=== PATIENT | female | born 1945 | race Caucasian/White ===

== ENCOUNTER 2017-01-19 11:00 | Outpatient (RCR) | payer MEDICARE, OTHER ==
--- OUTSIDE RECORDS SUMMARY | 2016-12-27 13:31 | XMS REPORT | Continuity of Care Document ---
Author Author [facility] Organization [facility] Address Unknown Phone Unavailable Allergies Active Description Code Type Severity Reaction Onset Reported/Identified Relationship to Patient Clinical Status Yes No Known Drug Allergies [id number] Drug Allergy Unknown N/ A 04/18/2011 Medications Problems Date Dx Coded Attending Type Code Diagnosis Diagnosed By 07/31/2013 BEAN ROBERTS MD Ot 244.9 HYPOTHYROIDISM NOS 07/31/2013 BEAN ROBERTS MD Ot 272.4 HYPERLIPIDEMIA NEC/NOS 07/31/2013 BEAN ROBERTS MD Ot 401.9 HYPERTENSION NOS 07/31/2013 BEAN ROBERTS MD Ot 411.1 INTERMED CORONARY SYND 07/31/2013 BEAN ROBERTS MD Ot 414.01 CORONARY ATHEROSCLEROSIS OF [place] CORON 07/31/2013 BEAN ROBERTS MD Ot 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[place] 07/31/2013 BEAN ROBERTS MD Ot V10.05 HX OF COLONIC MALIGNANCY 07/31/2013 BEAN ROBERTS MD Ot V58.69 OT MED,LT,CURRENT USE 08/06/2013 MOISES MEDINA TRAINING MANAGER Ot 726.5 ENTHESOPATHY OF HIP 08/06/2013 MOISES MEDINA TRAINING MANAGER Ot V57.1 PHYSICAL THERAPY NEC 12/18/2013 BEAN ROBERTS MD Ot 413.9 ANGINA PECTORIS NEC/NOS 12/18/2013 BEAN ROBERTS MD Ot V45.81 AORTOCORONARY BYPASS 12/18/2013 BEAN ROBERTS MD Ot V57.89 REHABILITATION PROC NEC 01/17/2014 BEAN ROBERTS MD Ot 413.9 ANGINA PECTORIS NEC/NOS 01/17/2014 BEAN ROBERTS MD Ot V45.81 AORTOCORONARY BYPASS 01/17/2014 BEAN ROBERTS MD Ot V57.89 REHABILITATION PROC NEC 03/03/2014 PHOEBE RAMOS MD Ot 569.82 03/03/2014 RICHARD SYED PHOEBE M Ot V10.05 03/03/2014 RICHARD SYED, PHOEBE Quinten Ot V67.09 09/29/2014 SCOTT PA, MARTIN K Ot 244.9 09/29/2014 SCOTT PA, MARTIN K Ot 272.4 09/29/2014 SCOTT PA, MARTIN K Ot 401.9 09/29/2014 SCOTT BARTHOLOMEW, MARTIN K Ot 414.00 09/29/2014 SCOTT PA, MARTIN K Ot 696.1 09/29/2014 SCOTT BARTHOLOMEW, MARTIN K Ot 733.90 09/29/2014 RICHARD SYED, PHOEBE Quinten Ot V72.84 09/29/2014 Ot 244.9 09/29/2014 Ot 272.4 09/29/2014 Ot 401.9 09/29/2014 Ot 414.00 09/29/2014 Ot 696.1 09/29/2014 Ot 715.90 09/29/2014 Ot 733.90 09/29/2014 Ot V10.05 09/29/2014 Ot V45.72 09/29/2014 Ot V45.81 09/29/2014 Ot V58.69 09/29/2014 Ot V67.2 10/15/2014 CHARLIE SYED, KYRIE Escoto Ot V76.11 10/15/2014 CHARLIE SYED, KYRIE Escoto Ot V76.11 10/15/2014 CHARLIE SYED, KYRIE Escoto Ot V76.11 10/16/2014 RAYNA ZURITA DO V05.8 ZOSTAVAX DX 11/05/2014 CHARLIE SYED, KYRIE Escoto Ot V76.11 12/31/2014 SCOTT PA, MARTIN K Ot 244.9 12/31/2014 SCOTT PA, MARTIN K Ot 272.4 12/31/2014 SCOTT BARTHOLOMEW, MARTIN K Ot 401.9 12/31/2014 SCOTT PA, MARTIN K Ot 414.00 12/31/2014 SCOTT BARTHOLOMEW, MARTIN K Ot 696.1 12/31/2014 SCOTT BARTHOLOMEW, MARTIN K Ot 733.90 10/16/2015 Ot V76.12 10/16/2015 Ot 721.3 10/16/2015 Ot 722.52 10/16/2015 REINIER WHEATLEY N Ot 244.9 10/16/2015 DIONIREINIER RANDLE Ot 272.4 10/16/2015 DIONIREINIER RANDLE N Ot 401.9 10/16/2015 DIONIREINIER RANDLE N Ot 414.00 10/16/2015 DIONIREINIER RANDLE N Ot 696.1 10/16/2015 DIONIREINIER RANDLE Ot 715.90 10/16/2015 DIONIREINIER RANDLE N Ot 733.90 10/16/2015 DIONIREINIER RANDLE N Ot V10.05 10/16/2015 DIONIREINIER RANDLE N Ot V45.72 10/16/2015 DIONIREINIER RANDLE Ot V45.81 10/16/2015 DIONIREINIER RANDLE Ot V58.69 10/16/2015 DIONIREINIER RANDLE Ot V67.2 10/16/2015 MARTIN COREY Ot 272.4 10/16/2015 MARTIN COREY Ot 397.0 10/16/2015 MARTIN COREY Ot 401.9 10/16/2015 MARTIN COREY Ot 414.00 10/16/2015 MARTIN COREY Ot 424.0 10/16/2015 Ot Z12.31 11/05/2015 Ot Z12.31 10/17/2016 Ot V76.12 OTH SCREEN MAMMO-MALIGN NEOPLASM OF [place] 10/17/2016 Ot 721.3 LUMBOSACRAL SPONDYLOSIS 10/17/2016 Ot 722.52 LUMB/LUMBOSAC DISC DEGEN 10/17/2016 REINIER WHEATLEY N Ot 244.9 HYPOTHYROIDISM NOS 10/17/2016 REINIER WHEATLEY N Ot 272.4 HYPERLIPIDEMIA NEC/NOS 10/17/2016 REINIER WHEATLEY N Ot 401.9 HYPERTENSION NOS 10/17/2016 REINIER WHEATLEY N Ot 414.00 CORON ATHEROSCLER NOS TYPE VESSEL, NATIV 10/17/2016 REINIER WHEATLEY N Ot 696.1 OTHER PSORIASIS 10/17/2016 REINIER WHEATLEY Ot 715.90 OSTEOARTHROS NOS-UNSPEC 10/17/2016 REINIER WHEATLEY Ot 733.90 BONE CARTILAGE DIS NOS 10/17/2016 REINIER WHEATLEY Kian Ot V10.05 HX OF COLONIC MALIGNANCY 10/17/2016 REINIER WHEATLEY Kian Ot V45.72 ACQRD ABSENCE INTESTINE - LARGE/SMALL 10/17/2016 REINIER WHEATLEY Kian Ot V45.81 AORTOCORONARY BYPASS 10/17/2016 REINIER WHEATLEY Ot V58.69 OTH MED,LT,CURRENT USE 10/17/2016 REINIER WHEATLEY Kian Ot V67.2 CHEMOTHERAPY FOLLOW-UP 10/17/2016 MARTIN COREY Ot 272.4 HYPERLIPIDEMIA NEC/NOS 10/17/2016 MARTIN COREY Ot 397.0 TRICUSPID VALVE DISEASE 10/17/2016 MARTIN COREY Ot 401.9 HYPERTENSION NOS 10/17/2016 MARTIN COREY Ot 414.00 CORON ATHEROSCLER NOS TYPE VESSEL, NATIV 10/17/2016 MARTIN COREY Ot 424.0 MITRAL VALVE DISORDER 10/17/2016 Ot Z12.31 ENCNTR SCREEN MAMMOGRAM FOR MALIGNANT NE 10/17/2016 JERILYN ODEN MD Ot Z12.31 ENCNTR SCREEN MAMMOGRAM FOR MALIGNANT NE 10/17/2016 JERILYN ODEN MD, Ot Z12.31 ENCNTR SCREEN MAMMOGRAM FOR MALIGNANT NE 10/18/2016 JERILYN ODEN MD, Ot Z12.31 ENCNTR SCREEN MAMMOGRAM FOR MALIGNANT NE 11/14/2016 JERILYN ODEN MD, Ot Z12.31 ENCNTR SCREEN MAMMOGRAM FOR MALIGNANT NE Procedures Results Encounters ACCT No. Visit Date/Time Discharge Status Pt. Type Provider Facility Loc./Unit Complaint [id number] 10/08/2014 09:35:00 2013 23:59:59 CLS Outpatient CHARLIE SYED, KYRIE Escoto [facility] RAD [id number] 03/03/2014 08:23:00 2013 11:10:00 DIS Outpatient PHOEBE RAMOS MD [facility] [id number] 02/27/2014 07:32:00 2013 23:59:59 CLS Outpatient PHOEBE RAMOS MD [facility] PREOP [id number] 02/25/2014 11:39:00 2013 23:59:59 CLS Outpatient MARTIN COREY [facility] RAD [id number] 02/19/2014 10:35:00 2013 23:59:59 CLS Outpatient MARTIN COREY [facility] CARD CAD,HTN,HLP [id number] 01/01/2014 12:02:00 2013 11:45:00 DIS Outpatient BEAN ROBERTS MD [facility] CR STABLE ANGINA [id number] 12/18/2013 12:52:00 2013 14:43:00 DIS Outpatient BEAN ROBERTS MD [facility] CR STABLE ANGINA [id number] 09/18/2013 10:29:00 2012 23:59:59 CLS Outpatient REINIER WHEATLEY [facility] ONC [id number] 07/30/2013 09:15:00 2012 14:00:00 DIS Outpatient MOISES MEDINA TRAINING MANAGER [facility] REHAB R HIP PAIN [id number] 07/31/2013 07:33:00 2012 11:55:00 DIS Outpatient BEAN ROBERTS MD [facility] CATH CHEST PAIN,SOB,HTN,ABN EKG [id number] 12/27/2016 15:33:00 PEN Preadmit JERILYN ODEN MD [facility] REHAB LOW BACK PAIN WITH RADICULOPATHY [id number] 10/17/2016 10:01:00 ACT Outpatient JERILYN ODEN MD [facility] RAD SCREENING [id number] 10/14/2015 10:01:00 Document Registration [id number] 09/17/2014 10:24:00 Document Registration [id number] 01/17/2013 12:28:00 Document Registration [id number] 01/08/2013 15:33:00 Document Registration [id number] 11/26/2012 09:52:00 Document Registration
[~2017-01-19 11:00] MED LIST: ASPI-875 PO; ATOR40TA PO; CALC-78 PO; CHOL200025 PO; LVT.1T PO; METO25TA2 PO; MULT-974 PO; NABU750T PO
== END 2017-02-13 15:00 | disposition home or self-care (01) ==
PROVIDERS: ATTEND Family Medicine
DX: M51.16 Intervertebral disc disorders with radiculopathy, lumbar region (principal)

== ENCOUNTER → 2017-02-15 | Outpatient (CLI) | payer MEDICARE, OTHER ==
--- NOTE | 2017-02-15 09:13 | Diagnostic Imaging Report ---
PROCEDURE: CT sinuses without contrast TECHNIQUE: Multiple contiguous axial images were obtained through the sinuses without the use of intravenous contrast. Coronal and sagittal reformations were then performed. INDICATION: Sinus pain x1 week There is complete opacification of the right maxillary sinus. Left maxillary sinus is clear with widely patent ostiomeatal unit. There is slight deviation of the nasal septum towards the right. Ethmoid air cells are clear. Frontal sinuses are clear. Sphenoid sinuses clear. Mastoid air cells appear clear. IMPRESSION: Right maxillary sinusitis. Dictated by: Dictated on workstation # [id number]
== END ==
LOC: RAD 08:41
PROVIDERS: ATTEND Family Medicine
DX: J32.9 Chronic sinusitis, unspecified (principal)
CPT/HCPCS: 70486

== ENCOUNTER → 2017-03-08 | Outpatient (CLI) | payer MEDICARE, OTHER ==
[~2017-03-08] VITALS: Ht 147.3 cm; Wt 56.2 kg
[~2017-03-08] MED LIST changes: +CATHETER FLUSH 10 ML SYR IV PRN
[2017-03-08 09:35] VITALS: BP 147/67
[2017-03-08 09:38] VITALS: BP 147/66
[2017-03-08 09:43] VITALS: BP 157/66
[2017-03-08 09:44] VITALS: BP 179/88
--- NOTE | 2017-03-09 11:57 | STRESS TEST ---
DATE OF SERVICE: 03/08/2017 EXERCISE MYOVIEW STRESS TEST INDICATION: Coronary artery disease. REFERRING PHYSICIAN: Clover Ramesh MD Baseline heart rate is 64, baseline blood pressure 153/69, baseline EKG is sinus rhythm with no ischemic changes. In summary, the patient was injected with 10.04 mCi of technetium 99 Myoview and the resting images were obtained. Then, the patient started exercising with a baseline heart, blood pressure and EKG mentioned above. At minutes 8, the patient was injected with 30.1 mCi of technetium 99 Myoview. The patient was able to finish a total of 9 minutes on standard Damon protocol achieving maximum heart rate of 125, which is target heart rate. At peak exercise level, there were no EKG changes. During recovery, heart rate and blood pressure returned to baseline, EKG returned to baseline. The resting and stress images were reviewed and compared in the short axis, horizontal long axis and vertical long axis views. Review of the images showed breast attenuation affecting the quality of the images. No significant ischemia or infarction. SSS is 0, TID value 0.92. On the gated images, the left ventricle appeared to be normal sized with normal contractility. Calculated ejection fraction 77%. CONCLUSION: 1. Good excellent tolerance, a total of 9 minutes on standard Damon protocol, 10.1 METS achieving 85% of maximum expected heart rate. 2. Appropriate heart rate and blood pressure response to exercise, returned to baseline during recovery. 3. Nondiagnostic EKG changes with exercise, returned to baseline during recovery. 4. No ischemia or infarction on SPECT images. 5. Normal left ventricular size with normal contractility, calculated ejection fraction 77%. Job ID: [id number] DocumentID: [id number] Dictated Date: 03/08/2017 16:38:40 [employer] Date: 03/09/2017 08:15:12 Dictated By: BEAN ROBERTS MD
== END ==
LOC: CARD 08:25
PROVIDERS: ATTEND Internal Medicine Cardiovascular Disease
DX: I25.10 Atherosclerotic heart disease of native coronary artery without angina pectoris (principal); I10 Essential (primary) hypertension; E78.5 Hyperlipidemia, unspecified
CPT/HCPCS: 78452; 93017

== ENCOUNTER → 2017-03-16 | Outpatient (CLI) | payer MEDICARE, OTHER ==
[~2017-03-16] MED LIST changes: -CATHETER FLUSH 10 ML SYR IV PRN
== END ==
LOC: CARD 10:10
PROVIDERS: ATTEND Internal Medicine Cardiovascular Disease
DX: I25.10 Atherosclerotic heart disease of native coronary artery without angina pectoris (principal); E78.5 Hyperlipidemia, unspecified; I10 Essential (primary) hypertension

== ENCOUNTER → 2017-10-31 | Outpatient (CLI) | payer MEDICARE, OTHER ==
--- NOTE | 2017-10-31 18:19 | Diagnostic Imaging Report ---
Bilateral screening mammogram 2D views with tomosynthesis The current study was also evaluated with a Computer Aided Detection (CAD) system. Indication: Screening. No current complaints stated on the questionnaire. COMPARISON: 10/17/2016. FINDINGS: The breasts are composed of scattered fibroglandular densities. There are scattered benign-appearing calcifications. There is no mass, architectural distortion or suspicious cluster of calcification. Allowing for technique and positional differences, no suspicious change is seen. IMPRESSION: No significant change. ACR BI-RADS Category 2: Benign findings. Result letter will be mailed to the patient. Note: At least 10% of breast cancer is not imaged by mammography. Dictated by: Dictated on workstation # [id number]
== END ==
LOC: RAD 11:09
PROVIDERS: ATTEND Family Medicine
DX: Z12.31 Encounter for screening mammogram for malignant neoplasm of breast (principal)
CPT/HCPCS: 77067

== ENCOUNTER 2018-03-06 06:00 | Outpatient (RCR) | payer MEDICARE, OTHER | END 2018-03-10 | disposition home or self-care (01) | LOC: CR3 06:00 | PROVIDERS: ATTEND Family Medicine | DX: Z29.8 Encounter for other specified prophylactic measures (principal) ==

== ENCOUNTER 2018-04-24 06:00 | Outpatient (RCR) | payer MEDICARE, OTHER | END 2018-04-26 | disposition home or self-care (01) | LOC: CR3 06:00 | PROVIDERS: ATTEND Family Medicine | DX: Z29.8 Encounter for other specified prophylactic measures (principal) ==

== ENCOUNTER 2018-05-24 06:00 | Outpatient (RCR) | payer MEDICARE, OTHER | END 2018-05-26 | disposition home or self-care (01) | LOC: CR3 06:00 | PROVIDERS: ATTEND Family Medicine | DX: Z29.8 Encounter for other specified prophylactic measures (principal) ==

== ENCOUNTER 2018-07-31 06:00 | Outpatient (RCR) | payer MEDICARE, OTHER | END 2018-08-02 | disposition home or self-care (01) | LOC: CR3 06:00 | PROVIDERS: ATTEND Family Medicine | DX: Z29.8 Encounter for other specified prophylactic measures (principal) ==

== ENCOUNTER 2018-08-30 06:00 | Outpatient (RCR) | payer MEDICARE, OTHER | END 2018-09-06 | disposition home or self-care (01) | LOC: CR3 06:00 | PROVIDERS: ATTEND Family Medicine | DX: Z29.8 Encounter for other specified prophylactic measures (principal) ==

== ENCOUNTER 2018-10-25 13:00 | Outpatient (RCR) | payer MEDICARE, OTHER | END 2018-11-24 | disposition home or self-care (01) | LOC: CR3 13:00 | PROVIDERS: ATTEND Family Medicine | DX: Z29.8 Encounter for other specified prophylactic measures (principal) ==

== ENCOUNTER → 2018-11-07 | Outpatient (CLI) | payer MEDICARE, OTHER ==
--- NOTE | 2018-11-07 11:42 | Diagnostic Imaging Report ---
EXAMINATION: Digital mammogram bilateral screening with 3-D tomosynthesis and computer-aided detection (CAD) system. INDICATION: Screening. This study was compared to the prior exams of 10/31/2017, 10/17/2016, and 10/14/2015. At this time, there are no current complaints. FINDINGS: The fibroglandular tissue in both breasts is heterogeneously dense. This does limit the sensitivity of this exam. Overall, there does not appear to have been any significant change when compared to the prior study. No primary or secondary sign of malignancy is noted. 3D tomographic images fail to show any sign of malignancy. IMPRESSION: There is no radiographic evidence for malignancy. ACR BI-RADS Category 1: Negative. Result letter will be mailed to the patient. Note: At least 10% of breast cancer is not imaged by mammography. Dictated by: Dictated on workstation # [id number]
== END ==
LOC: RAD 10:02
PROVIDERS: ATTEND Family Medicine
DX: Z12.31 Encounter for screening mammogram for malignant neoplasm of breast (principal)
CPT/HCPCS: 77067

== ENCOUNTER 2019-03-26 11:05 | Inpatient (IN) | payer MEDICARE, OTHER ==
[~2019-03-26] VITALS: Ht 147.3 cm; Wt 53.5 kg
--- NOTE | 2019-03-26 13:50 | NUR ---
RAYNA FRITZ admitted to room 429-1, with an admitting diagnosis of AMS, UTI, on 03/26/19 from [facility] via AMBULANCE, accompanied by STAFF.RAYNA FRITZ introduced to surroundings, call light, bed controls, phone, TV, temperature control, lights, meal times, smoking policy, visitor policy, side rail policy, bathrooms and showers. Patient Rights given to patient in the handbook.RAYNA FRITZ verbalizes understanding that [facility] is not responsible for the loss or damage to any personal effects or valuables that are kept in the patients posession during their hospitalization. The following Patient Care Plans were discussed with the PT: Discharge Planning, PAIN CONTROL,IV THERAPY IV ANTIBIOTICS, and TESTS. RAYNA FRITZ verbalizes understanding of Interdisciplinary Patient Education. Patient and/or family were informed about the Rapid Response Team and its purpose.
[2019-03-26 14:01] VITALS: BP 171/92
--- OUTSIDE RECORDS SUMMARY | 2019-03-26 14:49 | XMS REPORT | Continuity of Care Document ---
Author Organization Unknown Address Unknown Allergies Active Description Code Type Severity Reaction Onset Reported/Identified Relationship to Patient Clinical Status Yes AAM INHIBITORS MILD RESPIRATORY - COUGHI Yes NITROFURANTOIN UNKNOWN OTHER Yes QUINOLONES UNKNOWN SIDE EFFECT Yes SULFA (SULFONAMIDE ANTIBIOTICS) UNKNOWN DERMATOLOGICAL - ROSE Yes No Known Drug Allergies [id number] Drug Allergy Unknown N/A 04/18/2011 Medications Medication Packaging Start Date Stop Date Route Dosage Sig IBUPROFEN TAB 600 MG (MOTRIN) MG 08/31/2018 08/31/2018 ONCE&1952 Problems Date Dx Coded Attending Type Code Diagnosis Diagnosed By 10/05/1499 JERILYN ODEN MD Ot M51.16 INTERVERTEBRAL DISC DISORDERS W RADICULO 07/31/2013 BEAN ROBERTS MD Ot 244.9 HYPOTHYROIDISM NOS 07/31/2013 BEAN ROBERTS MD Ot 272.4 HYPERLIPIDEMIA NEC/NOS 07/31/2013 BEAN ROBERTS MD Ot 401.9 HYPERTENSION NOS 07/31/2013 BEAN ROBERTS MD Ot 411.1 INTERMED CORONARY SYND 07/31/2013 BEAN ROBERTS MD Ot 414.01 CORONARY ATHEROSCLEROSIS OF [place] CORON 07/31/2013 BEAN ROBERTS MD Ot 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[place] 07/31/2013 BEAN ROBERTS MD Ot V10.05 HX OF COLONIC MALIGNANCY 07/31/2013 BEAN ROBERTS MD Ot V58.69 OT MED,LT,CURRENT USE 08/06/2013 MOISES MEDINA Ot 726.5 ENTHESOPATHY OF HIP 08/06/2013 MOISES MEDINA Ot V57.1 PHYSICAL THERAPY NEC 12/18/2013 BEAN ROBERTS MD Ot 413.9 ANGINA PECTORIS NEC/NOS 12/18/2013 BEAN ROBERTS MD Ot V45.81 AORTOCORONARY BYPASS 12/18/2013 BEAN ROBERTS MD Ot V57.89 REHABILITATION PROC NEC 01/17/2014 BEAN ROBERTS MD Ot 413.9 ANGINA PECTORIS NEC/NOS 01/17/2014 BEAN ROBERTS MD Ot V45.81 AORTOCORONARY BYPASS 01/17/2014 BEAN ROBERTS MD Ot V57.89 REHABILITATION PROC NEC 03/03/2014 PHOEBE RAMOS MD Ot 569.82 ULCERATION OF INTESTINE 03/03/2014 PHOEBE RAMOS MD Ot V10.05 HX OF COLONIC MALIGNANCY 03/03/2014 PHOEBE RAMOS MD Ot V67.09 SURGERY FOLLOW-UP, OTHER SURGERY 09/29/2014 MARTIN COREY Ot 244.9 09/29/2014 MARTIN COREY Ot 272.4 09/29/2014 MARTIN COREY Ot 401.9 09/29/2014 MARTIN COREY Ot 414.00 09/29/2014 MARTIN COREY Ot 696.1 09/29/2014 MARTIN COREY Ot 733.90 09/29/2014 PHOEBE RAMOS MD Ot V72.84 09/29/2014 Ot 244.9 09/29/2014 Ot [...] CHARLIE SYED, KYRIE Escoto Ot V76.11 12/31/2014 MARTIN COREY Ot 244.9 12/31/2014 SCOTT BARTHOLOMEW, MARTIN Epstein Ot 272.4 12/31/2014 SCOTT BARTHOLOMEW, MARTIN Epstein Ot 401.9 12/31/2014 SCOTT BARTHOLOMEW, MARTIN Epstein Ot 414.00 12/31/2014 SCOTT BARTHOLOMEW, MARTIN Epstein Ot 696.1 12/31/2014 SCOTT BARTHOLOMEW, MARTIN Epstein Ot 733.90 10/16/2015 Ot V76.12 10/16/2015 Ot 721.3 10/16/2015 Ot 722.52 10/16/2015 DIONI, REINIER N Ot 244.9 10/16/2015 DIONI, REINIER N Ot 272.4 10/16/2015 DIONI, REINIER N Ot 401.9 10/16/2015 DIONI, REINIER N Ot 414.00 10/16/2015 DIONI, REINIER N Ot 696.1 10/16/2015 DIONI, REINIER N Ot 715.90 10/16/2015 DIONI, BOBAN N Ot 733.90 10/16/2015 DIONI, BOBAN N Ot V10.05 10/16/2015 DIONI, BOBAN N Ot V45.72 10/16/2015 DIONI, BOBAN N Ot V45.81 10/16/2015 DIONI, BOBAN N Ot V58.69 10/16/2015 DIONI, BOBAN N Ot V67.2 10/16/2015 SCOTT BARTHOLOMEW, MARTIN Epstein Ot 272.4 10/16/2015 SCOTT BARTHOLOMEW, MARTIN Epstein Ot 397.0 10/16/2015 SCOTT BARTHOLOMEW, MARTIN Epstein Ot 401.9 10/16/2015 SCOTT BARTHOLOMEW, MARTIN Epstein Ot 414.00 10/16/2015 SCOTT BARTHOLOMEW, MARTIN Epstein Ot 424.0 10/16/2015 Ot Z12.31 11/05/2015 Ot Z12.31 10/17/2016 Ot V76.12 OTH SCREEN MAMMO- MALIGN NEOPLASM OF [place] 10/17/2016 Ot 721.3 LUMBOSACRAL SPONDYLOSIS 10/17/2016 Ot 722.52 LUMB/LUMBOSAC DISC DEGEN 10/17/2016 REINIER WHEATLEY N Ot 244.9 HYPOTHYROIDISM NOS 10/17/2016 REINIER WHEATLEY Kian Ot 272.4 HYPERLIPIDEMIA NEC/NOS 10/17/2016 REINIER WHEATLEY Kian Ot 401.9 HYPERTENSION NOS 10/17/2016 REINIER WHEATLEY Kian Ot 414.00 CORON ATHEROSCLER NOS TYPE VESSEL, NATIV 10/17/2016 REINIER WHEATLEY Kian Ot 696.1 OTHER PSORIASIS 10/17/2016 REINIER WHEATLEY N Ot 715.90 OSTEOARTHROS NOS-UNSPEC 10/17/2016 REINIER WHEATLEY N Ot 733.90 BONE CARTILAGE DIS NOS 10/17/2016 REINIER WHEATLEY Kian Ot V10.05 HX OF COLONIC MALIGNANCY 10/17/2016 REINIER WHEATLEY Kian Ot V45.72 ACQRD ABSENCE INTESTINE - LARGE/SMALL 10/17/2016 MURALI WHEATLEYLINDA Langston Ot V45.81 AORTOCORONARY BYPASS 10/17/2016 REINIER WHEATLEY Kian Ot V58.69 OTH MED,LT,CURRENT USE 10/17/2016 REINIER [...] MAMMOGRAM FOR MALIGNANT NE 10/18/2016 JERILYN ODEN MD Ot Z12.31 ENCNTR SCREEN MAMMOGRAM FOR MALIGNANT NE 11/14/2016 JERILYN ODEN MD, Ot Z12.31 ENCNTR SCREEN MAMMOGRAM FOR MALIGNANT NE 02/01/2017 JERILYN ODEN MD, Ot M51.16 INTERVERTEBRAL DISC DISORDERS W RADICULO 02/13/2017 JERILYN ODEN MD Ot M51.16 INTERVERTEBRAL DISC DISORDERS W RADICULO 02/17/2017 JERILYN ODEN MD Ot J32.9 CHRONIC SINUSITIS, UNSPECIFIED 02/21/2017 JERILYN ODEN MD Ot J32.9 CHRONIC SINUSITIS, UNSPECIFIED 03/06/2017 BEAN ROBERTS MD Ot I25.10 ATHSCL HEART DISEASE OF [place] CORONARY 03/06/2017 BEAN ROBERTS MD Ot I25.10 ATHSCL HEART DISEASE OF [place] CORONARY 03/07/2017 Ot V76.12 OTH SCREEN MAMMO- MALIGN NEOPLASM OF [place] 03/07/2017 Ot 721.3 LUMBOSACRAL SPONDYLOSIS 03/07/2017 Ot 722.52 LUMB/LUMBOSAC DISC DEGEN 03/07/2017 REINIER WHEATLEY Ot 244.9 HYPOTHYROIDISM NOS 03/07/2017 REINIER WHEATLEY Ot 272.4 HYPERLIPIDEMIA NEC/NOS 03/07/2017 REINIER WHEATLEY Ot 401.9 HYPERTENSION NOS 03/07/2017 REINIER WHEATLEY Ot 414.00 CORON ATHEROSCLER NOS TYPE VESSEL, NATIV 03/07/2017 REINIER WHEATLEY Ot 696.1 OTHER PSORIASIS 03/07/2017 REINIER WHEATLEY Ot 715.90 OSTEOARTHROS NOS-UNSPEC 03/07/2017 REINIER WHEATLEY Ot 733.90 BONE CARTILAGE DIS NOS 03/07/2017 REINIER WHEATLEY Ot V10.05 HX OF COLONIC MALIGNANCY 03/07/2017 REINIER WHEATLEY Ot V45.72 ACQRD ABSENCE INTESTINE - LARGE/SMALL 03/07/2017 REINIER WHEATLEY Ot V45.81 AORTOCORONARY BYPASS 03/07/2017 REINIER WHEATLEY Ot V58.69 OTH MED,LT,CURRENT USE 03/07/2017 REINIER WHEATLEY Ot V67.2 CHEMOTHERAPY FOLLOW-UP 03/07/2017 MARTIN COREY Ot 272.4 HYPERLIPIDEMIA NEC/NOS 03/07/2017 MARTIN COREY Ot 397.0 TRICUSPID VALVE DISEASE 03/07/2017 MARTIN COREY Ot 401.9 HYPERTENSION NOS 03/07/2017 THOMSON-CHAO PA, MARTIN K Ot 414.00 CORON ATHEROSCLER NOS TYPE VESSEL, NATIV 03/07/2017 SCOTT BARTHOLOMEW MARTIN K Ot 424.0 MITRAL VALVE DISORDER 03/07/2017 Ot Z12.31 ENCNTR SCREEN MAMMOGRAM FOR MALIGNANT NE 03/07/2017 BEAN ROBERTS MD Ot I25.10 ATHSCL HEART DISEASE OF [place] CORONARY 03/07/2017 JERILYN ODEN MD Ot Z12.31 ENCNTR SCREEN MAMMOGRAM FOR MALIGNANT NE 03/07/2017 JERILYN ODEN MD Ot J32.9 CHRONIC SINUSITIS, UNSPECIFIED 03/07/2017 JERILYN ODEN MD Ot J32.9 CHRONIC SINUSITIS, UNSPECIFIED 03/09/2017 BEAN ROBERTS MD Ot E78.5 HYPERLIPIDEMIA, UNSPECIFIED 03/09/2017 BEAN ROBERTS MD Ot I10 ESSENTIAL (PRIMARY) HYPERTENSION 03/09/2017 BEAN ROBERTS MD Ot I25.10 ATHSCL HEART DISEASE OF [place] CORONARY 03/17/2017 BEAN ROBERTS MD Ot E78.5 HYPERLIPIDEMIA, UNSPECIFIED 03/17/2017 BEAN ROBERTS MD Ot I10 ESSENTIAL (PRIMARY) HYPERTENSION 03/17/2017 BEAN ROBERTS MD Ot I25.10 ATHSCL HEART DISEASE OF [place] CORONARY 03/29/2017 BEAN ROBERTS MD Ot E78.5 HYPERLIPIDEMIA, UNSPECIFIED 03/29/2017 BEAN ROBERTS MD Ot I10 ESSENTIAL (PRIMARY) HYPERTENSION 03/29/2017 BEAN ROBERTS MD Ot I25.10 ATHSCL HEART DISEASE OF [place] CORONARY 04/06/2017 BEAN ROBERTS MD Ot E78.5 HYPERLIPIDEMIA, UNSPECIFIED 04/06/2017 BEAN ROBERTS MD Ot I10 ESSENTIAL (PRIMARY) HYPERTENSION 04/06/2017 BEAN ROBERTS MD Ot I25.10 ATHSCL HEART DISEASE OF [place] CORONARY 07/18/2017 JERILYN ODEN 244.9 UNSPECIFIED HYPOTHYROIDISM 07/18/2017 JERILYN ODEN E03.9 HYPOTHYROIDISM, UNSPECIFIED 07/18/2017 JERILYN ODEN V70.0 ROUTINE GENERAL MEDICAL EXAMINATION AT A HEALTH CARE FACILITY 07/18/2017 JERILYN ODEN Z00.00 ENCOUNTER FOR GENERAL ADULT MEDICAL EXAMINATION WITHOUT ABNORMAL FINDINGS 07/18/2017 ODEN, JERILYN W 244.9 UNSPECIFIED HYPOTHYROIDISM 07/18/2017 RENY ODENHEL W E03.9 HYPOTHYROIDISM, UNSPECIFIED 07/18/2017 ODENRENYJERILYN W V70.0 ROUTINE GENERAL MEDICAL EXAMINATION AT A HEALTH CARE FACILITY 07/18/2017 JERILYN ODEN Z00.00 ENCOUNTER FOR GENERAL ADULT MEDICAL EXAMINATION WITHOUT ABNORMAL FINDINGS 07/19/2017 JERILYN ODEN MD Ot Z12.31 ENCNTR SCREEN MAMMOGRAM FOR MALIGNANT NE 10/12/2017 Ot V10.05 HX OF COLONIC MALIGNANCY 10/12/2017 Ot V45.72 ACQRD ABSENCE INTESTINE - LARGE/SMALL 10/12/2017 Ot V58.69 OTH MED,LT,CURRENT USE 10/12/2017 Ot V67.2 CHEMOTHERAPY FOLLOW- UP 10/12/2017 Ot V76.12 OTH SCREEN MAMMO- MALIGN NEOPLASM OF [place] 10/12/2017 Ot 721.3 LUMBOSACRAL SPONDYLOSIS 10/12/2017 Ot 722.52 LUMB/LUMBOSAC DISC DEGEN 10/12/2017 REINIER WHEATLEY Ot 244.9 HYPOTHYROIDISM NOS 10/12/2017 REINIER WHEATLEY N Ot 272.4 HYPERLIPIDEMIA NEC/NOS 10/12/2017 REINIER WHEATLEY N Ot 401.9 HYPERTENSION NOS 10/12/2017 REINIER WHEATLEY N Ot 414.00 CORON ATHEROSCLER NOS TYPE VESSEL, NATIV 10/12/2017 REINIER WHEATLEY N Ot 696.1 OTHER PSORIASIS 10/12/2017 REINIER WHEATLEY N Ot 715.90 OSTEOARTHROS NOS-UNSPEC 10/12/2017 REINIER WHEATLEY N Ot 733.90 BONE CARTILAGE DIS NOS 10/12/2017 REINIER WHEATLEY Ot V10.05 HX OF COLONIC MALIGNANCY 10/12/2017 REINIER WHEATLEY Ot V45.72 ACQRD ABSENCE INTESTINE - LARGE/SMALL 10/12/2017 REINIER WHEATLEY N Ot V45.81 AORTOCORONARY BYPASS 10/12/2017 REINIER WHEATLEY Ot V58.69 OTH MED,LT,CURRENT USE 10/12/2017 REINIER WHEATLEY N Ot V67.2 CHEMOTHERAPY FOLLOW-UP 10/12/2017 MARTIN COREY Ot 272.4 HYPERLIPIDEMIA NEC/NOS 10/12/2017 DANIEL COREYDITH Tete Ot 397.0 TRICUSPID VALVE DISEASE 10/12/2017 SCOTT BARTHOLOMEW MARTIN Tete Ot 401.9 HYPERTENSION NOS 10/12/2017 SCOTT BARTHOLOMEW MARTIN Tete Ot 414.00 CORON ATHEROSCLER NOS TYPE VESSEL, NATIV 10/12/2017 SCOTT BARTHOLOMEW MARTIN Tete Ot 424.0 MITRAL VALVE DISORDER 10/12/2017 SCOTT BARTHOLOMEW MARTIN Tete Ot 244.9 HYPOTHYROIDISM NOS 10/12/2017 SCOTT BARTHOLOMEW MARTIN Tete Ot 272.4 HYPERLIPIDEMIA NEC/NOS 10/12/2017 SCOTT BARTHOLOMEW MARTIN Tete Ot 401.9 HYPERTENSION NOS 10/12/2017 SCOTT BARTHOLOMEW MARTIN Epstein Ot 414.00 CORON ATHEROSCLER NOS TYPE VESSEL, NATIV 10/12/2017 SCOTT BARTHOLOMEW MARTIN Tete Ot 696.1 OTHER PSORIASIS 10/12/2017 SCOTT BARTHOLOMEW MARTIN Tete Ot 733.90 BONE CARTILAGE DIS NOS 10/12/2017 RICHARD SYED, PHOEBE Shipley Ot V72.84 EXAM PRE-OPERATIVE NOS 10/12/2017 Ot 244.9 HYPOTHYROIDISM NOS 10/12/2017 Ot 272.4 HYPERLIPIDEMIA NEC/NOS 10/12/2017 Ot 401.9 HYPERTENSION NOS 10/12/2017 Ot 414.00 CORON ATHEROSCLER NOS TYPE VESSEL, NATIV 10/12/2017 Ot 696.1 OTHER PSORIASIS 10/12/2017 Ot 715.90 OSTEOARTHROS NOS-UNSPEC 10/12/2017 Ot 733.90 BONE CARTILAGE DIS NOS 10/12/2017 Ot V10.05 HX OF COLONIC MALIGNANCY 10/12/2017 Ot V45.72 ACQRD ABSENCE INTESTINE - LARGE/SMALL 10/12/2017 Ot V45.81 AORTOCORONARY BYPASS 10/12/2017 Ot V58.69 OTH MED,LT,CURRENT USE 10/12/2017 Ot V67.2 CHEMOTHERAPY FOLLOW- UP 10/12/2017 BEAN ROBERTS MD Ot E78.5 HYPERLIPIDEMIA, UNSPECIFIED 10/12/2017 BEAN ROBERTS MD Ot I10 ESSENTIAL (PRIMARY) HYPERTENSION 10/12/2017 BEAN ROBERTS MD Ot I25.10 ATHSCL HEART DISEASE OF [place] CORONARY 10/12/2017 ARMANDO MD, BASHAR J Ot E78.5 HYPERLIPIDEMIA, UNSPECIFIED 10/12/2017 ARMANDO SYED, BEAN Bowser Ot I10 ESSENTIAL (PRIMARY) HYPERTENSION 10/12/2017 ARMANDO SYED, BEAN Bowser Ot I25.10 ATHSCL HEART DISEASE OF [place] CORONARY 10/12/2017 JERILYN ODEN MD Ot Z12.31 ENCNTR SCREEN MAMMOGRAM FOR MALIGNANT NE 11/23/2017 JERILYN ODEN MD Ot Z12.31 ENCNTR SCREEN MAMMOGRAM FOR MALIGNANT NE 03/10/2018 JERILYN ODEN MD Ot Z29.8 ENCOUNTER FOR OTHER SPECIFIED PROPHYLACT 03/15/2018 JERILYN ODEN MD Ot Z29.8 ENCOUNTER FOR OTHER SPECIFIED PROPHYLACT 03/28/2018 JERILYN ODEN MD Ot Z12.31 ENCNTR SCREEN MAMMOGRAM FOR MALIGNANT NE 04/30/2018 JERILYN ODEN MD Ot Z29.8 ENCOUNTER FOR OTHER SPECIFIED PROPHYLACT 05/26/2018 JERILYN ODEN MD Ot Z29.8 ENCOUNTER FOR OTHER SPECIFIED PROPHYLACT 06/13/2018 JERILYN ODEN W 272.4 OTHER AND UNSPECIFIED HYPERLIPIDEMIA 06/13/2018 RENY ODENHEL W 401.0 MALIGNANT ESSENTIAL HYPERTENSION 06/13/2018 JERILYN ODEN W E78.5 HYPERLIPIDEMIA, UNSPECIFIED 06/13/2018 AKSHAT, JERILYN W I10 ESSENTIAL (PRIMARY) HYPERTENSION 06/13/2018 JERILYN ODEN W 272.4 OTHER AND UNSPECIFIED HYPERLIPIDEMIA 06/13/2018 RENY ODENHEL W 401.0 MALIGNANT ESSENTIAL HYPERTENSION 06/13/2018 JERILYN ODEN W E78.5 HYPERLIPIDEMIA, UNSPECIFIED 06/13/2018 RENY ODENHEL W I10 ESSENTIAL (PRIMARY) HYPERTENSION 06/13/2018 JERILYN ODEN W 272.4 OTHER AND UNSPECIFIED HYPERLIPIDEMIA 06/13/2018 AKSHAT, JERILYN W 401.0 MALIGNANT ESSENTIAL HYPERTENSION 06/13/2018 JERILYN ODEN W E78.5 HYPERLIPIDEMIA, UNSPECIFIED 06/13/2018 JERILYN ODEN W I10 ESSENTIAL (PRIMARY) HYPERTENSION 06/28/2018 JERILYN ODEN MD Ot Z01.818 ENCOUNTER FOR OTHER PREPROCEDURAL EXAMIN 08/06/2018 JERILYN ODEN MD Ot Z29.8 ENCOUNTER FOR OTHER SPECIFIED PROPHYLACT 08/31/2018 Candice De La O 848.8 OTHER SPECIFIED SITES OF SPRAINS AND STRAINS 08/31/2018 Candice De La O A A S39.012A STRAIN OF MUSCLE, FASCIA AND TENDON OF LOWER BACK, INIT 09/06/2018 AKSHAT SYED, JERILYN Smith Ot Z29.8 ENCOUNTER FOR OTHER SPECIFIED PROPHYLACT 09/16/2018 JERILYN ODEN W 722.52 DEGENERATION OF LUMBAR OR LUMBOSACRAL INTERVERTEBRAL DISC 09/16/2018 JERILYN ODEN A 724.2 LUMBAGO 09/16/2018 JERILYN ODEN W 724.4 THORACIC OR LUMBOSACRAL NEURITIS OR RADICULITIS, UNSPECIFIED 09/16/2018 JERILYN ODEN W E888.9 UNSPECIFIED FALL 09/16/2018 JERILYN ODEN W 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, THORACOLUMBAR REGION 09/16/2018 JERILYN ODEN W M54.16 RADICULOPATHY, LUMBAR REGION 09/16/2018 JERILYN ODEN A M54.5 LOW BACK PAIN 09/16/2018 JERILYN ODEN W 722.52 DEGENERATION OF LUMBAR OR LUMBOSACRAL INTERVERTEBRAL DISC 09/16/2018 JERILYN ODEN A 724.2 LUMBAGO 09/16/2018 JERILYN ODEN W 724.4 THORACIC OR LUMBOSACRAL NEURITIS OR RADICULITIS, UNSPECIFIED 09/16/2018 JERILYN ODEN W E888.9 UNSPECIFIED FALL 09/16/2018 JERILYN ODEN W 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, THORACOLUMBAR REGION 09/16/2018 JERILYN ODEN W M54.16 RADICULOPATHY, LUMBAR REGION 09/16/2018 JERILYN ODEN A M54.5 LOW BACK PAIN 10/17/2018 AKSHAT SYED, JERILYN Smith Ot Z12.31 ENCNTR SCREEN MAMMOGRAM FOR MALIGNANT NE 11/08/2018 AKSHAT SYED, JERILYN Smith Ot Z12.31 ENCNTR SCREEN MAMMOGRAM FOR MALIGNANT NE 11/12/2018 JERILYN ODEN W 724.2 LUMBAGO 11/12/2018 JERILYN ODEN W M54.5 LOW BACK PAIN 11/12/2018 JERILYN ODEN 724.2 LUMBAGO 11/12/2018 ODEN, JERILYN W M54.5 LOW BACK PAIN 11/14/2018 JERILYN ODEN W 724.2 LUMBAGO 11/14/2018 AKSHAT, JERILYN W M54.5 LOW BACK PAIN 11/14/2018 JERILYN ODEN W 724.00 SPINAL STENOSIS OF UNSPECIFIED REGION 11/14/2018 JERILYN ODEN W 724.2 LUMBAGO 11/14/2018 JERILYN ODEN W E888.9 UNSPECIFIED FALL 11/14/2018 JERILYN ODEN W M48.00 SPINAL STENOSIS, SITE UNSPECIFIED 11/14/2018 JERILYN ODEN W M54.5 LOW BACK PAIN 11/14/2018 AKSHAT, JERILYN W W19 UNSPECIFIED FALL 11/14/2018 JERILYN ODEN W 724.00 SPINAL STENOSIS OF UNSPECIFIED REGION 11/14/2018 JERILYN ODEN W 724.2 LUMBAGO 11/14/2018 JERILYN ODEN W E888.9 UNSPECIFIED FALL 11/14/2018 JERILYN ODEN W M48.00 SPINAL STENOSIS, SITE UNSPECIFIED 11/14/2018 JERILYN ODEN W M54.5 LOW BACK PAIN 11/14/2018 JERILYN ODEN W W19 UNSPECIFIED FALL 11/26/2018 AKSHAT SYED, JERILYN L Ot Z29.8 ENCOUNTER FOR OTHER SPECIFIED PROPHYLACT 11/30/2018 AKSHAT SYED, JERILYN Smith Ot Z12.31 ENCNTR SCREEN MAMMOGRAM FOR MALIGNANT NE 02/26/2019 JERILYN ODEN W 599.0 URINARY TRACT INFECTION, SITE NOT SPECIFIED 02/26/2019 JERILYN ODEN N39.0 URINARY TRACT INFECTION, SITE NOT SPECIFIED 02/26/2019 JERILYN ODEN 599.0 URINARY TRACT INFECTION, SITE NOT SPECIFIED 02/26/2019 JERILYN ODEN N39.0 URINARY TRACT INFECTION, SITE NOT SPECIFIED 03/20/2019 JERILYN ODEN 788.1 DYSURIA 03/20/2019 JERILYN ODEN R30.0 DYSURIA Procedures There is no data. Results Test Result Range Thyroid Stimulating Hormone - 07/18/17 15:45 TSH 0.12 mIU/mL 0.32-5.00 Thyroid Stimulating Hormone - 10/10/17 09:50 TSH 0.10 mIU/mL 0.32-5.00 Free T4 - 10/10/17 09:50 Free T4 1.55 ng/dL 0.81-1.61 Lipid Panel - 06/13/18 10:55 C/HDL 2.3 3.7-6.7 Cholesterol 174 mg/dL 100-240 HDL 77 mg/dL 30-85 LDL-Calculated 81 mg/dL 0-100 Trig 79 mg/dL 35-160 VLDL 16 mg/dL 0-42 Comprehensive Metabolic Panel - 11/12/18 09:53 Albumin 4.3 g/dL 3.6-5.1 ALP 60 U/L 35-130 ALT 22 U/L 6-45 Anion Gap 16 6-14 AST 33 U/L 2-40 BUN 18 mg/dL 5-25 Calcium 9.3 mg/dL 8.3-10.4 Chloride 97 mmol/L 95-114 CO2 25 mEq/L 22-33 Creat 1.05 mg/dL 0.50-1.50 eGFR 51 mL/min/1.73m2 >59 Globulin 2.3 g/dL 2.3-3.5 Glucose 88 mg/dL 70-110 Osmo 278 280-295 Potassium 4.4 mmol/L 3.5-5.3 Sodium 134 mmol/L 134-148 TBil 0.7 mg/dL 0.2-1.2 TP 6.6 g/dL 6.0-8.3 Lipid Panel - 11/12/18 09:53 C/HDL 2.5 3.7-6.7 Cholesterol 161 mg/dL 100-240 HDL 65 mg/dL 30-85 LDL-Calculated 81 mg/dL 0-100 Trig 75 mg/dL 35-160 VLDL 15 mg/dL 0-42 Urine Culture - 02/26/19 15:50 PRELIM CULTURE RESULTS >100,000 Gram Negative Lactose Fire Supervisor HELEN / ID to Follow MEDIA PLATED Set 02/27/19 at 1500 CULTURE SOURCE Urine Sensi - 02/26/19 15:50 FINAL CULTURE RESULTS Escherichia coli (Isolate 1) Ampicillin/Sulbactam >16/8 Ampicillin >16 Amoxicillin/K Clavulanate >16/8 Ceftriaxone 32 Ciprofloxacin <=1 Nitrofurantoin <=32 Gentamicin <=4 Levofloxacin <=2 Trimethoprim/ Sulfamethoxazole >2/38 Tetracycline >8 Amikacin <=16 Aztreonam <=8 Ceftazidime 16 Ceftazidime/K Clavulanate >2 Cephalothin >16 Cefotaxime 16 Cefotaxime/K Clavulanate >4 Cefoxitin >16 Cefazolin >16 Cefepime <=8 Cefuroxime >16 Ertapenem <=1 Imipenem <=4 Meropenem <=4 Piperacillin/Tazobactam <=16 Piperacillin >64 Tigecycline <=2 Tobramycin 8 Urine Culture - 03/20/19 15:30 Encounters ACCT No. Visit Date/Time Discharge Status Pt. Type Provider Facility Loc./Unit Complaint [id number] 10/16/2014 12:24:00 10/16/2014 23:59:59 CLS Outpatient PARMINDER ZAMORANO RAYNA Tete [id number] 03/20/2019 15:43:00 03/20/2019 23:59:00 DIS Outpatient JERILYN ODEN [id number] 02/26/2019 17:45:00 02/26/2019 23:59:00 DIS Outpatient JERILYN ODEN [id number] 11/14/2018 00:00:00 11/14/2018 23:59:00 DIS Outpatient JERILYN ODEN [id number] 11/12/2018 09:10:00 11/12/2018 23:59:00 DIS Outpatient JERILYN ODEN [id number] 09/16/2018 07:00:00 09/16/2018 23:59:00 DIS Outpatient JERILYN ODEN [id number] 08/31/2018 19:26:00 08/31/2018 20:48:00 DIS Outpatient [facility] ER [id number] 06/13/2018 12:12:00 06/13/2018 23:59:00 DIS Outpatient JERILYN ODEN [id number] 10/19/2017 11:02:00 10/19/2017 23:59:00 DIS Outpatient Sukumar Schmidt [id number] 10/12/2017 13:48:00 10/12/2017 23:59:00 DIS Outpatient JERILYN ODEN [id number] 10/10/2017 13:33:00 10/10/2017 23:59:00 DIS Outpatient JERILYN ODEN [id number] 07/18/2017 15:45:00 07/18/2017 23:59:00 DIS Outpatient JERILYN ODEN [id number] 02/08/2017 00:00:00 02/08/2017 23:59:00 DIS Outpatient JERILYN ODEN [id number] 08/31/2018 19:58:33 Document Registration [id number] 11/25/2018 00:09:00 11/25/2018 23:59:59 CLS Preadmit JERILYN ODEN MD [facility] [id number] 10/25/2018 13:00:00 11/24/2018 00:01:00 DIS Outpatient JERILYN ODEN MD [facility] [id number] 11/07/2018 10:02:00 11/07/2018 23:59:59 CLS Outpatient JERILYN ODEN MD [facility] RAD SCREENING [id number] 08/30/2018 06:00:00 09/06/2018 00:01:00 DIS Outpatient JERILYN ODEN MD [facility] [id number] 07/31/2018 06:00:00 08/02/2018 00:01:00 DIS Outpatient JERILYN ODEN MD [facility] [id number] 06/26/2018 06:00:00 06/28/2018 00:01:00 DIS Outpatient JERILYN ODEN MD [facility] [id number] 05/24/2018 06:00:00 05/26/2018 00:01:00 DIS Outpatient JERILYN ODEN MD [facility] CR3 [facility] [id number] 04/24/2018 06:00:00 04/26/2018 00:01:00 DIS Outpatient JERILYN ODEN MD [facility] WELL[facility] [id number] 03/06/2018 06:00:00 03/10/2018 00:01:00 DIS Outpatient JERILYN ODEN MD [facility] WELL[facility] [id number] 10/31/2017 11:09:00 10/31/2017 23:59:59 CLS Outpatient JERILYN ODEN MD [facility] RAD SCREENING [id number] 10/12/2017 08:25:00 10/12/2017 23:59:59 CLS Preadmit AKSHATASHLIENE Jorge ENDLESS [employer]CH[employer]IC [facility] CARD CAD [id number] 03/16/2017 10:10:00 03/16/2017 23:59:59 CLS Outpatient BEAN ROBERTS MD [facility] CARD CAD,CAROTID ARTERY STENOSIS,HLP,HTN [id number] 03/08/2017 08:25:00 03/08/2017 23:59:59 CLS Outpatient BEAN ROBERTS MD [facility] CARD CAD I25.10 ,CAROTID ARTERY STENOSIS, HLP, HTN [id number] 02/15/2017 08:41:00 02/15/2017 23:59:59 CLS Outpatient JERILYN ODEN MD [facility] RAD CHRONIC SINUSITIS [id number] 01/19/2017 11:00:00 02/13/2017 15:00:00 DIS Outpatient JERILYN ODEN MD [facility] REHAB LOW BACK PAIN WITH RADICULOPATHY [id number] 10/17/2016 10:01:00 10/17/2016 23:59:59 CLS Outpatient JERILYN ODEN MD [facility] RAD SCREENING [id number] 10/08/2014 09:35:00 10/08/2014 23:59:59 CLS Outpatient KYRIE GUERRA MD [facility] RAD [id number] 03/03/2014 08:23:00 03/03/2014 11:10:00 DIS Outpatient PHOEBE RAMOS MD [facility] SDC HX COLON CANCER [id number] 02/27/2014 07:32:00 02/27/2014 23:59:59 CLS Outpatient PHOEBE RAMOS MD [facility] PREOP HX OF COLON CANCER [id number] 02/25/2014 11:39:00 02/25/2014 23:59:59 CLS Outpatient MARTIN COREY [facility] RAD CAD,HTN,HLP [id number] 02/19/2014 10:35:00 02/19/2014 23:59:59 CLS Outpatient MARTIN COREY [facility] CARD CAD,HTN,HLP [id number] 01/01/2014 12:02:00 01/17/2014 11:45:00 DIS Outpatient BEAN ROBERTS MD [facility] CR STABLE ANGINA [id number] 12/18/2013 12:52:00 12/18/2013 14:43:00 DIS Outpatient BEAN ROBERTS MD [facility] CR STABLE ANGINA [id number] 09/18/2013 10:29:00 09/18/2013 23:59:59 CLS Outpatient DIONI REINIER Kian [facility] ONC [id number] 07/30/2013 09:15:00 08/06/2013 14:00:00 DIS Outpatient MOISES MEDINA [facility] REHAB R HIP PAIN [id number] 07/31/2013 07:33:00 07/31/2013 11:55:00 DIS Outpatient BEAN ROBERTS MD [facility] CATH CHEST PAIN,SOB,HTN,ABN EKG [id number] 10/14/2015 10:01:00 Document Registration [id number] 09/17/2014 10:24:00 Document Registration [id number] 01/17/2013 12:28:00 Document Registration [id number] 01/08/2013 15:33:00 Document Registration [id number] 11/26/2012 09:52:00 Document Registration [id number] 07/05/2012 13:56:00 Document Registration
[2019-03-26] MEDS ORDERED: LOSA50TA63 PO (15:30)
[2019-03-26] MEDS ORDERED: ATOR40TA70 PO (15:30)
[2019-03-26] MEDS ORDERED: CYCL10TA9 PO (15:30)
[2019-03-26] MEDS ORDERED: GBPN600T PO (15:30)
[2019-03-26] MEDS ORDERED: METO-333 PO (15:30)
[2019-03-26] MEDS ORDERED: GADOBUTROL 7.5 MMOL/7.5 ML (GADAVIST) VIAL IV ONE (15:45)
[2019-03-26] MEDS ORDERED: DIFL500T PO (15:48)
[2019-03-26] MEDS ORDERED: FISH1CAP15 PO (15:48)
[2019-03-26] MEDS ORDERED: CALC-654 PO (15:48)
[2019-03-26] MEDS ORDERED: LEVO75TA6 PO (15:48)
[2019-03-26] MEDS ORDERED: ASPI-983 PO (15:48)
[2019-03-26] MEDS ORDERED: NFBIOT1000 PO (15:48)
[2019-03-26] MEDS ORDERED: MULT-178 PO (15:48)
[2019-03-26] MEDS ORDERED: RANI150T46 PO (15:48)
[2019-03-26] MEDS ORDERED: CHOL20002 PO (15:48)
[2019-03-26] MEDS ORDERED: TIZA4TAB3 PO (16:01)
--- NOTE | 2019-03-26 16:02 | NUR ---
SPOKE WITH THE PATIENTS ABOUT MEDICATIONS. HE HAD MOST OF THE MAINTENANCE PRESCRIPTION BOTTLES WITH HIM AND A LIST OF MEDICATIONS. HE DID NOT HAVE THE OTC SOME PRN OR THE LEVOTHYROXINE BOTTLES. BOTTLES HE HAS: 03-13-19 DIFLUNISAL 500MG BID #60 03-06-19 LOSARTAN 50MG DAILY #90 03-06-19 ATORVASTATIN 40MG DAILY #90 03-06-19 GABAPENTIN 600MG TID #90 (STATES SHE TAKES PRN) 02-18-19 CYCLOBENZAPRINE 10MG HS #30 (TAKES NEEDED) 01-29-19 TIZANIDINE 4MG Q8H PRN #90 (LIST STATES 6MG, I UPDATED MED REC WITH 4MG THAT WAS RECENTLY FILLED) 01-01-19 METOPROLOL TARTRATE 25MG 1/2 BID #90 DID NOT HAVE BUT CALLED AND VERIFIED [facility] FILLED: 01-29-19 LEVOTHYROXINE 75MCG DAILY #90 ALSO LISTED ON THE MED LIST WAS TRAMADOL PRN AND CLOBETASOL OINTMENT PRN, [facility] HAS NOT FILLED EITHER OF THESE RECENTLY AND NO TRAMADOL WAS ON FILE WITH [facility] IN THE PAST. I DID NOT INCLUDE THESE TWO MEDS ON THE MED REC AT THIS TIME. OTC MEDS: ASPIRIN 81MG DAILY MTV DAILY CALCIUM DAILY FISH OIL 1200MG DAILY VITAMIN D DAILY BIOTIN 2 DAILY RANITIDINE 150MG BID (ASSUME OTC, [facility] HAS NOT DISPENSED)
[2019-03-26] MEDS ORDERED: CATHETER FLUSH 10 ML SYR IV PRN (16:15)
--- NOTE | 2019-03-26 16:33 | Diagnostic Imaging Report ---
PROCEDURE: MR imaging of the brain with and without contrast. TECHNIQUE: Multiplanar/multisequence MR imaging of the brain was performed with and without contrast. DATE: March 26, 2019. COMPARISON: None. HISTORY: 73-year-old female, confusion. Altered mental status. FINDINGS: There is no restricted diffusion. There are no areas of abnormal intracranial susceptibility. The ventricles and CSF spaces are normal in size and configuration for patient age. There is no abnormal extra axial fluid collection. There is no acute intracranial hemorrhage. There is no mass effect or midline shift. There are areas of T2 and FLAIR hyperintense signal in the subcortical and periventricular white matter which are nonspecific but most likely reflect mild changes of chronic small vessel ischemic disease. There is no area of abnormal intracranial enhancement. There is normal aeration of the visualized paranasal sinuses and mastoid air cells. IMPRESSION: 1. No acute intracranial abnormality. 2. Mild changes of chronic small vessel ischemic disease. Dictated by: Dictated on workstation # [id number]
[2019-03-26 16:50] VITALS: BP 146/84
--- NOTE | 2019-03-26 16:51 | Diagnostic Imaging Report ---
PROCEDURE: US carotid duplex, bilateral. TECHNIQUE: Multiple real-time grayscale images were obtained over the carotid arteries in various projections, bilaterally. Additional spectral analysis and color Doppler duplex images were also obtained. INDICATION: Altered mental status. COMPARISON: None. FINDINGS: Mild atherosclerotic plaque in both carotid bifurcations. Normal peak systolic velocities and waveforms within the internal carotid artery origins. Antegrade flow within the vertebral arteries. IMPRESSION: No hemodynamically significant stenosis within either carotid bifurcation. Parameters based on the consensus panel Torrez-Scale and Doppler ultrasound criteria published September 2003, Radiology, Volume 229. DOPPLER (peak systolic velocity M/S Right Left CCA .53 .68 ICA Proximal .55 .60 ICA Mid .90 .62 ICA Distal 1.1 .85 RATIO 2.05 1.24 ECA .91 .47 VERT .71 .90 Dictated by: Dictated on workstation # [id number]
[2019-03-26] MEDS: NS IV 1000 ML 1,000 ML IV SCH (17:15)
[2019-03-26] MEDS: CEFEPIME INJECTION 2,000 MG in WATER (STERILE) FOR INJECTION 20 ML IV SCH (17:20)
--- NOTE | 2019-03-26 17:29 | History & Physical-Hospitalist ---
History of Present Illness HPI/Chief Complaint The patient is a 73-year-old white female referred to the hospitalist service by Dr. Clover Ramesh who is her personal physician. Dr. Gadiel had her hospitalized at [facility]. The states that she had been showing evidence of clear confusion and declining beginning Monday. Things got worse on Monday and they sought additional care. The patient has had a problem recently with urinary tract infections. Dr. Ramesh said that a recent previous urinary tract infection had caused her to be confused. The infection had resistance to multiple antibiotics. This time she appeared to be much more confused. A CT scan done at the [facility] was negative for pathology in the cranium. Her confusion was so great that it was felt necessary to have additional neural scanning which was not available at [place]. Date Seen 03/26/19 Time Seen by a Provider: 17:29 Attending Physician Deirdre Porras MD PCP Clover Ramesh MD Referring Physician Date of Admission March 26, 2019 at 14:00 Home Medications & Allergies Home Medications Reviewed patient Home Medication Reconciliation performed by pharmacy medication reconciliations nuclear medicine technician and/or nursing. Patients Allergies have been reviewed. Allergies Allergies Coded Allergies AMA Inhibitors (Verified Allergy, Unknown, 03/26/19) levofloxacin (Verified Allergy, Unknown, TENDINITIS, 03/26/19) nitrofurantoin (Verified Allergy, Unknown, 03/26/19) Past Givpmds-Blvphe-Kvfspg Hx Past Med/Social Hx: Reviewed Nursing Past Med/Soc Hx Patient Social History Marrital Status: Alcohol Use: Occasionally Uses Recreational Drug Use: No Physical Abuse Screen: No Sexual Abuse: No Recent Foreign Travel: No Contact w/other who traveled: No Recent Hopitalizations: No Recent Infectious Disease Expo: No Seasonal Allergies Seasonal Allergies: Yes Past Medical History Sexually Transmitted Disease: No HIV/AIDS: No Female Reproductive Disorders: Denies Genitourinary: UTI-Chronic Musculoskeletal: Arthritis, Rheumatoid Arthritis, Back Injury HEENT: Cataract Loss of Vision: Bilateral Hearing Impairment: Hard of Hearing, Hearing Aide Right, Hearing Aide Left, Bilateral Hearing Aide Cancer: Colon Did You Recieve Any Treatments: Yes What Type of Treatment Did You: Chemotherapy History of Blood Disorders: Yes Adverse Reaction to Blood Umana: No Family History Cardiovascular disease 19 FATHER G8 BROTHER Review of Systems Constitutional: see HPI EENTM: no symptoms reported Respiratory: no symptoms reported Cardiovascular: no symptoms reported Gastrointestinal: no symptoms reported Genitourinary: see HPI Musculoskeletal: no symptoms reported Skin: no symptoms reported Psychiatric/Neurological: Other Physical Exam Physical Exam Vital Signs Vital Signs - First Documented 03/26/19 14:01 Temp 97.9 Pulse 110 Resp 20 B/P (MAP) 171/92 Pulse Ox 98 O2 Delivery Room Air O2 Flow Rate 0.00 Capillary Refill : Height, Weight, BMI Height: 5'0.00" Weight: 118lbs. 0.0oz. [id number]; 25.9 BMI Method: General Appearance: No Apparent Distress Results Results/Procedures Labs Laboratory Tests 03/27/19 05:27 Patient resulted labs reviewed. Assessment/Plan Admission Diagnosis 1.urinary tract infection. 2.acute/recurrent confusion Clinical Quality Measures DVT/VTE Risk/Contraindication: Risk Factor Score Per Nursin RFS Level Per Nursing on Admit: 4+=Very High DEIRDRE PORRAS MD March 26, 2019 17:29
[2019-03-26 20:22] VITALS: BP 163/84
[2019-03-27 00:30] VITALS: BP 183/58
[2019-03-27] MEDS: NS IV 1000 ML 1,000 ML IV SCH ×3 (03:54→22:31)
[2019-03-27] MEDS: CEFEPIME INJECTION 2,000 MG in WATER (STERILE) FOR INJECTION 20 ML IV SCH (03:57)
[2019-03-27 04:44] VITALS: BP 180/83
[2019-03-27 05:58] LABS: BASOPHILS % (AUTO) 0 % (0-10); EOSINOPHILS # (AUTO) 0.1 10^3/uL (0.0-0.3); EOSINOPHILS % (AUTO) 1 % (0-10); HEMATOCRIT 42 % (35-52); HEMOGLOBIN 14.5 G/DL (11.5-16.0); LYMPHOCYTES # (AUTO) 1.2 X 10^3 (1.0-4.0); LYMPHOCYTES % (AUTO) 16 % (12-44); MEAN CORPUSCULAR HEMOGLOBIN 32 PG (25-34); MEAN CORPUSCULAR HGB CONC 34 G/DL (32-36); MEAN CORPUSCULAR VOLUME 93 FL (80-99); MEAN PLATELET VOLUME 10.2 FL (7.4-10.4); MONOCYTES # (AUTO) 0.8 X 10^3 (0.0-1.0); MONOCYTES % (AUTO) 10 % (0-12); NEUTROPHILS # (AUTO) 5.8 X 10^3 (1.8-7.8); NEUTROPHILS % (AUTO) 73 % (42-75); PLATELET COUNT 238 10^3/uL (130-400); RED CELL DISTRIBUTION WIDTH 13.5 % (10.0-14.5); WHITE BLOOD COUNT 7.9 10^3/uL (4.3-11.0)
[2019-03-27 06:23] LABS: ALANINE AMINOTRANSFERASE 19 U/L (0-55); ALBUMIN 3.8 GM/DL (3.2-4.5); ALKALINE PHOSPHATASE 54 U/L (40-136); BILIRUBIN,TOTAL 0.7 MG/DL (0.1-1.0); BUN/CREATININE RATIO 27; CALCIUM 9.1 MG/DL (8.5-10.1); CARBON DIOXIDE 14 MMOL/L (21-32); CHLORIDE 109 MMOL/L (98-107); CREATININE SERUM 0.81 MG/DL (0.60-1.30); GFR ESTIMATED > 60; GLUCOSE 84 MG/DL (70-105); POTASSIUM 3.7 MMOL/L (3.6-5.0); SODIUM 140 MMOL/L (135-145); TOTAL PROTEIN 6.1 GM/DL (6.4-8.2)
[2019-03-27 08:00] VITALS: BP 183/93
[2019-03-27] MEDS ORDERED: CEFEPIME INJECTION 2,000 MG in WATER (STERILE) FOR INJECTION 20 ML IV SCH (09:00)
[2019-03-27 12:00] VITALS: BP 189/84
[2019-03-27] MEDS ORDERED: GABAPENTIN 600 MG (NEURONTIN) TAB PO PRN (13:45)
--- NOTE | 2019-03-27 14:29 | Progress Note-Hospitalist ---
Progress Note Progress Notes/Assess & Plan Date Seen 03/27/19 Time Seen by Provider: 14:24 Assessment & Plan The patient is alert today. Her reports that she remains confused and seems to be about the same as yesterday. She is afebrile vital signs are stable. We are still awaiting culture report on urine. He states that their slice plug cutter operator helper was here this morning and she was able to recite LORD,S PRAYER. He asked about the possibility of Alzheimer's disease. Physical exam: The patient is alert and answers questions. She does not know where she is or why. At times she is not recognized her today. Lungs are clear to auscultation. CV is regular and the rate is 100-110. Abdomen is soft. Extremities show no pedal edema. Impression: Altered mental status. 2.urinary tract infection. Plan: Await culture report. DEIRDRE PORRAS MD March 27, 2019 14:29
--- NOTE | 2019-03-27 15:00 | NUR ---
pt continues to try and get up out of bed and family unable to keep her in bed due to her confusion -- bed exit alarm sounds but pt is up to bedside redd staff in and argues with staff for sidney to return to bed -- TELE SITTER PUT IN RM AND FAMILY AWARE AND AGREED --
[2019-03-27 15:30] LABS: BILIRUBIN,URINE NEGATIVE (NEGATIVE); CLARITY,URINE VERY CLOUDY; COLOR,URINE YELLOW; GLUCOSE, URINE (UA) NEGATIVE (NEGATIVE); KETONES,URINE 4+ (NEGATIVE); LEUKOCYTE ESTERASE ,URINE 3+ (NEGATIVE); NITRITE,URINE NEGATIVE (NEGATIVE); PH,URINE 6 (5-9); PROTEIN,URINE 3+ (NEGATIVE); UROBILINOGEN,URINE NORMAL (NORMAL)
[2019-03-27 15:38] VITALS: BP 184/95
[2019-03-27 15:49] LABS: BACTERIA,URINE LARGE /HPF; RBC,URINE >100 /HPF; WBC,URINE >100 /HPF
[2019-03-27 15:50] LABS: SQUAMOUS EPITHELIAL CELL,UR RARE /HPF
[2019-03-27] MEDS ORDERED: SALSALATE 500 MG PO SCH (17:00)
[2019-03-27] MEDS: SALSALATE 500 MG PO SCH (18:07)
[2019-03-27 19:53] VITALS: BP 194/93
[2019-03-27] MEDS ORDERED: DIFLUNISAL 500 MG PO SCH (21:00)
[2019-03-27] MEDS: meTOprolol TARTRATE 25 MG (LOPRESSOR) TABLET PO SCH (22:30)
[2019-03-27] MEDS: ATORVASTATIN 40 MG (LIPITOR) TABLET PO SCH (22:30)
--- NOTE | 2019-03-27 22:31 | NUR ---
UNABLE TO GET PT TO TAKE ANY ORAL MEDICATIONS. THIS RN TRIED TO MIX CRUSHED MEDS WITH PUDDING BUT PT SPIT OUT MEDICATION EVERY TIME.
[2019-03-28] VITALS (7 sets, daily range): BP systolic 140–184; BP diastolic 81–97
[2019-03-28] MEDS: SALSALATE 500 MG PO SCH ×2 (04:39→16:37)
[2019-03-28] MEDS: CEFEPIME INJECTION 2,000 MG in WATER (STERILE) FOR INJECTION 20 ML IV SCH (04:39)
[2019-03-28] MEDS: LEVOTHYROXINE 75 MCG (LEVOTHROID) TABLET PO SCH (04:39)
[2019-03-28] MEDS: meTOprolol TARTRATE 25 MG (LOPRESSOR) TABLET PO SCH ×2 (04:39→20:39)
[2019-03-28] MEDS: NS IV 1000 ML 1,000 ML IV SCH ×3 (04:45→20:35)
--- NOTE | 2019-03-28 05:09 | NUR ---
PT WOKE UP THIS AM AROUND 0230 AND SEEMED MUCH MORE ALERT. PT WAS ASKING FOR SOMETHING TO EAT SAYING SHE DIDNT THINK SHE HAD EATEN IN A COUPLE DAYS. PT WASNT SURE WHY SHE WAS HERE BUT KNEW IT WAS MEMORIAL DAY WEEKEND AND HER GRANDDAUGHTER WAS GRADUATING HIGH SCHOOL THIS WEEK. PT UP IN RECLINER AT THIS TIME WITH CHAIR ALARM IN PLACE PRECAUTION BUT PT HAS BEEN USING THE CALL LIGHT APPROPRIATELY SINCE SHE WOKE UP AT 0230 THIS AM.
[2019-03-28] MEDS: LOSARTAN 50 MG (COZAAR) TAB PO SCH (08:59)
[2019-03-28] MEDS: ASPIRIN E.C. 81 MG (ECOTRIN) TAB PO SCH (08:59)
[2019-03-28] MEDS: FAMOTIDINE 20 MG (PEPCID) TABLET PO SCH (08:59)
[2019-03-28] MEDS ORDERED: NON-FORMULARY MEDICATION 1 EA EA (Losartan Potassium 50 MG) PO SCH (09:00)
--- NOTE | 2019-03-28 14:19 | Progress Note-Hospitalist ---
Progress Note Progress Notes/Assess & Plan Date Seen 03/28/19 Time Seen by Provider: 14:16 Assessment & Plan The patient is clearly more bright today. She is oriented as to person place and situation. Her agrees. The UA has returned with no growth however she had received 2 days of antibiotics before this was drawn. The character of the urine in the catheter is clear and yellow. On day number 1 it was murky and reddish tinted. The micro-showed significant RBCs and WBCs. Physical exam: Lungs are clear to auscultation. CV is regular without murmur. Abdomen soft. Extremities show no pedal edema. Patient reports she has had a bowel movement today and was able to get to the bathroom with some assistance. Impression: urinary tract infection. 2.altered mental state ostensibly due to urinary tract infection. Plan: Increase diet. PT and OT eval and treatment. DEIRDRE PORRAS MD March 28, 2019 14:19
--- NOTE | 2019-03-28 15:12 | Physical Therapy Evaluation ---
PT Evaluation-General Medical Diagnosis Admission Date March 26, 2019 at 14:00 Medical Diagnosis: AMS, UTI Onset Date: March 26, 2019 Therapy Diagnosis Therapy Diagnosis: impaired mobility, strength, endurnace, balance Height/Weight Height (Feet): 4 Height (Inches): 10.00 Weight (Pounds): 118 Weight (Ounces): 0.0 Precautions Precautions/Isolations: Fall Prevention, Standard Precautions Weight Bear Status Right Lower Extremity: Right Weight Bearing/Tolerated Left Lower Extremity: Left Weight Bearing/Tolerated Referral Physician: Hima Ordonez MD Reason for Referral: Evaluation/Treatment Medical History Additional Medical History Past Medical History Sexually Transmitted Disease: No HIV/AIDS: No Female Reproductive Disorders: Denies Genitourinary: UTI-Chronic Musculoskeletal: Arthritis, Rheumatoid Arthritis, Back Injury HEENT: Cataract Loss of Vision: Bilateral Hearing Impairment: Hard of Hearing, Hearing Aide Right, Hearing Aide Left, Bilateral Hearing Aide Cancer: Colon Did You Recieve Any Treatments: Yes What Type of Treatment Did You: Chemotherapy History of Blood Disorders: Yes Adverse Reaction to Blood Umana: No Reviewed History: Yes Social History Home: Single Level Current Living Status: Spouse Entry Into Home: Stairs With Railing PT Steps Into Home: 2 Prior/Core FIM Prior Level of Function Therapy Code Descriptions/Definitions Functional [place] Measure: 0=Not Assessed/NA 4=Minimal Assistance 1=Total Assistance 5=Supervision or Setup 2=Maximal Assistance 6=Modified [place] 3=Moderate Assistance 7=Complete [place] Therapy Quality Codes: 6 Independent with activity with or without an assistive device 5 Patient requires set up or clean up by helper. Patient completes activity by themselves 4 Supervision or touching assist (CGA). [place] provide cues , steadying assist 3 The helper provides less than half the effort to complete the activity 2 The helper provides more than half the effort to complete the activity 1 Dependent. The helper does all the effort to complete an activity 7 Patient refused to complete or attempt activity 9 The patient did not perform the activity before the current illness or injury 88 Not attempted due to Medical conditions or safety concerns Functional Abilities and Goals: Independent: Patient completed the activities by him/herself, with or without an assistive device, with no assistance from a helper. Needed Some Help: Patient needed partial assistance from another person to complete activities. Dependent: A helper completed the activities for the patient. Unknown: Not Applicable: Bed Mobility: 7 Transfers (B,C,W/C) (FIM): 7 Gait: 7 Stairs: 7 Indoor Mobility (Ambulation): Independent Stairs: Independent Patient states she was not using an AD previously. PT Evaluation-Current Subjective Patient in bed pre tx, agrees to PT, has no complaints of pain. Pt/Family Goals "to get stronger, I have gotten weak" Objective Patient Orientation: Person, Place Patient slow to process but answers questions appropriately. ROM/Strength ROM Lower Extremities WNL Strength Lower Extremities right lower extremity (hip flexion 3+/5, knee flexion 4+/5, knee extension 4+/5, dorsiflexion 4+/5), left lower extremity (hip flexion 3+/5, knee flexion 4+/5, knee extension 4+/5, dorsiflexion 4+/5) Neuromuscular (Tone, Coordination, Reflexes) NT Sensory Vision: Wears Glasses Hearing: Functional Sensation Right Lower Extremit: Impaired Sensation Left Lower Extremity: Intact Sensation Lower Extremities Patient seemed to have one small area of impaired light touch sensation on her great toe on the right side. Transfers Therapy Code Descriptions/Definitions Functional [place] Measure: 0=Not Assessed/NA 4=Minimal Assistance 1=Total Assistance 5=Supervision or Setup 2=Maximal Assistance 6=Modified [place] 3=Moderate Assistance 7=Complete [place] Transfers (B, C, W/C) (FIM): 4 Scootin Rollin Supine to/from Sit: 5 Sit to/from Stand: 4 Patient needs CGA for sit to stand, performs bed mobility with SBA. Occasional cues for safety and positioning. Gait Mode of Locomotion: Walk Anticipated Mode of Locomotion: Walk Gait (FIM): 4 Distance: 150' Gait Level of Assist: 4 Gait Assistive Device: FWW Comments/Gait Description Patient ambulated 150' with a rolling walker with CGA. She has a slightly unsteady gait but had no LOB, she has slow ambulation at first but gained confidence and had brisk ambulation by the end. She has a little difficulty figuring out how to use the walker when turning. Balance Sitting Static: Normal Sitting Dynamic: Normal Standing Static: Fair Standing Dynamic: Fair Treatment BLE supine exercises x15 (AP, SLR, HS) Assessment/Needs Patient has impaired mobility, strength, endurance, and balance. She seems to have less confusion today based on what was read in her past medical notes. She still seems slow to process sometimes but was able to answer questions appropriately. Patient in bed post tx with nurse call, phone, tray, bed alarm on, in the room. Rehab Potential: Fair PT Short Term Goals Short Term Goals Time Frame: April 04, 2019 Transfers (B,C,W/C) (FIM): 5 Gait (FIM): 5 Gait Distance Comment: 200' Gait Level of Assist: 5 Gait Assistive Device: FWW PT Plan Problem List Problem List: Activity Tolerance, Functional Strength, Safety, Balance, Gait, Transfer, Bed Mobility Treatment/Plan Treatment Plan: Continue Plan of Care Treatment Plan: Bed Mobility, Education, Functional Activity Fabio, Functional Strength, Gait, Safety, Therapeutic Exercise, Transfers Treatment Duration: April 04, 2019 Frequency: 6 times per week Estimated Hrs Per Day: .25 hour per day (15-30') Patient and/or Family Agrees t: Yes Safety Risks/Education Patient Education: Gait Training, Transfer Techniques, Correct Positioning, Safety Issues Teaching Recipient: Patient Teaching Methods: Demonstration, Discussion Response to Teaching: Reinforcement Needed Discharge Recommendations Plan Patient will perform bed mobility and transfer training, balance and endurance training, functional strengthening, stair training, gait training, and education, to improve functional mobility and independence at home. Therapy D/C Recommendations: Acute Rehab, Home w/ Family Support Time/GCodes Time In: 1442 Time Out: 1501 Total Billed Treatment Time: 19 Total Billed Treatment 1 visit GERRY 19' ROBERT KNOX PT March 28, 2019 15:12
--- NOTE | 2019-03-28 15:22 | Occupational Therapy Eval ---
OT Evaluation-General/PLF Medical Diagnosis Admission Date March 26, 2019 at 14:00 Medical Diagnosis: AMS, UTI Onset Date: March 26, 2019 Therapy Diagnosis Therapy Diagnosis: impaired ADLS and mobility Height/Weight Height (Feet): 4 Height (Inches): 10.00 Weight (Pounds): 118 Weight (Ounces): 0.0 Precautions Precautions/Isolations: Fall Prevention, Standard Precautions Safety Interventions: Bed Exit Alarm Weight Bear Status Weight Bearing Restriction: Weight Bearing/Tolerated Referral Physician: Hima Ordonez MD Referral Reason: Activity Tolerance, Self Care, Evaluation/Treatment, Strengthening/ROM Medical History Additional Medical History Arthritis, Rheumatoid Arthritis, Back Injury Current History per h&P: "The patient is a 73-year-old white female referred to the hospitalist service by Dr. Clover Ramesh who is her personal physician. Dr. Ramesh had her hospitalized at [facility]. The states that she had been showing evidence of clear confusion and declining beginning Monday. Things got worse on Monday and they sought additional care. The patient has had a problem recently with urinary tract infections. Dr. Ramesh said that a recent previous urinary tract infection had caused her to be confused. The infection had resistance to multiple antibiotics. This time she appeared to be much more confused. A CT scan done at the [facility] was negative for pathology in the cranium. Her confusion was so great that it was felt necessary to have additional neural scanning which was not available at [place]" Reviewed History: Yes Social History Home: Single Level Current Living Status: Spouse Entry Into Home: Stairs With Railing Steps Into Home: 2 ADL-Prior Level of Function Therapy Code Descriptions/Definitions Functional [place] Measure: 0=Not Assessed/NA 4=Minimal Assistance 1=Total Assistance 5=Supervision or Setup 2=Maximal Assistance 6=Modified [place] 3=Moderate Assistance 7=Complete [place] Therapy Quality Codes: 6 Independent with activity with or without an assistive device 5 Patient requires set up or clean up by helper. Patient completes activity by themselves 4 Supervision or touching assist (CGA). [place] provide cues , steadying assist 3 The helper provides less than half the effort to complete the activity 2 The helper provides more than half the effort to complete the activity 1 Dependent. The helper does all the effort to complete an activity 7 Patient refused to complete or attempt activity 9 The patient did not perform the activity before the current illness or injury 88 Not attempted due to Medical conditions or safety concerns Functional Abilities and Goals: Independent: Patient completed the activities by him/herself, with or without an assistive device, with no assistance from a helper. Needed Some Help: Patient needed partial assistance from another person to complete activities. Dependent: A helper completed the activities for the patient. Unknown: Not Applicable: Self Care: Needed Some Help (assist with Ever shoes and socks from ) DME/Equipment: Bath Chair, Grab Bars, Tub/Shower Drive Self: Yes OT Current Status Subjective t agreed to OT evaluation session. pt complains of no pain. pt pleasant and cooperative to work with Mental Status/Objective Patient Orientation: Person, Place, Time, Situation Attachments: Diaz Catheter, IV Current Glasses/Contacts: Yes Hearing Aids: Yes Dentures/Partials: No Hand Dominance: Left Upper Extremity ROM WFL noted arthritis deformities in Ever hands ( enlarged joints) Upper Extremity Coordination WFL Upper Extremity Sensation WFL Upper Extremity Strength Ever UE 4/5 MMT ADL-Treatment Therapy Code Descriptions/Definitions Functional [place] Measure: 0=Not Assessed/NA 4=Minimal Assistance 1=Total Assistance 5=Supervision or Setup 2=Maximal Assistance 6=Modified [place] 3=Moderate Assistance 7=Complete [place] Therapy Quality Codes: 6 Independent with activity with or without an assistive device 5 Patient requires set up or clean up by helper. Patient completes activity by themselves 4 Supervision or touching assist (CGA). [place] provide cues , steadying assist 3 The helper provides less than half the effort to complete the activity 2 The helper provides more than half the effort to complete the activity 1 Dependent. The helper does all the effort to complete an activity 7 Patient refused to complete or attempt activity 9 The patient did not perform the activity before the current illness or injury 88 Not attempted due to Medical conditions or safety concerns pt required SBA for supine <> sit, CGA for sit to stand, total assist for LB dressing, SBA for UB dressing, SBA for grooming, and MIN A for toileting and CGA for functional transfers for safety/ balance. noted pt requried MIN A to maintain static standing balance when she first stands up then can maintain balance with SBA/. CGA. Education OT Patient Education: Instructions don/doff splint/brace, Progress toward Goal/Update tx plan, Purpose of tx/functional activities Teaching Recipient: Significant Other Teaching Methods: Demonstration, Discussion Response to Teaching: Verbalize Understanding, Return Demonstration OT Short Term Goals Short Term Goals Grooming(FIM): 6 Bathing(FIM): 5 Lower Body Dressing(FIM): 5 Toileting(FIM): 5 Transfers (B,C,W/C) (FIM): 5 Toilet/Commode Transfer(FIM): 5 1=Demonstrate adherence to instructed precautions during ADL tasks. 2=Patient will verbalize/demonstrate understanding of assistive devices/modifications for ADL. 3=Patient will improve strength/tolerance for activity to enable patient to perform ADL's. OT Perforator Typist Goals Senior Care Goals Grooming(FIM): 6 Bathing(FIM): 6 Lower Body Dressing(FIM): 6 Toileting(FIM): 6 Transfers (B,C,W/C) (FIM): 6 Toilet/Commode Transfer(FIM): 6 1=Demonstrate adherence to instructed precautions during ADL tasks. 2=Patient will verbalize/demonstrate understanding of assistive devices/modifications for ADL. 3=Patient will improve strength/tolerance for activity to enable patient to perform ADL's. OT Education/Plan Problem List/Assessment Assessment: Decreased Activ Tolerance, Decreased Safety Aware, Decreased UE Strength, Impaired Funct Balance, Impaired I ADL's, Impaired Self-Care Skills pt presents with functional limitations affecting areas of ADLs/ functional transfers. pt would benefit from OT services to increase independence with ADLs/ functional transfers. anticipate d/c to home with . Discharge Recommendations Plan/Recommendations: Continue POC Therapy D/C Recommendations: Home w/ Family Support Treatment Plan/Plan of Care Treatment,Training & Education: Yes Patient would benefit from OT for education, treatment and training to promote independence in ADL's, mobility, safety and/or upper extremity function for ADL's. Plan of Care: ADL Retraining, Caregiver Training, Functional Mobility, UE Funct Exercise/Act Treatment Duration: Apr 11, 2019 Frequency: 5 times per week Estimated Hrs Per Day: .25 hour per day Agreement: Yes Rehab Potential: Fair Time/GCodes Start Time: 13:02 Stop Time: 13:17 Billed Treatment Time EVM 15 minutes PENNY SHEN OT March 28, 2019 15:22
--- NOTE | 2019-03-28 16:44 | NUR ---
2 BAGS OF HOME MEDS SENT HOME WITH PTS PER HIS REQUEST.
[2019-03-28] MEDS: ATORVASTATIN 40 MG (LIPITOR) TABLET PO SCH (20:39)
[2019-03-29 04:10] VITALS: BP 142/76
[2019-03-29] MEDS: LEVOTHYROXINE 75 MCG (LEVOTHROID) TABLET PO SCH (06:23)
[2019-03-29] MEDS: NS IV 1000 ML 1,000 ML IV SCH ×2 (06:23→15:59)
[2019-03-29] MEDS: SALSALATE 500 MG PO SCH ×2 (06:23→16:34)
[2019-03-29] MEDS: CEFEPIME INJECTION 2,000 MG in WATER (STERILE) FOR INJECTION 20 ML IV SCH (06:29)
[2019-03-29 08:00] VITALS: BP 162/78
[2019-03-29] MEDS: LOSARTAN 50 MG (COZAAR) TAB PO SCH (09:00)
[2019-03-29] MEDS: FAMOTIDINE 20 MG (PEPCID) TABLET PO SCH (09:00)
[2019-03-29] MEDS: ASPIRIN E.C. 81 MG (ECOTRIN) TAB PO SCH (09:01)
[2019-03-29] MEDS: meTOprolol TARTRATE 25 MG (LOPRESSOR) TABLET PO SCH ×2 (09:01→21:13)
--- NOTE | 2019-03-29 10:19 | Progress Note-Hospitalist ---
Progress Note Progress Notes/Assess & Plan Date Seen 03/29/19 Time Seen by Provider: 10:17 Assessment & Plan The patient is much brighter today. She recalls my name. She knows the date. She was able to walk a significant distance yesterday with physical therapy. It is essential that we establish that she is fully ambulatory given her 's chronic oxygen administration and wheelchair needs. Physical exam: Lungs are clear to auscultation. CV is regular without murmur. Abdomen is soft. Extremities show no edema. Impression: Urinary tract infection. 2.confusion secondary to number 1. 3.deconditioning. Plan: Continue antibiotics. Physical therapy for ambulation. DEIRDRE PORRAS MD March 29, 2019 10:19
[2019-03-29 12:00] VITALS: BP 148/65
--- NOTE | 2019-03-29 12:58 | Occupational Ther Daily Note ---
OT Current Status-Daily Note Subjective Pt in bed, agrees to treatment. Denies pain at this time. Mental Status/Objective Therapy Code Descriptions/Definitions Functional [place] Measure: 0=Not Assessed/NA 4=Minimal Assistance 1=Total Assistance 5=Supervision or Setup 2=Maximal Assistance 6=Modified [place] 3=Moderate Assistance 7=Complete [place] ADL-Treatment Pt supine to sit with minimal assistance and cues for technique. Pt sit to stand with CGA. Transfer to chair with CGA using FWW, cues for safety. Pt states she has difficulty with lower body dressing secondary to back pain. Education was provided regarding use of adaptive equipment for LE dressing. Pt states she has a stack matcher at home. Pt doffed socks with SBA and verbal cues using stack matcher. Donned socks with minimal assistance using sock aid. Pt is easily distracted at times and requires cues to attend to task. Pt sitting in chair with needs met, chair alarm in place, and family member present after session. OT Short Term Goals Short Term Goals Grooming(FIM): 6 Bathing(FIM): 5 Lower Body Dressing(FIM): 5 Toileting(FIM): 5 Transfers (B,C,W/C) (FIM): 5 Toilet/Commode Transfer(FIM): 5 1=Demonstrate adherence to instructed precautions during ADL tasks. 2=Patient will verbalize/demonstrate understanding of assistive devices/modifications for ADL. 3=Patient will improve strength/tolerance for activity to enable patient to perform ADL's. OT Civil Lawyer Goals Civil Lawyer Goals Grooming(FIM): 6 Bathing(FIM): 6 Lower Body Dressing(FIM): 6 Toileting(FIM): 6 Transfers (B,C,W/C) (FIM): 6 Toilet/Commode Transfer(FIM): 6 1=Demonstrate adherence to instructed precautions during ADL tasks. 2=Patient will verbalize/demonstrate understanding of assistive devices/modifications for ADL. 3=Patient will improve strength/tolerance for activity to enable patient to perform ADL's. OT Education/Plan Problem List/Assessment pt presents with functional limitations affecting areas of ADLs/ functional transfers. pt would benefit from OT services to increase independence with ADLs/ functional transfers. anticipate d/c to home with . Discharge Recommendations Plan/Recommendations: Continue POC Treatment Plan/Plan of Care Patient would benefit from OT for education, treatment and training to promote independence in ADL's, mobility, safety and/or upper extremity function for ADL's. Plan of Care: ADL Retraining, Caregiver Training, Functional Mobility, UE Funct Exercise/Act Treatment Duration: Apr 11, 2019 Frequency: 5 times per week Estimated Hrs Per Day: .25 hour per day Agreement: Yes Rehab Potential: Fair Time/GCodes Start Time: 11:37 Stop Time: 11:56 Total Time Billed (hr/min): 19 Billed Treatment Time 1 visit, ADL(19minutes) JERILYN CAO OT March 29, 2019 12:58
--- NOTE | 2019-03-29 15:07 | Physical Therapy Daily Note ---
PT Daily Note-Current Subjective Patient in bed pre tx, agrees to PT, has no complaints of pain. Appearance Patient in bed post tx with nurse call, phone, tray, all needs met. Mental Status Patient Orientation: Person, Confused, Place, Situation Patient is oriented to person, place, and situation but seems slow to process and has impaired safety awareness. Transfers Therapy Code Descriptions/Definitions Functional [place] Measure: 0=Not Assessed/NA 4=Minimal Assistance 1=Total Assistance 5=Supervision or Setup 2=Maximal Assistance 6=Modified [place] 3=Moderate Assistance 7=Complete [place] Therapy Quality Codes: 6 Independent with activity with or without an assistive device 5 Patient requires set up or clean up by helper. Patient completes activity by themselves 4 Supervision or touching assist (CGA). [place] provide cues , steadying assist 3 The helper provides less than half the effort to complete the activity 2 The helper provides more than half the effort to complete the activity 1 Dependent. The helper does all the effort to complete an activity 7 Patient refused to complete or attempt activity 9 The patient did not perform the activity before the current illness or injury 88 Not attempted due to Medical conditions or safety concerns Transfers (B, C, W/C) (FIM): 5 Scootin Rollin Supine to/from Sit: 5 Sit to/from Stand: 5 Bed to/from Chair: 5 Occasional cues for safety and positioning Weight Bearing Right Lower Extremity: Right Weight Bearing/Tolerated Left Lower Extremity: Left Weight Bearing/Tolerated Gait Training Gait (FIM): 5 Distance: 400' Gait Level of Assist: 5 Gait Persons Needed: 1 Gait Assistive Device: FWW Slow ambulation, no LOB, occasional slight unsteadiness, trunk leans a little to the left. Treatments bed mobility and transfers, ambulation Assessment Current Status: Fair Progress Improved endurance but patient very fatigued when she got back to her room. She stated "whew, I feel like I walked a mile" PT Short Term Goals Short Term Goals Time Frame: April 04, 2019 Transfers (B,C,W/C) (FIM): 5 Gait (FIM): 5 Gait Distance Comment: 200' Gait Level of Assist: 5 Gait Assistive Device: FWW PT Plan Problem List Problem List: Activity Tolerance, Functional Strength, Safety, Balance, Gait, Transfer, Bed Mobility Treatment/Plan Treatment Plan: Continue Plan of Care Treatment Plan: Bed Mobility, Education, Functional Activity Fabio, Functional Strength, Gait, Safety, Therapeutic Exercise, Transfers Treatment Duration: April 04, 2019 Frequency: 6 times per week Estimated Hrs Per Day: .25 hour per day (15-30') Patient and/or Family Agrees t: Yes Safety Risks/Education Patient Education: Gait Training, Transfer Techniques, Correct Positioning, Safety Issues Teaching Recipient: Patient Teaching Methods: Demonstration, Discussion Response to Teaching: Reinforcement Needed Time/GCodes Time In: 1442 Time Out: 1458 Total Billed Treatment Time: 16 Total Billed Treatment 1 visit GT 16' ROBERT KNOX PT March 29, 2019 15:07
--- NOTE | 2019-03-29 15:59 | NUR ---
DR SANDY NOTIFIED IN REGARDS TO PT COMPLAINTS OF HEADACHE, NEW ORDER RECEIVED.
[2019-03-29 16:00] VITALS: BP 175/79
[2019-03-29] MEDS ORDERED: ACETAMINOPHEN 500 MG TAB (TYLENOL) PO PRN (16:00)
[2019-03-29 20:00] VITALS: BP 136/78
[2019-03-29] MEDS: ATORVASTATIN 40 MG (LIPITOR) TABLET PO SCH (21:13)
[2019-03-29] MEDS: CYCLOBENZAPRINE 10 MG (FLEXERIL) TAB PO PRN (23:21)
[2019-03-30] VITALS: BP 173/79
[2019-03-30 04:00] VITALS: BP 150/72
[2019-03-30] MEDS: NS IV 1000 ML 1,000 ML IV SCH (04:12)
[2019-03-30] MEDS: CEFEPIME INJECTION 2,000 MG in WATER (STERILE) FOR INJECTION 20 ML IV SCH (04:35)
[2019-03-30] MEDS: LEVOTHYROXINE 75 MCG (LEVOTHROID) TABLET PO SCH (06:14)
[2019-03-30] MEDS: SALSALATE 500 MG PO SCH ×2 (06:17→17:03)
[2019-03-30 08:00] VITALS: BP 155/81
[2019-03-30] MEDS: ASPIRIN E.C. 81 MG (ECOTRIN) TAB PO SCH (09:38)
[2019-03-30] MEDS: meTOprolol TARTRATE 25 MG (LOPRESSOR) TABLET PO SCH ×2 (09:38→20:23)
[2019-03-30] MEDS: LOSARTAN 50 MG (COZAAR) TAB PO SCH (09:39)
[2019-03-30] MEDS: FAMOTIDINE 20 MG (PEPCID) TABLET PO SCH (09:39)
[2019-03-30 12:00] VITALS: BP 122/85
--- NOTE | 2019-03-30 12:15 | Progress Note-Hospitalist ---
Subjective HPI/CC On Admission Date Seen by Provider: March 30, 2019 Time Seen by Provider: 12:11 The patient is a 73-year-old white female referred to the hospitalist service by Dr. Clover Ramesh who is her personal physician. Dr. Ramesh had her hospitalized at [facility]. The states that she had been showing evidence of clear confusion and declining beginning Monday. Things got worse on Monday and they sought additional care. The patient has had a problem recently with urinary tract infections. Dr. Ramesh said that a recent previous urinary tract infection had caused her to be confused. The infection had resistance to multiple antibiotics. This time she appeared to be much more confused. A CT scan done at the [facility] was negative for pathology in the cranium. Her confusion was so great that it was felt necessary to have additional neural scanning which was not available at [facility]. Subjective/Events-last exam Patient reports feeling better was able to walk the equivalent of nearly a block per her reports yesterday although still significantly fatigued. She also was still a little bit confused with poor safety awareness according to physical therapy. She is oriented to person and place pleasant voicing no complaints other than the fact that right IV site is leaking and the nurse states it is no longer usable. Objective Exam Vital Signs Vital Signs Date Time Temp Pulse Resp B/P (MAP) Pulse Ox O2 Delivery O2 Flow Rate FiO2 03/30/19 08:00 97.9 79 16 155/81 (105) 98 Room Air 03/26/19 14:01 0.00 Capillary Refill : Less Than 3 Seconds General Appearance: No Apparent Distress Respiratory: Chest Non Tender, Lungs Clear, Normal Breath Sounds, No Accessory Muscle Use, No Respiratory Distress Cardiovascular: Regular Rate, Rhythm, No Edema, No Gallop, No JVD, No Murmur, Normal Peripheral Pulses Gastrointestinal: Normal Bowel Sounds, No Organomegaly, No Pulsatile Mass, Non Tender, Soft Results/Procedures Lab Patient resulted labs reviewed. Assessment/Plan Assessment and Plan Assess & Plan/Chief Complaint 1. Altered mental status questionably due to urinary tract infection continue to monitor. Negative carotid duplex evaluation in just essentially age-related changes on her MRI. 2. 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 As the patient is very difficult IV stick will try Omnicef 300 twice a day and repeat a UA tomorrow. Urine culture here revealed no growth it is not clear to me as to whether or not she received a dose of antibiotics prior but this was likely the case. Clinical Quality Measures DVT/VTE Risk/Contraindication: Risk Factor Score Per Nursin RFS Level Per Nursing on Admit: 4+=Very High SAMI SANDY MD March 30, 2019 12:15
--- NOTE | 2019-03-30 13:25 | Physical Therapy Progress Note ---
Therapy Progress Note Attempted visit x 2 episodes. 1st attempt, pt with physician. 2nd attempt pt declined, 2 visitors present, pt stating she is soaking wet from IV and is awaiting nursing to help her change. Discussed with pt that it is ok to request nursing to walk with her later today when she is ready. JAILENE BROWNLEE VENDING ENTERPRISES SUPERVISOR March 30, 2019 13:25
[2019-03-30 16:00] VITALS: BP 175/78
[2019-03-30 20:00] VITALS: BP 179/84
[2019-03-30] MEDS: CEFDINIR 300 MG (OMNICEF) CAP PO SCH (20:23)
[2019-03-30] MEDS: CYCLOBENZAPRINE 10 MG (FLEXERIL) TAB PO PRN (20:23)
[2019-03-30] MEDS: ATORVASTATIN 40 MG (LIPITOR) TABLET PO SCH (20:23)
[2019-03-31] VITALS: BP 166/94
[2019-03-31 04:47] VITALS: BP 153/83
[2019-03-31] MEDS: LEVOTHYROXINE 75 MCG (LEVOTHROID) TABLET PO SCH (05:30)
[2019-03-31] MEDS: SALSALATE 500 MG PO SCH ×2 (05:30→17:52)
[2019-03-31 08:00] VITALS: BP 155/82
[2019-03-31] MEDS: CEFDINIR 300 MG (OMNICEF) CAP PO SCH ×2 (08:10→20:29)
[2019-03-31] MEDS: LOSARTAN 50 MG (COZAAR) TAB PO SCH (08:10)
[2019-03-31] MEDS: meTOprolol TARTRATE 25 MG (LOPRESSOR) TABLET PO SCH ×2 (08:10→20:29)
[2019-03-31] MEDS: FAMOTIDINE 20 MG (PEPCID) TABLET PO SCH (08:10)
[2019-03-31] MEDS: ASPIRIN E.C. 81 MG (ECOTRIN) TAB PO SCH (08:10)
[2019-03-31 12:00] VITALS: BP 141/84
[2019-03-31 12:38] LABS: BILIRUBIN,URINE NEGATIVE (NEGATIVE); CLARITY,URINE CLEAR; COLOR,URINE YELLOW; GLUCOSE, URINE (UA) NEGATIVE (NEGATIVE); KETONES,URINE NEGATIVE (NEGATIVE); LEUKOCYTE ESTERASE ,URINE 1+ (NEGATIVE); NITRITE,URINE NEGATIVE (NEGATIVE); PH,URINE 6 (5-9); PROTEIN,URINE 2+ (NEGATIVE); UROBILINOGEN,URINE NORMAL (NORMAL)
[2019-03-31 12:45] LABS: BACTERIA,URINE NEGATIVE /HPF; SQUAMOUS EPITHELIAL CELL,UR RARE /HPF
--- NOTE | 2019-03-31 13:36 | Progress Note-Hospitalist ---
Subjective HPI/CC On Admission Date Seen by Provider: March 31, 2019 Time Seen by Provider: 11:30 The patient is a 73-year-old white female referred to the hospitalist service by Dr. Clover Ramesh who is her personal physician. Dr. Ramesh had her hospitalized at [facility]. The states that she had been showing evidence of clear confusion and declining beginning Monday. Things got worse on Monday and they sought additional care. The patient has had a problem recently with urinary tract infections. Dr. Ramesh said that a recent previous urinary tract infection had caused her to be confused. The infection had resistance to multiple antibiotics. This time she appeared to be much more confused. A CT scan done at the [facility] was negative for pathology in the cranium. Her confusion was so great that it was felt necessary to have additional neural scanning which was not available at [place]. Subjective/Events-last exam Patient still intermittently confused per staff was not present to ask about short-term memory problems. The patient does have some word search difficulty occasional inappropriate word usage. Considering negative CT head and no other focal neurologic findings clearly wonder about underlying Alzheimer's dementia. Other than fatigue she voices no complaints is having no dysuria abdominal pain chest pain cough or shortness of breath. Objective Exam Vital Signs Vital Signs Date Time Temp Pulse Resp B/P (MAP) Pulse Ox O2 Delivery O2 Flow Rate FiO2 03/31/19 08:00 97.5 82 18 155/82 (106) 98 Room Air 03/26/19 14:01 0.00 Capillary Refill : Less Than 3 Seconds General Appearance: No Apparent Distress Respiratory: Chest Non Tender, Lungs Clear, Normal Breath Sounds, No Accessory Muscle Use, No Respiratory Distress Cardiovascular: Regular Rate, Rhythm, No Edema, No Gallop, No JVD, No Murmur, Normal Peripheral Pulses Gastrointestinal: Normal Bowel Sounds, No Organomegaly, No Pulsatile Mass, Non Tender, Soft Results/Procedures Lab Patient resulted labs reviewed. Assessment/Plan Assessment and Plan Assess & Plan/Chief Complaint 1. Altered mental status questionably due to urinary tract infection continue to monitor. Negative carotid duplex evaluation in just essentially age-related changes on her MRI. 2. 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 3. Will discuss with her whether or not she been having any ongoing short-term memory issues earlier as her neurologic findings suggests the possibility of dementia. Clinical Quality Measures DVT/VTE Risk/Contraindication: Risk Factor Score Per Nursin RFS Level Per Nursing on Admit: 4+=Very High SAMI SANDY MD March 31, 2019 13:36
--- NOTE | 2019-03-31 15:25 | NUR ---
AMBULATED HALLS WITH FWW AND PIECE WORK CHECKER. NOTED SEVERE LEANING TO LEFT. UNABLE TO COMPLETELY CORRECT WHEN ASKED. SAT IN CHAIR. AGAIN LEANING TO LEFT AND HEAD ALMOST HORIZONTAL WHILE TALKING TO . AGAIN UNABLE TO CORRECT. DR. SANDY NOTIFIED. NO WEAKNESS TO LEFT SIDE EXTREMITIES. MENTATION UNCHANGED. NO ORDERS REC'D. FEELS SHE WILL NOT BE ABLE TO TOLERATE GOING DIRECTLY HOME AND HAS REQUESTED CONSULT FOR POSSIBLE [facility] SKILLED PLACEMENT.
--- NOTE | 2019-03-31 15:40 | NUR ---
DR. SANDY CALLED BACK WITH ORDERS FOR ANESTHESIA CONSULT FOR LP TODAY. HAD JUST LEFT. CAUGHT DOWNSTAIRS AND EXPLAINED PROCEDURE AND WHAT DR. SANDY WAS LOOKING FOR. AGREEABLE TO PROCEDURE. RET'D TO FLOOR AND EXPLAINED TO PT. AGREEABLE TO PROCEDURE. NSG UNDERGROUND BOLTING MACHINE OPERATOR NOTIFIED TO CONTACT ANESTHESIA.
[2019-03-31 16:40] VITALS: BP 131/87
--- NOTE | 2019-03-31 17:00 | NUR ---
ANESTHESIA HERE AND ASSESSED PT AND WILL RETURN TO DO LP.
[2019-03-31 17:11] LABS: INR 1.1 (0.8-1.4); PROTHROMBIN TIME PATIENT 14.4 SEC (12.2-14.7)
--- NOTE | 2019-03-31 19:40 | NUR ---
Anesthsia here at 1915 with ACCOUNT MANAGER RELIEF to perform lumbar puncture. Spinal fluid obtained and hand delivered to lab. Pt tolerated procedure well.
[2019-03-31 19:50] VITALS: BP 156/82
--- NOTE | 2019-03-31 19:52 | Anesthesia-Procedure Note ---
Procedures/Interventions Procedure Start/Stop/Diagnosis Date of Procedure: March 31, 2019 Start Time: 19:10 Referring Physician: Sharad Preprocedural Diagnosis: Alt LOC, UTI Brief History Received request per Dr. Orourke for Lumbar puncture on pt with altered LOC, UTI. Chart and HX obtained from RN and H&P. Consent obtained from pt and . Pt was sitting in chair in 429 during interview. Answered questions but had difficulty remembering her own history. Procedure explained to pt and she agreed to proceed. ASA 3. PT/INR ordered and was normal. Pt layed on her Rt side. Betadine prep x3. 5ml of Lidocaine 1% injected to L4-5 interspace for skin wheal. #22 g spinal needle advanced easily and CSF obtained after 2 attempts. Pressure measure 7.5 mmHG. 4 specimen samples collected and labeled. Pt tolerated procedure well. Needle withdrew easily and site covered with a adhesive dressing. No complaints reported by pt. Report and specimens given to RN. Stop Time: 19:40 Postprocedural Diagnosis: Alt LOC,UTI CORRINA MASCORRO CRNA March 31, 2019 19:52
[2019-03-31 20:10] LABS: APPEARANCE,CSF CLEAR; COLOR,CSF COLORLESS; CSF TUBE NUMBER 4; RED BLOOD CELL,CSF 0 CELLS (0-0); WHITE BLOOD CELL,CSF 1 CELLS (0-5)
[2019-03-31 20:21] LABS: CSF GLUCOSE 63 MG/DL (50-80); CSF TOTAL PROTEIN 71 MG/DL (15-40)
[2019-03-31] MEDS: ATORVASTATIN 40 MG (LIPITOR) TABLET PO SCH (20:29)
[2019-04-01] VITALS: BP 151/84
[2019-04-01 04:45] VITALS: BP 157/80
[2019-04-01] MEDS: LEVOTHYROXINE 75 MCG (LEVOTHROID) TABLET PO SCH (06:14)
[2019-04-01] MEDS: SALSALATE 500 MG PO SCH ×2 (06:15→16:50)
[2019-04-01 08:05] VITALS: BP 138/66
[2019-04-01] MEDS: meTOprolol TARTRATE 25 MG (LOPRESSOR) TABLET PO SCH ×2 (08:56→21:00)
[2019-04-01] MEDS: ASPIRIN E.C. 81 MG (ECOTRIN) TAB PO SCH (08:57)
[2019-04-01] MEDS: FAMOTIDINE 20 MG (PEPCID) TABLET PO SCH (08:57)
[2019-04-01] MEDS: CEFDINIR 300 MG (OMNICEF) CAP PO SCH ×2 (08:57→21:00)
[2019-04-01] MEDS: LOSARTAN 50 MG (COZAAR) TAB PO SCH (08:57)
--- NOTE | 2019-04-01 10:42 | Physical Therapy Daily Note ---
PT Daily Note-Current Subjective Pt pleasant and agreeable to treatment but very confused. She is seeing people that are not present. Mental Status Patient Orientation: Confused Transfers Therapy Code Descriptions/Definitions Functional [place] Measure: 0=Not Assessed/NA 4=Minimal Assistance 1=Total Assistance 5=Supervision or Setup 2=Maximal Assistance 6=Modified [place] 3=Moderate Assistance 7=Complete [place] Therapy Quality Codes: 6 Independent with activity with or without an assistive device 5 Patient requires set up or clean up by helper. Patient completes activity by themselves 4 Supervision or touching assist (CGA). [place] provide cues , steadying assist 3 The helper provides less than half the effort to complete the activity 2 The helper provides more than half the effort to complete the activity 1 Dependent. The helper does all the effort to complete an activity 7 Patient refused to complete or attempt activity 9 The patient did not perform the activity before the current illness or injury 88 Not attempted due to Medical conditions or safety concerns Transfers (B, C, W/C) (FIM): 4 Supine to/from Sit: 4 Sit to/from Stand: 4 Bed to/from Chair: 4 Weight Bearing Right Lower Extremity: Right Weight Bearing/Tolerated Left Lower Extremity: Left Weight Bearing/Tolerated Gait Training Gait (FIM): 4 Distance (FIM): 3=150 ft Distance: 200 Gait Level of Assist: 4 Gait Persons Needed: 1 Gait Assistive Device: FWW required verbal and tactile cues for use of walker in confined areas Assessment Current Status: Fair Progress Pt showing improved tolerance to activity and good initiation. Primary limitation is confusion. Pt does exhibit some listing to the left when in a seated position. PT Short Term Goals Short Term Goals Time Frame: April 04, 2019 Transfers (B,C,W/C) (FIM): 5 Gait (FIM): 5 Gait Distance Comment: 200' Gait Level of Assist: 5 Gait Assistive Device: FWW PT Plan Problem List Problem List: Balance, Gait Treatment/Plan Treatment Plan: Continue Plan of Care Treatment Plan: Bed Mobility, Education, Functional Activity Fabio, Functional Strength, Gait, Safety, Therapeutic Exercise, Transfers Treatment Duration: April 04, 2019 Frequency: 6 times per week Estimated Hrs Per Day: .25 hour per day (15-30') Patient and/or Family Agrees t: Yes Time/GCodes Time In: 905 Time Out: 920 Total Billed Treatment Time: 15 Total Billed Treatment visit, gait 15 OLINDA NAJERA PT April 01, 2019 10:41
[2019-04-01 10:58] LABS: BASOPHILS % (AUTO) 1 % (0-10); EOSINOPHILS # (AUTO) 0.3 10^3/uL (0.0-0.3); EOSINOPHILS % (AUTO) 5 % (0-10); HEMATOCRIT 37 % (35-52); LYMPHOCYTES # (AUTO) 1.3 X 10^3 (1.0-4.0); LYMPHOCYTES % (AUTO) 23 % (12-44); MEAN CORPUSCULAR HEMOGLOBIN 32 PG (25-34); MEAN CORPUSCULAR HGB CONC 35 G/DL (32-36); MEAN CORPUSCULAR VOLUME 90 FL (80-99); MEAN PLATELET VOLUME 10.1 FL (7.4-10.4); MONOCYTES # (AUTO) 0.8 X 10^3 (0.0-1.0); MONOCYTES % (AUTO) 14 % (0-12); NEUTROPHILS # (AUTO) 3.3 X 10^3 (1.8-7.8); NEUTROPHILS % (AUTO) 58 % (42-75); PLATELET COUNT 226 10^3/uL (130-400); RED CELL DISTRIBUTION WIDTH 13.6 % (10.0-14.5); WHITE BLOOD COUNT 5.8 10^3/uL (4.3-11.0)
--- NOTE | 2019-04-01 11:03 | NUR ---
#20 LEFT HAND X 1 STICK HL FOR CTA.
[2019-04-01 11:15] LABS: BUN/CREATININE RATIO 19; CALCIUM 9.3 MG/DL (8.5-10.1); CARBON DIOXIDE 22 MMOL/L (21-32); CHLORIDE 105 MMOL/L (98-107); CREATININE SERUM 0.89 MG/DL (0.60-1.30); GFR ESTIMATED > 60; GLUCOSE 119 MG/DL (70-105); SODIUM 143 MMOL/L (135-145)
[2019-04-01 11:17] LABS: POTASSIUM 3.7 MMOL/L (3.6-5.0)
[2019-04-01] MEDS ORDERED: HOLD METFORMIN - RECEIVED CONTRAST 20 ML VIAL IV SCH (11:30)
[2019-04-01] MEDS ORDERED: IOHEXOL 350 MG/ML 100 ML (OMNIPAQUE 350) VIAL IV ONE (11:30)
[2019-04-01] MEDS ORDERED: NS 250 ML (IVPB) BAG IV ONE (11:30)
[2019-04-01 11:31] LABS: ERYTHROCYTE SEDIMENTATION RATE 14 MM/HR (0-30)
--- NOTE | 2019-04-01 11:31 | Occupational Ther Daily Note ---
OT Current Status-Daily Note Subjective pt sitting in recliner chair upon OT arrival. pt agreed to OT TX session with focus ion increasing independence with ADLs. pt was hallucinating during TX session. (seeing people/ objects/ animals that were not there) Mental Status/Objective Patient Orientation: Person Therapy Code Descriptions/Definitions Functional [place] Measure: 0=Not Assessed/NA 4=Minimal Assistance 1=Total Assistance 5=Supervision or Setup 2=Maximal Assistance 6=Modified [place] 3=Moderate Assistance 7=Complete [place] ADL-Treatment Grooming (FIM): 4 (CGA while stnaidng at sink to brush hair., ) Bathing (FIM): 1 (pt REF to ocmplete task) Lower Body Dressing (FIM): 5 (roger socks sitting in chair) Toileting (FIM): 5 (pt education on figure four position SPV for safety/ balance. ) Transfers (B, C, W/C) (FIM): 5 (close SBA) Toilet/Commode Transfer (FIM): 5 (close SBA) pt complete LB dressing while sitting in chair with SBA for safety/ balance. pt then demo ability to ambulate 15 feet to bathroom using RW and close SBA for safety/ balance. one sitting on toilet pt refused to stand up or go back into room. pt was done using bathroom and stated she does not have to go to bathroom but refused to go back into room. pt stated "to many people playing games out there, I am not going.." pt educations she was in bathroom and was not allowed to be left alone in bathroom. NSG staff had to assist with getting pt to go back into room/ sitting in recliner chair. chair alarm on, call light within reach, and present in room. pt able to recognize Education OT Patient Education: Modified ADL techniques, Progress toward Goal/Update tx plan, Purpose of tx/functional activities, Use of adapted equipment Teaching Recipient: Patient, Family Teaching Methods: Demonstration, Discussion Response to Teaching: Verbalize Understanding, Return Demonstration OT Short Term Goals Short Term Goals Grooming(FIM): 6 Bathing(FIM): 5 Lower Body Dressing(FIM): 5 Toileting(FIM): 5 Transfers (B,C,W/C) (FIM): 5 Toilet/Commode Transfer(FIM): 5 1=Demonstrate adherence to instructed precautions during ADL tasks. 2=Patient will verbalize/demonstrate understanding of assistive devices/modifications for ADL. 3=Patient will improve strength/tolerance for activity to enable patient to perform ADL's. OT Penitentiary Goals Penitentiary Goals Grooming(FIM): 6 Bathing(FIM): 6 Lower Body Dressing(FIM): 6 Toileting(FIM): 6 Transfers (B,C,W/C) (FIM): 6 Toilet/Commode Transfer(FIM): 6 1=Demonstrate adherence to instructed precautions during ADL tasks. 2=Patient will verbalize/demonstrate understanding of assistive devices/modifications for ADL. 3=Patient will improve strength/tolerance for activity to enable patient to perform ADL's. OT Education/Plan Problem List/Assessment pt presents with functional limitations affecting areas of ADLs/ functional transfers. pt would benefit from OT services to increase independence with ADLs/ functional transfers. anticipate d/c to home with . Discharge Recommendations Plan/Recommendations: Continue POC Treatment Plan/Plan of Care Treatment,Training & Education: Yes Patient would benefit from OT for education, treatment and training to promote independence in ADL's, mobility, safety and/or upper extremity function for ADL's. Plan of Care: ADL Retraining, Caregiver Training, Functional Mobility, UE Funct Exercise/Act Treatment Duration: Apr 11, 2019 Frequency: 5 times per week Estimated Hrs Per Day: .25 hour per day Agreement: Yes Rehab Potential: Fair Time/GCodes Start Time: 11:00 Stop Time: 11:25 Billed Treatment Time ADL 25 minutes, 2 units PENNY SHEN OT April 01, 2019 11:30
[2019-04-01 12:00] VITALS: BP 140/74
--- NOTE | 2019-04-01 14:43 | Diagnostic Imaging Report ---
PROCEDURE: CT angiography of the head and CT angiography of the neck with and without contrast. TECHNIQUE: Contiguous noncontrast images were obtained from the skull base through the vertex. After intravenous contrast administration, helical CT angiography of the neck was performed. Source data was reformatted into multiple MIP projections. Delayed post contrast acquisition was also obtained. Auto Exposure Controls were utilized during the CT exam to meet ALARA standards for radiation dose reduction. INDICATION: Altered mental status and confusion. Leaning to the left. Blurry vision and headaches. COMPARISON is made with MRI from 03/26/2019. FINDINGS: The noncontrast CT of the head demonstrates no evidence of acute intracranial hemorrhage. There is no intracranial mass effect or shift. There is no hydrocephalus. There is no territorial loss of mancia-white differentiation. There is a subtle suggestion that there may be some new low density within the white matter of the occipital lobes. There is no abnormal extra-axial collection. The basilar cisterns are patent. The mastoid air cells are clear. The paranasal sinuses are clear. The orbital contents are unremarkable. CT angiography demonstrates atherosclerotic plaquing within the aortic arch without high-grade stenosis at the origins of the great vessels. The vertebral artery origins also appear patent. The common carotid arteries demonstrate atheromatous disease within the carotid bulb. Based on NASCET criteria, this is less than 50% stenosis of the proximal internal carotid arteries bilaterally. There are no findings of dissection. The vertebral arteries within the neck demonstrate no high-grade stenosis or dissection. Within the anterior cranial circulation, there is moderate to advanced atherosclerotic disease within the carotid siphons. The terminus is unremarkable. There is appropriate flow within both of the M1 segments of the middle cerebral arteries. Anterior cerebral arteries appear patent. The posterior circulation demonstrates patent vertebral arteries. The left vertebral artery is dominant with moderate atherosclerotic disease. The basilar is small but this appears to be congenital as there are large bilateral posterior communicating arteries and origins of both of the posterior cerebral arteries. There are no findings of aneurysm formation. The dural venous sinuses appear patent. There is no pathologic intracranial enhancement. The soft tissues of the neck demonstrate no acute process. The lung apices appear clear. Multilevel degenerative disc disease and facet arthropathy present within the cervical spine most advanced at C4-5 and C5-6. There is a slight anterolisthesis of C6 on C7. There is no acute osseous injury. IMPRESSION: 1. No findings of intracranial hemorrhage, mass effect or hydrocephalus. 2. Very subtle suggestion that there maybe some new low density within the white matter of the occipital lobes. If the patient clinically has a history of hypertension, hypertensive encephalopathy could not be excluded. This could be assessed with repeat MRI if clinically indicated. There is no territorial loss of mancia-white differentiation present to suggest a territorial infarct. 3. CTA demonstrates less than 50% stenosis of the proximal internal carotid arteries within the neck. There is advanced intracranial atherosclerosis within the carotid siphons. There is no large vessel occlusion evident. 4. No evidence of aneurysm formation. 5. Dural venous sinuses appear patent. 6. No pathologic intracranial enhancement. 7. No findings to suggest dissection within the neck. 7. Cervical degenerative disc disease and facet arthropathy. Dictated by: Dictated on workstation # [id number]
--- NOTE | 2019-04-01 15:00 | Progress Note-Hospitalist ---
Subjective HPI/CC On Admission Date Seen by Provider: April 01, 2019 Time Seen by Provider: 13:00 The patient is a 73-year-old white female referred to the hospitalist service by Dr. Clover Ramesh who is her personal physician. Dr. Ramesh had her hospitalized at [facility]. The states that she had been showing evidence of clear confusion and declining beginning Monday. Things got worse on Monday and they sought additional care. The patient has had a problem recently with urinary tract infections. Dr. Ramesh said that a recent previous urinary tract infection had caused her to be confused. The infection had resistance to multiple antibiotics. This time she appeared to be much more confused. A CT scan done at the [facility] was negative for pathology in the cranium. Her confusion was so great that it was felt necessary to have additional neural scanning which was not available at [place]. Subjective/Events-last exam Patient continues to be confused and yesterday noticed significant leading to the left with intermittent agitated behavior. I did have concerns for encephalitis but LP revealed a normal cell count total protein was mildly elevated at 80. CTA of the head and neck did not explain her symptoms either. She denies headache and has no focal neurologic deficits currently except in the propensity to lean toward the left. She reports some chronic blurry vision but no visual field cuts. Objective Exam Vital Signs Vital Signs Date Time Temp Pulse Resp B/P (MAP) Pulse Ox O2 Delivery O2 Flow Rate FiO2 04/01/19 12:00 98.2 88 18 140/74 (96) 99 Room Air 03/26/19 14:01 0.00 Capillary Refill : Less Than 3 Seconds General Appearance: No Apparent Distress Respiratory: Chest Non Tender, Lungs Clear, Normal Breath Sounds, No Accessory Muscle Use, No Respiratory Distress Cardiovascular: Regular Rate, Rhythm, No Edema, No Gallop, No JVD, No Murmur, Normal Peripheral Pulses Gastrointestinal: Normal Bowel Sounds, No Organomegaly, No Pulsatile Mass, Non Tender, Soft Results/Procedures Lab Laboratory Tests 04/01/19 10:53 Patient resulted labs reviewed. Assessment/Plan Assessment and Plan Assess & Plan/Chief Complaint 1. The patient is now over a week out from rather abrupt alteration in mental status according to the . Her workup has been extensive including LP and CTA of the head and neck but do not explain her symptoms. Her urinary tract infection has essentially a resolve with minimal pyuria yesterday and no bacteria being noted. Both she and her are likely going to need intermediate placement we'll consult social media marketing specialist in the morning. Clinical Quality Measures DVT/VTE Risk/Contraindication: Risk Factor Score Per Nursin RFS Level Per Nursing on Admit: 4+=Very High SAMI SANDY MD April 01, 2019 15:00
[2019-04-01 16:50] VITALS: BP 132/68
[2019-04-01 19:10] VITALS: BP 158/76
[2019-04-01] MEDS: ATORVASTATIN 40 MG (LIPITOR) TABLET PO SCH (21:00)
[2019-04-02] VITALS (7 sets, daily range): BP systolic 118–157; BP diastolic 61–76
[2019-04-02] MEDS: LEVOTHYROXINE 75 MCG (LEVOTHROID) TABLET PO SCH (05:57)
[2019-04-02] MEDS: SALSALATE 500 MG PO SCH ×2 (05:58→18:39)
[2019-04-02] MEDS: ASPIRIN E.C. 81 MG (ECOTRIN) TAB PO SCH (09:28)
[2019-04-02] MEDS: meTOprolol TARTRATE 25 MG (LOPRESSOR) TABLET PO SCH ×2 (09:28→20:12)
[2019-04-02] MEDS: CEFDINIR 300 MG (OMNICEF) CAP PO SCH ×2 (09:28→20:12)
[2019-04-02] MEDS: FAMOTIDINE 20 MG (PEPCID) TABLET PO SCH (09:28)
[2019-04-02] MEDS: LOSARTAN 50 MG (COZAAR) TAB PO SCH (09:28)
--- NOTE | 2019-04-02 11:37 | NUR ---
CM/SS responded to consult for SS. Spoke with the patient's . Discussed looking for SNF for the patient. He discussed that at one time they were talking about looking for placement for the both of them, but at this time he is just wanting to pursue placement for her. He would like for [facility] for placement and to have a conversation with him about finances and what it would look like down the road if both of them are there. Referral sent to [facility]. Mimi with [facility] will speak with the and answer his questions on finances and such.
--- NOTE | 2019-04-02 11:51 | Occupational Ther Daily Note ---
OT Current Status-Daily Note Subjective Pt alert, lying in bed. Pt agrees to therapy. No c/o pain at this time. Mental Status/Objective Patient Orientation: Person, Confused Therapy Code Descriptions/Definitions Functional [place] Measure: 0=Not Assessed/NA 4=Minimal Assistance 1=Total Assistance 5=Supervision or Setup 2=Maximal Assistance 6=Modified [place] 3=Moderate Assistance 7=Complete [place] Attachments: IV ADL-Treatment Pt agrees to shower. Ambulated with FWW to bathroom with CGA. Close SBA using grabbars for toilet transfer and hygiene. Shower transfer CGA using FWW, grabbars and shower bench. SBA for bathing/drying using grabbar, shower bench and hand held shower. Pt donned/doffed socks by self. Pt able to don/doff hospital gown and place over head when tied in back to simulate regular shirt. Pt then stood at sink with CGA due to fatigue and completed own grooming. Increased shakiness at end of grooming. Pt ambulated back to bed and stated that her head began to hurt. Laid down in bed took BP, 141/69. Reported to nrsg. After therapy, pt lying in bed with call light/phone in reach. All needs met in room. Grooming (FIM): 4 Bathing (FIM): 5 Bathing Location: L Arm, R Arm, L Upper Leg, R Upper Leg, L Lower Leg (including foot), R Lower Leg (including foot), Chest, Abdomen, Buttocks, Perineal Area Lower Body Dressing (FIM): 5 Toileting (FIM): 5 Transfers (B, C, W/C) (FIM): 4 Toilet/Commode Transfer (FIM): 4 Shower Transfer(FIM): 4 OT Short Term Goals Short Term Goals Grooming(FIM): 6 Bathing(FIM): 5 Lower Body Dressing(FIM): 5 Toileting(FIM): 5 Transfers (B,C,W/C) (FIM): 5 Toilet/Commode Transfer(FIM): 5 1=Demonstrate adherence to instructed precautions during ADL tasks. 2=Patient will verbalize/demonstrate understanding of assistive devices/modifications for ADL. 3=Patient will improve strength/tolerance for activity to enable patient to perform ADL's. OT Long-Term Goals Long-Term Goals Grooming(FIM): 6 Bathing(FIM): 6 Lower Body Dressing(FIM): 6 Toileting(FIM): 6 Transfers (B,C,W/C) (FIM): 6 Toilet/Commode Transfer(FIM): 6 1=Demonstrate adherence to instructed precautions during ADL tasks. 2=Patient will verbalize/demonstrate understanding of assistive devices/modifications for ADL. 3=Patient will improve strength/tolerance for activity to enable patient to perform ADL's. OT Education/Plan Problem List/Assessment Assessment: Decreased Activ Tolerance, Impaired Cognition, Impaired Coordination, Impaired Funct Balance, Impaired Self-Care Skills pt presents with functional limitations affecting areas of ADLs/ functional transfers. pt would benefit from OT services to increase independence with ADLs/ functional transfers. anticipate d/c to home with . Discharge Recommendations Plan/Recommendations: Continue POC Treatment Plan/Plan of Care Patient would benefit from OT for education, treatment and training to promote independence in ADL's, mobility, safety and/or upper extremity function for ADL's. Plan of Care: ADL Retraining, Caregiver Training, Functional Mobility, UE Funct Exercise/Act Treatment Duration: Apr 11, 2019 Frequency: 5 times per week Estimated Hrs Per Day: .25 hour per day Agreement: Yes Rehab Potential: Fair Time/GCodes Start Time: 11:00 Stop Time: 11:40 Total Time Billed (hr/min): 40 Billed Treatment Time 1 visit-ADL 3 (40 min) CHELLY NIELSEN April 02, 2019 11:50
--- NOTE | 2019-04-02 13:54 | Progress Note-Hospitalist ---
Progress Note Progress Notes/Assess & Plan Date Seen 04/02/19 Time Seen by Provider: 13:47 Assessment & Plan When I first entered the room the patient appeared to be asleep. Her was there and we had a long discussion about what seemed to be taking place here. When I was last here on Monday he was having her best day of her hospitalization and he states that the week and has not been nearly so alert. This morning she had been largely somnolent. He was not sure about whether she slept last night. We discussed dementias. If the time frames given to me previously which were that she had a urinary tract infection and early February and recovered from this and appeared to be entirely normal until just before she entered the hospital this time. It now appears that mental function is impaired again. MRI done added [place] was negative and a CTA done yesterday showed less than 50 percent narrowing of the carotids. There appears to be nothing to absolutely explain the subdued and altered mental status. After a long discussion the patient awakened and allowed that she had heard part of the discussion. She was able to identify me. Physical exam: Lungs are clear to auscultation. CV was regular without murmur. Abdomen was soft. Impression: Urinary tract infection. 2.altered mental status. Plan: adoption services manager had a previous discussion with the about prison placement for physical therapy and occupational therapy. At that time he had told them that [facility] would be his first choice. Today he seems to have forgotten that that discussion took place and asked me about which facilities I would recommend. All in all I spent 40 minutes in the room. DEIRDRE PORRAS MD April 02, 2019 13:54
--- NOTE | 2019-04-02 15:28 | NUR ---
CM/SS referral also sent to [facility] at the families request. [facility] does have a bed and accepts the patient for placement. Family will have time to think it over and see what [facility] says about acceptance, then will revisit.
--- NOTE | 2019-04-02 15:38 | Physical Therapy Daily Note ---
PT Daily Note-Current Subjective Pt laying Supine in bed upon arrival. Sp present. Pt agrees to PT but has difficulty staying awake due to not sleeping well at night. Pain Location: No Pain Reported Mental Status Patient Orientation: Person, Confused, Place Transfers Therapy Code Descriptions/Definitions Functional [place] Measure: 0=Not Assessed/NA 4=Minimal Assistance 1=Total Assistance 5=Supervision or Setup 2=Maximal Assistance 6=Modified [place] 3=Moderate Assistance 7=Complete [place] Therapy Quality Codes: 6 Independent with activity with or without an assistive device 5 Patient requires set up or clean up by helper. Patient completes activity by themselves 4 Supervision or touching assist (CGA). [place] provide cues , steadying a ssist 3 The helper provides less than half the effort to complete the activity 2 The helper provides more than half the effort to complete the activity 1 Dependent. The helper does all the effort to complete an activity 7 Patient refused to complete or attempt activity 9 The patient did not perform the activity before the current illness or injury 88 Not attempted due to Medical conditions or safety concerns Weight Bearing Right Lower Extremity: Right Weight Bearing/Tolerated Left Lower Extremity: Left Weight Bearing/Tolerated Exercises Supine Ex: Ankle pumps, Quad Set, Glut sets, Heel Slides, Hip abd/add Supine Reps: 15 Treatments Pt completes Supine Ex in bed with a couple of RB where pt falls asleep. Sp asks ELECTRON TUBE ASSEMBLER pt's progress and cause of confusion. Sp also wants to consider options for SNF and calls [facility] while tx occurs. Pt resting at end of tx with all needs met. Assessment Current Status: Fair Progress Pt difficult to keep awake as well as keep focus during tx, preoccupied with Sp phone call. PT Short Term Goals Short Term Goals Time Frame: April 04, 2019 Transfers (B,C,W/C) (FIM): 5 Gait (FIM): 5 Gait Distance Comment: 200' Gait Level of Assist: 5 Gait Assistive Device: FWW PT Plan Problem List Problem List: Activity Tolerance, Functional Strength, Safety, Balance, Gait, Transfer Treatment/Plan Treatment Plan: Continue Plan of Care Treatment Plan: Bed Mobility, Education, Functional Activity Fabio, Functional Strength, Gait, Safety, Therapeutic Exercise, Transfers Treatment Duration: April 04, 2019 Frequency: 6 times per week Estimated Hrs Per Day: .25 hour per day (15-30') Patient and/or Family Agrees t: Yes Safety Risks/Education Patient Education: Transfer Techniques, Correct Positioning, Disease Process, Safety Issues Teaching Recipient: Patient Teaching Methods: Discussion Response to Teaching: Reinforcement Needed Time/GCodes Time In: 1445 Time Out: 1510 Total Billed Treatment Time: 25 Total Billed Treatment 1, EX (15m) & FA (10m) G Codes Necessary: LU Alvarado ELECTRON TUBE ASSEMBLER April 02, 2019 15:38
--- NOTE | 2019-04-02 16:06 | NUR ---
Pastoral care visit.
[2019-04-02] MEDS: ATORVASTATIN 40 MG (LIPITOR) TABLET PO SCH (20:12)
[2019-04-03 03:45] VITALS: BP 147/79
[2019-04-03] MEDS: SALSALATE 500 MG PO SCH (05:42)
[2019-04-03] MEDS: LEVOTHYROXINE 75 MCG (LEVOTHROID) TABLET PO SCH (05:42)
[2019-04-03 08:00] VITALS: BP 160/58
[2019-04-03] MEDS: FAMOTIDINE 20 MG (PEPCID) TABLET PO SCH (08:40)
[2019-04-03] MEDS: meTOprolol TARTRATE 25 MG (LOPRESSOR) TABLET PO SCH (08:41)
[2019-04-03] MEDS: CEFDINIR 300 MG (OMNICEF) CAP PO SCH (08:41)
[2019-04-03] MEDS: LOSARTAN 50 MG (COZAAR) TAB PO SCH (08:41)
[2019-04-03] MEDS: ASPIRIN E.C. 81 MG (ECOTRIN) TAB PO SCH (08:41)
[2019-04-03] MEDS ORDERED: LOSA50TA63 PO (11:12)
--- NOTE | 2019-04-03 11:13 | Discharge Summary-Hospitalist ---
Diagnosis/Chief Complaint Date of Admission March 26, 2019 at 14:00 Date of Discharge Discharge Date: April 03, 2019 Admission Diagnosis 1.urinary tract infection. 2.acute/recurrent confusion Discharge Diagnosis (1) Delirium Status: Acute (2) Psoriatic arthritis Status: Chronic (3) UTI (urinary tract infection) Status: Acute Discharge Summary Discharge Physical Exam Allergies: Coded Allergies: AMA Inhibitors (Verified Allergy, Unknown, 03/26/19) levofloxacin (Verified Allergy, Unknown, TENDINITIS, 03/26/19) nitrofurantoin (Verified Allergy, Unknown, 03/26/19) Vitals & I&Os Vital Signs Date Time Temp Pulse Resp B/P (MAP) Pulse Ox O2 Delivery O2 Flow Rate FiO2 04/03/19 08:00 Room Air 04/03/19 08:00 98.0 78 16 160/58 (92) 93 General Appearance: No Apparent Distress, WD/WN, Chronically ill Respiratory: Chest Non Tender, Lungs Clear, Normal Breath Sounds, No Accessory Muscle Use, No Respiratory Distress Cardiovascular: Regular Rate, Rhythm, No Edema, No Gallop, No JVD, No Murmur, Normal Peripheral Pulses Neurologic/Psychiatric: Alert, Oriented x3, No Motor/Sensory Deficits, Normal Mood/Affect, Disoriented (subtle poor recall) Hospital Course Was the Problem List Reviewed?: Yes Hospital course: patient had a lengthy hospital course. She was admitted after transferred from [facility] after pancultured and UCx was obtained after abx given. Jm armijo was provided supportive care while inpatient and confusion improved but she was having difficulty with strength and ability to go home and PCP Dr Ramesh suggested swing bed in [facility] or SNF at [facility]. Patient completed abx for UTI on 04/03/19. Overall prognosis guarded custodial given her very severe weakness and chronic debility. Labs (last 24 hrs) Microbiology 03/31/19 Gram Stain - Final, Resulted 03/31/19 CSF Culture - Final, Resulted No growth 03/31/19 Fungal Culture 1 - Preliminary, Resulted Culture In Progress 03/31/19 Renae Ink - Final, Resulted 03/27/19 Urine Culture - Final, Complete NO GROWTH Patient resulted labs reviewed. Discussion & Recommendations Discharge Planning: <30 minutes discharge planning Discharge Home Medications: Active Scripts Active Losartan Potassium 50 Mg Tablet 100 Mg PO DAILY 30 Days Reported Tizanidine HCl 4 Mg Tablet 4 Mg PO Q8H PRN Fish Oil 1,200 mg Fish Oil (Fish Oil/Dha/Epa) 1 Each Capsule 1,200 Mg PO DAILY Biotin 1,000 Mcg Tablet 1,000 Mcg PO BID Zantac (Ranitidine HCl) 150 Mg Tablet 150 Mg PO BID Diflunisal 500 Mg Tablet 500 Mg PO BID Levothyroxine Sodium 75 Mcg Tablet 75 Mcg PO DAILY Vitamin D-3 (Cholecalciferol (Vitamin D3)) 2,000 Unit Capsule 2,000 Unit PO DAILY Aspirin EC (Aspirin) 81 Mg Tablet.dr 81 Mg PO DAILY Multiple Vitamins (Multivitamin) 1 Each Tablet 1 Tab PO DAILY Calcium 500 + D Tablet (Calcium Carbonate/Vitamin D3) 1 Each Tablet 1 Tab PO DAILY Atorvastatin Calcium 40 Mg Tablet 40 Mg PO HS Gabapentin 600 Mg Tablet 600 Mg PO TID PRN Cyclobenzaprine HCl 10 Mg Tablet 10 Mg PO HS PRN Losartan Potassium 50 Mg Tablet 50 Mg PO DAILY Metoprolol Tartrate 25 Mg Tablet 12.5 Mg PO BID TAKES 1/2 (25MG) TABLET Instructions to patient/family Please see electronic discharge instructions given to patient. Clinical Quality Measures DVT/VTE Risk/Contraindication: Risk Factor Score Per Nursin RFS Level Per Nursing on Admit: 4+=Very High Problem Qualifiers (1) UTI (urinary tract infection): Urinary tract infection type: acute cystitis Hematuria presence: without hematuria Qualified Codes: N30.00 - Acute cystitis without hematuria JESS SIMON DO April 03, 2019 11:13
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
--- NOTE | 2019-04-03 12:27 | NUR ---
CM/SS referral also sent to [facility] as requested by family. Patient and her were still trying to make a decision this day. Patient was eating lunch and will revisit with them after.
--- NOTE | 2019-04-03 13:44 | NUR ---
CM/SS family decided on [facility] for SNF. [facility] will transport this day at 3pm. Completed CARE assessment, sent by fax to [facility] and [facility], maintained a copy for chart.
--- NOTE | 2019-04-03 14:08 | Discharge Inst-Skilled Nursing ---
Discharge Inst-Skilled NF Patient Instructions Patient Problems: Delirium UTI s/p completed abx Psoriatic arthritis Goal: Return to independent living Consult/Follow Up/Orders Follow Up Appt.: Dr Gadiel Glass NF Admit to: [facility] Certification ([facility]) I certify that SNF services are required to be given on an inpatient basis because of the above named patient's need for group home care on a continuing basis for the conditions(s) for which he/she was receiving inpatient hospital services prior to his/her transfer to the SNF. Senior Living Facility Order: Nursing Services, Advertising Copy Writer-Evaluate & Treat, Physical Therapy-Evaluate & Treat, Speech Language-Evaluate & Treat Oxygen Delivery Method: Room Air Discharge Diet: No Restrictions Daily Activity as Tolerated: Yes New & Resume Previous Orders Tanesha Arana April 03, 2019 14:07 TANESHA ARANA DO April 03, 2019 14:08
--- NOTE | 2019-04-03 14:18 | Physical Therapy Progress Note ---
Therapy Progress Note BARREL RIFLER HOOK attempts to see pt for tx approx. 1330 and pt is visiting with SW to discuss options for D/C. BARREL RIFLER HOOK returns as SW is finished and SW advises pt to D/C to SNF ([facility]) at approx. 1500. Pt is not seen at this time. 1, no tx rendered LU LUCERO BARREL RIFLER HOOK April 03, 2019 14:18
[2019-04-03 15:15] VITALS: BP 160/58
== END 2019-04-03 15:15 | DRG 690 ==
LOC: OBSVTOIN 14:00 → 4TH 14:00
PROVIDERS: ADMIT Internal Medicine; ATTEND Internal Medicine
PROC: 009U3ZX Drainage of Spinal Canal, Percutaneous Approach, Diagnostic (ICD-10-PCS; principal; 2019-03-31)
DX: N30.00 Acute cystitis without hematuria (principal); R41.0 Disorientation, unspecified; M19.91 Primary osteoarthritis, unspecified site; M06.9 Rheumatoid arthritis, unspecified; L40.50 Arthropathic psoriasis, unspecified; H91.93 Unspecified hearing loss, bilateral; Z97.4 Presence of external hearing-aid; Z85.038 Personal history of other malignant neoplasm of large intestine; Z92.21 Personal history of antineoplastic chemotherapy
CPT/HCPCS: 36415; 70496; 70498; 70553; 80048; 80053; 81000; 82945; 84157; 85025; 85610; 85652; 87070; 87088; 87101; 87205; 87210; 87252; 87529; 89051; 93306; 93880

== ENCOUNTER → 2019-07-22 | Outpatient (CLI) | payer MEDICARE, OTHER ==
[~2019-07-22] MED LIST changes: +ASPI-983 PO; +ATOR40TA70 PO; +CALC-654 PO; +CATHETER FLUSH 10 ML SYR IV PRN; +CHOL20002 PO; +CYCL10TA9 PO; +DIFL500T PO; +FISH1CAP15 PO; +GBPN600T PO; +LEVO75TA6 PO; +LOSA50TA63 PO; +METO-333 PO; +MULT-178 PO; +NFBIOT1000 PO; +RANI-613 PO; +TIZA4TAB4 PO
[2019-07-22 09:46] VITALS: BP 168/74
[2019-07-22 09:56] VITALS: BP 166/104
--- NOTE | 2019-07-23 09:27 | STRESS TEST ---
DATE OF SERVICE: 07/22/2019 EXERCISE MYOVIEW STRESS TEST REPORT REFERRING PHYSICIAN: Dr. Clover Ramesh. Baseline heart rate is 73. Baseline blood pressure 168/74. Baseline EKG is sinus rhythm with no ischemic changes. In summary, the patient was injected with 9.95 mCi of technetium-99 Myoview and the resting images were obtained. Then, the patient started exercising with a baseline heart rate, blood pressure and EKG mentioned above. The patient was able to exercise for 6 minutes 45 seconds on standard Damon protocol. With peak exercise level, EKG was showing minimal nondiagnostic changes. The patient was injected with 30.5 mCi of technetium-99 Myoview. Peak blood pressure was 166/104. During recovery, heart rate and blood pressure returned to baseline. EKG returned to baseline. The resting and stress images were reviewed and compared in the short axis, horizontal long axis, and vertical long axis views. Review of the images showed good radiotracer uptake with no significant ischemia or infarction. SSS is 1, SDS 1, TID value 1.01. On the gated images, the left ventricle appeared to be normal size with normal contractility. Calculated ejection fraction 78%. CONCLUSION: 1. Fair exercise tolerance, a total of 6 minutes 45 seconds on standard Damon protocol, total of 7.1 METS achieving 83% of maximum expected heart rate. 2. Appropriate heart rate and blood pressure response to exercise returned to baseline during recovery. 3. Minimal nondiagnostic EKG changes with exercise returned to baseline during recovery. 4. No significant ischemia or infarction on SPECT images. 5. Normal left ventricular size with normal contractility. Calculated ejection fraction 78%. Job ID: [id number] DocumentID: [id number] Dictated Date: 07/23/2019 07:47:31 Cna Hha Date: 07/23/2019 09:26:10 Dictated By: BEAN ROBERTS MD
== END ==
LOC: CARD 08:25
PROVIDERS: ATTEND Physician Assistant
DX: I25.10 Atherosclerotic heart disease of native coronary artery without angina pectoris (principal); I10 Essential (primary) hypertension; I65.29 Occlusion and stenosis of unspecified carotid artery; E78.5 Hyperlipidemia, unspecified
CPT/HCPCS: 78452; 93017

== ENCOUNTER → 2019-09-24 | Outpatient (CLI) | payer MEDICARE, OTHER ==
[~2019-09-24] MED LIST changes: -CATHETER FLUSH 10 ML SYR IV PRN
--- NOTE | 2019-09-24 16:02 | Diagnostic Imaging Report ---
INDICATION: Asymptomatic postmenopausal screening COMPARISON: Baseline FINDINGS: AP Spine L1-L4: [BMD (g/cm2): 1.285] [T-Score: 0.7] [Z-Score: 2.7] [BMD Previous: NA] [BMD % Change: NA] LT Hip Neck: [BMD (g/cm2): 0.790] [T-Score: -1.8] [Z-Score: 0.2] LT Hip Total: [BMD (g/cm2):0.872] [T-Score:-1.1] [Z-Score: 0.8] [BMD Previous: NA] [BMD % Change: NA] RT Hip Neck: [BMD (g/cm2):0.732] [T-Score:-2.2] [Z-Score:-0.2] RT Hip Total: [BMD (g/cm2):0.834] [T-score:-1.4] [Z-Score:0.5] [BMD Previous:NA] [BMD % Change:NA] *Indicates significant change from prior examination based on 95% confidence level. World Health Organization criteria for BMD interpretation classify patients as Normal (T-score at or above -1.0), Osteopenic (T-score between -1.0 and -2.5) or Osteoporotic (T-score at or below -2.5). LIMITATIONS AND MODIFICATION: None. FRACTURE RISK (FRAX SCORE): The ten year probability of (%): Major Osteoporotic Fracture: [19.8] Hip Fracture: [4.6] IMPRESSION: 1. Osteopenia (Low bone mass). 2. Baseline examination. 3. See below National Osteoporosis Foundation guidelines on when to potentially initiate pharmacologic therapy. Based on the National Osteoporosis Foundation Guidelines, pharmacologic treatment should be initiated in any of the following, unless clinical conditions suggest otherwise: * Any patient with prior fragility fracture of the hip or vertebrae. A spine fracture indicates 5X risk for subsequent spine fracture and 2X risk for subsequent hip fracture. * Osteoporosis (T-score <-2.5). * Postmenopausal women and men age 50 and older with low bone mass/osteopenia (T-score between -1.0 and -2.5) by DXA and 10-year major osteoporotic fracture greater than 20% or a 10-year probability of hip fracture greater than 3%. These fracture risks are supplied above in the FRAX score, if applicable. * Clinician judgement and/or patient preferences may indicate treatment for people with 10-year fracture probabilities above or below these levels. Dictated by: Dictated on workstation # [id number]
== END ==
LOC: RAD 10:21
PROVIDERS: ATTEND Orthopaedic Surgery Orthopaedic Surgery of the Spine
DX: M85.80 Other specified disorders of bone density and structure, unspecified site (principal); M54.16 Radiculopathy, lumbar region; Z78.0 Asymptomatic menopausal state
CPT/HCPCS: 77080

== ENCOUNTER → 2019-11-22 | Outpatient (CLI) | payer MEDICARE, OTHER ==
[~2019-11-22] MED LIST changes: +GADOBUTROL 10 MMOL/10 ML (GADAVIST) VIAL IV ONE
--- NOTE | 2019-11-22 10:51 | Diagnostic Imaging Report ---
PROCEDURE: MR imaging of the brain with and without contrast. TECHNIQUE: Multiplanar, multisequence MR imaging of the brain was performed with and without contrast. INDICATION: Memory loss. COMPARISON: Correlation is made with prior MRI of the brain from 03/26/2019. FINDINGS: Ventricular size and sulcal pattern appear stable. Periventricular and subcortical white matter signal abnormalities are again noted consistent with chronic microvascular ischemia. No diffusion restriction is identified to suggest acute ischemia. The normal expected flow-voids within the carotid siphons are seen. No acute intra-axial or extra-axial hemorrhage is detected. The corpus callosum is unremarkable. The sella and parasellar structures are unremarkable. IMPRESSION: Stable MRI of the brain when compared with prior exam from 03/26/2019. Findings of chronic microvascular ischemia again noted. No acute feature is detected. Dictated by: Dictated on workstation # [id number]
--- NOTE | 2019-11-22 12:14 | Diagnostic Imaging Report ---
INDICATION: Routine screening. Comparison is made with prior mammogram 11/07/2018 and 10/31/2017. 2-D and 3-D bilateral screening mammography was performed with CAD. Both breasts are heterogeneously dense, limiting the sensitivity of mammography. Scattered benign-appearing calcifications are noted. No mass or malignant appearing microcalcifications are seen. Axillae are unremarkable. IMPRESSION: BI-RADS Category 2 No mammographic features suspicious for malignancy are identified. ACR BI-RADS Category 2: Benign findings. Result letter will be mailed to the patient. Note: At least 10% of breast cancer is not imaged by mammography. Dictated by: Dictated on workstation # [id number]
== END ==
LOC: RAD 09:29
PROVIDERS: ATTEND Family Medicine
DX: Z12.31 Encounter for screening mammogram for malignant neoplasm of breast (principal); R41.3 Other amnesia; Z86.79 Personal history of other diseases of the circulatory system
CPT/HCPCS: 70553; 77067

== ENCOUNTER → 2019-12-06 | Outpatient (CLI) | payer MEDICARE, OTHER ==
[~2019-12-06] MED LIST changes: -GADOBUTROL 10 MMOL/10 ML (GADAVIST) VIAL IV ONE
--- NOTE | 2019-12-06 14:12 | Diagnostic Imaging Report ---
HISTORY: Spondylolisthesis. Kyphoplasty in September. TECHNIQUE: Frontal, lateral neutral, lateral flexion, and lateral extension views of the lumbar spine. COMPARISON: 01/08/2013. FINDINGS: There is severe compression deformity of the L3 vertebral body with kyphoplasty changes noted. There are severe degenerative changes at L4-L5 with grade 1-2 anterolisthesis measuring approximately 11 mm. There are also severe degenerative changes at L5-S1. Alignment of the lumbar spine otherwise appears normal. Flexion and extension radiographs demonstrate no dynamic instability. There is diffuse osteopenia. There is mild left convex curvature centered at L2-L3. Bilateral sacroiliac joints are patent. IMPRESSION: 1. Grade 1-2 anterolisthesis at L4-L5 with no dynamic instability seen. 2. Severe compression deformity of L3, post kyphoplasty. 3. Severe degenerative changes at L4-L5. Dictated by: Dictated on workstation # [id number]
== END ==
LOC: RAD 13:23
PROVIDERS: ATTEND Neurological Surgery
DX: M47.816 Spondylosis without myelopathy or radiculopathy, lumbar region (principal); M43.16 Spondylolisthesis, lumbar region
CPT/HCPCS: 72110

== ENCOUNTER 2020-01-07 05:33 | Outpatient (CLI) | payer MEDICARE, OTHER ==
[~2020-01-07] VITALS: Ht 147 cm; Wt 58.6 kg
[2020-01-08] MEDS ORDERED: CHOL200078 PO (12:09)
[2020-01-08] MEDS ORDERED: MELO15TA39 PO (12:09)
== END 2020-01-08 12:13 | disposition home or self-care (01) ==
LOC: PREOP 05:33
PROVIDERS: ATTEND Specialist
DX: Z01.818 Encounter for other preprocedural examination (principal)

== ENCOUNTER 2020-01-10 09:10 | Day surgery (SDC) | payer MEDICARE, OTHER ==
[~2020-01-10] VITALS: Ht 147 cm; Wt 58.6 kg
[~2020-01-10 09:10] MED LIST changes: +CHOL200078 PO; +MELO15TA39 PO
[2020-01-10] MEDS ORDERED: PHENYLEPHRINE 10% OPHTH (NEO-SYN) 5 ML BTL OU PRN (09:45)
[2020-01-10] MEDS ORDERED: TETRACAINE 0.5% OPHTH SOLN 4 ML BTL (SINGLE DOSE ONLY) OU PRN (09:45)
[2020-01-10] MEDS ORDERED: TROPICAMIDE 1% OPH SOLN (MYDRIACYL) 15 ML BTL OU PRN (09:45)
--- NOTE | 2020-01-10 10:19 | Ophthalmologist Pre-Op Note ---
Pre-Operative Progress Note H&P Reviewed The H&P was reviewed, patient examined and no changes noted. Date H&P Reviewed: Jan 10, 2020 Time H&P Reviewed: 10:11 Pre-Op Dx Secondary Cataract, Bilateral Eyes VALERIO HANNA MD Jan 10, 2020 10:19
--- NOTE | 2020-01-10 10:20 | Ophthalmology Operative Report ---
YAG Capsulotomy PREOPERATIVE DIAGNOSIS: Secondary Cataract Bilateral POSTOPERATIVE DIAGNOSIS: Secondary Cataract Bilateral PROCEDURE: YAG Capsulotomy, Bilateral SURGEON: [place] ANESTHESIA: Topical anesthesia COMPLICATIONS: None ESTIMATED BLOOD LOSS: Minimal DESCRIPTION OF PROCEDURE: After proper informed consent was obtained, the patient's, a 74 female , received one drop of Tropicamide and one drop of Tetracaine in each eye. The patient was then placed at the YAG laser and using a power of [ 3.8] millijoules and bursts [ 26] right eye and [ 28] left eye were used to fashion a central capsulotomy. The patient tolerated the procedure well without complications. GLEN HANNA MD Jan 10, 2020 10:20
--- OUTSIDE RECORDS SUMMARY | 2020-01-14 06:50 | XMS REPORT | Continuity of Care Document ---
Author Organization Unknown Address Unknown Phone Unavailable Allergies Active Description Code Type Severity Reaction Onset Reported/Identified Relationship to Patient Clinical Status Yes AMA INHIBITORS MILD MILD Yes AMA INHIBITORS MILD RESPIRATORY - COUGHI Yes NITROFURANTOIN UN KNOWN OTHER Yes NITROFURANTOIN UN KNOWN UNKNOWN Yes QUINOLONES UNKNOWN SIDE EFFECT Yes QUINOLONES UNKNOWN UNKNOWN Yes SULFA (SULFONAMIDE ANTIBIOTICS) UNKNOWN DERMATOLOGICAL - ROSE Yes SULFA (SULFONAMIDE ANTIBIOTICS) UNKNOWN UNKNOWN Yes No Known Drug Allergies [id number] Drug Allergy Unknown N/A 04/18/2011 Yes levofloxacin [id number] Drug Allergy Mild TENDINITIS 01/08/2020 Yes AMA Inhibitors [id number] Dr bustamante Allergy Unknown N/A 01/08/2020 Yes levofloxacin [id number] Drug Allergy Unknown TENDINITIS 01/08/[id number] bustamante Allergy Unknown N/A 01/08/2020 Medications Medication Packaging Start Date St op Date Route Dosage Sig IBUPROFEN TAB 600 MG (MOTRIN) MG 08/31/2018 08/31/2018 ONCE&1952 Problems Date Dx Coded Attending Type Code Diagnosis Diagnosed By 10/05/1499 AKSHAT SYED, JERILYN Smith Ot M51.16 INTERVERTEBRAL DISC DISORDERS W RADICULO 07/31/2013 BEAN ROBERTS MD Ot 244. 9 HYPOTHYROIDISM NOS 07/31/2013 BEAN ROBERTS MD Ot 272. 4 HYPERLIPIDEMIA NEC/NOS 07/31/2013 BEAN ROBERTS MD Ot 401. 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 05 HX OF COLONIC MALIGNANCY 07/31/2013 BEAN ROBERTS MD Ot V58. 69 OT MED,LT,CURRENT USE 08/06/2013 MOISES MEDINA Ot 726.5 ENTHESOPATHY OF HIP 08/06/2013 MOISES MEDINA Ot V57.1 PHYSICAL THERAPY NEC 12/18/2013 BEAN ORBERTS MD Ot 413. 9 ANGINA PECTORIS NEC/NOS 12/18/2013 BEAN ROBERTS MD Ot V45. 81 AORTOCORONARY BYPASS 12/18/2013 BEAN ROBERTS MD Ot V57. 89 REHABILITATION PROC NEC 01/17/2014 BEAN ROBERTS MD Ot 413. 9 ANGINA PECTORIS NEC/NOS 01/17/2014 BEAN ROBERTS MD Ot V45. 81 AORTOCORONARY BYPASS 01/17/2014 BEAN ROBERTS MD Ot V57. 89 REHABILITATION PROC NEC 03/03/2014 PHOEBE RAMOS MD [...] PA, MARTIN K Ot 414.00 12/31/2014 SCOTT PA, MARTIN K Ot 696.1 12/31/2014 SCOTT PA, MARTIN K Ot 733.90 10/16/2015 Ot V76.12 10/16/2015 Ot 721.3 10/16/2015 Ot 722.52 10/16/2015 DIONI, BOBAN N Ot 244.9 10/16/2015 DIONI, BOBAN N Ot 272.4 10/16/2015 DIONI, BOBAN N Ot 401.9 10/16/2015 DIONI, BOBAN N Ot 414.00 10/16/2015 DIONI, BOBAN N Ot 696.1 10/16/2015 DIONI, BOBAN N Ot 715.90 10/16/2015 DIONI, BOBAN N Ot 733.90 10/16/2015 DIONI, BOBAN N Ot V10.05 10/16/2015 DIONI, BOBAN N Ot V45.72 10/16/2015 DIONI, BOBAN N Ot V45.81 10/16/2015 DIONI, BOBAN N Ot V58.69 10/16/2015 DIONI, BOBAN N Ot V67.2 10/16/2015 SCOTT BARTHOLOMEW, MARTIN K Ot 272.4 10/16/2015 SCOTT PA, MARTIN K Ot 397.0 10/16/2015 SCOTT PA, MARTIN K Ot 401.9 10/16/2015 MARTIN COREY Ot 414.00 10/16/2015 MARTIN COREY Ot 424.0 10/16/2015 Ot Z12.31 11/05/2015 Ot Z12.31 10/17/2016 Ot V76.12 OTH SCREEN MAMMO- MALIGN NEOPLASM OF [place] 10/17/2016 Ot 721.3 LUMB OSACRAL SPONDYLOSIS 10/17/2016 Ot 722.52 LUM B/LUMBOSAC DISC DEGEN 10/17/2016 REINIER WHEATLEY Ot 244.9 HYPOTHYROIDISM NOS 10/17/2016 REINIER WHEATLEY Ot 272.4 HYPERLIPIDEMIA NEC/NOS 10/17/2016 REINIER WHEATLEY Ot 401.9 HYPERTENSION NOS 10/17/2016 REINIER WHEATLEY Ot 414.00 CORON ATHEROSCLER NOS TYPE VESSEL, NATIV 10/17/2016 REINIER WHEATLEY Ot 696.1 OTHER PSORIASIS 10/17/2016 REINIER WHEATLEY Ot 715.90 OSTEOARTHROS NOS-UNSPEC 10/17/2016 REINIER WHEATLEY Ot 733.90 BONE CARTILAGE DIS NOS 10/17/2016 REINIER WHEATLEY Ot V10.05 HX OF COLONIC MALIGNANCY 10/17/2016 REINIER WHEATLEY Ot V45.72 ACQRD ABSENCE INTESTINE - LARGE/SMALL 10/17/2016 REINIER WHEATLEY Ot V45.81 AORTOCORONARY BYPASS 10/17/2016 REINIER WHEATLEY Ot V58.69 OTH MED,LT,CURRENT USE 10/17/2016 REINIER WHEATLEY Ot V67.2 CHEMOTHERAPY FOLLOW-UP 10/17/2016 MARTIN COREY Ot 272.4 HYPERLIPIDEMIA NEC/NOS 10/17/2016 MARTIN COREY Ot 397.0 TRICUSPID VALVE DISEASE 10/17/2016 MARTIN COREY Ot 401.9 HYPERTENSION NOS 10/17/2016 MARTIN COREY Ot 414.00 CORON ATHEROSCLER NOS TYPE VESSEL, [place] 10/17/2016 MARTIN COREY Ot 424.0 MITRAL VALVE DISORDER 10/17/2016 Ot Z12.31 ENC NTR SCREEN MAMMOGRAM FOR MALIGNANT NE 10/17/2016 AKSHAT SYED, JERILYN Smith Ot Z12.31 ENCNTR SCREEN MAMMOGRAM FOR MALIGNANT NE 10/17/2016 JERILYN ODEN MD Ot Z12.31 ENCNTR SCREEN MAMMOGRAM FOR MALIGNANT NE 10/18/2016 JERILYN ODEN MD Ot Z12.31 ENCNTR SCREEN MAMMOGRAM FOR MALIGNANT NE 11/14/2016 JERILYN ODEN MD Ot Z12.31 ENCNTR SCREEN MAMMOGRAM FOR MALIGNANT NE 02/01/2017 JERILYN ODEN MD Ot M51.16 INTERVERTEBRAL DISC DISORDERS W RADICULO 02/13/2017 JERILYN ODEN MD Ot M51.16 INTERVERTEBRAL DISC DISORDERS W RADICULO 02/17/2017 JERILYN ODEN MD Ot J32.9 CHRONIC SINUSITIS, UNSPECIFIED 02/21/2017 JERILYN ODEN MD Ot J32.9 CHRONIC SINUSITIS, UNSPECIFIED 03/06/2017 ARMANDO SYED, BEAN Bowser Ot I25. 10 ATHSCL HEART DISEASE OF [place] CORONARY 03/06/2017 BEAN ROBERTS MD Ot I25. 10 ATHSCL HEART DISEASE OF [place] CORONARY 03/07/2017 Ot V76.12 OTH SCREEN MAMMO- MALIGN NEOPLASM OF [place] 03/07/2017 Ot 721.3 LUMB OSACRAL SPONDYLOSIS 03/07/2017 Ot 722.52 LUM B/LUMBOSAC DISC DEGEN 03/07/2017 REINIER WHEATLEY Ot 244.9 HYPOTHYROIDISM NOS 03/07/2017 REINIER WHEATLEY Ot 272.4 HYPERLIPIDEMIA NEC/NOS 03/07/2017 REINIER WHEATELY Ot 401.9 HYPERTENSION NOS 03/07/2017 REINIER WHEATLEY [...] MARTIN COREY Ot 401.9 HYPERTENSION NOS 03/07/2017 MARTIN COREY Ot 414.00 CORON ATHEROSCLER NOS TYPE VESSEL, NAT[place] 03/07/2017 MARTIN COREY Ot 424.0 MITRAL VALVE DISORDER 03/07/2017 Ot Z12.31 ENC NTR SCREEN MAMMOGRAM FOR MALIGNANT NE 03/07/2017 BEAN ROBERTS MD Ot I25. 10 ATHSCL HEART DISEASE OF [place] CORONARY 03/07/2017 JERILYN ODEN MD, Ot Z12.31 ENCNTR SCREEN MAMMOGRAM FOR MALIGNANT NE 03/07/2017 JERILYN ODEN MD Ot J32.9 CHRONIC SINUSITIS, UNSPECIFIED 03/07/2017 JERILYN ODEN MD Ot J32.9 CHRONIC SINUSITIS, UNSPECIFIED 03/09/2017 BEAN ROBERTS MD Ot E78. 5 HYPERLIPIDEMIA, UNSPECIFIED 03/09/2017 BEAN ROBERTS MD Ot I10 ESSENTIAL (PRIMARY) HYPERTENSION 03/09/2017 BEAN ROBERTS MD Ot I25. 10 ATHSCL HEART DISEASE OF [place] CORONARY 03/17/2017 BEAN ROBERTS MD Ot E78. 5 HYPERLIPIDEMIA, UNSPECIFIED 03/17/2017 BEAN ROBERTS MD Ot I10 ESSENTIAL (PRIMARY) HYPERTENSION 03/17/2017 BEAN ROBERTS MD Ot I25. 10 ATHSCL HEART DISEASE OF [place] CORONARY 03/29/2017 BEAN ROBERTS MD Ot E78. 5 HYPERLIPIDEMIA, UNSPECIFIED 03/29/2017 BEAN ROBERTS MD Ot I10 ESSENTIAL (PRIMARY) HYPERTENSION 03/29/2017 BEAN ROBERTS MD Ot I25. 10 ATHSCL HEART DISEASE OF [place] CORONARY 04/06/2017 BEAN ROBERTS MD Ot E78. 5 HYPERLIPIDEMIA, UNSPECIFIED 04/06/2017 BEAN ROBERTS MD Ot I10 ESSENTIAL (PRIMARY) HYPERTENSION 04/06/2017 ARMANDO SYED, BEAN Bowser Ot I25. 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, UNSPECIFIED 07/05/2017 W C44.91 BAS AL CELL CARCINOMA OF SKIN, UNSPECIFIED 07/05/2017 W E03.9 HYPO THYROIDISM, UNSPECIFIED 07/05/2017 W I25.10 ATH EROSCLEROTIC HEART DISEASE OF [place] CORONARY ARTERY WITHOUT ANGINA PECTORIS 07/05/2017 W 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 07/05/2017 W V12.51 PER CHELLE HISTORY OF VENOUS THROMBOSIS AND EMBOLISM 07/05/2017 W Z86.718 PE RSONAL HISTORY OF OTHER VENOUS THROMBOSIS AND EMBOLISM 07/18/2017 JERILYN ODEN W 244.9 UNSPECIFIED HYPOTHYROIDISM 07/18/2017 JERILYN ODEN W E03.9 HYPOTHYROIDISM, UNSPECIFIED 07/18/2017 JERILYN ODEN W V70.0 ROUTINE GENERAL MEDICAL EXAMINATION AT A HEALTH CARE FACILITY 07/18/2017 JERILYN ODEN W Z00.00 ENCOUNTER FOR GENERAL ADULT MEDICAL EXAMINATION WITHOUT ABNORMAL FINDINGS 07/18/2017 W 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, UNSPECIFIED 07/18/2017 W 244.9 UNSP ECIFIED HYPOTHYROIDISM 07/18/2017 W 429.2 CARD IOVASCULAR DISEASE, UNSPECIFIED 07/18/2017 W 722.52 DEG ENERATION OF LUMBAR OR LUMBOSACRAL INTERVERTEBRAL DISC 07/18/2017 W 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, UNSPECIFIED 07/18/2017 W E03.9 HYPO THYROIDISM, UNSPECIFIED 07/18/2017 W I25.10 ATH EROSCLEROTIC HEART DISEASE OF [place] CORONARY ARTERY WITHOUT ANGINA PECTORIS 07/18/2017 W M51.35 OTH ER INTERVERTEBRAL DISC DEGENERATION, THORACOLUMBAR REGION 07/18/2017 W V70.0 ROUT INE GENERAL MEDICAL EXAMINATION AT A HEALTH CARE FACILITY 07/18/2017 W Z00.00 ENC OUNTER FOR GENERAL ADULT MEDICAL EXAMINATION WITHOUT ABNORMAL FINDINGS 07/18/2017 JERILYN ODEN W 244.9 UNSPECIFIED HYPOTHYROIDISM 07/18/2017 JERILYN ODEN W E03.9 HYPOTHYROIDISM, UNSPECIFIED 07/18/2017 JERILYN ODEN W V70.0 ROUTINE GENERAL MEDICAL EXAMINATION AT A HEALTH CARE FACILITY 07/18/2017 JERILYN ODEN W Z00.00 ENCOUNTER FOR GENERAL ADULT MEDICAL EXAMINATION WITHOUT ABNORMAL FINDINGS 07/19/2017 AKSHAT SYED, JERILYN L Ot Z12.31 ENCNTR SCREEN MAMMOGRAM FOR MALIGNANT NE 08/03/2017 A 692.4 CONT ACT DERMATITIS AND OTHER ECZEMA DUE TO OTHER CHEMICAL PRODUCTS 08/03/2017 A L23.5 VIOLET RGIC CONTACT DERMATITIS DUE TO OTHER CHEMICAL PRODUCTS 10/10/2017 W 414.00 COR ONARY ATHEROSCLEROSIS OF UNSPECIFIED TYPE OF VESSEL, [place] OR [place] 10/10/2017 W 782.3 EDEMA 10/10/2017 W I25.10 ATH EROSCLEROTIC HEART DISEASE OF [place] CORONARY ARTERY WITHOUT ANGINA PECTORIS 10/10/2017 W R60.0 LOCA LIZED EDEMA 10/12/2017 Ot V10.05 HX OF COLONIC MALIGNANCY 10/12/[address] ABSENCE INTESTINE - LARGE/SMALL 10/12/2017 Ot V58.69 OTH MED,LT,CURRENT USE 10/12/2017 Ot V67.2 CHEM OTHERAPY FOLLOW-UP 10/12/2017 Ot V76.12 OTH SCREEN MAMMO- MALIGN NEOPLASM OF [place] 10/12/2017 Ot 721.3 LUMB OSACRAL SPONDYLOSIS 10/12/2017 Ot 722.52 LUM B/LUMBOSAC DISC DEGEN 10/12/2017 REINIER WHEATLEY Ot 244.9 HYPOTHYROIDISM NOS 10/12/2017 REINIER WHEATLEY Ot 272.4 HYPERLIPIDEMIA NEC/NOS 10/12/2017 REINIER WHEATLEY Ot 401.9 HYPERTENSION NOS 10/12/2017 REINIER WHEATLEY Ot 414.00 CORON ATHEROSCLER NOS TYPE VESSEL, [place] 10/12/2017 REINIER WHEATLEY Ot 696.1 OTHER PSORIASIS 10/12/2017 REINIER WHEATLEY Ot 715.90 OSTEOARTHROS NOS-UNSPEC 10/12/2017 REINIER WHEATLEY Ot 733.90 BONE CARTILAGE DIS NOS 10/12/2017 REINIER WHEATLEY Kian Ot V10.05 HX OF COLONIC MALIGNANCY 10/12/2017 REINIER WHEATLEY Kian Ot V45.72 ACQRD ABSENCE INTESTINE - LARGE/SMALL 10/12/2017 DIONI REINIER Langston Ot V45.81 AORTOCORONARY BYPASS 10/12/2017 REINIER WHEATLEY Kian Ot V58.69 OTH MED,LT,CURRENT USE 10/12/2017 REINIER WHEATLEY Kian Ot V67.2 CHEMOTHERAPY FOLLOW-UP 10/12/2017 MARTIN COREY Ot 272.4 HYPERLIPIDEMIA NEC/NOS 10/12/2017 MARTIN COREY Ot 397.0 TRICUSPID VALVE DISEASE 10/12/2017 MARTIN COREY Ot 401.9 HYPERTENSION NOS 10/12/2017 MARTIN CORYE Ot 414.00 CORON ATHEROSCLER NOS TYPE VESSEL, [place] 10/12/2017 MARTIN COREY Ot 424.0 MITRAL VALVE DISORDER 10/12/2017 MARTIN COREY Ot 244.9 HYPOTHYROIDISM NOS 10/12/2017 MARTIN COREY Ot 272.4 HYPERLIPIDEMIA NEC/NOS 10/12/2017 MARTIN COREY Ot 401.9 HYPERTENSION NOS 10/12/2017 MARTIN COREY Ot 414.00 CORON ATHEROSCLER NOS TYPE VESSEL, [place] 10/12/2017 MARTIN COREY Ot 696.1 OTHER PSORIASIS 10/12/2017 MARTIN COREY Ot 733.90 BONE CARTILAGE DIS NOS 10/12/2017 RICHARD SYED, PHOEBE Shipley Ot V72.84 EXAM PRE-OPERATIVE NOS 10/12/2017 Ot 244.9 HYPO THYROIDISM NOS 10/12/2017 Ot 272.4 HYPE RLIPIDEMIA NEC/NOS 10/12/2017 Ot 401.9 HYPE RTENSION NOS 10/12/2017 Ot 414.00 COR ON ATHEROSCLER NOS TYPE VESSEL, NATIV 10/12/2017 Ot 696.1 OTHE R PSORIASIS 10/12/2017 Ot 715.90 OST EOARTHROS NOS- UNSPEC 10/12/2017 Ot 733.90 BON E CARTILAGE DIS NOS 10/12/2017 Ot V10.05 HX OF COLONIC MALIGNANCY 10/12/[address] ABSENCE INTESTINE - LARGE/SMALL 10/12/2017 Ot V45.81 AOR TOCORONARY BYPASS 10/12/2017 Ot V58.69 OTH MED,LT,CURRENT USE 10/12/2017 Ot V67.2 CHEM OTHERAPY FOLLOW-UP 10/12/2017 BEAN ROBERTS MD Ot E78. 5 HYPERLIPIDEMIA, UNSPECIFIED 10/12/2017 BEAN ROBERTS MD Ot I10 ESSENTIAL (PRIMARY) HYPERTENSION 10/12/2017 BEAN ROBERTS MD Ot I25. 10 ATHSCL HEART DISEASE OF [place] CORONARY 10/12/2017 BEAN ROBERTS MD Ot E78. 5 HYPERLIPIDEMIA, UNSPECIFIED 10/12/2017 BEAN ROBERTS MD Ot I10 ESSENTIAL (PRIMARY) HYPERTENSION 10/12/2017 BEAN ROBERTS MD Ot I25. 10 ATHSCL HEART DISEASE OF [place] CORONARY 10/12/2017 JERILYN ODEN MD Ot Z12.31 ENCNTR SCREEN MAMMOGRAM FOR MALIGNANT NE 11/23/2017 JERILYN ODEN MD, Ot Z12.31 ENCNTR SCREEN MAMMOGRAM FOR MALIGNANT NE 11/30/2017 W 459.81 RICKY OUS (PERIPHERAL) INSUFFICIENCY, UNSPECIFIED 11/30/2017 A 782.3 EDEMA 11/30/2017 W I87.8 OTHE R SPECIFIED DISORDERS OF [place] 11/30/2017 A R60.0 LOCA LIZED EDEMA 03/06/2018 W 682.9 CELL ULITIS AND ABSCESS OF UNSPECIFIED SITES 03/06/2018 W L03.90 JOI LULITIS, UNSPECIFIED 03/10/2018 JERILYN ODEN MD Ot Z29.8 ENCOUNTER FOR OTHER SPECIFIED PROPHYLACT 03/14/2018 A 682.9 CELL ULITIS AND ABSCESS OF UNSPECIFIED SITES 03/14/2018 A L03.90 JOI LULITIS, UNSPECIFIED 03/15/2018 JERILYN ODEN MD Ot Z29.8 ENCOUNTER FOR OTHER SPECIFIED PROPHYLACT 03/28/2018 JERILYN ODEN MD, Ot Z12.31 ENCNTR SCREEN MAMMOGRAM FOR MALIGNANT NE 04/26/2018 JERILYN ODEN MD, Ot Z29.8 ENCOUNTER FOR OTHER SPECIFIED PROPHYLACT 04/30/2018 EJRILYN ODEN MD Ot Z29.8 ENCOUNTER FOR OTHER SPECIFIED PROPHYLACT 05/26/2018 JERILYN ODEN MD Ot Z29.8 ENCOUNTER FOR OTHER SPECIFIED PROPHYLACT 06/13/2018 AKSHAT JERILYN W 272.4 OTHER AND UNSPECIFIED HYPERLIPIDEMIA 06/13/2018 ODENJERILYN W 401.0 MALIGNANT ESSENTIAL HYPERTENSION 06/13/2018 JERILYN ODEN W E78.5 HYPERLIPIDEMIA, UNSPECIFIED 06/13/2018 ODEN, JERILYN W I10 ESSENTIAL (PRIMARY) HYPERTENSION 06/13/2018 JERILYN ODEN W 272.4 OTHER AND UNSPECIFIED HYPERLIPIDEMIA 06/13/2018 JERILYN ODEN W 401.0 MALIGNANT ESSENTIAL HYPERTENSION 06/13/2018 ODENJERILYN W E78.5 HYPERLIPIDEMIA, UNSPECIFIED 06/13/2018 ODEN, JERILYN W I10 ESSENTIAL (PRIMARY) HYPERTENSION 06/13/2018 W 272.4 OTHE R AND UNSPECIFIED HYPERLIPIDEMIA 06/13/2018 W 401.0 DELFINO GNANT ESSENTIAL HYPERTENSION 06/13/2018 W E78.5 HYPE RLIPIDEMIA, UNSPECIFIED 06/13/2018 W I10 ESSENT IAL (PRIMARY) HYPERTENSION 06/13/2018 JERILYN ODEN W 272.4 OTHER AND UNSPECIFIED HYPERLIPIDEMIA 06/13/2018 ODENJERILYN W 401.0 MALIGNANT ESSENTIAL HYPERTENSION 06/13/2018 ODENJERILYN W E78.5 HYPERLIPIDEMIA, UNSPECIFIED 06/13/2018 AKSHAT, JERILYN W I10 ESSENTIAL (PRIMARY) HYPERTENSION 06/28/2018 JERILYN ODEN MD Ot Z01.818 ENCOUNTER FOR OTHER PREPROCEDURAL EXAMIN 07/19/2018 W 414.01 COR ONARY ATHEROSCLEROSIS OF [place] CORONARY ARTERY 07/19/2018 W I25.10 ATH EROSCLEROTIC HEART DISEASE OF [place] CORONARY ARTERY WITHOUT ANGINA PECTORIS 08/02/2018 JERILYN ODEN MD Ot Z29.8 ENCOUNTER FOR OTHER SPECIFIED PROPHYLACT 08/06/2018 JERILYN ODEN MD Ot Z29.8 ENCOUNTER FOR OTHER SPECIFIED PROPHYLACT 08/31/2018 Candice De La O A 848.8 OTHER SPECIFIED SITES OF SPRAINS AND STRAINS 08/31/2018 Candice De La O A S39.01 2A STRAIN OF MUSCLE, FASCIA AND TENDON OF LOWER BACK, INIT 09/06/2018 JERILYN OEDN MD Ot Z29.8 ENCOUNTER FOR OTHER SPECIFIED PROPHYLACT 09/11/2018 W 722.52 DEG ENERATION OF LUMBAR OR LUMBOSACRAL INTERVERTEBRAL DISC 09/11/2018 A 724.2 LUMBAGO 09/11/2018 W 724.4 THOR ACIC OR LUMBOSACRAL NEURITIS OR RADICULITIS, UNSPECIFIED 09/11/2018 W E888.9 UNS PECIFIED FALL 09/11/2018 W M51.35 OTH ER INTERVERTEBRAL DISC DEGENERATION, THORACOLUMBAR REGION 09/11/2018 W M54.16 RAD ICULOPATHY, LUMBAR REGION 09/11/2018 A M54.5 LOW BACK PAIN 09/16/2018 JERILYN [...] OF LUMBAR OR LUMBOSACRAL INTERVERTEBRAL DISC 09/16/2018 JREILYN ODEN A 724.2 LUMBAGO 09/16/2018 JERILYN ODEN W 724.4 THORACIC OR LUMBOSACRAL NEURITIS OR RADICULITIS, UNSPECIFIED 09/16/2018 JERILYN ODEN W E888.9 UNSPECIFIED FALL 09/16/2018 JERILYN ODEN W 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, THORACOLUMBAR REGION 09/16/2018 JERILYN ODEN W M54.16 RADICULOPATHY, LUMBAR REGION 09/16/2018 JERILYN ODEN A M54.5 LOW BACK PAIN 10/17/2018 JERILYN ODEN MD Ot Z12.31 ENCNTR SCREEN MAMMOGRAM FOR MALIGNANT NE 11/08/2018 JERILYN ODEN MD, Ot Z12.31 ENCNTR SCREEN MAMMOGRAM FOR MALIGNANT NE 11/12/2018 ODENRENYJERILYN W 724.2 LUMBAGO 11/12/2018 ODEN, JERILYN W M54.5 LOW BACK PAIN 11/12/2018 W 724.00 SPI NAL STENOSIS OF UNSPECIFIED REGION 11/12/2018 W 724.2 LUMBAGO 11/12/2018 W E888.9 UNS PECIFIED FALL 11/12/2018 W M48.00 SPI NAL STENOSIS, SITE UNSPECIFIED 11/12/2018 W M54.5 LOW BACK PAIN 11/12/2018 W W19 UNSPEC IFIED FALL 11/12/2018 ODEN, JERILYN W 724.2 LUMBAGO 11/12/2018 ODEN, JERILYN W M54.5 LOW BACK PAIN 11/14/2018 RENY ODENHEL W 724.2 LUMBAGO 11/14/2018 ODEN JERILYN W M54.5 LOW BACK PAIN 11/14/2018 ODEN, JERILYN W 724.00 SPINAL STENOSIS OF UNSPECIFIED REGION 11/14/2018 RENY ODENHEL W 724.2 LUMBAGO 11/14/2018 RENY ODENHEL W E888.9 UNSPECIFIED FALL 11/14/2018 ODEN, JERILYN W M48.00 SPINAL STENOSIS, SITE UNSPECIFIED 11/14/2018 ODEN JERILYN W M54.5 LOW BACK PAIN 11/14/2018 ODEN, JERILYN W W19 UNSPECIFIED FALL 11/14/2018 ODEN JERILYN W 724.00 SPINAL STENOSIS OF UNSPECIFIED REGION 11/14/2018 AKSHAT JERILYN W 724.2 LUMBAGO 11/14/2018 RENY ODENHEL W E888.9 UNSPECIFIED FALL 11/14/2018 ODEN, JERILYN W M48.00 SPINAL STENOSIS, SITE UNSPECIFIED 11/14/2018 AKSHAT JERILYN W M54.5 LOW BACK PAIN 11/14/2018 JERILYN ODEN W W19 UNSPECIFIED FALL 11/24/2018 JERILYN ODEN MD Ot Z29.8 ENCOUNTER FOR OTHER SPECIFIED PROPHYLACT 11/26/2018 JERILYN ODEN MD Ot Z29.8 ENCOUNTER FOR OTHER SPECIFIED PROPHYLACT 11/30/2018 JERILYN ODEN MD Ot Z12.31 ENCNTR SCREEN MAMMOGRAM FOR MALIGNANT NE 02/26/2019 W 477 ALLERG IC RHINITIS 02/26/2019 W 599.0 URIN RENETTA TRACT INFECTION, SITE NOT SPECIFIED 02/26/2019 W J30.9 VIOLET RGIC RHINITIS, UNSPECIFIED 02/26/2019 W N39.0 URIN RENETTA TRACT INFECTION, SITE NOT SPECIFIED 02/26/2019 RENY ODENHEL W 599.0 URINARY TRACT INFECTION, SITE NOT SPECIFIED 02/26/2019 JERILYN ODEN W N39.0 URINARY TRACT INFECTION, SITE NOT SPECIFIED 02/26/2019 ODEN, JERILYN W 599.0 URINARY TRACT INFECTION, SITE NOT SPECIFIED 02/26/2019 ODEN JERILYN W N39.0 URINARY TRACT INFECTION, SITE NOT SPECIFIED 03/20/2019 JERILYN ODEN W 788.1 DYSURIA 03/20/2019 AKSHAT JERILYN W R30.0 DYSURIA 03/20/2019 W 788.1 DYSURIA 03/20/2019 W R30.0 DYSURIA 03/20/2019 JERILYN ODEN W 788.1 DYSURIA 03/20/2019 ODEN, JERILYN W R30.0 DYSURIA 03/26/2019 ODENRENYJERILYN W 041.49 OTHER AND UNSPECIFIED ESCHERICHIA COLI [E. COLI] INFECTION IN CONDITIONS CLASSIFIED ELSEWHERE AND OF UNSPECIFIED SITE 03/26/2019 JERILYN ODEN W 244.9 UNSPECIFIED HYPOTHYROIDISM 03/26/2019 JERILYN ODEN W 272.4 OTHER AND UNSPECIFIED HYPERLIPIDEMIA 03/26/2019 JERILYN ODEN W 401.0 MALIGNANT ESSENTIAL HYPERTENSION 03/26/2019 JERILYN ODEN W 599.0 URINARY TRACT INFECTION, SITE NOT SPECIFIED 03/26/2019 AKSHAT JERILYN W 780.97 ALTERED MENTAL STATUS 03/26/2019 AKSHAT JERILYN W 784.59 OTHER SPEECH DISTURBANCE 03/26/2019 JERILYN ODEN W B96.20 UNSP ESCHERICHIA COLI THE CAUSE OF DISEASES CLASSD ELSWHR 03/26/2019 JERILYN ODEN W E03.9 HYPOTHYROIDISM, UNSPECIFIED 03/26/2019 JERILYN ODEN W E78.5 HYPERLIPIDEMIA, UNSPECIFIED 03/26/2019 JERILYN ODEN W I10 ESSENTIAL (PRIMARY) HYPERTENSION 03/26/2019 ODEN, JERILYN W N39.0 URINARY TRACT INFECTION, SITE NOT SPECIFIED 03/26/2019 JERILYN ODEN R41.82 ALTERED MENTAL STATUS, UNSPECIFIED 03/26/2019 JERILYN ODEN R47.89 OTHER SPEECH DISTURBANCES 03/26/2019 JERILYN ODEN V09.91 INFECTION WITH DRUG-RESISTANT MICROORGANISMS, UNSPECIFIED, WITH MULTIPLE DRUG RESISTANCE 03/26/2019 JERILYN ODEN Z16.24 RESISTANCE TO MULTIPLE ANTIBIOTICS 03/27/2019 MARTIN COREY Ot 244.9 HYPOTHYROIDISM NOS 03/27/2019 MARTIN COREY Ot 272.4 HYPERLIPIDEMIA NEC/NOS 03/27/2019 MARTIN COREY Ot 401.9 HYPERTENSION NOS 03/27/2019 MARTIN COREY Ot 414.00 CORON ATHEROSCLER NOS TYPE VESSEL, NATIV 03/27/2019 MARTIN COREY Ot 696.1 OTHER PSORIASIS 03/27/2019 MARTIN COREY Ot 733.90 BONE CARTILAGE DIS NOS 03/27/2019 RICHARD SYED, PHOEBE Shipley Ot V72.84 EXAM PRE-OPERATIVE NOS 03/27/2019 Ot 244.9 HYPO THYROIDISM NOS 03/27/2019 Ot 272.4 HYPE RLIPIDEMIA NEC/NOS 03/27/2019 Ot 401.9 HYPE RTENSION NOS 03/27/2019 Ot 414.00 COR ON ATHEROSCLER NOS TYPE VESSEL, NATIV 03/27/2019 Ot 696.1 OTHE R PSORIASIS 03/27/2019 Ot 715.90 OST EOARTHROS NOS- UNSPEC 03/27/2019 Ot 733.90 BON E CARTILAGE DIS NOS 03/27/2019 Ot V10.05 HX OF COLONIC MALIGNANCY 03/27/[address] ABSENCE INTESTINE - LARGE/SMALL 03/27/2019 Ot V45.81 AOR TOCORONARY BYPASS 03/27/2019 Ot V58.69 OTH MED,LT,CURRENT USE 03/27/2019 Ot V67.2 CHEM OTHERAPY FOLLOW-UP 03/27/2019 CHARLIE SYED, KYRIE Escoto Ot V76.11 SCRN MAMMO-HIGH RISK PT, MALIGNANT NEOPL 03/27/2019 Ot Z12.31 ENC NTR SCREEN MAMMOGRAM FOR MALIGNANT NE 03/27/2019 BEAN ROBERTS MD Ot E78. 5 HYPERLIPIDEMIA, UNSPECIFIED 03/27/2019 BEAN ROBERTS MD Ot I10 ESSENTIAL (PRIMARY) HYPERTENSION 03/27/2019 BEAN ROBERTS MD Ot I25. 10 ATHSCL HEART DISEASE OF [place] CORONARY 03/27/2019 BEAN ROBERTS MD Ot E78. 5 HYPERLIPIDEMIA, UNSPECIFIED 03/27/2019 BEAN ROBERTS MD Ot I10 ESSENTIAL (PRIMARY) HYPERTENSION 03/27/2019 BEAN ROBERTS MD Ot I25. 10 ATHSCL HEART DISEASE OF [place] CORONARY 03/27/2019 JERILYN ODEN MD Ot Z12.31 ENCNTR SCREEN MAMMOGRAM FOR MALIGNANT NE 03/27/2019 JERILYN ODEN MD Ot J32.9 CHRONIC SINUSITIS, UNSPECIFIED 03/27/2019 JERILYN ODEN MD Ot Z12.31 ENCNTR SCREEN MAMMOGRAM FOR MALIGNANT NE 03/27/2019 JERILYN ODEN MD Ot Z12.31 ENCNTR SCREEN MAMMOGRAM FOR MALIGNANT NE 04/03/2019 DEIRDRE PORRAS MD Ot H91.93 UNSPECIFIED HEARING LOSS, BILATERAL 04/03/2019 DEIRDRE PORRAS MD Ot L40.50 ARTHROPATHIC PSORIASIS, UNSPECIFIED 04/03/2019 DEIRDRE PORRAS MD Ot M06 .9 RHEUMATOID ARTHRITIS, UNSPECIFIED 04/03/2019 DEIRDRE PORRAS MD Ot M19.91 PRIMARY OSTEOARTHRITIS, UNSPECIFIED SITE 04/03/2019 DEIRDRE PORRAS MD Ot N30.00 ACUTE CYSTITIS WITHOUT HEMATURIA 04/03/2019 DEIRDRE PORRAS MD Ot N39 .0 URINARY TRACT INFECTION, SITE NOT SPECIF 04/03/2019 DEIRDRE PORRAS MD Ot R41 .0 DISORIENTATION, UNSPECIFIED 04/03/2019 DEIRDRE PORRAS MD Ot Z85.038 PERSONAL HISTORY OF MALIGNANT NEOPLASM O 04/03/2019 DEIRDRE PORRAS MD Ot Z92.21 PERSONAL HISTORY OF ANTINEOPLASTIC CHEMO 04/03/2019 DEIRDRE PORRAS MD Ot Z97 .4 PRESENCE OF EXTERNAL HEARING-AID 04/08/2019 DEIRDRE PORRAS MD Ot H91.93 UNSPECIFIED HEARING LOSS, BILATERAL 04/08/2019 DEIRDRE PORRAS MD Ot L40.50 ARTHROPATHIC PSORIASIS, UNSPECIFIED 04/08/2019 DEIRDRE PORARS MD Ot M06 .9 RHEUMATOID ARTHRITIS, UNSPECIFIED 04/08/2019 DEIRDRE PORRAS MD Ot M19.91 PRIMARY OSTEOARTHRITIS, UNSPECIFIED SITE 04/08/2019 DEIRDRE PORRAS MD Ot N30.00 ACUTE CYSTITIS WITHOUT HEMATURIA 04/08/2019 DEIRDRE PORRAS MD Ot R41 .0 DISORIENTATION, UNSPECIFIED 04/08/2019 DEIRDRE PORRAS MD Ot Z85.038 PERSONAL HISTORY OF MALIGNANT NEOPLASM O 04/08/2019 DEIRDRE PORRAS MD Ot Z92.21 PERSONAL HISTORY OF ANTINEOPLASTIC CHEMO 04/08/2019 DEIRDRE PORRAS MD Ot Z97 .4 PRESENCE OF EXTERNAL HEARING-AID 04/10/2019 W 599.0 URIN RENETTA TRACT INFECTION, SITE NOT SPECIFIED 04/10/2019 W 780.97 ALT ERED MENTAL STATUS 04/10/2019 W N39.0 URIN RENETTA TRACT INFECTION, SITE NOT SPECIFIED 04/10/2019 W R41.82 ALT ERED MENTAL STATUS, UNSPECIFIED 05/07/2019 W 599.0 URIN RENETTA TRACT INFECTION, SITE NOT SPECIFIED 05/07/2019 W 780.97 ALT ERED MENTAL STATUS 05/07/2019 W N39.0 URIN RENETTA TRACT INFECTION, SITE NOT SPECIFIED 05/07/2019 W R41.82 ALT ERED MENTAL STATUS, UNSPECIFIED 06/03/2019 W 381.1 TWIST PACKER FARIBA SEROUS OTITIS MEDIA 06/03/2019 W 462 ACUTE PHARYNGITIS 06/03/2019 W 477 ALLERG IC RHINITIS 06/03/2019 W 478.19 OTH ER DISEASE OF NASAL CAVITY AND SINUSES 06/03/2019 W H65.20 CHR ONIC SEROUS OTITIS MEDIA, UNSPECIFIED EAR 06/03/2019 W J02.9 ACUT E PHARYNGITIS, UNSPECIFIED 06/03/2019 W J30.9 VIOLET RGIC RHINITIS, UNSPECIFIED 06/03/2019 W R09.82 POS TNASAL DRIP 06/10/2019 W 461.9 ACUT E SINUSITIS, UNSPECIFIED 06/10/2019 W 466.0 ACUT E BRONCHITIS 06/10/2019 W J01.90 ACU TE SINUSITIS, UNSPECIFIED 06/10/2019 W J20.9 ACUT E BRONCHITIS, UNSPECIFIED 07/22/2019 MARTIN COREY Ot 244.9 HYPOTHYROIDISM NOS 07/22/2019 MARTIN COREY Ot 272.4 HYPERLIPIDEMIA NEC/NOS 07/22/2019 MARTIN COREY Ot 401.9 HYPERTENSION NOS 07/22/2019 MARTIN COREY Ot 414.00 CORON ATHEROSCLER NOS TYPE VESSEL, NATIV 07/22/2019 MARTIN COREY Ot 696.1 OTHER PSORIASIS 07/22/2019 MARTIN COREY Ot 733.90 BONE CARTILAGE DIS NOS 07/22/2019 RICHARD SYED, PHOEBE Shipley Ot V72.84 EXAM PRE-OPERATIVE NOS 07/22/2019 Ot 244.9 HYPO THYROIDISM NOS 07/22/2019 Ot 272.4 HYPE RLIPIDEMIA NEC/NOS 07/22/2019 Ot 401.9 HYPE RTENSION NOS 07/22/2019 Ot 414.00 COR ON ATHEROSCLER NOS TYPE VESSEL, NATIV 07/22/2019 Ot 696.1 OTHE R PSORIASIS 07/22/2019 Ot 715.90 OST EOARTHROS NOS- UNSPEC 07/22/2019 Ot 733.90 BON E CARTILAGE DIS NOS 07/22/2019 Ot V10.05 HX OF COLONIC MALIGNANCY 07/22/[address] ABSENCE INTESTINE - LARGE/SMALL 07/22/2019 Ot 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 5 HYPERLIPIDEMIA, UNSPECIFIED 07/22/2019 BEAN ROBERTS MD Ot I10 ESSENTIAL (PRIMARY) HYPERTENSION 07/22/2019 BEAN ROBERTS MD Ot I25. 10 ATHSCL HEART DISEASE OF [place] CORONARY 07/22/2019 BEAN ROBERTS MD Ot E78. 5 HYPERLIPIDEMIA, UNSPECIFIED 07/22/2019 BEAN ROEBRTS MD Ot I10 ESSENTIAL (PRIMARY) HYPERTENSION 07/22/2019 ARMANDO SYED, BEAN Bowser Ot I25. 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 07/23/2019 ODEN, JERILYN W 696.1 OTHER PSORIASIS 07/23/2019 AKSHAT JERILYN W 724.02 SPINAL STENOSIS OF LUMBAR REGION WITHOUT NEUROGENIC CLAUDICATION 07/23/2019 ODEN, JERILYN W 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 07/23/2019 ODEN, JERILYN W M48.06 SPINAL STENOSIS, LUMBAR REGION 07/23/2019 ODEN, JERILYN W 696.1 OTHER PSORIASIS 07/23/2019 ODEN, JERILYN W 724.02 SPINAL STENOSIS OF LUMBAR REGION WITHOUT NEUROGENIC CLAUDICATION 07/23/2019 ODEN, JERILYN W 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 07/23/2019 ODEN, JERILYN W M48.06 SPINAL STENOSIS, LUMBAR REGION 07/23/2019 ODEN, JERILYN W 696.1 OTHER PSORIASIS 07/23/2019 ODEN, JERILYN W 724.02 SPINAL STENOSIS OF LUMBAR REGION WITHOUT NEUROGENIC CLAUDICATION 07/23/2019 ODEN, JERILYN W 799.51 ATTENTION OR CONCENTRATION DEFICIT 07/23/2019 ODEN, JERILYN W 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 07/23/2019 ODEN, JERILYN W M48.06 SPINAL STENOSIS, LUMBAR REGION 07/23/2019 ODEN, JERILYN W R41.840 ATTENTION AND CONCENTRATION DEFICIT 07/23/2019 ODEN, JERILYN W 696.1 OTHER PSORIASIS 07/23/2019 ODEN, JERILYN W 724.02 SPINAL STENOSIS OF LUMBAR REGION WITHOUT NEUROGENIC CLAUDICATION 07/23/2019 JERILYN ODEN 799.51 ATTENTION OR CONCENTRATION DEFICIT 07/23/2019 JERILYN ODEN 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 07/23/2019 JERILYN ODEN M48.06 SPINAL STENOSIS, LUMBAR REGION 07/23/2019 JERILYN ODEN R41.840 ATTENTION AND CONCENTRATION DEFICIT 07/24/2019 SCOTT BARTHOLOMEW MARTIN K Ot E78.5 HYPERLIPIDEMIA, UNSPECIFIED 07/24/2019 SCOTT BARTHOLOMEW, MARTIN K Ot I10 ESSENTIAL (PRIMARY) HYPERTENSION 07/24/2019 SCOTT BARTHOLOMEW, MARTIN K Ot I25.10 ATHSCL HEART DISEASE OF [place] CORONARY 07/24/2019 SCOTT BARTHOLOMEW MARTIN K Ot I65.29 OCCLUSION AND STENOSIS OF UNSPECIFIED CA 08/15/2019 SCOTT BARTHOLOMEW MARTIN K Ot E78.5 HYPERLIPIDEMIA, UNSPECIFIED 08/15/2019 SCOTT BARTHOLOMEW, MARTIN K Ot I10 ESSENTIAL (PRIMARY) HYPERTENSION 08/15/2019 SCOTT BARTHOLOMEW, MARTIN K Ot I25.10 ATHSCL HEART DISEASE OF [place] CORONARY 08/15/2019 SCOTT BARTHOLOMEW MARTIN K Ot I65.29 OCCLUSION AND STENOSIS OF UNSPECIFIED CA 09/30/2019 GUEVARA GREENE MD Ot M54.1 6 RADICULOPATHY, LUMBAR REGION 09/30/2019 GUEVARA GREENE MD Ot M85.8 0 OTH DISRD OF BONE DENSITY AND STRUCTURE, 09/30/2019 GUEVARA GREENE MD Ot Z78.0 ASYMPTOMATIC MENOPAUSAL STATE 11/04/2019 GUEVARA GREENE MD Ot M54.1 6 RADICULOPATHY, LUMBAR REGION 11/04/2019 GUEVARA GREENE MD Ot M85.8 0 OTH DISRD OF BONE DENSITY AND STRUCTURE, 11/04/2019 GUEVARA GREENE MD Ot Z78.0 ASYMPTOMATIC MENOPAUSAL STATE 11/21/2019 JERILYN ODEN MD Ot Z12.31 ENCNTR SCREEN MAMMOGRAM FOR MALIGNANT NE 11/25/2019 JERILYN ODEN MD Ot R41.3 OTHER AMNESIA 11/25/2019 JERILYN ODEN MD, Ot Z12.31 ENCNTR SCREEN MAMMOGRAM FOR MALIGNANT NE 11/25/2019 AKSHAT SYED, JERILYN L Ot Z86.79 PERSONAL HISTORY OF OTHER DISEASES OF TH 12/09/2019 MARIANO SYED, CHERYLON A Ot M43.16 SPONDYLOLISTHESIS, LUMBAR REGION 12/09/2019 MARIANO SYED, CHERYLON A Ot M47.816 SPONDYLOSIS W/O MYELOPATHY OR RADICULOPA 12/10/2019 MARIANO SYED, ADINAYLON A Ot M43.16 SPONDYLOLISTHESIS, LUMBAR REGION 12/10/2019 MARIANO SYED, CHERYLON A Ot M47.816 SPONDYLOSIS W/O MYELOPATHY OR RADICULOPA 12/12/2019 AKSHAT SYED, JERILYN L Ot R41.3 OTHER AMNESIA 12/12/2019 AKSHAT SYED, JERILYN L Ot Z12.31 ENCNTR SCREEN MAMMOGRAM FOR MALIGNANT NE 12/12/2019 AKSHAT SYED, JERILYN L Ot Z86.79 PERSONAL HISTORY OF OTHER DISEASES OF TH 12/30/2019 MARIANO SYED CHERYLON A Ot M43.16 SPONDYLOLISTHESIS, LUMBAR REGION 12/30/2019 MARIANO SYED, CHERYLON A Ot M47.816 SPONDYLOSIS W/O MYELOPATHY OR RADICULOPA 01/08/2020 VALERIO HANNA MD Ot Z01.818 ENCOUNTER FOR OTHER PREPROCEDURAL EXAMIN 01/08/2020 VALERIO HANNA MD Ot Z01.818 ENCOUNTER FOR OTHER PREPROCEDURAL EXAMIN 01/08/2020 VALERIO HANNA MD Ot Z01.818 ENCOUNTER FOR OTHER PREPROCEDURAL EXAMIN 01/08/2020 VALERIO HANNA MD Ot Z01.818 ENCOUNTER FOR OTHER PREPROCEDURAL EXAMIN 01/08/2020 VALERIO HANNA MD Ot Z01.818 ENCOUNTER FOR OTHER PREPROCEDURAL EXAMIN 01/09/2020 VALERIO HANNA MD Ot Z01.818 ENCOUNTER FOR OTHER PREPROCEDURAL EXAMIN Procedures Code Description Performed By Per formed On [id number] DR SAMUELS OF SPINAL CANAL, PERCUTANEOUS A 03/31/2019 Results Test Result Range Thyroid Stimulating Hormone - 07/18/17 1 5:45 TSH 0.12 mIU/mL 0.32-5.00 Thyroid Stimulating Hormone - 10/10/17 0 9:50 TSH 0.10 mIU/mL 0.32-5.00 Free T4 - [...] 02/26/19 15:50 PRELIM CULTURE RESULTS >100,000 Gram Negativ e Lactose Conservation Or [employer] HELEN / ID to Follow MEDIA PLATED [...] Tobramycin 8 Urine Culture - 03/20/19 15:30 Complete blood count (CBC) with automate d white blood cell (WBC) differential - 03/27/19 05:27 Blood leukocytes automated count (number/volume) 7.9 10*3/uL 4.3-11.0 Blood erythrocytes automated count (number/volume) 4.55 10*6/uL 4.35-5.85 Venous blood hemoglobin measurement (mass/volume) 14.5 g/dL 11.5-16.0 Blood hematocrit (volume fraction) 42 % 35-52 Automated erythrocyte mean corpuscular volume 93 [ foz_us] 80-99 Automated erythrocyte mean corpuscular h emoglobin (mass per erythrocyte) 32 pg 25-34 Automated erythrocyte mean corpuscular h emoglobin concentration measurement (mass/volume) 34 g/dL 32-36 Automated erythrocyte distribution width ratio 13. 5 % 10.0- 14.5 Automated blood platelet count (count/volume) 238 10*3/uL 130-400 Automated blood platelet mean volume measurement 10.2 [foz_us] 7.4-10.4 Automated blood neutrophils/100 leukocytes 73 % 42-75 Automated blood lymphocytes/100 leukocytes 16 % 12-44 Blood monocytes/100 leukocytes 10 % 0-12 Automated blood eosinophils/100 leukocytes 1 % 0-10 Automated blood basophils/100 leukocytes 0 % 0-10 Blood neutrophils automated count (number/volume) 5.8 10*3 1.8-7.8 Blood lymphocytes automated count (number/volume) 1.2 10*3 1.0-4.0 Blood monocytes automated count (number/volume) 0. 8 10*3 0.0-1.0 Automated eosinophil count 0.1 10*3/uL 0 .0-0.3 Automated blood basophil count (count/volume) 0.0 10*3/uL 0.0-0.1 Comprehensive metabolic panel - 03/27/19 05:27 Serum or plasma sodium measurement (moles/volume) 140 mmol/L 135-145 Serum or plasma potassium measurement (moles/volume) 3.7 mmol/L 3.6-5.0 Serum or plasma chloride measurement (moles/volume) 109 mmol/L 98-107 Carbon dioxide 14 mmol/L 21-32 Serum or plasma anion gap determination (moles/volume) 17 mmol/L 5-14 Serum or plasma urea nitrogen measurement (mass/volume ) 22 mg/dL 7-18 Serum or plasma creatinine measurement (mass/volume) 0.81 mg/dL 0.60-1.30 Serum or plasma urea nitrogen/creatinine mass ratio 27 NRG Serum or plasma creatinine measurement w ith calculation of estimated glomerular filtration rate > NRG Serum or plasma glucose measurement (mass/volume) 84 mg/dL 70-105 Serum or plasma calcium measurement (mass/volume) 9.1 mg/dL 8.5-10.1 Serum or plasma total bilirubin measurement (mass/volu me) 0.7 mg/dL 0.1-1.0 Serum or plasma alkaline phosphatase germán surement (enzymatic activity/volume) 54 U/L 40-136 Serum or plasma aspartate aminotransfera se measurement (enzymatic activity/volume) 30 U/L 5-34 Serum or plasma alanine aminotransferase measurement (enzymatic activity/volume) 19 U/L 0-55 Serum or plasma protein measurement (mass/volume) 6.1 g/dL 6.4-8.2 Serum or plasma albumin measurement (mass/volume) 3.8 g/dL 3.2-4.5 CALCIUM CORRECTED 9.3 mg/dL 8.5-10.1 Complete urinalysis with reflex to cultu re - 03/27/19 15:23 Urine color determination YELLOW NRG Urine clarity determination VERY CLOUDY NRG Urine pH measurement by test strip 6 5-9 Specific gravity of urine by test strip 1.025 1.016-1.022 Urine protein assay by test strip, semi-quantitative 3+ NEGATIVE Urine glucose detection by automated test strip NE GATIVE NEGATIVE Erythrocytes detection in urine sediment by light micr oscopy 5+ NEGATIVE Urine ketones detection by automated test strip 4+ NEGATIVE Urine nitrite detection by test strip NEGATIVE NEGATIVE Urine total bilirubin detection by test strip NEGA TIVE NEGATIVE Urine urobilinogen measurement by automated test strip (mass/volume) NORMAL NORMAL Urine leukocyte esterase detection by dipstick 3+ NEGATIVE Automated urine sediment erythrocyte cou nt by microscopy (number/high power field) > [HPF] NRG Automated urine sediment leukocyte count by microscopy (number/high power field) > [HPF] NRG Bacteria detection in urine sediment by light microsco py LARGE NRG Squamous epithelial cells detection in u rine sediment by light microscopy RARE NRG Crystals detection in urine sediment by light microsco py NONE NRG Casts detection in urine sediment by light microscopy NONE NRG Mucus detection in urine sediment by light microscopy NEGATIVE NRG Complete urinalysis with reflex to culture YES NRG Bacterial urine culture - 03/27/19 15:23 Bacterial urine culture NG NRG Complete urinalysis with reflex to cultu re - 03/31/19 12:30 Urine color determination YELLOW NRG Urine clarity determination CLEAR NR G Urine pH measurement by test strip 6 5-9 Specific gravity of urine by test strip 1.015 1.016-1.022 Urine protein assay by test strip, semi-quantitative 2+ NEGATIVE Urine glucose detection by automated test strip NE GATIVE NEGATIVE Erythrocytes detection in urine sediment by light micr oscopy 4+ NEGATIVE Urine ketones detection by automated test strip NE GATIVE NEGATIVE Urine nitrite detection by test strip NEGATIVE NEGATIVE Urine total bilirubin detection by test strip NEGA TIVE NEGATIVE Urine urobilinogen measurement by automated test strip (mass/volume) NORMAL NORMAL Urine leukocyte esterase detection by dipstick 1+ NEGATIVE Automated urine sediment erythrocyte cou nt by microscopy (number/high power field) [HPF] NRG Automated urine sediment leukocyte count by microscopy (number/high power field) [HPF] NRG Bacteria detection in urine sediment by light microsco py NEGATIVE NRG Squamous epithelial cells detection in u rine sediment by light microscopy RARE NRG Crystals detection in urine sediment by light microsco py NONE NRG Casts detection in urine sediment by light microscopy NONE NRG Mucus detection in urine sediment by light microscopy NEGATIVE NRG Complete urinalysis with reflex to culture NO NRG PT panel in platelet poor plasma by coag ulation assay - 03/31/19 16:54 Prothrombin time (PT) in platelet poor plasma by coagu lation assay 14.4 s 12.2-14.7 INR in platelet poor plasma or blood by coagulation as say 1.1 0.8-1.4 Cerebrospinal fluid cell count - 9 19:30 Cerebrospinal fluid appearance description CLEAR NRG Cerebrospinal fluid color identification COLORLESS NRG Cerebrospinal fluid leukocytes count (number/volume) 1 % 0-5 Cerebrospinal fluid erythrocytes count (number/volume) 0 % 0-0 Manual cerebrospinal fluid lymphocytes/100 leukocytes TNP NRG Manual cerebrospinal fluid mononuclear cells/100 leuko cytes TNP NRG Manual cerebrospinal fluid polymorphonuclear cells/100 leukocytes TNP NRG Cerebrospinal fluid cell count on specimen from last t ube collected 4 NRG Cerebrospinal fluid glucose measurement (mass/volume) - 03/31/19 19:30 Cerebrospinal fluid glucose measurement (mass/volume) 63 mg/dL 50-80 Cerebrospinal fluid protein measurement (mass/volume) - 03/31/19 19:30 Cerebrospinal fluid protein measurement (mass/volume) 71 mg/dL 15-40 Gram stain microscopy - 03/31/19 19:30 Gram stain microscopy GRAM STAIN PERFORMED AT [facility]. NRG Bacterial cerebrospinal fluid culture - 03/31/19 19:30 Bacterial cerebrospinal fluid culture NG NRG Fungus culture - 03/31/19 19:30 QUANTITY OF GROWTH . NRG FTX;REPORTABLE NO FUNGUS ISOLATED NRG Fungus culture PROGRESS NRG Cerebrospinal fluid microscopic examinat ion by Renae ink prep - 03/31/19 19:30 Whole blood basic metabolic panel - 03/07 05/24 10:53 Serum or plasma sodium measurement (moles/volume) 143 mmol/L 135-145 Serum or plasma potassium measurement (moles/volume) 3.7 mmol/L 3.6-5.0 Serum or plasma chloride measurement (moles/volume) 105 mmol/L 98-107 Carbon dioxide 22 mmol/L 21-32 Serum or plasma anion gap determination (moles/volume) 16 mmol/L 5-14 Serum or plasma urea nitrogen measurement (mass/volume ) 17 mg/dL 7-18 Serum or plasma creatinine measurement (mass/volume) 0.89 mg/dL 0.60-1.30 Serum or plasma urea nitrogen/creatinine mass ratio 19 NRG Serum or plasma creatinine measurement w ith calculation of estimated glomerular filtration rate > NRG Serum or plasma glucose measurement (mass/volume) 119 mg/dL 70-105 Serum or plasma calcium measurement (mass/volume) 9.3 mg/dL 8.5-10.1 Complete blood count (CBC) with automate d white blood cell (WBC) differential - 04/01/19 10:53 Blood leukocytes automated count (number/volume) 5.8 10*3/uL 4.3-11.0 Blood erythrocytes automated count (number/volume) 4.12 10*6/uL 4.35-5.85 Venous blood hemoglobin measurement (mass/volume) 13.0 g/dL 11.5-16.0 Blood hematocrit (volume fraction) 37 % 35-52 Automated erythrocyte mean corpuscular volume 90 [ foz_us] 80-99 Automated erythrocyte mean corpuscular h emoglobin (mass per erythrocyte) 32 pg 25-34 Automated erythrocyte mean corpuscular h emoglobin concentration measurement (mass/volume) 35 g/dL 32-36 Automated erythrocyte distribution width ratio 13. 6 % 10.0- 14.5 Automated blood platelet count (count/volume) 226 10*3/uL 130-400 Automated blood platelet mean volume measurement 10.1 [foz_us] 7.4-10.4 Automated blood neutrophils/100 leukocytes 58 % 42-75 Automated blood lymphocytes/100 leukocytes 23 % 12-44 Blood monocytes/100 leukocytes 14 % 0-12 Automated blood eosinophils/100 leukocytes 5 % 0-10 Automated blood basophils/100 leukocytes 1 % 0-10 Blood neutrophils automated count (number/volume) 3.3 10*3 1.8-7.8 Blood lymphocytes automated count (number/volume) 1.3 10*3 1.0-4.0 Blood monocytes automated count (number/volume) 0. 8 10*3 0.0-1.0 Automated eosinophil count 0.3 10*3/uL 0 .0-0.3 Automated blood basophil count (count/volume) 0.0 10*3/uL 0.0-0.1 Erythrocyte sedimentation rate by tawny gren method - 04/01/19 10:53 Erythrocyte sedimentation rate by westergren method 14 mm 0- 30 Free T4 - 11/12/19 10:30 Free T4 1.14 ng/dL 0.81-1.61 Other Culture - 11/28/19 10:40 PRELIM CULTURE RESULTS No Growth 24 hours FINAL CULTURE RESULTS No Growth 48 hours MEDIA PLATED Setup at 14:29 on 11/28/2019 Encounters ACCT No. Visit Date/Time Discharge Status Pt. Type Provider Facility Loc./Unit Complaint [id number] 10/16/2014 12:24:00 10/16/2014 23:59: 59 CLS Outpatient RAYNA ZURITA DO [id number] 12/27/2019 10:31:00 12/27/2019 23:59 :00 DIS Outpatient MARISA SMILEY [id number] 12/06/2019 11:01:00 12/06/2019 23:59 :00 DIS Outpatient BALJITMARISA CEDENO [id number] 11/28/2019 14:51:00 11/28/2019 23:59 :00 DIS Outpatient ODEN, JERILYN [id number] 11/28/2019 13:06:00 11/28/2019 23:59 :00 DIS Outpatient ODEN, JERILYN [id number] 11/28/2019 09:57:00 11/28/2019 23:59 :00 DIS Outpatient ODENJERILYN [id number] 11/21/2019 14:16:00 11/21/2019 23:59 :00 DIS Outpatient ODENJERILYN [id number] 11/18/2019 14:29:00 11/18/2019 23:59 :00 DIS Outpatient GarthLeatha pena [id number] 11/12/2019 18:03:00 11/12/2019 23:59 :00 DIS Outpatient ODENJERILYN [id number] 11/12/2019 11:01:00 11/12/2019 23:59 :00 DIS Outpatient JERILYN ODEN [id number] 10/18/2019 14:50:00 10/18/2019 23:59 :00 DIS Outpatient Bozena Rodas [id number] 09/30/2019 17:25:00 09/30/2019 23:59: 00 DIS Outpatient Bozena Rodas [id number] 09/12/2019 12:39:00 09/12/2019 23:59: 00 DIS Outpatient JERILYN ODEN [id number] 09/11/2019 16:31:00 09/11/2019 23:59: 00 DIS Outpatient JERILYN ODEN [id number] 08/28/2019 16:22:00 08/28/2019 23:59: 00 DIS Outpatient JERILYN ODEN [id number] 07/23/2019 14:10:00 07/23/2019 23:59: 00 DIS Outpatient JERILYN ODEN [id number] 03/20/2019 15:43:00 03/20/2019 23:59: 00 DIS Outpatient JERILYN ODEN [id number] 02/26/2019 17:45:00 02/26/2019 23:59: 00 DIS Outpatient JERILYN ODEN [id number] 11/14/2018 00:00:00 11/14/2018 23:59: 00 DIS Outpatient JERILYN ODEN [id number] 11/12/2018 09:10:00 11/12/2018 23:59: 00 DIS Outpatient JERILYN ODEN [id number] 09/16/2018 07:00:00 09/16/2018 23:59: 00 DIS Outpatient JERILYN ODEN [id number] 08/31/2018 19:26:00 08/31/2018 20:48: 00 DIS Outpatient Candice De La [facility] [id number] 06/13/2018 12:12:00 06/13/2018 23:59: 00 DIS Outpatient JERILYN ODEN [id number] 12/21/2017 09:30:00 12/21/2017 23:59: 00 DIS Outpatient Aashish Schmidtshank B [id number] 10/19/2017 11:02:00 10/19/2017 23:59: 00 DIS Outpatient Sukumar Schmidt B [id number] 10/12/2017 13:48:00 10/12/2017 23:59: 00 DIS Outpatient JERILYN ODEN [id number] 10/10/2017 13:33:00 10/10/2017 23:59: 00 DIS Outpatient JERILYN ODEN [id number] 07/18/2017 15:45:00 07/18/2017 23:59: 00 DIS Outpatient JERILYN ODEN [id number] 02/08/2017 00:00:00 02/08/2017 23:59: 00 DIS Outpatient JERILYN ODEN [id number] 06/10/2019 08:19:00 Document Registration [id number] 06/03/2019 10:30:00 Document Registration [id number] 05/07/2019 11:00:00 Document Registration [id number] 04/10/2019 09:30:00 Document Registration [id number] 03/25/2019 22:55:00 ACT Inpatient JERILYN ODEN [facility] MED-SURG [id number] 03/20/2019 15:20:00 Document Registration [id number] 02/27/2019 15:00:00 Document Registration [id number] 11/12/2018 08:00:00 Document Registration [id number] 09/11/2018 15:40:00 Document Registration [id number] 08/31/2018 19:58:33 Document Registration [id number] 07/19/2018 13:20:00 Document Registration [id number] 06/13/2018 10:23:00 Document Registration [id number] 03/14/2018 11:20:00 Document Registration [id number] 03/06/2018 11:00:00 Document Registration [id number] 11/30/2017 10:30:00 Document Registration [id number] 10/10/2017 08:20:00 Document Registration [id number] 08/03/2017 10:30:00 Document Registration [id number] 07/18/2017 14:45:00 Document Registration [id number] 07/05/2017 15:38:00 Document Registration [id number] 01/10/2020 09:10:00 10:25:00 DIS Outpatient VALERIO HANNA MD [facility] SDC YAG [id number] 01/07/2020 05:33:00 020 12:13:00 DIS Outpatient VALERIO HANNA MD [facility] PREOP YAG [id number] 12/06/2019 13:23:00 23:59:59 CLS Outpatient KATTY QUINTANA MD [facility] RAD SPONDYLOLISTHES ES [id number] 11/27/2019 08:00:00 23:59:59 CLS Preadmit KATTY QUINTANA MD [facility] RAD SPONDYLOLISTHESIS, LUMB AR REGION [id number] 11/22/2019 09:29:00 020 23:59:59 CLS Outpatient JERILYN ODEN MD [facility] RAD ACUTE MEMORY LOSS,H/O CAROTID STENOSIS,SCREENING [id number] 09/24/2019 10:21:00 019 23:59:59 CLS Outpatient GUEVARA GREENE MD [facility] RAD LUMBAR RADICULPATHY [id number] 07/22/2019 08:25:00 09/16/2 019 23:59:59 CLS Outpatient SCOTT BARTHOLOMEW, DENISE Epstein [facility] CARD CAD,HTN,CAR OTID ARTERY STENOSIS [id number] 03/26/2019 14:00:00 15:15:00 DIS Inpatient DEIRDRE PORRAS MD [facility] 4TH UTI;AMS [id number] 11/25/2018 00:09:00 23:59:59 CLS Preadmit JERILYN ODEN MD [facility] CR3 WELLNESS [id number] 10/25/2018 13:00:00 019 00:01:00 DIS Outpatient JERILYN ODEN MD [facility] CR3 WELLNESS [id number] 11/07/2018 10:02:00 23:59:59 CLS Outpatient JERILYN ODEN MD [facility] RAD SCREENING [id number] 08/30/2018 06:00:00 018 00:01:00 DIS Outpatient JERILYN ODEN MD [facility] CR3 WELLNESS [id number] 07/31/2018 06:00:00 018 00:01:00 DIS Outpatient JERILYN ODEN MD [facility] CR3 WELLNESS [id number] 06/26/2018 06:00:00 018 00:01:00 DIS Outpatient JERILYN ODEN MD [facility] CR3 WELLNESS [id number] 05/24/2018 06:00:00 018 00:01:00 DIS Outpatient JERILYN ODEN MD [facility] CR3 WELLNESS [id number] 04/24/2018 06:00:00 018 00:01:00 DIS Outpatient JERILYN ODEN MD [facility] CR3 WELLNESS [id number] 03/06/2018 06:00:00 018 00:01:00 DIS Outpatient JERILYN ODEN MD [facility] CR3 WELLNESS [id number] 10/31/2017 11:09:00 017 23:59:59 CLS Outpatient JERILYN ODEN MD [facility] RAD SCREENING [id number] 10/12/2017 08:25:00 017 23:59:59 CLS Preadmit AKSHATVICKI ALEXEI [facility] CARD CAD [id number] 03/16/2017 10:10:00 017 23:59:59 CLS Outpatient BEAN ROBERTS MD [facility] CARD CAD,CAROTID ARTERY STENOSIS,HLP,HTN [id number] 03/08/2017 08:25:00 017 23:59:59 CLS Outpatient BEAN ROBERTS MD [facility] CARD CAD I25.10 ,CAROTID ART JAYLON STENOSIS, HLP, HTN [id number] 02/15/2017 08:41:00 017 23:59:59 CLS Outpatient JERILYN ODEN MD [facility] RAD CHRONIC SINUSITIS [id number] 01/19/2017 11:00:00 017 15:00:00 DIS Outpatient JERILYN ODEN MD [facility] REHAB LOW BACK PAIN WITH RAD ICULOPATHY [id number] 10/17/2016 10:01:00 016 23:59:59 CLS Outpatient JERILYN ODEN MD [facility] RAD SCREENING [id number] 10/08/2014 09:35:00 014 23:59:59 CLS Outpatient KYRIE GUERRA MD [facility] RAD ROUTINE [id number] 03/03/2014 08:23:00 014 11:10:00 DIS Outpatient PHOEBE RAMOS MD [facility] SDC HX COLON CANCER [id number] 02/27/2014 07:32:00 014 23:59:59 CLS Outpatient PHOEBE RAMOS MD [facility] PREOP HX OF COLON CANCER [id number] 02/25/2014 11:39:00 23:59:59 CLS Outpatient DENISE COREY [facility] RAD CAD,HTN,HLP [id number] 02/19/2014 10:35:00 23:59:59 CLS Outpatient DENISE COREY [facility] CARD CAD,HTN,HLP [id number] 01/01/2014 12:02:00 11:45:00 DIS Outpatient BEAN ROBERTS MD [facility] CR STABLE ANGINA [id number] 12/18/2013 12:52:00 14:43:00 DIS Outpatient BEAN ROBERTS MD [facility] CR STABLE ANGINA [id number] 09/18/2013 10:29:00 23:59:59 CLS Outpatient REINIER WHEATLEY V [facility] ONC [id number] 07/30/2013 09:15:00 14:00:00 DIS Outpatient MOISES MEDINA [facility] REHAB R HIP PAIN [id number] 07/31/2013 07:33:00 11:55:00 DIS Outpatient BEAN ROBERTS MD Via [facility] CATH CHEST PAIN,SOB,HTN,ABN EKG [id number] 10/14/2015 10:01:00 Document Registration [id number] 09/17/2014 10:24:00 Document Registration [id number] 01/17/2013 12:28:00 Document Registration [id number] 01/08/2013 15:33:00 Document Registration [id number] 11/26/2012 09:52:00 Document Registration [id number] 07/05/2012 13:56:00 Document Registration [id number] 08/21/2019 13:15:00 08/21/2019 23:59:5 9 CLS Outpatient [facility]
--- OUTSIDE RECORDS SUMMARY | 2020-01-14 06:50 | XMS REPORT ---
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 Name Role Phone Migration, Doctor Unavailable Unavailable PROBLEMS Type Condition ICD9-CM Code NJE96-IR Code Onset Dates Condition S tatus SNOMED Code Problem ZOSTAVAX DX V05.8 Active [id number] ALLERGIES No Information ENCOUNTERS Encounter Location Date Diagnosis [facility] [id number] [place] [id number] Dec, Pain of finger of right hand M79.644 [facility] [address] [id number] [address] [place] [phone] Oct, [facility] [id number] [place] [phone] Oct, IMMUNIZATIONS No Known Immunizations SOCIAL HISTORY Never Assessed REASON FOR VISIT PLAN OF CARE VITAL SIGNS MEDICATIONS No Known Medications RESULTS No Results PROCEDURES No Known procedures INSTRUCTIONS MEDICATIONS ADMINISTERED No Known Medications MEDICAL (GENERAL) HISTORY Type Description Date Medical History HX of colon Ca Surgical History T&A Surgical History colon resection Surgical History CABAG X 5 vessels Hospitalization History post op
== END 2020-01-10 10:25 | disposition home or self-care (01) ==
LOC: SDC 09:10
PROVIDERS: ATTEND Specialist
DX: H26.493 Other secondary cataract, bilateral (principal); E03.9 Hypothyroidism, unspecified; F41.9 Anxiety disorder, unspecified; Z85.038 Personal history of other malignant neoplasm of large intestine

== ENCOUNTER → 2020-02-20 | Outpatient (CLI) | payer MEDICARE, OTHER | LOC: WOUNDCARE 12:33 | PROVIDERS: ATTEND Surgery | DX: L97.222 Non-pressure chronic ulcer of left calf with fat layer exposed (principal); I87.332 Chronic venous hypertension (idiopathic) with ulcer and inflammation of left lower extremity; I70.242 Atherosclerosis of native arteries of left leg with ulceration of calf; D04.72 Carcinoma in situ of skin of left lower limb, including hip | CPT/HCPCS: 99213 ==

== ENCOUNTER → 2020-02-20 | Outpatient (CLI) | payer MEDICARE, OTHER ==
[2020-02-20 14:57] LABS: BASOPHILS % (AUTO) 0 % (0-10); EOSINOPHILS # (AUTO) 0.2 10^3/uL (0.0-0.3); EOSINOPHILS % (AUTO) 4 % (0-10); HEMATOCRIT 33 % (35-52); HEMOGLOBIN 11.7 G/DL (11.5-16.0); LYMPHOCYTES # (AUTO) 1.5 X 10^3 (1.0-4.0); LYMPHOCYTES % (AUTO) 28 % (12-44); MEAN CORPUSCULAR HEMOGLOBIN 32 PG (25-34); MEAN CORPUSCULAR HGB CONC 35 G/DL (32-36); MEAN CORPUSCULAR VOLUME 90 FL (80-99); MEAN PLATELET VOLUME 9.9 FL (7.4-10.4); MONOCYTES # (AUTO) 0.8 X 10^3 (0.0-1.0); MONOCYTES % (AUTO) 14 % (0-12); NEUTROPHILS % (AUTO) 54 % (42-75); PLATELET COUNT 243 10^3/uL (130-400); RED CELL DISTRIBUTION WIDTH 11.5 % (10.0-14.5); WHITE BLOOD COUNT 5.5 10^3/uL (4.3-11.0)
[2020-02-20 15:14] LABS: ALBUMIN 4.3 GM/DL (3.2-4.5); BILIRUBIN,TOTAL 0.9 MG/DL (0.1-1.0); CALCIUM 9.4 MG/DL (8.5-10.1); CREATININE SERUM 0.92 MG/DL (0.60-1.30); POTASSIUM 4.4 MMOL/L (3.6-5.0); TOTAL PROTEIN 6.7 GM/DL (6.4-8.2)
== END ==
LOC: LAB 14:40
PROVIDERS: ATTEND Surgery
DX: L97.222 Non-pressure chronic ulcer of left calf with fat layer exposed (principal); I87.332 Chronic venous hypertension (idiopathic) with ulcer and inflammation of left lower extremity; I70.242 Atherosclerosis of native arteries of left leg with ulceration of calf; D04.72 Carcinoma in situ of skin of left lower limb, including hip
CPT/HCPCS: 36415; 80053; 85025

== ENCOUNTER → 2020-02-27 | Outpatient (CLI) | payer MEDICARE, OTHER | LOC: WOUNDCARE 13:24 | PROVIDERS: ATTEND Surgery | DX: L97.222 Non-pressure chronic ulcer of left calf with fat layer exposed (principal); I87.332 Chronic venous hypertension (idiopathic) with ulcer and inflammation of left lower extremity; I70.242 Atherosclerosis of native arteries of left leg with ulceration of calf; D04.72 Carcinoma in situ of skin of left lower limb, including hip; L92.8 Other granulomatous disorders of the skin and subcutaneous tissue | CPT/HCPCS: 17250 ==

== ENCOUNTER → 2020-03-05 | Outpatient (CLI) | payer MEDICARE, OTHER | LOC: WOUNDCARE 12:20 | PROVIDERS: ATTEND Surgery | DX: I87.332 Chronic venous hypertension (idiopathic) with ulcer and inflammation of left lower extremity (principal); I96 Gangrene, not elsewhere classified; L97.222 Non-pressure chronic ulcer of left calf with fat layer exposed; D04.72 Carcinoma in situ of skin of left lower limb, including hip; L92.8 Other granulomatous disorders of the skin and subcutaneous tissue | CPT/HCPCS: 11042 ==

== ENCOUNTER → 2020-03-12 | Outpatient (CLI) | payer MEDICARE, OTHER | LOC: WOUNDCARE 11:48 | PROVIDERS: ATTEND Surgery | DX: I87.332 Chronic venous hypertension (idiopathic) with ulcer and inflammation of left lower extremity (principal); L97.222 Non-pressure chronic ulcer of left calf with fat layer exposed; D04.72 Carcinoma in situ of skin of left lower limb, including hip; L92.8 Other granulomatous disorders of the skin and subcutaneous tissue | CPT/HCPCS: 17250; 29581 ==

== ENCOUNTER → 2020-03-17 | Outpatient (CLI) | payer MEDICARE, OTHER | LOC: WOUNDCARE 11:19 | PROVIDERS: ATTEND Surgery | DX: I87.332 Chronic venous hypertension (idiopathic) with ulcer and inflammation of left lower extremity (principal); L97.222 Non-pressure chronic ulcer of left calf with fat layer exposed; D64.9 Anemia, unspecified; I25.10 Atherosclerotic heart disease of native coronary artery without angina pectoris; I10 Essential (primary) hypertension; E11.51 Type 2 diabetes mellitus with diabetic peripheral angiopathy without gangrene; M06.9 Rheumatoid arthritis, unspecified; M19.91 Primary osteoarthritis, unspecified site; Z92.21 Personal history of antineoplastic chemotherapy | CPT/HCPCS: 29581 ==

== ENCOUNTER → 2020-03-19 | Outpatient (CLI) | payer MEDICARE, OTHER | LOC: WOUNDCARE 12:55 | PROVIDERS: ATTEND Surgery | DX: I87.332 Chronic venous hypertension (idiopathic) with ulcer and inflammation of left lower extremity (principal); L97.222 Non-pressure chronic ulcer of left calf with fat layer exposed; D04.72 Carcinoma in situ of skin of left lower limb, including hip; Z85.038 Personal history of other malignant neoplasm of large intestine; Z92.21 Personal history of antineoplastic chemotherapy; M06.9 Rheumatoid arthritis, unspecified; M19.91 Primary osteoarthritis, unspecified site | CPT/HCPCS: 11042 ==

== ENCOUNTER → 2020-03-23 | Outpatient (CLI) | payer MEDICARE, OTHER | LOC: WOUNDCARE 14:21 | PROVIDERS: ATTEND Surgery | DX: I87.332 Chronic venous hypertension (idiopathic) with ulcer and inflammation of left lower extremity (principal); L97.222 Non-pressure chronic ulcer of left calf with fat layer exposed; D04.72 Carcinoma in situ of skin of left lower limb, including hip; Z85.038 Personal history of other malignant neoplasm of large intestine; Z92.21 Personal history of antineoplastic chemotherapy; M06.9 Rheumatoid arthritis, unspecified; M19.91 Primary osteoarthritis, unspecified site; I25.10 Atherosclerotic heart disease of native coronary artery without angina pectoris; E11.51 Type 2 diabetes mellitus with diabetic peripheral angiopathy without gangrene; I10 Essential (primary) hypertension; Z85.828 Personal history of other malignant neoplasm of skin; E78.00 Pure hypercholesterolemia, unspecified; L40.9 Psoriasis, unspecified | CPT/HCPCS: 99212 ==

== ENCOUNTER 2020-03-27 13:01 | Inpatient (IN) | payer MEDICARE, OTHER ==
[~2020-03-27] VITALS: Ht 145 cm; Wt 61.5 kg
[2020-03-27] MEDS ORDERED: LOPERAMIDE 2 MG (IMODIUM) TABLET PO PRN (13:15)
[2020-03-27] MEDS ORDERED: FLEET ENEMA ADULT 1 EA BTL PR PRN (13:15)
[2020-03-27] MEDS ORDERED: ALPRAZolam 0.25 MG (XANAX) TAB PO PRN (13:15)
[2020-03-27] MEDS ORDERED: guaiFENesin/CODEINE (ROBITUSSIN AC) 10ML UDC PO PRN (13:15)
[2020-03-27] MEDS ORDERED: BISACODYL 10 MG SUPP (DULCOLAX) PR PRN (13:15)
[2020-03-27] MEDS ORDERED: LACTULOSE SYRUP 10GM/15ML (ENULOSE) 30ML UDC PO PRN (13:15)
[2020-03-27] MEDS ORDERED: CALCIUM CARBONATE 500 MG (TUMS) TAB.CHEW PO PRN (13:15)
[2020-03-27] MEDS ORDERED: diphenhydrAMINE 25 MG TAB (BENADRYL) PO PRN (13:15)
[2020-03-27] MEDS ORDERED: ONDANSETRON 4 MG (ZOFRAN) ORAL DISSOLVE TAB PO PRN (13:15)
[2020-03-27] MEDS ORDERED: DOCUSATE SODIUM 100 MG (COLACE) CAP PO PRN (13:15)
[2020-03-27] MEDS ORDERED: MONT10TA26 PO (13:41)
[2020-03-27] MEDS ORDERED: FAMO-119 PO (13:41)
[2020-03-27] MEDS ORDERED: TRAM50TA3 PO (13:41)
[2020-03-27] MEDS ORDERED: CLOB15CR2 TP (13:41)
[2020-03-27] MEDS ORDERED: [UNRECOGNIZED DRUG - CODE] PO (13:41)
[2020-03-27] MEDS ORDERED: BIOT25007 PO (13:41)
[2020-03-27] MEDS ORDERED: CHOL20002 PO (13:41)
[2020-03-27] MEDS ORDERED: LOSA100T57 PO (13:41)
[2020-03-27] MEDS ORDERED: OMEG1CAP24 PO (13:41)
[2020-03-27] MEDS ORDERED: CHLO25TA22 PO (13:45)
--- NOTE | 2020-03-27 13:46 | NUR ---
ENTERED THE MED REC USING THE DISCHARGE SUMMARY FROM [facility] ONCE MEDICATIONS HAVE BEEN CONTINUED I WILL INTERVIEW THE PT AND UPDATE NOTES AND MED REC NEEDED
[2020-03-27] MEDS ORDERED: CYCLOBENZAPRINE 10 MG (FLEXERIL) TAB PO PRN (17:30)
--- NOTE | 2020-03-27 18:12 | PM&R Post Admission Assessment ---
PM&R HP Date of Visit: March 27, 2020 Time of Visit: 18:10 History of Present Illness CC: Lumbar stenosis with neurogenic claudication s/p surgical resolution POD # 3 jesenia [facility] HPI: This is a 74yoWF clinic patient of Dr Ramesh who has a h/o psoriatic arthritis and hypothyroidism who presents to the IRF s/p uncomplicated lumbar spine surgery. Patient is currently very uncomfortable with pain since she just arrived so we will restart all pain meds she was taking at [place]. No BM yet since prior to OR and remains with catheter due to urinary retention since she attempted to DC yesterday but required it to be replaced. Home meds restarted but holding Chlorathalidone due to notation she has hyponatremia. Labs will be checked tomorrow. PLOF was independent and she lives alone and is a from 1 year ago. Past Obgfxtt-Wyxphu-Sgdhni Hx Past Med/Social Hx: Reviewed Nursing Past Med/Soc Hx, Reviewed and Corrections made Patient Social History Marrital Status: Employed/Student: retired Alcohol Use: Denies Use Recreational Drug Use: No Smoking Status: Never a Smoker Physical Abuse Screen: No Sexual Abuse: No Recent Foreign Travel: No Contact w/other who traveled: No Recent Hopitalizations: No Immunizations Up To Date Date of Pneumonia Vaccine: Aug 07, 2017 Seasonal Allergies Seasonal Allergies: Yes Past Medical History Surgeries: Orthopedic Cardiac: Hypertension Sexually Transmitted Disease: No HIV/AIDS: No Female Reproductive Disorders: Denies Genitourinary: UTI-Chronic Musculoskeletal: Arthritis, Rheumatoid Arthritis, Back Injury, Chronic Back Pain Endocrine: Hypothyroidsim HEENT: Cataract Loss of Vision: Bilateral Hearing Impairment: Hard of Hearing, Hearing Aide Right, Hearing Aide Left, Bilateral Hearing Aide Cancer: Colon Did You Recieve Any Treatments: Yes What Type of Treatment Did You: Chemotherapy History of Blood Disorders: Yes Adverse Reaction to Blood Umana: No Family History Cardiovascular disease 19 FATHER G8 BROTHER PM&R Allergy/Meds/Data Review Allergies Coded Allergies: levofloxacin (Verified Allergy, Mild, TENDINITIS, 01/08/20) Home Medications Scheduled Aspirin (Aspirin EC), 81 MG PO DAILY, (Reported) Atorvastatin Calcium (Atorvastatin Calcium), 40 MG PO HS, (Reported) Biotin (Biotin), 2,500 MCG PO BID, (Reported) Calcium Carbonate (Calcium Carbonate), 1,200 MG PO DAILY, (Reported) Chlorthalidone (Chlorthalidone), 25 MG PO DAILY, (Reported) Cholecalciferol (Vitamin D3) (Vitamin D3), 50 MCG PO DAILY, (Reported) Clobetasol Propionate (Clobetasol Propionate), 1 APPLIC TP BID, (Reported) Famotidine (Pepcid), 20 MG PO BID, (Reported) Gabapentin (Gabapentin), 600 MG PO TID, (Reported) Levothyroxine Sodium (Levothyroxine Sodium), 75 MCG PO DAILY, (Reported) Losartan Potassium (Losartan Potassium), 100 MG PO DAILY, (Reported) Metoprolol Tartrate (Metoprolol Tartrate), 12.5 MG PO BID, (Reported) Montelukast Sodium (Montelukast Sodium), 10 MG PO HS, (Reported) Multivitamin (Multiple Vitamins), 1 TAB PO DAILY, (Reported) Negley-3 Fatty Acids/Fish Oil (Negley 3 Fish Oil Softgel), 1 EACH PO DAILY, (Reported) Scheduled PRN Cyclobenzaprine HCl (Cyclobenzaprine HCl), 10 MG PO HS PRN for MUSCLE SPASMS, (Reported) Tramadol HCl (Tramadol HCl), 50-100 MG PO Q6H PRN for PAIN-MODERATE (5-7), (Reported) Discontinued Medications Biotin (Biotin), 1,000 MCG PO BID, (Reported) Discontinued Reason: Prescription changed Calcium Carbonate/Vitamin D3 (Calcium 500 + D Tablet), 1 TAB PO DAILY, (Re ported) Discontinued Reason: Prescription changed Cholecalciferol (Vitamin D3) (Vitamin D3), 2,000 UNIT PO DAILY, (Reported) Discontinued Reason: Prescription changed Fish Oil/Dha/Epa (Fish Oil 1,200 mg Fish Oil), 1,200 MG PO DAILY, (Reported) Discontinued Reason: No Longer Taking Losartan Potassium (Losartan Potassium), 100 MG PO DAILY Discontinued Reason: Duplicate Order Meloxicam (Meloxicam), 15 MG PO DAILY, (Reported) Discontinued Reason: No Longer Taking Ranitidine HCl (Zantac), 150 MG PO BID, (Reported) Discontinued Reason: No Longer Taking Current Medications Current Medications Reviewed Review of Systems Constitutional: see HPI, malaise, weakness EENTM: no symptoms reported Respiratory: no symptoms reported Cardiovascular: no symptoms reported Gastrointestinal: constipation Genitourinary: other (retention) Musculoskeletal: back pain, joint pain, muscle pain, muscle stiffness, muscle cramps, muscle twitching, muscle weakness Skin: no symptoms reported Psychiatric/Neurological: No Symptoms Reported All Other Systems Reviewed Negative Unless Noted: Yes Physical Exam Physical Exam Vital Signs Capillary Refill : Height, Weight, BMI Height: 4'10.00" Weight: 118lbs. 0.0oz. [id number]; 24.7 BMI Method: General Appearance: WD/WN, Anxious, Chronically ill, Mild Distress Eyes: Bilateral Eye Normal Inspection, Bilateral Eye PERRL HEENT: PERRL/EOMI, Normal ENT Inspection, Pharynx Normal Neck: Full Range of Motion, Normal Inspection, Non Tender, Supple, Carotid Bruit Respiratory: Chest Non Tender, Lungs Clear, Normal Breath Sounds, No Accessory Muscle Use, No Respiratory Distress Cardiovascular: Regular Rate, Rhythm, No Edema, No Gallop, No JVD, No Murmur, Normal Peripheral Pulses Gastrointestinal: Normal Bowel Sounds, No Organomegaly, No Pulsatile Mass, Non Tender, Soft Back: Normal Inspection, Decreased Range of Motion, Muscle Spasm, Vertebral Tenderness Extremity: Normal Capillary Refill, Normal Inspection, Normal Range of Motion (decrease leg strength), Non Tender, No Calf Tenderness, No Pedal Edema Neurologic/Psychiatric: Alert, Oriented x3, No Motor/Sensory Deficits, Normal Mood/Affect, Motor Weakness (lower leg weakness) Skin: Normal Color, Warm/Dry Lymphatic: No Adenopathy PM&R Medical Assessment & Plan REHAB/MEDICAL ASSESSMENT AND PLAN: REHAB IMPAIRMENT GROUP: Lumbar stenosis with neurogenic claudication ETIOLOGIC DIAGNOSIS: Lumbar stenosis with neurogenic claudication The comorbidities that impact the patients function and/or functional outcome by: lives alone, psoriatic arthritis, HTN, Hyponatremia, urinary retention, dewitt cath in place, post op constipation REHAB PLAN: The patient is being admitted to our comprehensive inpatient rehabilitation facility and can tolerate the intensity of service consisting of at least: 180 minutes of therapy a day, 5 out of 7 days a week Rehab treatment will consist of: PT OT will help build stamina and minimize back pain while strengthening core muscle strength while preventing falls and management of ADL's The patient/family has a good understanding of our discharge process and will benefit from an interdisciplinary inpatient rehabilitation program. The patient has potential to make improvement and is in need of at least two of the [facility] multidisciplinary therapies including but not limited to physical, occupational, speech, and prosthetics and orthotics. Additionally the patient will need services from respiratory, nutritional services, wound care, psychology, etc. (Customize this to each patient). Given the patients complex condition and risk of further medical complications, rehabilitation services can not be safely or effectively provided at a lower level of care such as a halfway facility. BARRIERS TO DISCHARGE: Lives alone ESTIMATED LOS: 10 days DISPOSITION: Home with HH RELEVANT CHANGES SINCE PREADMISSION SCREENING: I have compared the patients medical and functional status at the time of the preadmission screening and there are: no changes PROGNOSIS: Good REHABILITATION GOALS: 1. PT OT will help build stamina and minimize back pain while strengthening core muscle strength while preventing falls and management of ADL's All the above goals were reviewed with the patient and he/she is in agreement. By signing this document, I acknowledge that I have personally performed a full physical examination on this patient within 24 hours of admission to this inpatient rehabilitation facility and have determined the patient to be able to tolerate the above course of treatment at an intensive level for a reasonable period of time. I will be completing a detailed individualized Plan of Care for this patient by day #4 of the patients stay based upon the Preadmission Screen, the Post-Admission Evaluation, and the therapy evaluations. Admission Dx/Comorbidities: (1) Lumbar stenosis with neurogenic claudication ICD Codes: M48.062 - Spinal stenosis, lumbar region with neurogenic claudication (2) Hypothyroidism ICD Codes: E03.9 - Hypothyroidism, unspecified (3) Osteopenia ICD Codes: M85.80 - Other specified disorders of bone density and structure, unspecified site (4) Dewitt catheter in place ICD Codes: Z96.0 - Presence of urogenital implants (5) Urinary retention ICD Codes: R33.9 - Retention of urine, unspecified (6) Hyponatremia ICD Codes: E87.1 - Hypo-osmolality and hyponatremia (7) Psoriatic arthritis Status: Chronic ICD Codes: L40.50 - Arthropathic psoriasis, unspecified (8) Hypertension ICD Codes: I10 - Essential (primary) hypertension Assessment/Plan Assessment and Plan Assess & Plan/Chief Complaint Assessment: s/p lumbar stenosis surgery due to neurogenic claudication POD # 3 Dr Mace Psoriatric arthritis Hypothyroidism HTN Hyponatremia holding Chlorathalidone Post op constipation Urinary retention failed voiding trial Dewitt cath in place Plan: Dr Naik consultation will be necessary Check labs Monitor sodium level IRF protocol JESS SIMON DO March 27, 2020 18:12
[2020-03-27 18:15] VITALS: BP 123/67
[2020-03-27 18:23] VITALS: BP 123/67
[2020-03-27] MEDS ORDERED: ENOXAPARIN 40 MG/0.4 ML (LOVENOX) SYR SC SCH (18:30)
--- OUTSIDE RECORDS SUMMARY | 2020-03-27 19:44 | XMS REPORT | Continuity of Care Document ---
[...] UNKNOWN UNKNOWN Yes No Known Drug Allergies [id number] Drug Allergy Unknown N/A 04/18/2011 Yes levofloxacin [id number] Drug Allergy Mild TENDINITIS 01/08/2020 Yes AMA Inhibitors [id number] Dr bustamante Allergy Unknown N/A 01/08/2020 Yes levofloxacin [id number] Drug Allergy Unknown TENDINITIS 01/08/[id number] bustamante Allergy Unknown N/A 01/08/2020 Medications [...] MD Ot 414. 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 05 HX OF COLONIC MALIGNANCY 07/31/2013 BEAN ROBERTS MD Ot V58. 69 OT MED,LT,CURRENT USE 08/06/2013 MOISES MEDINA Ot 726.5 ENTHESOPATHY OF HIP 08/06/2013 MOISES MEDINA Ot V57.1 PHYSICAL THERAPY NEC 12/18/2013 BEAN ROBERTS MD Ot 413. 9 ANGINA [...] Ot I25. 10 ATHSCL HEART DISEASE OF [place] CORONARY 03/06/2017 BEAN ROBERTS MD Ot I25. 10 ATHSCL HEART DISEASE OF [place] CORONARY 03/07/2017 Ot V76.12 OTH SCREEN MAMMO- [...] Ot I25. 10 ATHSCL HEART DISEASE OF [place] CORONARY 03/07/2017 JERILYN ODEN MD, Ot Z12.31 ENCNTR SCREEN MAMMOGRAM FOR MALIGNANT NE 03/07/2017 JERILYN ODEN MD Ot J32.9 CHRONIC SINUSITIS, UNSPECIFIED 03/07/2017 JERILYN ODEN MD Ot J32.9 CHRONIC SINUSITIS, UNSPECIFIED 03/09/2017 BEAN ROBERTS MD Ot E78. 5 HYPERLIPIDEMIA, UNSPECIFIED 03/09/2017 BEAN ROBERTS MD Ot I10 ESSENTIAL (PRIMARY) HYPERTENSION 03/09/2017 BEAN ROBERTS MD Ot I25. 10 ATHSCL HEART DISEASE OF [place] CORONARY 03/17/2017 BEAN ROBERTS MD Ot E78. 5 HYPERLIPIDEMIA, UNSPECIFIED 03/17/2017 BEAN ROBERTS MD Ot I10 ESSENTIAL (PRIMARY) HYPERTENSION 03/17/2017 BEAN ROBERTS MD Ot I25. 10 ATHSCL HEART DISEASE OF [place] CORONARY 03/29/2017 BEAN ROBERTS MD Ot E78. 5 HYPERLIPIDEMIA, UNSPECIFIED 03/29/2017 BEAN ROBERTS MD Ot I10 ESSENTIAL (PRIMARY) HYPERTENSION 03/29/2017 BEAN ROBERTS MD Ot I25. 10 ATHSCL HEART DISEASE OF [place] CORONARY 04/06/2017 BEAN ROBERTS MD Ot E78. 5 HYPERLIPIDEMIA, UNSPECIFIED 04/06/2017 BEAN ROBERTS MD Ot I10 ESSENTIAL (PRIMARY) HYPERTENSION 04/06/2017 ARMANDO SYED, BEAN Bowser Ot I25. 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 10 ATHSCL HEART DISEASE OF [place] CORONARY 10/12/2017 BEAN ROBERTS MD Ot E78. 5 HYPERLIPIDEMIA, UNSPECIFIED 10/12/2017 BEAN ROBERTS MD Ot I10 ESSENTIAL (PRIMARY) HYPERTENSION 10/12/2017 BEAN ROBERTS MD Ot I25. 10 ATHSCL HEART DISEASE OF [place] CORONARY 10/12/2017 JERILYN ODEN MD Ot Z12.31 [...] Z29.8 ENCOUNTER FOR OTHER SPECIFIED PROPHYLACT 04/30/2018 JERILYN ODEN MD Ot Z29.8 ENCOUNTER [...] 07/19/2018 W 414.01 COR ONARY ATHEROSCLEROSIS OF [place] CORONARY ARTERY 07/19/2018 W I25.10 ATH EROSCLEROTIC HEART DISEASE OF [place] CORONARY ARTERY WITHOUT ANGINA PECTORIS 08/02/2018 JERILYN ODEN MD Ot Z29.8 ENCOUNTER FOR OTHER SPECIFIED PROPHYLACT 08/06/2018 JERILYN ODEN MD Ot Z29.8 ENCOUNTER FOR OTHER SPECIFIED PROPHYLACT 08/31/2018 Candice De La O A 848.8 OTHER SPECIFIED SITES OF SPRAINS AND STRAINS 08/31/2018 Candice De La O A S39.01 2A STRAIN OF MUSCLE, FASCIA AND TENDON OF LOWER BACK, INIT 09/06/2018 JERILYN ODEN MD Ot Z29.8 ENCOUNTER FOR [...] Ot I25. 10 ATHSCL HEART DISEASE OF [place] CORONARY 03/27/2019 BEAN ROBERTS MD Ot E78. 5 HYPERLIPIDEMIA, UNSPECIFIED 03/27/2019 BEAN ROBERTS MD Ot I10 ESSENTIAL (PRIMARY) HYPERTENSION 03/27/2019 BEAN ROBERTS MD Ot I25. 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 10 ATHSCL HEART DISEASE OF [place] CORONARY 07/22/2019 BEAN ROBERTS MD Ot E78. 5 HYPERLIPIDEMIA, UNSPECIFIED 07/22/2019 BEAN ROBERTS MD Ot I10 ESSENTIAL (PRIMARY) HYPERTENSION 07/22/2019 ARMANDO SYED, BEAN Bowser Ot I25. 10 ATHSCL HEART DISEASE OF [place] CORONARY 07/22/2019 AKSHAT SYED, JERILYN L Ot [...] K Ot I25.10 ATHSCL HEART DISEASE OF [place] CORONARY 07/24/2019 SCOTT BARTHOLOMEW MARTIN K Ot I65.29 OCCLUSION AND STENOSIS OF UNSPECIFIED CA 08/15/2019 SCOTT BARTHOLOMEW MARTIN K Ot E78.5 HYPERLIPIDEMIA, UNSPECIFIED 08/15/2019 SCTOT BARTHOLOMEW, MARTIN K Ot I10 ESSENTIAL (PRIMARY) HYPERTENSION 08/15/2019 SCOTT BARTHOLOMEW, MARTIN K Ot I25.10 ATHSCL HEART DISEASE OF [place] CORONARY 08/15/2019 SCOTT BARTHOLOMEW MARTIN K Ot [...] W/O MYELOPATHY OR RADICULOPA 12/10/2019 MARIANO SYED, KATTY A Ot M43.16 SPONDYLOLISTHESIS, LUMBAR REGION 12/10/2019 MARIANO SYED, CHERYLON A Ot M47.816 SPONDYLOSIS W/O MYELOPATHY OR RADICULOPA 12/12/2019 AKSHAT SYED, JERILYN L Ot R41.3 OTHER AMNESIA 12/12/2019 AKSHAT SYED, JERILYN L Ot Z12.31 ENCNTR SCREEN MAMMOGRAM FOR MALIGNANT NE 12/12/2019 AKSHAT SYED, JERILYN L Ot Z86.79 PERSONAL HISTORY OF OTHER DISEASES OF TH 12/30/2019 ADINA QUINTANA MDYLON A Ot M43.16 SPONDYLOLISTHESIS, LUMBAR REGION 12/30/2019 MARIANO SYED, CHERYLON A Ot M47.816 SPONDYLOSIS W/O MYELOPATHY OR RADICULOPA 01/08/2020 VALERIO HANNA MD Ot Z01.818 ENCOUNTER FOR OTHER PREPROCEDURAL EXAMIN 01/08/2020 VALERIO HANNA MD L Ot Z01.818 ENCOUNTER FOR OTHER PREPROCEDURAL EXAMIN 01/08/2020 VALERIO HANNA MD L Ot Z01.818 ENCOUNTER FOR OTHER PREPROCEDURAL EXAMIN 01/08/2020 VALERIO HANNA MD L Ot Z01.818 ENCOUNTER FOR OTHER PREPROCEDURAL EXAMIN 01/08/2020 VALERIO HANNA MD L Ot Z01.818 ENCOUNTER FOR OTHER PREPROCEDURAL EXAMIN 01/09/2020 VALERIO HANNA MD L Ot Z01.818 ENCOUNTER FOR OTHER PREPROCEDURAL EXAMIN 01/10/2020 VALERIO HANNA MD Ot E03 .9 HYPOTHYROIDISM, UNSPECIFIED 01/10/2020 VALERIO HANNA MD Ot F41 .9 ANXIETY DISORDER, UNSPECIFIED 01/10/2020 AVLERIO HANNA MD Ot H26.493 OTHER SECONDARY CATARACT, BILATERAL 01/10/2020 JACQUES SYED, VALERIO Smith Ot Z85.038 PERSONAL HISTORY OF MALIGNANT NEOPLASM O 01/14/2020 JACQUES SYED, VALERIO Smith Ot E03 .9 HYPOTHYROIDISM, UNSPECIFIED 01/14/2020 JACQUES SYED, VALERIO Smith Ot F41 .9 ANXIETY DISORDER, UNSPECIFIED 01/14/2020 JACQUES SYED, VALERIO Smith Ot H26.493 OTHER SECONDARY CATARACT, BILATERAL 01/14/2020 JACQUES SYED, VALERIO Smith Ot Z85.038 PERSONAL HISTORY OF MALIGNANT NEOPLASM O 02/21/2020 ELTON COSME MD Ot 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 02/21/2020 ELTON COSME MD Ot I70.242 ATHSCL [place] ARTERIES OF LEFT LEG W [facility] 02/21/2020 ELTON COSME MD Ot I87.332 CHRONIC VENOUS HTN W ULCER AND INFLAMMAT 02/21/2020 ELTON COSME MD Ot L97.222 NON-PRESSURE CHRONIC ULCER OF LEFT CALF 02/21/2020 ELTON COSME MD Ot 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 02/21/2020 ELTON COSME MD Ot I70.242 ATHSCL [place] ARTERIES OF LEFT LEG W [facility] 02/21/2020 ELTON COSME MD Ot I87.332 CHRONIC VENOUS HTN W ULCER AND INFLAMMAT 02/21/2020 ELTON COSME MD Ot L97.222 NON-PRESSURE CHRONIC ULCER OF LEFT CALF 02/21/2020 ELTON COSME MD Ot 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 02/21/2020 ELTON COSME MD Ot I70.242 ATHSCL [place] ARTERIES OF LEFT LEG W [facility] 02/21/2020 ELTON COSME MD Ot I87.332 CHRONIC VENOUS HTN W ULCER AND INFLAMMAT 02/21/2020 ELTON COSME MD Ot L97.222 NON-PRESSURE CHRONIC ULCER OF LEFT CALF 02/26/2020 ELTON COSME MD Ot 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 02/26/2020 ELTON COSME MD Ot I70.242 ATHSCL [place] ARTERIES OF LEFT LEG W [facility] 02/26/2020 ELTON COSME MD Ot I87.332 CHRONIC VENOUS HTN W ULCER AND INFLAMMAT 02/26/2020 ELTON COSME MD, Ot L97.222 NON-PRESSURE CHRONIC ULCER OF LEFT CALF 02/27/2020 ELTON COSME MD Ot 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 02/27/2020 ELTON COSME MD Ot I70.242 ATHSCL [place] ARTERIES OF LEFT LEG W [facility] 02/27/2020 ELTON COSME MD Ot I87.332 CHRONIC VENOUS HTN W ULCER AND INFLAMMAT 02/27/2020 ELTON COSME MD, Ot L97.222 NON-PRESSURE CHRONIC ULCER OF LEFT CALF 02/28/2020 ELTON COSME MD Ot 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 02/28/2020 ELTON COSME MD, Ot I70.242 ATHSCL [place] ARTERIES OF LEFT LEG W [facility] 02/28/2020 ELTON COSME MD Ot I87.332 CHRONIC VENOUS HTN W ULCER AND INFLAMMAT 02/28/2020 ELTON COSME MD, Ot L92 .8 OTH GRANULOMATOUS DISORDERS OF THE SKIN, 02/28/2020 ELTON COSME MD, Ot L97.222 NON-PRESSURE CHRONIC ULCER OF LEFT CALF 03/09/2020 ELTON COSME MD Ot 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 03/09/2020 ELTON COSME MD Ot I87.332 CHRONIC VENOUS HTN W ULCER AND INFLAMMAT 03/09/2020 ELTON COSME MD Ot I96 GANGRENE, NOT ELSEWHERE CLASSIFIED 03/09/2020 ELTON COSME MD, Ot L92 .8 OTH GRANULOMATOUS DISORDERS OF THE SKIN, 03/09/2020 ELTON COSME MD Ot L97.222 NON-PRESSURE CHRONIC ULCER OF LEFT CALF 03/11/2020 ELTON COSME MD Ot 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 03/11/2020 ELTON COSME MD Ot I70.242 ATHSCL [place] ARTERIES OF LEFT LEG W [facility] 03/11/2020 ELTON COSME MD Ot I87.332 CHRONIC VENOUS HTN W ULCER AND INFLAMMAT 03/11/2020 ELTON COSME MD Ot L97.222 NON-PRESSURE CHRONIC ULCER OF LEFT CALF 03/11/2020 ELTON COSME MD Ot 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 03/11/2020 ELTON COSME MD Ot I70.242 ATHSCL [place] ARTERIES OF LEFT LEG W [facility] 03/11/2020 ELTON COSME MD, Ot I87.332 CHRONIC VENOUS HTN W ULCER AND INFLAMMAT 03/11/2020 ELTON COSME MD, Ot L97.222 NON-PRESSURE CHRONIC ULCER OF LEFT CALF 03/11/2020 ELTON COSME MD, Ot 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 03/11/2020 ELTON COSME MD, Ot I70.242 ATHSCL [place] ARTERIES OF LEFT LEG W [facility] 03/11/2020 ELTON COSME MD, Ot I87.332 CHRONIC VENOUS HTN W ULCER AND INFLAMMAT 03/11/2020 ELTON COSME MD, Ot L92 .8 OTH GRANULOMATOUS DISORDERS OF THE SKIN, 03/11/2020 ELTON COSME MD, Ot L97.222 NON-PRESSURE CHRONIC ULCER OF LEFT CALF 03/13/2020 ELTON COSME MD, Ot 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 03/13/2020 ELTON COSME MD, Ot I87.332 CHRONIC VENOUS HTN W ULCER AND INFLAMMAT 03/13/2020 ELTON COSME MD, Ot L92 .8 OTH GRANULOMATOUS DISORDERS OF THE SKIN, 03/13/2020 ELTON COSME MD, Ot L97.222 NON-PRESSURE CHRONIC ULCER OF LEFT CALF 03/18/2020 ELTON COSME MD, Ot D64 .9 ANEMIA, UNSPECIFIED 03/18/2020 ELTON COSME MD Ot E11.51 TYPE 2 DIABETES W DIABETIC PERIPHERAL AN 03/18/2020 ELTON COSME MD Ot I10 ESSENTIAL (PRIMARY) HYPERTENSION 03/18/2020 ELTON COSME MD, Ot I25.10 ATHSCL HEART DISEASE OF [place] CORONARY 03/18/2020 ELTON COSME MD, Ot I87.332 CHRONIC VENOUS HTN W ULCER AND INFLAMMAT 03/18/2020 ELTON COSME MD Ot L97.222 NON-PRESSURE CHRONIC ULCER OF LEFT CALF 03/18/2020 ELTON COSME MD Ot M06 .9 RHEUMATOID ARTHRITIS, UNSPECIFIED 03/18/2020 ELTON COSME MD, Ot M19.91 PRIMARY OSTEOARTHRITIS, UNSPECIFIED SITE 03/18/2020 ELTON COSME MD Ot Z92.21 PERSONAL HISTORY OF ANTINEOPLASTIC CHEMO 03/18/2020 ELTON COSME MD, Ot D64 .9 ANEMIA, UNSPECIFIED 03/18/2020 ELTON COSME MD, Ot E11.51 TYPE 2 DIABETES W DIABETIC PERIPHERAL AN 03/18/2020 ELTON COSME MD Ot I10 ESSENTIAL (PRIMARY) HYPERTENSION 03/18/2020 ELTON COSME MD, Ot I25.10 ATHSCL HEART DISEASE OF [place] CORONARY 03/18/2020 ELTON COSME MD, Ot I87.332 CHRONIC VENOUS HTN W ULCER AND INFLAMMAT 03/18/2020 ELTON COSME MD Ot L97.222 NON-PRESSURE CHRONIC ULCER OF LEFT CALF 03/18/2020 ELTON COSME MD Ot M06 .9 RHEUMATOID ARTHRITIS, UNSPECIFIED 03/18/2020 ELTON COSME MD, Ot M19.91 PRIMARY OSTEOARTHRITIS, UNSPECIFIED SITE 03/18/2020 ELTON COSME MD, Ot Z92.21 PERSONAL HISTORY OF ANTINEOPLASTIC CHEMO 03/20/2020 ELTON COSME MD Ot 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 03/20/2020 ELTON COSME MD, Ot I87.332 CHRONIC VENOUS HTN W ULCER AND INFLAMMAT 03/20/2020 ELTON COSME MD, Ot L97.222 NON-PRESSURE CHRONIC ULCER OF LEFT CALF 03/20/2020 ELTON COSME MD, Ot M06 .9 RHEUMATOID ARTHRITIS, UNSPECIFIED 03/20/2020 ELTON COSME MD, Ot M19.91 PRIMARY OSTEOARTHRITIS, UNSPECIFIED SITE 03/20/2020 ELTON COSME MD, Ot Z85.038 PERSONAL HISTORY OF MALIGNANT NEOPLASM O 03/20/2020 ELTON COSME MD, Ot Z92.21 PERSONAL HISTORY OF ANTINEOPLASTIC CHEMO 03/24/2020 ELTON COSME MD, Ot 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 03/24/2020 ELTON COSME MD, Ot E11.51 TYPE 2 DIABETES W DIABETIC PERIPHERAL AN 03/24/2020 ELTON COSME MD Ot E78.00 PURE HYPERCHOLESTEROLEMIA, UNSPECIFIED 03/24/2020 ELTON COSME MD, Ot I10 ESSENTIAL (PRIMARY) HYPERTENSION 03/24/2020 ELTON COSME MD, Ot I25.10 ATHSCL HEART DISEASE OF [place] CORONARY 03/24/2020 ELTON COSME MD, Ot I87.332 CHRONIC VENOUS HTN W ULCER AND INFLAMMAT 03/24/2020 ELTON COSME MD, Ot L40 .9 PSORIASIS, UNSPECIFIED 03/24/2020 ELTON COSME MD, Ot L97.222 NON-PRESSURE CHRONIC ULCER OF LEFT CALF 03/24/2020 ELTON COSME MD, Ot M06 .9 RHEUMATOID ARTHRITIS, UNSPECIFIED 03/24/2020 ELTON COSME MD, Ot M19.91 PRIMARY OSTEOARTHRITIS, UNSPECIFIED SITE 03/24/2020 ELTON COSME MD, Ot Z85.038 PERSONAL HISTORY OF MALIGNANT NEOPLASM O 03/24/2020 ELTON COSME MD, Ot Z85.828 PERSONAL HISTORY OF OTHER MALIGNANT NEOP 03/24/2020 ELTON COSME MD, Ot Z92.21 PERSONAL HISTORY OF ANTINEOPLASTIC CHEMO 03/26/2020 ELTON COSME MD, Ot 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 03/26/2020 ELTON COSME MD, Ot I87.332 CHRONIC VENOUS HTN W ULCER AND INFLAMMAT 03/26/2020 ELTON COSME MD, Ot I96 GANGRENE, NOT ELSEWHERE CLASSIFIED 03/26/2020 ELTON COSME MD, Ot L92 .8 OTH GRANULOMATOUS DISORDERS OF THE SKIN, 03/26/2020 ELTON COSME MD, Ot L97.222 NON-PRESSURE CHRONIC ULCER OF LEFT CALF Procedures Code Description [place] [id number] DR SAMUELS OF SPINAL CANAL, PERCUTANEOUS A [...] CULTURE RESULTS >100,000 Gram Negativ e 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 NRG Bacterial cerebrospinal fluid culture - 03/31/19 [...] MEDIA PLATED Setup at 14:29 on 11/28/2019 Other Culture - 02/19/20 09:50 PRELIM CULTURE RESULTS Abundant Coagulase PO SITIVE Staphylococci, HELEN/Further ID to Follow MEDIA PLATED Setup at 14:10 on 02/19/2020 Sensi - 02/19/20 09:50 FINAL CULTURE RESULTS Methicillin Resistant Staphylococcus aureus (Isolate 1) Ampicillin/Sulbactam 16/8 Ampicillin >8 Amoxicillin/K Clavulanate >4/2 Ceftriaxone 32 Clindamycin <=0.5 Cefoxitin Screen >4 Ciprofloxacin 2 Daptomycin <=0.5 Erythromycin >4 Nitrofurantoin <=32 Gentamicin <=4 Gentamicin Synergy Screen N/R Inducible Clindamycin <=4/0.5 Levofloxacin <=1 Linezolid 4 Moxifloxacin <=0.5 Oxacillin >2 Penicillin >8 Rifampin <=1 Streptomycin Synergy N/R Synercid <=0.5 Trimethoprim/ Sulfamethoxazole <=0.5/9.5 Tetracycline <=4 Vancomycin 2 Complete blood count (CBC) with automate d white blood cell (WBC) differential - 02/20/20 14:54 Blood leukocytes automated count (number/volume) 5.5 10*3/uL 4.3-11.0 Blood erythrocytes automated count (number/volume) 3.70 10*6/uL 4.35-5.85 Venous blood hemoglobin measurement (mass/volume) 11.7 g/dL 11.5-16.0 Blood hematocrit (volume fraction) 33 % 35-52 Automated erythrocyte mean corpuscular volume 90 [ foz_us] 80-99 Automated erythrocyte mean corpuscular h emoglobin (mass per erythrocyte) 32 pg 25-34 Automated erythrocyte mean corpuscular h emoglobin concentration measurement (mass/volume) 35 g/dL 32-36 Automated erythrocyte distribution width ratio 11. 5 % 10.0- 14.5 Automated blood platelet count (count/volume) 243 10*3/uL 130-400 Automated blood platelet mean volume measurement 9.9 [foz_us] 7.4-10.4 Automated blood neutrophils/100 leukocytes 54 % 42-75 Automated blood lymphocytes/100 leukocytes 28 % 12-44 Blood monocytes/100 leukocytes 14 % 0-12 Automated blood eosinophils/100 leukocytes 4 % 0-10 Automated blood basophils/100 leukocytes 0 % 0-10 Blood neutrophils automated count (number/volume) 3.0 10*3 1.8-7.8 Blood lymphocytes automated count (number/volume) 1.5 10*3 1.0-4.0 Blood monocytes automated count (number/volume) 0. 8 10*3 0.0-1.0 Automated eosinophil count 0.2 10*3/uL 0 .0-0.3 Automated blood basophil count (count/volume) 0.0 10*3/uL 0.0-0.1 Comprehensive metabolic panel - 02/20/20 14:54 Serum or plasma sodium measurement (moles/volume) 125 mmol/L 135-145 Serum or plasma potassium measurement (moles/volume) 4.4 mmol/L 3.6-5.0 Serum or plasma chloride measurement (moles/volume) 91 mmol/L 98-107 Carbon dioxide 26 mmol/L 21-32 Serum or plasma anion gap determination (moles/volume) 8 mmol/L 5-14 Serum or plasma urea nitrogen measurement (mass/volume ) 14 mg/dL 7-18 Serum or plasma creatinine measurement (mass/volume) 0.92 mg/dL 0.60-1.30 Serum or plasma urea nitrogen/creatinine mass ratio 15 NRG Serum or plasma creatinine measurement w ith calculation of estimated glomerular filtration rate 60 NRG Serum or plasma glucose measurement (mass/volume) 97 mg/dL 70-105 Serum or plasma calcium measurement (mass/volume) 9.4 mg/dL 8.5-10.1 Serum or plasma total bilirubin measurement (mass/volu me) 0.9 mg/dL 0.1-1.0 Serum or plasma alkaline phosphatase germán surement (enzymatic activity/volume) 68 U/L 40-136 Serum or plasma aspartate aminotransfera se measurement (enzymatic activity/volume) 32 U/L 5-34 Serum or plasma alanine aminotransferase measurement (enzymatic activity/volume) 22 U/L 0-55 Serum or plasma protein measurement (mass/volume) 6.7 g/dL 6.4-8.2 Serum or plasma albumin measurement (mass/volume) 4.3 g/dL 3.2-4.5 CALCIUM CORRECTED 9.2 mg/dL 8.5-10.1 Encounters ACCT No. Visit Date/Time Discharge Status Pt. Type Provider Facility Loc./Unit Complaint [id number] 10/16/2014 12:24:00 10/16/2014 23:59: 59 CLS Outpatient RAYNA ZURITA DO [id number] 03/11/2020 15:01:00 03/11/2020 23:59 :00 DIS Outpatient JERILYN ODEN [id number] 02/19/2020 15:13:00 02/19/2020 23:59 :00 DIS Outpatient JERILYN ODEN [id number] 02/19/2020 10:14:00 02/19/2020 23:59 :00 DIS Outpatient JERILYN ODEN [id number] 12/27/2019 10:31:00 12/27/2019 23:59 :00 DIS Outpatient MARISA SMILEY [id number] 12/06/2019 11:01:00 12/06/2019 23:59 :00 DIS Outpatient MARISA SMILEY [id number] 11/28/2019 14:51:00 11/28/2019 23:59 :00 DIS Outpatient JERILYN ODEN [id number] 11/28/2019 13:06:00 11/28/2019 23:59 :00 DIS Outpatient JERILYN ODEN [id number] 11/28/2019 09:57:00 11/28/2019 23:59 :00 DIS Outpatient AKSHAT, JERILYN [id number] 11/21/2019 14:16:00 11/21/2019 23:59 :00 DIS Outpatient AKSHAT, JERILYN [id number] 11/18/2019 14:29:00 11/18/2019 23:59 :00 DIS Outpatient Leatha Cole [id number] 11/12/2019 18:03:00 11/12/2019 23:59 :00 DIS Outpatient AKSHAT, JERILYN [id number] 11/12/2019 11:01:00 11/12/2019 23:59 :00 DIS Outpatient AKSHAT, JERILYN [id number] 10/18/2019 14:50:00 10/18/2019 23:59 :00 DIS Outpatient Bozena Rodas [id number] 09/30/2019 17:25:00 09/30/2019 23:59: 00 DIS Outpatient Bozena Rodas [id number] 09/12/2019 12:39:00 09/12/2019 23:59: 00 DIS Outpatient AKSHAT JERILYN [id number] 09/11/2019 16:31:00 09/11/2019 23:59: 00 DIS Outpatient AKSHAT, JERILYN [id number] 08/28/2019 16:22:00 08/28/2019 23:59: 00 DIS Outpatient RENY ODENHEL [id number] 07/23/2019 14:10:00 07/23/2019 23:59: 00 DIS Outpatient JERILYN ODEN [id number] 03/20/2019 15:43:00 03/20/2019 23:59: 00 DIS Outpatient AKSHAT, JERILYN [id number] 02/26/2019 17:45:00 02/26/2019 23:59: 00 DIS Outpatient AKSHAT, JERILYN [id number] 11/14/2018 00:00:00 11/14/2018 23:59: 00 DIS Outpatient AKSHAT, JERILYN [id number] 11/12/2018 09:10:00 11/12/2018 23:59: 00 DIS Outpatient ODEN, JERLIYN [id number] 09/16/2018 07:00:00 09/16/2018 23:59: 00 DIS Outpatient ODEN, JERILYN [id number] 08/31/2018 19:26:00 08/31/2018 20:48: 00 DIS Outpatient [facility] [id number] 06/13/2018 12:12:00 06/13/2018 23:59: 00 DIS Outpatient JERILYN ODEN [id number] 12/21/2017 09:30:00 12/21/2017 23:59: 00 DIS Outpatient Sukumar Schmidt [id number] 10/19/2017 11:02:00 10/19/2017 23:59: 00 DIS Outpatient Sukumar Schmidt [id number] 10/12/2017 13:48:00 10/12/2017 23:59: 00 DIS Outpatient JERILYN ODEN [id number] 10/10/2017 13:33:00 10/10/2017 23:59: 00 DIS Outpatient JERILYN ODEN [id number] 07/18/2017 15:45:00 07/18/2017 23:59: 00 DIS Outpatient JERILYN ODEN [id number] 02/08/2017 00:00:00 02/08/2017 23:59: 00 DIS Outpatient JERILYN ODEN [id number] 06/10/2019 08:19:00 Document Registration [id number] 06/03/2019 10:30:00 Document Registration [id number] 05/07/2019 11:00:00 Document Registration [id number] 04/10/2019 09:30:00 Document Registration [id number] 03/25/2019 22:55:00 ACT Inpatient JERILYN ODEN [facility] MED-SURG [id number] 03/20/2019 15:20:00 Document Registration [id number] 02/27/2019 15:00:00 Document Registration [id number] 11/12/2018 08:00:00 Document Registration [id number] 09/11/2018 15:40:00 Document Registration [id number] 08/31/2018 19:58:33 Document Registration [id number] 07/19/2018 13:20:00 Document Registration [id number] 06/13/2018 10:23:00 Document Registration [id number] 03/14/2018 11:20:00 Document Registration [id number] 03/06/2018 11:00:00 Document Registration [id number] 11/30/2017 10:30:00 Document Registration [id number] 10/10/2017 08:20:00 Document Registration [id number] 08/03/2017 10:30:00 Document Registration [id number] 07/18/2017 14:45:00 Document Registration [id number] 07/05/2017 15:38:00 Document Registration [id number] 03/23/2020 14:21:00 23:59:59 CLS Outpatient ELTON COSME MD [facility] [id number] 03/19/2020 12:55:00 23:59:59 CLS Outpatient ELTON COSME MD [facility] [id number] 03/17/2020 11:19:00 23:59:59 CLS Outpatient ELTON COSME MD [facility] [id number] 03/12/2020 11:48:00 23:59:59 CLS Outpatient ELTON COSME MD [facility] [id number] 03/05/2020 12:20:00 23:59:59 CLS Outpatient ELTON COSME MD [facility] [id number] 02/27/2020 13:24:00 23:59:59 CLS Outpatient ELTON COSME MD [facility] [id number] 02/20/2020 14:40:00 23:59:59 CLS Outpatient ELTON COSME MD [facility] LAB CHRONIC ULCER LT CALF [id number] 02/20/2020 12:33:00 23:59:59 CLS Outpatient ELTON COSME MD [facility] [id number] 01/10/2020 09:10:00 10:25:00 DIS Outpatient VALERIO HANNA MD [facility] SD YAG [id number] 01/07/2020 05:33:00 12:13:00 DIS Outpatient VALERIO HANNA MD [facility] PREOP YAG [id number] 12/06/2019 13:23:00 23:59:59 CLS Outpatient KATTY QUINTANA MD [facility] RAD SPONDYLOLISTHES ES [id number] 11/27/2019 08:00:00 23:59:59 CLS Preadmit KATTY QUINTANA MD [facility] RAD SPONDYLOLISTHESIS, LUMB AR REGION [id number] 11/22/2019 09:29:00 23:59:59 CLS Outpatient JERILYN ODEN MD [facility] RAD ACUTE MEMORY LOSS,H/O CAROTID STENOSIS,SCREENING [id number] 09/24/2019 10:21:00 23:59:59 CLS Outpatient GUEVARA GREENE MD [facility] RAD LUMBAR RADICULPATHY [id number] 07/22/2019 08:25:00 23:59:59 CLS Outpatient DENISE COREY [facility] CARD CAD,HTN,CAR OTID ARTERY STENOSIS [id number] 03/26/2019 14:00:00 019 15:15:00 DIS Inpatient CHIQUITA SYED, DEIRDRE Epstein [facility] 4TH UTI;AMS [id number] 11/25/2018 00:09:00 23:59:59 CLS Preadmit JERILYN ODEN MD [facility] CR3 WELLNESS [id number] 10/25/2018 13:00:00 019 00:01:00 DIS Outpatient JERILYN ODEN MD [facility] CR3 WELLNESS [id number] 11/07/2018 10:02:00 019 23:59:59 CLS Outpatient JERILYN ODEN MD [facility] RAD SCREENING [id number] 08/30/2018 06:00:00 018 00:01:00 DIS Outpatient JERILYN ODEN MD [facility] CR3 WELLNESS [id number] 07/31/2018 06:00:00 018 00:01:00 DIS Outpatient JERILYN ODEN MD Via [facility]3 WELLNESS [id number] 06/26/2018 06:00:00 018 00:01:00 DIS Outpatient JERILYN ODEN MD [facility] CR3 WELLNESS [id number] 05/24/2018 06:00:00 018 00:01:00 DIS Outpatient JERILYN ODEN MD Via [facility]3 WELLNESS [id number] 04/24/2018 06:00:00 018 00:01:00 DIS Outpatient JERILYN ODEN MD Via [facility]3 WELLNESS [id number] 03/06/2018 06:00:00 018 00:01:00 DIS Outpatient JERILYN ODEN MD Via [facility] WELLNESS [id number] 10/31/2017 11:09:00 017 23:59:59 CLS Outpatient JERILYN ODEN MD [facility] RAD SCREENING [id number] 10/12/2017 08:25:00 017 23:59:59 CLS Preadmit VICKI ODEN [employer]ALITY PROCESS AUDITOR [facility] CARD CAD [id number] 03/16/2017 10:10:00 017 23:59:59 CLS Outpatient BEAN ROBERTS MD [facility] CARD CAD,CAROTID ARTERY STENOSIS,HLP,HTN [id number] 03/08/2017 08:25:00 017 23:59:59 CLS Outpatient BEAN ROBERTS MD [facility] CARD CAD I25.10 ,CAROTID ART JAYLON STENOSIS, HLP, HTN [id number] 02/15/2017 08:41:00 017 23:59:59 CLS Outpatient JERILYN ODEN MD [facility] RAD CHRONIC SINUSITIS [id number] 01/19/2017 11:00:00 017 15:00:00 DIS Outpatient JERILYN ODEN MD [facility] REHAB LOW BACK PAIN WITH RAD ICULOPATHY [id number] 10/17/2016 10:01:00 23:59:59 CLS Outpatient AKSHAT SYED, JERILYN Smith [facility] RAD SCREENING [id number] 10/08/2014 09:35:00 23:59:59 CLS Outpatient KYRIE GUERRA MD [facility] RAD ROUTINE [id number] 03/03/2014 08:23:00 11:10:00 DIS Outpatient PHOEBE RAMOS MD [facility] SDC HX COLON CANCER [id number] 02/27/2014 07:32:00 23:59:59 CLS Outpatient PHOEBE RAMOS MD [facility] PREOP HX OF COLON CANCER [id number] 02/25/2014 11:39:00 23:59:59 CLS Outpatient DENISE COREY [facility] RAD CAD,HTN,HLP [id number] 02/19/2014 10:35:00 23:59:59 CLS Outpatient DENISE COREY [facility] CARD CAD,HTN,HLP [id number] 01/01/2014 12:02:00 11:45:00 DIS Outpatient BEAN ROBERTS MD [facility] CR STABLE ANGINA [id number] 12/18/2013 12:52:00 14:43:00 DIS Outpatient BEAN ROBERTS MD [facility] CR STABLE ANGINA [id number] 09/18/2013 10:29:00 23:59:59 CLS Outpatient REINIER WHEATLEY V [facility] ONC [id number] 07/30/2013 09:15:00 14:00:00 DIS Outpatient MOISES MEDINA [facility] REHAB R HIP PAIN [id number] 07/31/2013 07:33:00 11:55:00 DIS Outpatient BEAN ROBERTS MD J [facility] CATH CHEST PAIN,SOB,HTN,ABN EKG [id number] 03/27/2020 13:01:00 P EN Preadmit JESS SIMON DO MBAR STENOSIS W/NEUROGENIC CLAUDICATION [id number] 10/14/2015 10:01:00 Document Registration [id number] 09/17/2014 10:24:00 Document Registration [id number] 01/17/2013 12:28:00 Document Registration [id number] 01/08/2013 15:33:00 Document Registration [id number] 11/26/2012 09:52:00 Document Registration [id number] 07/05/2012 13:56:00 Document Registration [id number] 01/26/2020 14:30:00 01/26/2020 23:59:5 9 CLS Outpatient [facility]
[2020-03-27] MEDS: MELATONIN 3 MG TABLET PO PRN (20:37)
[2020-03-27] MEDS: meTOprolol TARTRATE 25 MG (LOPRESSOR) TABLET PO SCH (20:37)
[2020-03-27] MEDS: MONTELUKAST 10 MG (SINGULAIR) TAB PO SCH (20:37)
[2020-03-27] MEDS: GABAPENTIN 600 MG (NEURONTIN) TAB PO SCH (20:37)
[2020-03-27] MEDS: DOCUSATE SODIUM 100 MG (COLACE) CAP PO SCH (20:37)
[2020-03-27] MEDS: SENNA W/DOCUSATE (SENOKOT S) TABLET PO SCH (20:37)
[2020-03-27] MEDS ORDERED: FAMOTIDINE 20 MG (PEPCID) TABLET PO SCH (21:00)
[2020-03-27] MEDS ORDERED: BIOTIN 2500 MCG PO SCH (21:00)
[2020-03-27] MEDS: polyethylene glycoL POWDER 17 GM (MIRALAX) PACK PO SCH (21:39)
[2020-03-28 05:43] LABS: BASOPHILS % (AUTO) 0 % (0-10); EOSINOPHILS # (AUTO) 0.1 10^3/uL (0.0-0.3); EOSINOPHILS % (AUTO) 1 % (0-10); HEMATOCRIT 24 % (35-52); HEMOGLOBIN 8.1 G/DL (11.5-16.0); LYMPHOCYTES # (AUTO) 1.1 X 10^3 (1.0-4.0); LYMPHOCYTES % (AUTO) 11 % (12-44); MEAN CORPUSCULAR HEMOGLOBIN 31 PG (25-34); MEAN CORPUSCULAR HGB CONC 34 G/DL (32-36); MEAN CORPUSCULAR VOLUME 91 FL (80-99); MEAN PLATELET VOLUME 10.5 FL (7.4-10.4); MONOCYTES # (AUTO) 1.3 X 10^3 (0.0-1.0); MONOCYTES % (AUTO) 12 % (0-12); NEUTROPHILS # (AUTO) 7.6 X 10^3 (1.8-7.8); NEUTROPHILS % (AUTO) 75 % (42-75); PLATELET COUNT 234 10^3/uL (130-400); RED CELL DISTRIBUTION WIDTH 12.1 % (10.0-14.5); WHITE BLOOD COUNT 10.1 10^3/uL (4.3-11.0)
[2020-03-28 05:50] VITALS: BP 154/74
[2020-03-28 05:57] LABS: CHLORIDE 97 MMOL/L (98-107); POTASSIUM 3.7 MMOL/L (3.6-5.0); SODIUM 130 MMOL/L (135-145)
[2020-03-28 05:59] LABS: CALCIUM 8.4 MG/DL (8.5-10.1)
[2020-03-28 06:00] LABS: GLUCOSE 126 MG/DL (70-105); TOTAL PROTEIN 4.8 GM/DL (6.4-8.2)
[2020-03-28 06:01] LABS: CARBON DIOXIDE 25 MMOL/L (21-32)
[2020-03-28 06:02] LABS: BILIRUBIN,TOTAL 0.8 MG/DL (0.1-1.0)
[2020-03-28 06:03] LABS: ALKALINE PHOSPHATASE 73 U/L (40-136); CREATININE SERUM 0.83 MG/DL (0.60-1.30); GFR ESTIMATED > 60
[2020-03-28 06:04] LABS: BUN/CREATININE RATIO 16
[2020-03-28 06:06] LABS: ALANINE AMINOTRANSFERASE 24 U/L (0-55)
[2020-03-28] MEDS: MULTIVIT W/MINERALS TAB (THERAGRAN M) PO SCH (06:10)
[2020-03-28] MEDS: LEVOTHYROXINE 75 MCG (LEVOTHROID) TABLET PO SCH (06:10)
--- NOTE | 2020-03-28 08:01 | PM&R Progress Note ---
Subjective HPI/CC On Admission Date Seen by Provider: March 28, 2020 Time Seen by Provider: 12:30 Subjective/Events-last exam Patient had some confusion last night and this morning I recall her severe delirium during her last hospital stay 2 years ago when I took care of her resulted in transfer to correction due to the severity Will minimize Gabapentin and Flexeril and pain meds if possible Urinary irritation reported even with catheter so will check UA which was abnl so starting Rocephin and have consulted Dr Naik and started bladder meds as instructed in meantime Hyponatremia noted at 130 and already held Chlorathalidone yesterday before it was given today and will place on fluid restriction in the meantime also Iron level very low with anemia so will start Venofer since anemia can slow recovery No BM yet giving more meds Conferred with RN Reviewed therapy notes Checked meds and labs Review of Systems General: Fatigue Genitourinary: Dysuria, Retention Objective Exam Vital Signs Vital Signs Date Time Temp Pulse Resp B/P (MAP) Pulse Ox O2 Delivery O2 Flow Rate FiO2 03/28/20 16:24 36.7 80 14 99/67 (78) 95 Room Air 03/27/20 18:15 90.00 Capillary Refill : Less Than 3 Seconds General Appearance: No Apparent Distress, WD/WN, Chronically ill HEENT: PERRL/EOMI, Normal ENT Inspection, Pharynx Normal Neck: Full Range of Motion, Normal Inspection, Non Tender, Supple, Carotid Bruit Respiratory: Chest Non Tender, Lungs Clear, Normal Breath Sounds, No Accessory Muscle Use, No Respiratory Distress Cardiovascular: Regular Rate, Rhythm, No Edema, No Gallop, No JVD, No Murmur, Normal Peripheral Pulses Gastrointestinal: Normal Bowel Sounds, No Organomegaly, No Pulsatile Mass, Non Tender, Soft Back: Normal Inspection, Decreased Range of Motion, Muscle Spasm, Vertebral Tenderness Extremity: Normal Capillary Refill, Normal Inspection, Normal Range of Motion (decrease leg strength), Non Tender, No Calf Tenderness, No Pedal Edema Neurologic/Psychiatric: Alert, Oriented x3, No Motor/Sensory Deficits, Normal Mood/Affect, Motor Weakness (lower leg weakness) Skin: Normal Color, Warm/Dry Lymphatic: No Adenopathy Results/Procedures Lab Laboratory Tests 03/28/20 04:48 Patient resulted labs reviewed. FIM Transfers Therapy Code Descriptions/Definitions Functional Bee Measure: 0=Not Assessed/NA 4=Minimal Assistance 1=Total Assistance 5=Supervision or Setup 2=Maximal Assistance 6=Modified Bee 3=Moderate Assistance 7=Complete IndependenceSCALE: Activities may be completed with or without assistive devices. 0-Zqffuohakw-aknkdxq completes the activity by him/herself with no assistance from a helper. 5-Set-up or Clean-up Assistance-helper sets up or cleans up; patient completes activity. [place] assists only prior to or following the activity. 4-Supervision or Touching Assistance-helper provides verbal cues and/or touching/steadying and/or contact guard assistance as patient completes activity. Assistance may be provided throughout the activity or intermittently. 3-Partial/Moderate Assistance-helper does LESS THAN HALF the effort. [place] lifts, holds or supports trunk or limbs, but provides less than half the effort. 2-Substantial/Maximal Assistance-helper does MORE THAN HALF the effort. [place] lifts or holds trunk or limbs and provides more than half the effort. 1-Fyqzlypku-wojqxq does ALL the effort. Patient does none of the effort to complete the activity. Or, the assistance of 2 or more helpers is required for the patient to complete the activity. If activity was not attempted, code reason: 7-Patient Refused. 9-Not Applicable-not attempted and the patient did not perform the activity before the current illness, exacerbation or injury. 10-Not Attempted due to Environmental Limitations-(lack of equipment, weather restraints, etc.). 88-Not Attempted due to Medical Conditions or Safety Concerns. Assessment/Plan Assessment and Plan Assess & Plan/Chief Complaint Assessment: s/p lumbar stenosis surgery due to neurogenic claudication POD # 4 Dr Mace Psoriatric arthritis Hypothyroidism HTN Hyponatremia holding Chlorathalidone Post op constipation Urinary retention failed voiding trial Diaz cath in place UTI placed on Rocephin empirically Anemia iron deficiency placed on Venofer Plan: Dr Naik consultation will be necessary Check labs Monitor sodium level IRF protocol Fluid restriction Monitor labs IV abx Ucx Venofer BM regimen (1) Lumbar stenosis with neurogenic claudication (2) Hypothyroidism (3) Osteopenia (4) Diaz catheter in place (5) Urinary retention (6) Hyponatremia (7) Psoriatic arthritis Status: Chronic (8) Hypertension JESS SIMON DO March 28, 2020 08:01
--- NOTE | 2020-03-28 08:11 | Occupational Therapy Eval ---
OT Evaluation-General/PLF Medical Diagnosis Admission Date March 27, 2020 at 17:55 Medical Diagnosis: L2-5 laminectomy Onset Date: March 24, 2020 Therapy Diagnosis Therapy Diagnosis: Decreased ADL function Height/Weight Height (Feet): 4 Height (Inches): 10.00 Weight (Pounds): 118 Weight (Ounces): 0.0 Precautions Precautions/Isolations: Fall Prevention Weight Bear Status back precautions, no back brace. Referral Physician: Tanesha Arana DO Referral Reason: Activity Tolerance, Self Care, Evaluation/Treatment, Strengthening/ROM Medical History Additional Medical History see nursing. Current History 03/25 L2-5 decompressive laminectomy and arthrodesis/ internal rods placed L2-4. Reviewed History: Yes Social History Home: Single Level Current Living Status: Alone Entry Into Home: Stairs With Railing Steps Into Home: 2 ADL-Prior Level of Function SCALE: Activities may be completed with or without assistive devices. 3-Ldmudwfbbf-xpvtafw completes the activity by him/herself with no assistance from a helper. 5-Set-up or Clean-up Assistance-helper sets up or cleans up; patient completes activity. [place] assists only prior to or following the activity. 4-Supervision or Touching Assistance-helper provides verbal cues and/or touching/steadying and/or contact guard assistance as patient completes activity. Assistance may be provided throughout the activity or intermittently. 3-Partial/Moderate Assistance-helper does LESS THAN HALF the effort. [place] lifts, holds or supports trunk or limbs, but provides less than half the effort. 2-Substantial/Maximal Assistance-helper does MORE THAN HALF the effort. [place] lifts or holds trunk or limbs and provides more than half the effort. 0-Rqnbattrw-ftzdfq does ALL the effort. Patient does none of the effort to complete the activity. Or, the assistance of 2 or more helpers is required for the patient to complete the activity. If activity was not attempted, code reason: 7-Patient Refused. 9-Not Applicable-not attempted and the patient did not perform the activity before the current illness, exacerbation or injury. 10-Not Attempted due to Environmental Limitations-(lack of equipment, weather restraints, etc.). 88-Not Attempted due to Medical Conditions or Safety Concerns. 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 Pt pleasant, oriented/ alert. Pt agrees to OT eval, denies pain though states "stiffness." Pt rated pain within the night as 9.5/10 per pt as "pain got away from (her)." Current Glasses/Contacts: Yes Hearing Aids: Yes (not here) Hand Dominance: Left Upper Extremity ROM WFL BUE Upper Extremity Coordination WFL, though slow Upper Extremity Sensation WFL Upper Extremity Strength Decreased oil distributor/ pinch strength DNT UE strength due to precautions ADL-Treatment Eating (QC): 6 Oral Hygiene (QC): 5 (s/u as pt unable to open toothpaste cap) Shower/Bathe Self (QC): 3 (mod A bottom/ back/ Bfeet) Upper Body Dressing (QC): 5 (s/u) Lower Body Dressing (QC): 2 (max Aeducation on use of AE, pt completes with mod A due to increased cues and decreased problem solving) On/Off Footwear (QC): 1 (TD prior to education of AEcompletes with modA with AE) Toileting Hygiene (QC): 2 (max A bottom hygiene) Other Treatments Pt seen from [id number] for OT eval/ treat. Pt educated on OT role and ARU standards. Pt very pleasant; states all precautions and pt educated on AE for LB dressing tasks. Pt nods. Pt's ROM/ MMT screened with WFL UE movement, though limited oil distributor/ pinch. Pt describes home/ environment in detail, states assist if needed from friend who just completed nursing school. pt states previous falls (~3 within past 5 years of so), states tripped on ledge and slipped on carpet. Pt demonstrates some forgetfulness during session, but mild. Left in recliner chair and education of return for ADL activity. Pt seen from [id number]: Completes ADLs as above with c/o 4/10 pain in back. Pt completes sponge bath in recliner, sit to stand x4 through session, requires mod A-min A each time. pt able to state 2/3 precautions and requires assist for girish nders of place and purpose of tx. Pt demonstrates decreased problem solving during AE. Pt completes AE training with moderate cues. Pt educated on ceiling installer usage and completes picking items from floor in seated position with mod cues for ceiling installer, poor problem solving. Pt has decreased hand coordination/ strength, education of theraputty use and HEP to address UE strength. pt left in recliner chair with all needs met, call light in reach. Education OT Patient Education: Correct positioning, Exercise program, Home exercise program, Purpose of tx/functional activities, Reviewed precautions, Rehab proces s, Safety issues, Transfer techniques, Use of adapted equipment Teaching Recipient: Patient Teaching Methods: Demonstration, Discussion Response to Teaching: Verbalize Understanding, Unable to Return Demonstration, Return Demonstration, Reinforcement Needed OT Alf Goals Alf Goals Time Frame: Apr 11, 2020 Eating (QC): 6 Oral Hygiene (QC): 6 Toileting Hygiene (QC): 6 Shower/Bathe Self (QC): 6 Upper Body Dressing (QC): 6 Lower Body Dressing (QC): 6 On/Off Footwear (QC): 6 Additional Goals: 1-Demonstrate ADL Tasks, 2-Verbalize Understanding, 3- ImproveStrength/Fabio 1=Demonstrate adherence to instructed precautions during ADL tasks. 2=Patient will verbalize/demonstrate understanding of assistive devices/modifications for ADL. 3=Patient will improve strength/tolerance for activity to enable patient to perform ADL's. OT Education/Plan Problem List/Assessment Assessment: Decreased Activ Tolerance, Decreased UE Strength, Dependent Transfers, Impaired Cognition, Impaired Coordination, Impaired Funct Balance, Impaired I ADL's, Impaired Self-Care Skills Discharge Recommendations Plan/Recommendations: Continue POC Therapy Discharge Recommendati: Assisted Living (at this time) Equpiment Recommendations-D/C: Hip Kit Treatment Plan/Plan of Care Treatment,Training & Education: Yes Patient would benefit from OT for education, treatment and training to promote independence in ADL's, mobility, safety and/or upper extremity function for ADL's. Plan of Care: ADL Retraining, Caregiver Training, Cognitive Retraining, Functional Mobility, Group Exercise/Act as Ind, UE Funct Exercise/Act Treatment Duration: Apr 11, 2020 Frequency: At least 5 of 7 days/Wk (IRF) Estimated Hrs Per Day: 1.5 hours per day Agreement: Yes Rehab Potential: Good Time/GCodes Start Time: 08:00 Stop Time: 11:20 Total Time Billed (hr/min): 90 Billed Treatment Time 7287-8919: 1, EVM (15), EX (15) 8325-2919: 1, ADL 4 (60) Total: 90 SHELLY MC OTR March 28, 2020 08:10
[2020-03-28] MEDS: SENNA W/DOCUSATE (SENOKOT S) TABLET PO SCH ×2 (09:00→22:02)
[2020-03-28] MEDS ORDERED: MULTIVITAMIN PO SCH (09:00)
[2020-03-28] MEDS: polyethylene glycoL POWDER 17 GM (MIRALAX) PACK PO SCH ×2 (09:00→22:03)
[2020-03-28] MEDS: BETAMETHASONE DIPRO (AUGMENTED) 0.05% CREAM 15 GM TOP SCH ×2 (09:00→22:03)
[2020-03-28] MEDS ORDERED: NON-FORMULARY MEDICATION 1 EA EA (Cholecalciferol (Vitamin D3) (Vitamin D3) 50 MCG) PO SCH (09:00)
[2020-03-28] MEDS ORDERED: CHLORTHALIDONE 25 MG (HYGROTON) TABLET PO SCH (09:00)
[2020-03-28] MEDS: CALCIUM CARBONATE 600 MG (CALCARB) TAB PO SCH (10:21)
[2020-03-28] MEDS: ASPIRIN E.C. 81 MG (ECOTRIN) TAB PO SCH (10:21)
[2020-03-28] MEDS: OMEGA 3 (FISH OIL) 1000 MG CAP PO SCH (10:21)
[2020-03-28] MEDS: DOCUSATE SODIUM 100 MG (COLACE) CAP PO SCH ×2 (10:22→22:01)
[2020-03-28] MEDS: GABAPENTIN 600 MG (NEURONTIN) TAB PO SCH ×2 (10:22→13:14)
[2020-03-28] MEDS: VITAMIN D3 25 MCG (1,000 UNITS) TABLET PO SCH (10:22)
[2020-03-28 10:25] VITALS: BP 105/72
[2020-03-28] MEDS: meTOprolol TARTRATE 25 MG (LOPRESSOR) TABLET PO SCH ×2 (10:26→22:02)
[2020-03-28] MEDS: LOSARTAN 100 MG (COZAAR) TABLET PO SCH (10:27)
[2020-03-28] MEDS: TAMSULOSIN 0.4 MG (FLOMAX) CAP PO SCH ×2 (13:14→17:54)
[2020-03-28] MEDS: PHENAZOPYRIDINE 100 MG (PYRIDIUM) TABLET PO SCH ×3 (13:14→17:54)
[2020-03-28] MEDS: BETHANECHOL 25 MG (URECHOLINE) TAB PO SCH ×3 (13:14→22:02)
--- NOTE | 2020-03-28 13:30 | Physical Therapy Evaluation ---
PT Evaluation-General Medical Diagnosis Admission Date March 27, 2020 at 17:55 Medical Diagnosis: L2-5 laminectomy Onset Date: March 24, 2020 Therapy Diagnosis Therapy Diagnosis: weakness, decreased (I) with functional mobility Height/Weight Height (Feet): 4 Height (Inches): 10.00 Weight (Pounds): 118 Weight (Ounces): 0.0 Precautions Precautions/Isolations: Fall Prevention, Standard Precautions Weight Bear Status Right Lower Extremity: Right Full Weight Bearing Left Lower Extremity: Left Full Weight Bearing Referral Physician: Tanesha Arana DO Reason for Referral: Evaluation/Treatment Medical History Pertinent Medical History: Arthritis, Hypothroidism, Rheumatoid Arthritis Additional Medical History seasonal allergies, chronic UTI, arthritis, chronic back pain, cataracts, [place] Current History Lumbar stenosis with neurogenic claudication s/p L2-3, L4-5 decompressive laminectomies, foraminotomies; L2-4 posterolaterl arthrodesis; L2-4 posterior instrumentation on 03/24/2020 Reviewed History: Yes Social History Home: Single Level Current Living Status: Alone Entry Into Home: Stairs With Railing PT Steps Into Home: 2 Prior Prior Level of Function SCALE: Activities may be completed with or without assistive devices. 4-Ujnkkxddxd-fkrwlpy completes the activity by him/herself with no assistance from a helper. 5-Set-up or Clean-up Assistance-helper sets up or cleans up; patient completes activity. [place] assists only prior to or following the activity. 4-Supervision or Touching Assistance-helper provides verbal cues and/or touching/steadying and/or contact guard assistance as patient completes activity. Assistance may be provided throughout the activity or intermittently. 3-Partial/Moderate Assistance-helper does LESS THAN HALF the effort. [place] lifts, holds or supports trunk or limbs, but provides less than half the effort. 2-Substantial/Maximal Assistance-helper does MORE THAN HALF the effort. [place] lifts or holds trunk or limbs and provides more than half the effort. 5-Fwcevklgm-tpqmwg does ALL the effort. Patient does none of the effort to complete the activity. Or, the assistance of 2 or more helpers is required for the patient to complete the activity. If activity was not attempted, code reason: 7-Patient Refused. 9-Not Applicable-not attempted and the patient did not perform the activity before the current illness, exacerbation or injury. 10-Not Attempted due to Environmental Limitations-(lack of equipment, weather restraints, etc.). 88-Not Attempted due to Medical Conditions or Safety Concerns. Bed Mobility: 6 Transfers (B,C,W/C): 6 Gait: 6 Stairs: 6 Indoor Mobility (Ambulation): Independent Stairs: Independent Prior Devices Use: None Pt reports she was (I) at PLOF but did have two falls on entry steps, unable to identify when these falls occurred. (+) Driving at [place] PT Evaluation-Current Subjective Pt agreeable. Pt mildly confused, progressively more so as day progressed. Able to identify back precautions this AM. Pt talking about "last night when I was pulling stuff out of the dryer". Upon afternoon entry, Pt states, "I'm worried about this weakness. I've been trying and trying to get up and I just can't". Nonsensical in conversation at times but usually able to re-orient. Pain Numeric Pain Scale: 4 Location: Posterior Location Body Site: Back Pain Description: Ache Pt/Family Goals Home Objective Patient Orientation: Person, Confused, Situation Attachments: Diaz Catheter ROM/Strength ROM Upper Extremities See OT ROM Lower Extremities Grossly WFL for functional mobility Strength Upper Extremities See OT Strength Lower Extremities Grossly 3/5; no resistance given due to recent lumbar Sx Integumentary/Posture Integumentary See nurses' notes Bladder Incontinence: Diaz Cath Posture Kyphotic Neuromuscular (Tone, Coordination, Reflexes) Grossly intact Sensory Vision: Functional Hearing: Hearing Aid/Aides Hand Dominance: Left Sensation Right Lower Extremit: Intact Sensation Left Lower Extremity: Intact Transfers Roll Left to Right (QC): 4 Sit to Lying (QC): 4 Lying to Sitting/Side of Bed(Q: 4 Sit to Stand (QC): 4 Chair/Fyq-fv-Eexoc Xfer(QC): 4 Toilet Transfer (QC): 3 Car Transfer (QC): 3 Gait Does the Patient Walk?: Yes Mode of Locomotion: Walk Anticipated Mode of Locomotion: Walk Walk 10 feet (QC): 4 Walk 50 ft with 2 Turns(QC): 4 Walk 150 ft (QC): 88 Walking 10ft/uneven surface-QC: 88 Distance: 60' Gait Assistive Device: FWW Comments/Gait Description Very slow, shuffling gait, narrow base of support. Keeping (B) knees and hips in flexion during gait cycle despite VCS. Upon initial standing, mild buckling of (B) knees. Limited WB through UE on FWW despite cues. Pt also drifts to (R) side of walker, frequently kicking the back leg despite max VCS. Wheelchair Training Does the Pt Use a Wheelchair?: No Wheel 50 ft with 2 turns (QC): 9 Wheel 150 ft (QC): 9 Stairs 1 Step (curb) (QC): 88 4 Steps (QC): 88 12 Steps (QC): 9 Unsafe to attempt this date as Pt fatigued very quickly with gait and occasional knee buckling. Balance Sitting Static: Good Sitting Dynamic: Good Standing Static: Fair Standing Dynamic: Poor Picking up an Object (QC): 9 (Pt will utilize metal wire technician to adhere to precautions) Treatment Eval. Transfer training/log rolling with back precautions. Seated LE ex 2 x 15: AP, LAQ (B), QS. Gait training with FWW: 30' x 2, 60' x 1, 20' x 2. Skilled VCS for stance within the walker, posture, TKE and safety. VCS for safety when lining up chair or bed. Up in recliner post treatment with needs met. Chair alarm activated due level of confusion this afternoon. Nursing notified. Assessment/Needs Pt s/p lumbar Sx. Pt's problem list includes: decreased functional strength, decreased sitting and standing balance, decreased (I) with transfers, and antalgic gait. Pt would benefit from skilled PT to address outlined dysfunctions and increase safety and (I) with functional mobility to allow return home alone. Rehab Potential: Good PT Short Term Goals Short Term Goals Time Frame: April 04, 2020 Roll Left & Right: 6 Sit to lyin Lying to sitting on side of be: 6 Sit to stand: 6 Chair/ath-mb-idhnv transfer: 6 PT Fci Goals Fci Goals PT Offset Duplicating Machine Operator Goals Time Frame: Apr 11, 2020 Roll Left & Right (QC): 6 Sit to Lying (QC): 6 Lying-Sitting on Side/Bed(QC): 6 Sit to Stand (QC): 6 Chair/Gqh-go-Uqulw Xfer(QC): 6 Toilet Transfer (QC): 6 Car Transfer (QC): 5 Does the Patient Walk: Yes Walk 10 feet (QC): 6 Walk 50ft with 2 Turns (QC): 6 Walk 150 ft (QC): 6 Walking 10ft on Uneven Surface: 6 1 Step (curb) (QC): 6 4 Steps (QC): 6 12 Steps (QC): 9 Picking up an Object (QC): 9 Does the Pt use WC or Scooter?: No Wheel 50 feet with 2 turns (QC: 9 Type: N/A Wheel 150 feet: 9 Type: N/A PT LTGs established to allow safe return home alone. PT Plan Problem List Problem List: Activity Tolerance, Functional Strength, Safety, Balance, Gait, Transfer, Bed Mobility Treatment/Plan Treatment Plan: Continue Plan of Care Treatment Plan: Bed Mobility, Education, Functional Activity Fabio, Functional Strength, Group Therapy, Gait, Safety, Therapeutic Exercise, Transfers Treatment Duration: Apr 11, 2020 Frequency: At least 5 of 7 days/Wk (IRF) Estimated Hrs Per Day: 1.5 hours per day Patient and/or Family Agrees t: Yes Safety Risks/Education Patient Education: Gait Training, Transfer Techniques, Reviewed Precautions Teaching Recipient: Patient Teaching Methods: Discussion Response to Teaching: Reinforcement Needed Discharge Recommendations Barriers to Progress memory, recall Time/GCodes Time In: 0955 Time Out: 1344 Total Billed Treatment Time: 90 Total Billed Treatment [id number] Eval (low) x 25' 3349-1083 FA x 15', Ex x 15', Gt x 30' MAGNUS MCKEON DPJorge March 28, 2020 13:30
[2020-03-28 14:59] LABS: BILIRUBIN,URINE NEGATIVE (NEGATIVE); CLARITY,URINE SL CLOUDY; COLOR,URINE YELLOW; GLUCOSE, URINE (UA) NEGATIVE (NEGATIVE); KETONES,URINE NEGATIVE (NEGATIVE); LEUKOCYTE ESTERASE ,URINE 2+ (NEGATIVE); NITRITE,URINE POSITIVE (NEGATIVE); PH,URINE 6.5 (5-9); PROTEIN,URINE 2+ (NEGATIVE)
[2020-03-28 15:15] LABS: BACTERIA,URINE MODERATE /HPF; HYALINE CASTS, URINE RARE /LPF; WHITE BLOOD CELL CASTS, URINE RARE /LPF
[2020-03-28 16:24] VITALS: BP 99/67
--- NOTE | 2020-03-28 17:36 | Individualized Plan of Care ---
Individualized Plan of Care Rehab Nursing IPOC Order Admission Date March 27, 2020 at 17:55 Current Orders Orders Admission Order(Inpt,Obs,Sdc) (03/27/20 13:05) Vital Signs: Per Unit Policy ( 08,16,00 (03/27/20 13:05) Oliver Arroyo 09,21 (03/27/20 13:05) Sequential Compression Device Q4H (03/27/20 13:05) Bonding Equipment Operator-Inpt Rehab Con (03/27/20 13:05) Rehab Nursing Orders-Ipoc (03/27/20 13:05) Physical Therapy Rehab Orders (03/27/20 13:05) Occupational Therapy Rehab Ord (03/27/20 13:05) Speech Therapy Rehab Orders (03/27/20 13:05) Cbc With Automated Diff (03/28/20 06:00) Comprehensive Metabolic Panel (03/28/20 06:00) General/Regular (03/27/20 Dinner) Intake & Output ,, (03/27/20 13:05) Precautions (Aru) (03/27/20 13:05) Rehab-Intensity Of Therapy (03/27/20 13:05) Initiate Admission Nursing Pro .admission (03/27/20 13:05) Alprazolam Tablet (Xanax Tablet) (03/27/20 13:15) Calcium Carbonate Chew Tablet (Antacid C (03/27/20 13:15) Diphenhydramine Tablet (Benadryl Tablet) (03/27/20 13:15) Docusate Sodium Capsule (Colace Capsule) (03/27/20 21:00) Docusate Sodium Capsule (Colace Capsule) (03/27/20 13:15) Bisacodyl Suppository (Dulcolax Supposit (03/27/20 13:15) Lactulose Oral Solution (Enulose Oral So (03/27/20 13:15) Na Phos/Na Biphos Enema (Fleet Enema Reynaldo (03/27/20 13:15) Guaifenesin/Codeine Syrup (Robitussin Ac (03/27/20 13:15) Loperamide Tablet (Imodium Tablet) (03/27/20 13:15) Enoxaparin Injection (Lovenox Injection) (03/27/20 18:30) Melatonin Tablet (Melatonin Tablet) (03/27/20 13:15) Polyethylene Glycol Powder Pkt (Miralax (03/27/20 21:00) Ondansetron Oral Dissolve Tab (Zofran (03/27/20 13:15) Senna S Tablet (Senokot S Tablet) (03/27/20 21:00) Initiate Admission Nursing Pro .admission (03/27/20 13:05) Aspirin Enteric Coated Tablet (Ecotrin T (03/28/20 09:00) Atorvastatin Tablet (Lipitor) (03/27/20 21:00) Calcium Carbonate Tablet (Calcarb 600 Ta (03/28/20 08:00) Chlorthalidone Tablet (Hygroton Tablet) (03/28/20 09:00) Cyclobenzaprine Tablet (Flexeril Tablet) (03/27/20 17:30) Famotidine Tablet (Pepcid Tablet) (03/27/20 21:00) Gabapentin Capsule/Tablet (Neurontin Cap (03/27/20 21:00) Levothyroxine Tablet (Synthroid Tablet) (03/28/20 06:30) Losartan Tablet (Cozaar Tablet) (03/28/20 09:00) Metoprolol Tartrate (Ir) Tab (Lopressor (03/27/20 21:00) Montelukast Tablet (Singulair Tablet) (03/27/20 21:00) Tramadol Tablet (Ultram Tablet) (03/27/20 17:30) (Nf) Cholecalciferol (Vitamin D3) (Vitam (03/28/20 09:00) (Nf) Multivitamin (Multiple Vitamins) (03/28/20 09:00) (Nf) [place]-3 Fatty Acids/Fish Oil ([place] (03/28/20 09:00) Therapeutic Multivitamin Tab (Vitamins, (03/28/20 07:00) Tramadol Tablet (Ultram Tablet) (03/27/20 18:04) [place] 3 Capsule (Fish Oil Capsule) (03/28/20 09:00) Cholecalciferol Capsule/Tablet (Vitamin (03/28/20 09:00) Betamethasone Dipropinate Crm (Diprolene (03/28/20 09:00) Iron Test (Fe) (03/28/20 07:48) Famotidine Tablet (Pepcid Tablet) (03/29/20 09:00) Dressing Order (Intervention) Q48H (03/28/20 10:44) Patient Visit (03/28/20 ) Pt Eval Low Complexity (03/28/20 ) Nursing Communication (Order) (03/28/20 11:03) Fluid Restriction (03/28/20 12:10) Consult Urology (03/28/20 12:19) Urinalysis (03/28/20 14:53) Bethanechol Tablet (Urecholine Tablet) (03/28/20 12:45) Tamsulosin Capsule (Flomax Capsule) (03/28/20 12:45) Phenazopyridine Tablet (Pyridium Tablet) (03/28/20 13:00) Patient Visit (03/28/20 ) Gait Training, Ea 15 Min (03/28/20 ) Functional Activities, Ea 15 (03/28/20 ) Exercise Therap, Ea 15 Min (03/28/20 ) Urine Culture (03/28/20 14:43) Cyclobenzaprine Tablet (Flexeril Tablet) (03/28/20 17:30) Gabapentin Capsule/Tablet (Neurontin Cap (03/28/20 21:00) Iron Sucrose Injection (Venofer Injectio (03/28/20 17:30) Ceftriaxone For Iv Use (Rocephin For I (03/28/20 17:30) Cbc With Automated Diff (03/29/20 06:00) Comprehensive Metabolic Panel (03/29/20 06:00) Rehab Nursing Orders: Ongoing Assess. of Cognitive Status, Ongoing Assess. of Function Status, Bladder Management, Bladder Scan, Bladder Training, Bowel Management, Bowel Training, Disease Management & Educaiton, DVT Prophylaxis, Fall Prevention, Fluid/Electrolyte/Nutrition Mgmt, Infection Prevention, Medication Management & Education, Management of Risks & Complications, Nutr ition Management, Pain Management, Patient/Family Support, Safety Management, Swallow Precautions Intensity of Therapy to be met Patient to be seen: Min.3h per day/5 of 7d PT IPOC Problem List: Activity Tolerance, Functional Strength, Safety, Balance, Gait, Transfer, Bed Mobility Treatment Plan: Continue Plan of Care Bed Mobility, Education, Functional Activity Fabio, Functional Strength, Group Therapy, Gait, Safety, Therapeutic Exercise, Transfers Treatment Duration: Apr 11, 2020 Frequency: At least 5 of 7 days/Wk (IRF) Estimated Hrs Per Day: 1.5 hours per day OT IPOC Problems: Decreased Activ Tolerance, Decreased UE Strength, Dependent Transfers, Impaired Cognition, Impaired Coordination, Impaired Funct Balance, Impaired I ADL's, Impaired Self-Care Skills OT Treatment, Training and Edu: Yes Plan of Care: ADL Retraining, Caregiver Training, Cognitive Retraining, Functional Mobility, Group Exercise/Act as Ind, UE Funct Exercise/Act Treatment Duration: Apr 11, 2020 Frequency: At least 5 of 7 days/Wk (IRF) Estimated Hrs Per Day: 1.[address] IPOC Speech Therapy Treatment Plan: Discontinue ST Treatment Duration: March 28, 2020 Frequency: Modified Program (IRF) Estimated Hrs Per Day: Other Bonding Equipment Operator/Case Mgmt Bonding Equipment Operator/Case Managemen: Discharge Planning Dietitian/Glass Science Engineer Dietitian/Glass Science Engineer to monitor nutritional status and make changes and/or recommendations as needed and work with speech pathology on dietary upgrades as the occur. Physician IPOC Medical Issues being managed closely and that require the 24 hour availability of a physician: Current mild delirium with hyponatremia and acute UTI with urinary retention requiring catheter maintained while needing to limit pain meds due to increased confusion Medical Issues: Bowel/Bladder Function, DVT Prophylaxis, Falls Precautions, Fluid/Electrolyte/Nutrition Balance, Infection Protection, Pain Management Brief Synthesis of Preadmission Screen, Post-Admission Evaluation, and Therapy Evaluations: PT OT ST will all work towards gaining ADL independence along with cognitive clearing and pain control while increasing stamina and ambulatory skills Medical Prognosis: Good Anticipated Length of Stay: 7 days JESS SIMON DO March 28, 2020 17:36
[2020-03-28] MEDS ORDERED: cefTRIAXone 1,000 MG IV (ROCEPHIN) VIAL ONE (18:54)
[2020-03-28] MEDS ORDERED: WATER (STERILE) FOR INJECTION 10 ML ONE (18:55)
[2020-03-28] MEDS: IRON SUCROSE 200 MG/10 ML (VENOFER) VIAL IV SCH (19:13)
--- NOTE | 2020-03-28 19:28 | NUR ---
bedside report recieved from KO TOLBERT, assume care of pt
[2020-03-28] MEDS ORDERED: GABAPENTIN 600 MG (NEURONTIN) TAB PO SCH (21:00)
[2020-03-28 22:00] VITALS: BP 98/48
[2020-03-28] MEDS: MONTELUKAST 10 MG (SINGULAIR) TAB PO SCH (22:02)
--- NOTE | 2020-03-28 22:02 | NUR ---
v/s 86-98/48, Lopressor 12.5mg held, bed alarm on side rails up x4, pt fatigued
[2020-03-29 04:29] LABS: BASOPHILS % (AUTO) 0 % (0-10); EOSINOPHILS # (AUTO) 0.4 10^3/uL (0.0-0.3); EOSINOPHILS % (AUTO) 4 % (0-10); HEMATOCRIT 24 % (35-52); HEMOGLOBIN 8.2 G/DL (11.5-16.0); LYMPHOCYTES # (AUTO) 1.6 X 10^3 (1.0-4.0); LYMPHOCYTES % (AUTO) 14 % (12-44); MEAN CORPUSCULAR HEMOGLOBIN 32 PG (25-34); MEAN CORPUSCULAR HGB CONC 35 G/DL (32-36); MEAN CORPUSCULAR VOLUME 92 FL (80-99); MEAN PLATELET VOLUME 10.5 FL (7.4-10.4); MONOCYTES # (AUTO) 1.7 X 10^3 (0.0-1.0); MONOCYTES % (AUTO) 16 % (0-12); NEUTROPHILS # (AUTO) 7.3 X 10^3 (1.8-7.8); NEUTROPHILS % (AUTO) 67 % (42-75); PLATELET COUNT 275 10^3/uL (130-400); RED CELL DISTRIBUTION WIDTH 12.1 % (10.0-14.5)
[2020-03-29 04:42] LABS: ALBUMIN 3.2 GM/DL (3.2-4.5); POTASSIUM 3.4 MMOL/L (3.6-5.0)
[2020-03-29 04:43] LABS: CALCIUM 8.5 MG/DL (8.5-10.1)
[2020-03-29 04:44] LABS: TOTAL PROTEIN 5.5 GM/DL (6.4-8.2)
[2020-03-29 04:46] LABS: BILIRUBIN,TOTAL 0.6 MG/DL (0.1-1.0)
[2020-03-29 04:48] LABS: CREATININE SERUM 1.18 MG/DL (0.60-1.30)
[2020-03-29 06:00] VITALS: BP 97/48
[2020-03-29] MEDS: BETHANECHOL 25 MG (URECHOLINE) TAB PO SCH ×4 (06:01→21:58)
[2020-03-29] MEDS: MULTIVIT W/MINERALS TAB (THERAGRAN M) PO SCH (06:01)
[2020-03-29] MEDS: LEVOTHYROXINE 75 MCG (LEVOTHROID) TABLET PO SCH (06:01)
--- NOTE | 2020-03-29 08:19 | PM&R Progress Note ---
Subjective HPI/CC On Admission Date Seen by Provider: March 29, 2020 Time Seen by Provider: 12:30 Subjective/Events-last exam Patient still has some confusion this morning I recall her severe delirium during her last hospital stay 2 years ago when I took care of her resulted in transfer to shelter due to the severity Will minimize Gabapentin and Flexeril and pain meds if possible UTI Pseudomonasso DC Rocephin and started Cefepime empirically Hyponatremia noted at 130 and already held Chlorathalidone and will place on fluid restriction in the meantime also Iron level very low with anemia so started Venofer since anemia can slow recovery No BM yet giving more meds will give Dulcolax and SSE if needed Conferred with RN Reviewed therapy notes Checked meds and labs Review of Systems Musculoskeletal: back pain Neurological: Confusion Objective Exam Vital Signs Vital Signs Date Time Temp Pulse Resp B/P (MAP) Pulse Ox O2 Delivery O2 Flow Rate FiO2 03/29/20 09:10 98 87/55 (66) 03/29/20 08:00 Room Air 03/29/20 06:00 36.8 16 92 03/27/20 18:15 90.00 Capillary Refill : Less Than 3 Seconds General Appearance: No Apparent Distress, WD/WN, Chronically ill HEENT: PERRL/EOMI, Normal ENT Inspection, Pharynx Normal Neck: Full Range of Motion, Normal Inspection, Non Tender, Supple, Carotid Brui t Respiratory: Chest Non Tender, Lungs Clear, Normal Breath Sounds, No Accessory Muscle Use, No Respiratory Distress Cardiovascular: Regular Rate, Rhythm, No Edema, No Gallop, No JVD, No Murmur, Normal Peripheral Pulses Gastrointestinal: Normal Bowel Sounds, No Organomegaly, No Pulsatile Mass, Non Tender, Soft Back: Normal Inspection, Decreased Range of Motion, Muscle Spasm, Vertebral Tenderness Extremity: Normal Capillary Refill, Normal Inspection, Normal Range of Motion (decrease leg strength), Non Tender, No Calf Tenderness, No Pedal Edema Neurologic/Psychiatric: Alert, Oriented x3, No Motor/Sensory Deficits, Normal Mood/Affect, Motor Weakness (lower leg weakness) Skin: Normal Color, Warm/Dry Lymphatic: No Adenopathy Results/Procedures Lab Laboratory Tests 03/29/20 04:00 Patient resulted labs reviewed. FIM Transfers Therapy Code Descriptions/Definitions Functional [place] Measure: 0=Not Assessed/NA 4=Minimal Assistance 1=Total Assistance 5=Supervision or Setup 2=Maximal Assistance 6=Modified Amanda 3=Moderate Assistance 7=Complete IndependenceSCALE: Activities may be completed with or without assistive devices. 8-Blrcpntvik-pwwfsre completes the activity by him/herself with no assistance from a helper. 5-Set-up or Clean-up Assistance-helper sets up or cleans up; patient completes activity. [place] assists only prior to or following the activity. 4-Supervision or Touching Assistance-helper provides verbal cues and/or touch ing/steadying and/or contact guard assistance as patient completes activity. Assistance may be provided throughout the activity or intermittently. 3-Partial/Moderate Assistance-helper does LESS THAN HALF the effort. [place] lifts, holds or supports trunk or limbs, but provides less than half the effort. 2-Substantial/Maximal Assistance-helper does MORE THAN HALF the effort. [place] lifts or holds trunk or limbs and provides more than half the effort. 0-Elizkpllw-lsstli does ALL the effort. Patient does none of the effort to complete the activity. Or, the assistance of 2 or more helpers is required for the patient to complete the activity. If activity was not attempted, code reason: 7-Patient Refused. 9-Not Applicable-not attempted and the patient did not perform the activity bef ore the current illness, exacerbation or injury. 10-Not Attempted due to Environmental Limitations-(lack of equipment, weather restraints, etc.). 88-Not Attempted due to Medical Conditions or Safety Concerns. Roll Left to Right (QC): 4 Sit to Lying (QC): 4 Sit to Stand (QC): 4 Chair/Ges-xy-Nnxjf Xfer(QC): 4 Car Transfer (QC): 3 Gait Training Does the Patient Walk?: Yes Walk 10 feet (QC): 4 Walk 50 ft with 2 Turns(QC): 4 Walk 150 ft (QC): 88 Walking 10ft/uneven surface-QC: 88 Gait Assistive Device: FWW Wheelchair Training Does the Pt Use a Wheelchair?: No Wheel 50 ft with 2 turns (QC): 9 Wheel 150 ft (QC): 9 Stair Training 1 Step (curb) (QC): 88 4 Steps (QC): 88 12 Steps (QC): 9 Balance Picking up an Object (QC): 9 (Pt will utilize last sorter to adhere to precautions) ADL-Treatment Eating (QC): 6 Oral Hygiene (QC): 5 (s/u as pt unable to open toothpaste cap) Shower/Bathe Self (QC): 3 (mod A bottom/ back/ Bfeet) Upper Body Dressing (QC): 5 (s/u) Lower Body Dressing (QC): 2 (max Aeducation on use of AE, pt completes with mod A due to increased cues and decreased problem solving) On/Off Footwear (QC): 1 (TD prior to education of AEcompletes with modA with AE) Toileting Hygiene (QC): 2 (max A bottom hygiene) Assessment/Plan Assessment and Plan Assess & Plan/Chief Complaint Assessment: s/p lumbar stenosis surgery due to neurogenic claudication POD # 5 Dr Mace Psoriatric arthritis Delirium with h/o delirium Hypothyroidism HTN Hyponatremia holding Chlorathalidone Post op constipation Urinary retention failed voiding trial Diaz DC per Dr Naik UTI Pseudomonas placed on Cefepime and stopped Rocephin Anemia iron deficiency placed on Venofer Plan: Dr Naik consultation will be necessary appreciated Monitor sodium level IRF protocol Fluid restriction Monitor labs IV abx Ucx Venofer BM regimen (1) Lumbar stenosis with neurogenic claudication (2) Hypothyroidism (3) Osteopenia (4) Diaz catheter in place (5) Urinary retention (6) Hyponatremia (7) Psoriatic arthritis Status: Chronic (8) Hypertension JESS SIMON DO March 29, 2020 08:19
[2020-03-29] MEDS: FAMOTIDINE 20 MG (PEPCID) TABLET PO SCH (09:07)
[2020-03-29] MEDS: ASPIRIN E.C. 81 MG (ECOTRIN) TAB PO SCH (09:08)
[2020-03-29] MEDS: LOSARTAN 100 MG (COZAAR) TABLET PO SCH ×2 (09:08→09:16)
[2020-03-29] MEDS: meTOprolol TARTRATE 25 MG (LOPRESSOR) TABLET PO SCH ×3 (09:08→21:57)
[2020-03-29] MEDS: PHENAZOPYRIDINE 100 MG (PYRIDIUM) TABLET PO SCH ×3 (09:08→18:14)
[2020-03-29] MEDS: GABAPENTIN 300 MG (NEURONTIN) CAP PO SCH ×3 (09:08→21:57)
[2020-03-29 09:10] VITALS: BP 87/55
[2020-03-29] MEDS: DOCUSATE SODIUM 100 MG (COLACE) CAP PO SCH ×2 (09:11→21:57)
[2020-03-29] MEDS: CALCIUM CARBONATE 600 MG (CALCARB) TAB PO SCH (09:11)
[2020-03-29] MEDS: OMEGA 3 (FISH OIL) 1000 MG CAP PO SCH (09:11)
[2020-03-29] MEDS: VITAMIN D3 25 MCG (1,000 UNITS) TABLET PO SCH (09:11)
[2020-03-29] MEDS: polyethylene glycoL POWDER 17 GM (MIRALAX) PACK PO SCH ×2 (09:11→21:00)
[2020-03-29] MEDS: SENNA W/DOCUSATE (SENOKOT S) TABLET PO SCH ×2 (09:11→21:57)
[2020-03-29] MEDS: BETAMETHASONE DIPRO (AUGMENTED) 0.05% CREAM 15 GM TOP SCH ×2 (09:12→22:04)
[2020-03-29] MEDS: CEFEPIME INJECTION 1,000 MG in WATER (STERILE) FOR INJECTION 10 ML IV SCH ×2 (10:08→22:04)
[2020-03-29] MEDS ORDERED: BISACODYL 10 MG SUPP (DULCOLAX) PR ONE (13:00)
[2020-03-29] MEDS ORDERED: BISACODYL 10 MG SUPP (DULCOLAX) PR PRN (13:00)
[2020-03-29 18:00] VITALS: BP 91/54
[2020-03-29] MEDS: TAMSULOSIN 0.4 MG (FLOMAX) CAP PO SCH (18:14)
--- NOTE | 2020-03-29 18:16 | NUR ---
pt unable to void after dewitt catheter removed, bladder scan showed 465 ml urine. straight cath done at this time using sterile technique, 600ml urine output.
[2020-03-29] MEDS ORDERED: cefTRIAXone FOR IV USE 1,000 MG in WATER (STERILE) FOR INJECTION 10 ML IV SCH (19:00)
--- NOTE | 2020-03-29 19:07 | NUR ---
bedside report received from AURORA TOLBERT, assume care of pt
[2020-03-29] MEDS: MONTELUKAST 10 MG (SINGULAIR) TAB PO SCH (21:57)
[2020-03-29] MEDS: MELATONIN 3 MG TABLET PO PRN (21:57)
--- NOTE | 2020-03-29 21:57 | NUR ---
states i have had stools today, pt also talks of having a baby today, tried to re orient pt but pt disoriented, checked I&O pt did have 3 stools today, pt took Colace & Senokot but refused miralax reminded pt on fluid restriction 1200ml/hr, pt refused Diprolene cream states it is for psoriasis.
--- NOTE | 2020-03-29 22:35 | NUR ---
bladder scan shows 725 ml pt up to bathroom to try to void
--- NOTE | 2020-03-29 23:15 | NUR ---
unable to void had small soft stool, back to bed inserted # 16 Diaz catheter with 675ml urine return
[2020-03-30 05:29] LABS: BASOPHILS % (AUTO) 0 % (0-10); EOSINOPHILS # (AUTO) 0.2 10^3/uL (0.0-0.3); EOSINOPHILS % (AUTO) 3 % (0-10); HEMATOCRIT 22 % (35-52); HEMOGLOBIN 7.7 G/DL (11.5-16.0); LYMPHOCYTES # (AUTO) 1.1 X 10^3 (1.0-4.0); LYMPHOCYTES % (AUTO) 17 % (12-44); MEAN CORPUSCULAR HEMOGLOBIN 31 PG (25-34); MEAN CORPUSCULAR HGB CONC 35 G/DL (32-36); MEAN CORPUSCULAR VOLUME 89 FL (80-99); MEAN PLATELET VOLUME 9.9 FL (7.4-10.4); MONOCYTES # (AUTO) 1.1 X 10^3 (0.0-1.0); MONOCYTES % (AUTO) 16 % (0-12); NEUTROPHILS # (AUTO) 4.2 X 10^3 (1.8-7.8); NEUTROPHILS % (AUTO) 63 % (42-75); PLATELET COUNT 284 10^3/uL (130-400); RED CELL DISTRIBUTION WIDTH 12.1 % (10.0-14.5); WHITE BLOOD COUNT 6.6 10^3/uL (4.3-11.0)
[2020-03-30 05:39] LABS: ALBUMIN 3.1 GM/DL (3.2-4.5); POTASSIUM 3.6 MMOL/L (3.6-5.0)
[2020-03-30 05:40] LABS: CALCIUM 9.2 MG/DL (8.5-10.1)
[2020-03-30 05:41] LABS: TOTAL PROTEIN 5.7 GM/DL (6.4-8.2)
[2020-03-30 05:43] LABS: BILIRUBIN,TOTAL 0.7 MG/DL (0.1-1.0)
[2020-03-30 05:45] LABS: CREATININE SERUM 0.92 MG/DL (0.60-1.30)
[2020-03-30 06:02] VITALS: BP 123/64
[2020-03-30] MEDS: LEVOTHYROXINE 75 MCG (LEVOTHROID) TABLET PO SCH (06:24)
[2020-03-30] MEDS: MULTIVIT W/MINERALS TAB (THERAGRAN M) PO SCH (06:24)
--- NOTE | 2020-03-30 09:04 | Physical Therapy Daily Note ---
PT Daily Note-Current Subjective Pt. up in recliner, confused speaks of having a family gathering and cooking a large dinner this weekend. Pt. was reoriented multiple times. c/o pain in back at 5/10 after some walking and exercise Pain Numeric Pain Scale: 5-Moderate Pain Location: Medial Location Body Site: Back Pain Description: Ache Appearance flushed pink cheeks Mental Status Patient Orientation: Confused Attachments: Diaz Catheter, Other-See Comments (mask while out of room) Transfers SCALE: Activities may be completed with or without assistive devices. 2-Jtgzwfqlps-lyubawb completes the activity by him/herself with no assistance from a helper. 5-Set-up or Clean-up Assistance-helper sets up or cleans up; patient completes activity. [place] assists only prior to or following the activity. 4-Supervision or Touching Assistance-helper provides verbal cues and/or t ouching/steadying and/or contact guard assistance as patient completes activity. Assistance may be provided throughout the activity or intermittently. 3-Partial/Moderate Assistance-helper does LESS THAN HALF the effort. [place] lifts, holds or supports trunk or limbs, but provides less than half the effort. 2-Substantial/Maximal Assistance-helper does MORE THAN HALF the effort. [place] lifts or holds trunk or limbs and provides more than half the effort. 0-Weswbtdde-aslhcu does ALL the effort. Patient does none of the effort to complete the activity. Or, the assistance of 2 or more helpers is required for the patient to complete the activity. If activity was not attempted, code reason: 7-Patient Refused. 9-Not Applicable-not attempted and the patient did not perform the activity before the current illness, exacerbation or injury. 10-Not Attempted due to Environmental Limitations-(lack of equipment, weather restraints, etc.). 88-Not Attempted due to Medical Conditions or Safety Concerns. Sit to Stand (QC): 4 Chair/Qsm-oi-Tbjca Xfer(QC): 4 Weight Bearing Right Lower Extremity: Right Full Weight Bearing Left Lower Extremity: Left Full Weight Bearing Gait Training Does the Patient Walk?: Yes Walk 10 feet (QC): 4 Walk 50 ft with 2 Turns(QC): 4 Walk 150 ft (QC): 4 Gait Persons Needed: 1 Gait Assistive Device: FWW w/c to follow, even step length, slow, careful, no LOB, needs instruction for sa stiven sitting Exercises Seated Therapy Exercises: Ankle pumps, Sit to stand, Long arc quads, Hip flexion, Hip abd/add Seated Reps: 15 NuStep Minutes: 10 NuStep Workload: 3 Treatments alarm insitu and mccurdy at hand aftr rx Assessment Current Status: Good Progress required rest breaks and reorientation PT Short Term Goals Short Term Goals Time Frame: April 04, 2020 Roll Left & Right: 6 Sit to lyin Lying to sitting on side of be: 6 Sit to stand: 6 Chair/mup-yt-lkzno transfer: 6 PT Er Manager Goals Jail Goals PT Er Manager Goals Time Frame: Apr 11, 2020 Roll Left & Right (QC): 6 Sit to Lying (QC): 6 Lying-Sitting on Side/Bed(QC): 6 Sit to Stand (QC): 6 Chair/Vwl-cg-Wcowl Xfer(QC): 6 Toilet Transfer (QC): 6 Car Transfer (QC): 5 Does the Patient Walk: Yes Walk 10 feet (QC): 6 Walk 50ft with 2 Turns (QC): 6 Walk 150 ft (QC): 6 Walking 10ft on Uneven Surface: 6 1 Step (curb) (QC): 6 4 Steps (QC): 6 12 Steps (QC): 9 Picking up an Object (QC): 9 Does the Pt use WC or Scooter?: No Wheel 50 feet with 2 turns (QC: 9 Type: N/A Wheel 150 feet: 9 Type: N/A PT Plan Treatment/Plan Treatment Plan: Continue Plan of Care Treatment Plan: Bed Mobility, Education, Functional Activity Fabio, Functional Strength, Group Therapy, Gait, Safety, Therapeutic Exercise, Transfers Treatment Duration: Apr 11, 2020 Frequency: At least 5 of 7 days/Wk (IRF) Estimated Hrs Per Day: 1.5 hours per day Patient and/or Family Agrees t: Yes Safety Risks/Education Patient Education: Gait Training, Transfer Techniques, Correct Positioning, Disease Process, Safety Issues Teaching Recipient: Patient Teaching Methods: Demonstration, Discussion Response to Teaching: Verbalize Understanding, Return Demonstration, Reinforcement Needed Time/GCodes Time In: 800 Time Out: 900 Total Billed Treatment Time: 60 Total Billed Treatment 1,EX25m,FA15m,GT20m ROSSY GUZMÁN MANAGING CONSULTANT March 30, 2020 09:04
[2020-03-30] MEDS: IRON SUCROSE 200 MG/10 ML (VENOFER) VIAL IV SCH (09:07)
[2020-03-30] MEDS: ASPIRIN E.C. 81 MG (ECOTRIN) TAB PO SCH (09:09)
[2020-03-30] MEDS: LOSARTAN 100 MG (COZAAR) TABLET PO SCH (09:09)
[2020-03-30] MEDS: SENNA W/DOCUSATE (SENOKOT S) TABLET PO SCH ×2 (09:09→21:55)
[2020-03-30] MEDS: BETHANECHOL 25 MG (URECHOLINE) TAB PO SCH ×4 (09:09→21:47)
[2020-03-30] MEDS: VITAMIN D3 25 MCG (1,000 UNITS) TABLET PO SCH (09:09)
[2020-03-30] MEDS: PHENAZOPYRIDINE 100 MG (PYRIDIUM) TABLET PO SCH ×3 (09:09→19:27)
[2020-03-30] MEDS: polyethylene glycoL POWDER 17 GM (MIRALAX) PACK PO SCH ×2 (09:09→21:54)
[2020-03-30] MEDS: DOCUSATE SODIUM 100 MG (COLACE) CAP PO SCH ×2 (09:09→21:46)
[2020-03-30 09:10] VITALS: BP 116/74
[2020-03-30] MEDS: OMEGA 3 (FISH OIL) 1000 MG CAP PO SCH (09:10)
[2020-03-30] MEDS: meTOprolol TARTRATE 25 MG (LOPRESSOR) TABLET PO SCH ×2 (09:10→21:48)
[2020-03-30] MEDS: FAMOTIDINE 20 MG (PEPCID) TABLET PO SCH (09:10)
[2020-03-30] MEDS: CALCIUM CARBONATE 600 MG (CALCARB) TAB PO SCH (09:10)
[2020-03-30] MEDS: GABAPENTIN 300 MG (NEURONTIN) CAP PO SCH ×3 (09:10→21:47)
--- NOTE | 2020-03-30 09:13 | Occupational Ther Daily Note ---
OT Current Status-Daily Note Subjective Pt alert, sitting in recliner. Pt agrees to therapy. No c/o pain at this time. Pt telling stories of going out yesterday and doing to much, that her L leg was so swollen she thought it was going to explode. Pt was able to state where she is at now, date and president. Pt stated during treatment that she just realized that she wasn't at home and that is why she doesn't have all of her clothing. Mental Status/Objective Patient Orientation: Person, Place, Time, Situation Attachments: Diaz Catheter, IV ADL-Treatment Pt agrees to shower. Min A for sit to stand and SPT with FWW to w/c. CGA for transfer into shower. Sitting on toilet seat, pt able to complete all areas except lower legs and buttocks with SBA. After set up, pt able to complete upper body dressing by self. Assist to thread catheter and initiate over feet. Pt attempted to hike pants over hips, due to pain assist given to hike pants. Sitting at sink, pt able to complete oral care. After session, pt sitting in recliner with call light/phone in reach. All needs met in room. Therapy Code Descriptions/Definitions Functional [place] Measure: 0=Not Assessed/NA 4=Minimal Assistance 1=Total Assistance 5=Supervision or Setup 2=Maximal Assistance 6=Modified [place] 3=Moderate Assistance 7=Complete IndependenceSCALE: Activities may be completed with or without assistive devices. 1-Bzqxwnmyth-abkqped completes the activity by him/herself with no assistance from a helper. 5-Set-up or Clean-up Assistance-helper sets up or cleans up; patient completes activity. [place] assists only prior to or following the activity. 4-Supervision or Touching Assistance-helper provides verbal cues and/or touching/steadying and/or contact guard assistance as patient completes activity. Assistance may be provided throughout the activity or intermittently. 3-Partial/Moderate Assistance-helper does LESS THAN HALF the effort. [place] lif ts, holds or supports trunk or limbs, but provides less than half the effort. 2-Substantial/Maximal Assistance-helper does MORE THAN HALF the effort. [place] lifts or holds trunk or limbs and provides more than half the effort. 3-Greyewreb-mcxpbf does ALL the effort. Patient does none of the effort to complete the activity. Or, the assistance of 2 or more helpers is required for the patient to complete the activity. If activity was not attempted, code reason: 7-Patient Refused. 9-Not Applicable-not attempted and the patient did not perform the activity before the current illness, exacerbation or injury. 10-Not Attempted due to Environmental Limitations-(lack of equipment, weather restraints, etc.). 88-Not Attempted due to Medical Conditions or Safety Concerns. Oral Hygiene (QC): 6 Shower/Bathe Self (QC): 3 Upper Body Dressing (QC): 5 Lower Body Dressing (QC): 2 On/Off Footwear: 2 OT Senior Living Goals Senior Living Goals Time Frame: Apr 11, 2020 Eating (QC): 6 Oral Hygiene (QC): 6 Toileting Hygiene (QC): 6 Shower/Bathe Self (QC): 6 Upper Body Dressing (QC): 6 Lower Body Dressing (QC): 6 On/Off Footwear (QC): 6 Additional Goals: 1-Demonstrate ADL Tasks, 2-Verbalize Understanding, 3-Improve Strength/Fabio 1=Demonstrate adherence to instructed precautions during ADL tasks. 2=Patient will verbalize/demonstrate understanding of assistive devices/modifications for ADL. 3=Patient will improve strength/tolerance for activity to enable patient to pe rform ADL's. OT Education/Plan Problem List/Assessment Assessment: Decreased Activ Tolerance, Decreased Safety Aware, Decreased UE Strength, Impaired Cognition, Impaired Coordination, Impaired Funct Balance, Im paired Self-Care Skills Discharge Recommendations Plan/Recommendations: Continue POC Treatment Plan/Plan of Care Patient would benefit from OT for education, treatment and training to promote independence in ADL's, mobility, safety and/or upper extremity function for ADL's. Plan of Care: ADL Retraining, Caregiver Training, Cognitive Retraining, Functional Mobility, Group Exercise/Act as Ind, UE Funct Exercise/Act Treatment Duration: Apr 11, 2020 Frequency: At least 5 of 7 days/Wk (IRF) Estimated Hrs Per Day: 1.5 hours per day Agreement: Yes Rehab Potential: Good Time/GCodes Start Time: 09:00 Stop Time: 10:00 Total Time Billed (hr/min): 60 Billed Treatment Time 1 visit-ADL 4 (60 min) CHELLY NIELSEN March 30, 2020 09:13
[2020-03-30] MEDS: BETAMETHASONE DIPRO (AUGMENTED) 0.05% CREAM 15 GM TOP SCH ×2 (09:15→21:55)
[2020-03-30] MEDS: CEFEPIME INJECTION 1,000 MG in WATER (STERILE) FOR INJECTION 10 ML IV SCH ×2 (09:15→21:46)
--- NOTE | 2020-03-30 12:50 | PM&R Progress Note ---
Subjective HPI/CC On Admission Date Seen by Provider: March 30, 2020 Time Seen by Provider: 13:00 Subjective/Events-last exam Patient still has some confusion this morning and told the nurse she thought she had delivered a baby in a random statement I recall her severe delirium during her last hospital stay 2 years ago when I took care of her resulted in transfer to assisted due to the severity and I did review that hospital course Will minimize Gabapentin and Flexeril and pain meds UTI Pseudomonasso DC Rocephin and started Cefepime empirically Day # 2 Hyponatremia noted at 130 now 132 and already held Chlorathalidone and placeed on fluid restriction in the meantime also Iron level very low with anemia so started Venofer since anemia can slow recovery and hgb 7.7 today BM after giving more meds yesterday Catheter replaced due to retention last night Took shower Incision looks good Conferred with RN Reviewed therapy notes Checked meds and labs Review of Systems General: Fatigue Gastrointestinal: Constipation Musculoskeletal: back pain Neurological: Confusion Objective Exam Vital Signs Vital Signs Date Time Temp Pulse Resp B/P (MAP) Pulse Ox O2 Delivery O2 Flow Rate FiO2 03/30/20 09:10 102 116/74 (88) 03/30/20 08:00 Room Air 03/30/20 06:02 37.0 18 97 03/27/20 18:15 90.00 Capillary Refill : Less Than 3 Seconds General Appearance: No Apparent Distress, WD/WN, Chronically ill HEENT: PERRL/EOMI, Normal ENT Inspection, Pharynx Normal Neck: Full Range of Motion, Normal Inspection, Non Tender, Supple, Carotid Bruit Respiratory: Chest Non Tender, Lungs Clear, Normal Breath Sounds, No Accessory Muscle Use, No Respiratory Distress Cardiovascular: Regular Rate, Rhythm, No Edema, No Gallop, No JVD, No Murmur, Normal Peripheral Pulses Gastrointestinal: Normal Bowel Sounds, No Organomegaly, No Pulsatile Mass, Non Tender, Soft Back: Normal Inspection, Decreased Range of Motion, Muscle Spasm, Vertebral Tenderness Extremity: Normal Capillary Refill, Normal Inspection, Normal Range of Motion (decrease leg strength), Non Tender, No Calf Tenderness, No Pedal Edema Neurologic/Psychiatric: Alert, Oriented x3, No Motor/Sensory Deficits, Normal Mood/Affect, Motor Weakness (lower leg weakness) Skin: Normal Color, Warm/Dry Lymphatic: No Adenopathy Results/Procedures Lab Laboratory Tests 03/30/20 05:16 Patient resulted labs reviewed. FIM Transfers Therapy Code Descriptions/Definitions Functional [place] Measure: 0=Not Assessed/NA 4=Minimal Assistance 1=Total Assistance 5=Supervision or Setup 2=Maximal Assistance 6=Modified [place] 3=Moderate Assistance 7=Complete IndependenceSCALE: Activities may be completed with or without assistive devices. 5-Itvmnyigma-kioxdab completes the activity by him/herself with no assistance from a helper. 5-Set-up or Clean-up Assistance-helper sets up or cleans up; patient completes activity. [place] assists only prior to or following the activity. 4-Supervision or Touching Assistance-helper provides verbal cues and/or touching/steadying and/or contact guard assistance as patient completes activity. Assistance may be provided throughout the activity or intermittently. 3-Partial/Moderate Assistance-helper does LESS THAN HALF the effort. [place] lifts, holds or supports trunk or limbs, but provides less than half the effort. 2-Substantial/Maximal Assistance-helper does MORE THAN HALF the effort. [place] lifts or holds trunk or limbs and provides more than half the effort. 9-Bfwyoiurc-aroprf does ALL the effort. Patient does none of the effort to complete the activity. Or, the assistance of 2 or more helpers is required for the patient to complete the activity. If activity was not attempted, code reason: 7-Patient Refused. 9-Not Applicable-not attempted and the patient did not perform the activity before the current illness, exacerbation or injury. 10-Not Attempted due to Environmental Limitations-(lack of equipment, weather restraints, etc.). 88-Not Attempted due to Medical Conditions or Safety Concerns. Roll Left to Right (QC): 4 Sit to Lying (QC): 4 Sit to Stand (QC): 4 Chair/Kdq-zn-Idhgy Xfer(QC): 4 Car Transfer (QC): 3 Gait Training Does the Patient Walk?: Yes Walk 10 feet (QC): 4 Walk 50 ft with 2 Turns(QC): 4 Walk 150 ft (QC): 4 Walking 10ft/uneven surface-QC: 88 Gait Persons Needed: 1 Gait Assistive Device: FWW Wheelchair Training Does the Pt Use a Wheelchair?: No Wheel 50 ft with 2 turns (QC): 9 Wheel 150 ft (QC): 9 Stair Training 1 Step (curb) (QC): 88 4 Steps (QC): 88 12 Steps (QC): 9 Balance Picking up an Object (QC): 9 (Pt will utilize senior boiler operator to adhere to precautions) ADL-Treatment Eating (QC): 6 Oral Hygiene (QC): 6 Shower/Bathe Self (QC): 3 Upper Body Dressing (QC): 5 Lower Body Dressing (QC): 2 On/Off Footwear (QC): 2 Toileting Hygiene (QC): 2 (max A bottom hygiene) Assessment/Plan Assessment and Plan Assess & Plan/Chief Complaint Assessment: s/p lumbar stenosis surgery due to neurogenic claudication POD # 6 Dr Mace Psoriatric arthritis Delirium with h/o delirium 2 years ago Hypothyroidism HTN Hyponatremia holding Chlorathalidone Post op constipation Urinary retention failed voiding trial Diaz DC per Dr Naik but required replacement last night 03/29/20 due to retention UTI Pseudomonas placed on Cefepime and stopped Rocephin Anemia iron deficiency placed on Venofer Plan: Dr Naik consultation will be necessary appreciated Monitor sodium level IRF protocol Fluid restriction Monitor labs IV abx Ucx Venofer BM regimen (1) Lumbar stenosis with neurogenic claudication (2) Hypothyroidism (3) Osteopenia (4) Diaz catheter in place (5) Urinary retention (6) Hyponatremia (7) Psoriatic arthritis Status: Chronic (8) Hypertension (9) Delirium Status: Acute (10) UTI (urinary tract infection) Status: Acute JESS SIMON DO March 30, 2020 12:50
--- NOTE | 2020-03-30 14:20 | Therapy Group Daily Note ---
Therapy Daily Group Note Patient Education Topic Exercises, Other List Below (HEP for sit and supine) Exercises LE Seated Exercise, UE Exercise Session Ratio (pt:therapist): 3:1 Goal of Session: Education on ARU Expectations, Memory Strategies, UE/LE Strengthing Goal Met for this Session: Yes Pt Benefit of Group: Contributions to Others, F/U Use of Strategies @Home, Increased Functional Strength, Improved Cognition, Socialization Other/Notes Pt. participated in group/team session this date. Social distancing of 6-7 feet was honored and mask was worn by patient. Pt. introduced herself and shared her first driving experience as a youth. Pt. was social and also participated in memory activity by helping establish 5 words and demonstrating recall of those 5 words at the end of the session . Pts were educated in ARU expectations and rules. Pts were educated on the affect of illness regarding debility and exercises and practices that can be used at home , ie HEP. Pts all participated in these exercises in sitting to include: ankle pumps, sit to stands, long arc quads, seated marching as well as neck rotation and lateral flexion. Bed mobility was reviewed with regards to rolling and pushing self up in bed. Pt. was escorted back to room, call mccurdy at hand and needs met. Start Time: 13:00 Stop Time: 14:00 Total Billed Treatment Time: 60 Total Billed Treatment 1,GRP 60m ROSSY GUZMÁN STUDENT LIFE VICE PRESIDENT March 30, 2020 14:20
[2020-03-30 16:00] VITALS: BP 125/64
[2020-03-30] MEDS: TAMSULOSIN 0.4 MG (FLOMAX) CAP PO SCH (17:14)
--- NOTE | 2020-03-30 19:11 | NUR ---
report recieved from AURORA TOLBERT, assume care of pt
[2020-03-30 21:43] VITALS: BP 150/83
--- NOTE | 2020-03-30 21:46 | NUR ---
pt took Colace, Senokot but refused miralax & Diprolene, pt confused but knows she is confused, asked this nurse how long we had been on this boat, explained to pt in hospital then says that is right I have a bladder infection, c/o back discomfort given Flexeril 5mg, side rails up x4 bed alarm on
[2020-03-30] MEDS: MELATONIN 3 MG TABLET PO PRN (21:47)
[2020-03-30] MEDS: MONTELUKAST 10 MG (SINGULAIR) TAB PO SCH (21:47)
[2020-03-30] MEDS: CYCLOBENZAPRINE 10 MG (FLEXERIL) TAB PO PRN (21:48)
[2020-03-31 04:55] LABS: BASOPHILS % (AUTO) 0 % (0-10); EOSINOPHILS # (AUTO) 0.2 10^3/uL (0.0-0.3); EOSINOPHILS % (AUTO) 3 % (0-10); HEMATOCRIT 21 % (35-52); HEMOGLOBIN 7.3 G/DL (11.5-16.0); LYMPHOCYTES # (AUTO) 0.9 X 10^3 (1.0-4.0); LYMPHOCYTES % (AUTO) 17 % (12-44); MEAN CORPUSCULAR HEMOGLOBIN 31 PG (25-34); MEAN CORPUSCULAR HGB CONC 34 G/DL (32-36); MEAN CORPUSCULAR VOLUME 92 FL (80-99); MEAN PLATELET VOLUME 9.3 FL (7.4-10.4); MONOCYTES # (AUTO) 1.2 X 10^3 (0.0-1.0); MONOCYTES % (AUTO) 23 % (0-12); NEUTROPHILS % (AUTO) 57 % (42-75); PLATELET COUNT 299 10^3/uL (130-400); RED CELL DISTRIBUTION WIDTH 12.1 % (10.0-14.5); WHITE BLOOD COUNT 5.3 10^3/uL (4.3-11.0)
[2020-03-31 05:06] LABS: ALBUMIN 2.8 GM/DL (3.2-4.5); CHLORIDE 101 MMOL/L (98-107); POTASSIUM 3.6 MMOL/L (3.6-5.0); SODIUM 137 MMOL/L (135-145)
[2020-03-31 05:07] LABS: CALCIUM 8.9 MG/DL (8.5-10.1)
[2020-03-31 05:08] LABS: GLUCOSE 116 MG/DL (70-105)
[2020-03-31 05:09] LABS: TOTAL PROTEIN 5.2 GM/DL (6.4-8.2)
[2020-03-31 05:10] LABS: CARBON DIOXIDE 25 MMOL/L (21-32)
[2020-03-31 05:11] LABS: BILIRUBIN,TOTAL 0.5 MG/DL (0.1-1.0)
[2020-03-31 05:12] LABS: ALKALINE PHOSPHATASE 55 U/L (40-136); GFR ESTIMATED > 60
[2020-03-31 05:13] LABS: BUN/CREATININE RATIO 15
[2020-03-31 05:15] LABS: ALANINE AMINOTRANSFERASE 21 U/L (0-55)
[2020-03-31 05:20] VITALS: BP 112/66
[2020-03-31] MEDS: MULTIVIT W/MINERALS TAB (THERAGRAN M) PO SCH (05:46)
[2020-03-31] MEDS: LEVOTHYROXINE 75 MCG (LEVOTHROID) TABLET PO SCH (05:46)
--- NOTE | 2020-03-31 05:47 | NUR ---
c/o back pain,pain level 8/10 on numeric scale, Ultram 50mg given, up in chair with chair alarm on
--- NOTE | 2020-03-31 06:30 | NUR ---
rates pain at 3/10 on numeric scale
--- NOTE | 2020-03-31 07:15 | PM&R Progress Note ---
Subjective HPI/CC On Admission Date Seen by Provider: March 31, 2020 Time Seen by Provider: 10:30 Subjective/Events-last exam Patient still has some confusion this morning and told the nurse she thought she had delivered a baby Pt still confused, a lot of flight of ideas Hgb 7.3 Midline may be needed if she takes out her IV Risperdal will be attempted to be started for the delirium Nurse researched her last visit and it appears she went to the senior care for a week and the family took her out of there and she only cleared her encephalopathy after she got home so that may very well be required here Fall risk I recall her severe delirium during her last hospital stay 2 years ago when I took care of her resulted in transfer to senior care due to the severity and I did review that hospital course Will minimize Gabapentin and Flexeril and pain meds UTI Pseudomonasso DC Rocephin and started Cefepime empirically Day # 3 Hyponatremia noted at 135 now 132 and already held Chlorathalidone and placeed on fluid restriction in the meantime also Iron level very low with anemia so started Venofer since anemia can slow recovery and hgb 7.3 today BM regular Catheter replaced due to retention 2 nights ago Took shower Incision looks good Conferred with RN Reviewed therapy notes Checked meds and labs Review of Systems Musculoskeletal: back pain Neurological: Confusion Objective Exam Vital Signs Vital Signs Date Time Temp Pulse Resp B/P (MAP) Pulse Ox O2 Delivery O2 Flow Rate FiO2 03/31/20 20:00 Room Air 03/31/20 16:37 36.2 86 16 111/67 (82) 95 03/27/20 18:15 90.00 Capillary Refill : Less Than 3 Seconds General Appearance: No Apparent Distress, WD/WN, Chronically ill HEENT: PERRL/EOMI, Normal ENT Inspection, Pharynx Normal Neck: Full Range of Motion, Normal Inspection, Non Tender, Supple, Carotid Bruit Respiratory: Chest Non Tender, Lungs Clear, Normal Breath Sounds, No Accessory Muscle Use, No Respiratory Distress Cardiovascular: Regular Rate, Rhythm, No Edema, No Gallop, No JVD, No Murmur, Normal Peripheral Pulses Gastrointestinal: Normal Bowel Sounds, No Organomegaly, No Pulsatile Mass, Non Tender, Soft Back: Normal Inspection, Decreased Range of Motion, Muscle Spasm, Vertebral Tenderness Extremity: Normal Capillary Refill, Normal Inspection, Normal Range of Motion (decrease leg strength), Non Tender, No Calf Tenderness, No Pedal Edema Neurologic/Psychiatric: Alert, Oriented x3, No Motor/Sensory Deficits, Normal Mood/Affect, Disoriented, Motor Weakness (lower leg weakness) Skin: Normal Color, Warm/Dry Lymphatic: No Adenopathy Results/Procedures Lab Patient resulted labs reviewed. FIM Transfers Therapy Code Descriptions/Definitions Functional [place] Measure: 0=Not Assessed/NA 4=Minimal Assistance 1=Total Assistance 5=Supervision or Setup 2=Maximal Assistance 6=Modified [place] 3=Moderate Assistance 7=Complete IndependenceSCALE: Activities may be completed with or without assistive devices. 2-Fodcqpiyks-zntsygy completes the activity by him/herself with no assistance from a helper. 5-Set-up or Clean-up Assistance-helper sets up or cleans up; patient completes activity. [place] assists only prior to or following the activity. 4-Supervision or Touching Assistance-helper provides verbal cues and/or touching/steadying and/or contact guard assistance as patient completes activity . Assistance may be provided throughout the activity or intermittently. 3-Partial/Moderate Assistance-helper does LESS THAN HALF the effort. [place] lifts, holds or supports trunk or limbs, but provides less than half the effort. 2-Substantial/Maximal Assistance-helper does MORE THAN HALF the effort. [place] lifts or holds trunk or limbs and provides more than half the effort. 6-Rrafoqsjx-oqgcqr does ALL the effort. Patient does none of the effort to complete the activity. Or, the assistance of 2 or more helpers is required for the patient to complete the activity. If activity was not attempted, code reason: 7-Patient Refused. 9-Not Applicable-not attempted and the patient did not perform the activity before the current illness, exacerbation or injury. 10-Not Attempted due to Environmental Limitations-(lack of equipment, weather restraints, etc.). 88-Not Attempted due to Medical Conditions or Safety Concerns. Roll Left to Right (QC): 4 Sit to Lying (QC): 4 Sit to Stand (QC): 4 Chair/Hxb-su-Avadw Xfer(QC): 4 Car Transfer (QC): 3 Gait Training Does the Patient Walk?: Yes Walk 10 feet (QC): 4 Walk 50 ft with 2 Turns(QC): 4 Walk 150 ft (QC): 4 Walking 10ft/uneven surface-QC: 88 Gait Persons Needed: 1 Gait Assistive Device: FWW Wheelchair Training Does the Pt Use a Wheelchair?: No Wheel 50 ft with 2 turns (QC): 9 Wheel 150 ft (QC): 9 Stair Training 1 Step (curb) (QC): 88 4 Steps (QC): 88 12 Steps (QC): 9 Balance Picking up an Object (QC): 9 (Pt will utilize synthetic gem press operator to adhere to precautions) ADL-Treatment Eating (QC): 6 Oral Hygiene (QC): 6 Shower/Bathe Self (QC): 3 Upper Body Dressing (QC): 5 Lower Body Dressing (QC): 2 On/Off Footwear (QC): 2 Toileting Hygiene (QC): 2 (max A bottom hygiene) Assessment/Plan Assessment and Plan Assess & Plan/Chief Complaint Assessment: s/p lumbar stenosis surgery due to neurogenic claudication POD # 7 Dr Mace Psoriatric arthritis Delirium with h/o delirium 2 years ago Hypothyroidism HTN Hyponatremia holding Chlorathalidone Post op constipation Urinary retention failed voiding trial Diaz DC per Dr Naik but required replacement last night 03/29/20 due to retenti on UTI Pseudomonas placed on Cefepime and stopped Rocephin Anemia iron deficiency placed on Venofer Plan: Dr Naik consultation will be necessary appreciated Monitor sodium level IRF protocol Fluid restriction Monitor labs IV abx Ucx Venofer BM regimen (1) Lumbar stenosis with neurogenic claudication (2) Hypothyroidism (3) Osteopenia (4) Diaz catheter in place (5) Urinary retention (6) Hyponatremia (7) Psoriatic arthritis Status: Chronic (8) Hypertension (9) Delirium Status: Acute (10) UTI (urinary tract infection) Status: Acute JESS SIMON DO March 31, 2020 07:15
[2020-03-31] MEDS: polyethylene glycoL POWDER 17 GM (MIRALAX) PACK PO SCH ×2 (09:00→19:56)
[2020-03-31] MEDS: CALCIUM CARBONATE 600 MG (CALCARB) TAB PO SCH (09:23)
[2020-03-31] MEDS: ASPIRIN E.C. 81 MG (ECOTRIN) TAB PO SCH (09:24)
[2020-03-31] MEDS: OMEGA 3 (FISH OIL) 1000 MG CAP PO SCH (09:24)
[2020-03-31] MEDS: BETHANECHOL 25 MG (URECHOLINE) TAB PO SCH ×4 (09:24→20:17)
[2020-03-31] MEDS: PHENAZOPYRIDINE 100 MG (PYRIDIUM) TABLET PO SCH ×3 (09:24→18:40)
[2020-03-31] MEDS: meTOprolol TARTRATE 25 MG (LOPRESSOR) TABLET PO SCH ×2 (09:24→20:17)
[2020-03-31] MEDS: GABAPENTIN 300 MG (NEURONTIN) CAP PO SCH ×3 (09:24→20:17)
[2020-03-31] MEDS: FAMOTIDINE 20 MG (PEPCID) TABLET PO SCH (09:24)
[2020-03-31] MEDS: DOCUSATE SODIUM 100 MG (COLACE) CAP PO SCH ×2 (09:24→20:17)
[2020-03-31] MEDS: LOSARTAN 100 MG (COZAAR) TABLET PO SCH (09:25)
[2020-03-31] MEDS: SENNA W/DOCUSATE (SENOKOT S) TABLET PO SCH ×2 (09:25→20:17)
[2020-03-31] MEDS: VITAMIN D3 25 MCG (1,000 UNITS) TABLET PO SCH (09:25)
--- NOTE | 2020-03-31 09:29 | Physical Therapy Daily Note ---
PT Daily Note-Current Subjective Pt. in recliner upon arrival, states "I can't do therapy today, my pee is solidifying into cement." Pt. very confused this AM, reoriented several times throughout session. Unable to give objective pain rating when asked but periodically c/o discomfort in the low back during session. She does not recall having a back surgery. Mental Status Patient Orientation: Confused Attachments: Diaz Catheter Transfers SCALE: Activities may be completed with or without assistive devices. 7-Zaogbsvmqk-nebaeqg completes the activity by him/herself with no assistance from a helper. 5-Set-up or Clean-up Assistance-helper sets up or cleans up; patient completes activity. [place] assists only prior to or following the activity. 4-Supervision or Touching Assistance-helper provides verbal cues and/or touching/steadying and/or contact guard assistance as patient completes activity. Assistance may be provided throughout the activity or intermittently. 3-Partial/Moderate Assistance-helper does LESS THAN HALF the effort. [place] lifts, holds or supports trunk or limbs, but provides less than half the effort. 2-Substantial/Maximal Assistance-helper does MORE THAN HALF the effort. [place] lifts or holds trunk or limbs and provides more than half the effort. 3-Lhdsahokt-wpmnaj does ALL the effort. Patient does none of the effort to complete the activity. Or, the assistance of 2 or more helpers is required for the patient to complete the activity. If activity was not attempted, code reason: 7-Patient Refused. 9-Not Applicable-not attempted and the patient did not perform the activity before the current illness, exacerbation or injury. 10-Not Attempted due to Environmental Limitations-(lack of equipment, weather restraints, etc.). 88-Not Attempted due to Medical Conditions or Safety Concerns. Sit to Stand (QC): 4 Weight Bearing Right Lower Extremity: Right Full Weight Bearing Left Lower Extremity: Left Full Weight Bearing Gait Training Does the Patient Walk?: Yes Distance: 2 x 250 ft Walk 10 feet (QC): 4 Walk 50 ft with 2 Turns(QC): 4 Walk 150 ft (QC): 4 Gait Persons Needed: 1 Gait Assistive Device: FWW cues needed to slow speed for gait safety Exercises Seated Therapy Exercises: Ankle pumps, Long arc quads, Hip flexion, Hamstring Curls, Hip abd/add Seated Reps: 20 NuStep Minutes: 15 NuStep Workload: 4 Treatments gait training, LE exercises Assessment Current Status: Good Progress Pt. is steadily improving mobility however remains very confused and has decreased safety awareness during gait. Pt. returned to bedside chair post session, call light in reach, chair alarm set and all needs met. PT Short Term Goals Short Term Goals Time Frame: April 04, 2020 Roll Left & Right: 6 Sit to lyin Lying to sitting on side of be: 6 Sit to stand: 6 Chair/fdc-mr-benwk transfer: 6 PT Half-Way Goals Bond Writer Goals PT Half-Way Goals Time Frame: Apr 11, 2020 Roll Left & Right (QC): 6 Sit to Lying (QC): 6 Lying-Sitting on Side/Bed(QC): 6 Sit to Stand (QC): 6 Chair/Exa-nh-Plyuf Xfer(QC): 6 Toilet Transfer (QC): 6 Car Transfer (QC): 5 Does the Patient Walk: Yes Walk 10 feet (QC): 6 Walk 50ft with 2 Turns (QC): 6 Walk 150 ft (QC): 6 Walking 10ft on Uneven Surface: 6 1 Step (curb) (QC): 6 4 Steps (QC): 6 12 Steps (QC): 9 Picking up an Object (QC): 9 Does the Pt use WC or Scooter?: No Wheel 50 feet with 2 turns (QC: 9 Type: N/A Wheel 150 feet: 9 Type: N/A PT Plan Treatment/Plan Treatment Plan: Continue Plan of Care Treatment Plan: Bed Mobility, Education, Functional Activity Fabio, Functional Strength, Group Therapy, Gait, Safety, Therapeutic Exercise, Transfers Treatment Duration: Apr 11, 2020 Frequency: At least 5 of 7 days/Wk (IRF) Estimated Hrs Per Day: 1.5 hours per day Patient and/or Family Agrees t: Yes Time/GCodes Time In: 815 Time Out: 915 Total Billed Treatment Time: 60 Total Billed Treatment 1, GT 15', FA 10', Ex 35' KINDRA SMITH PT March 31, 2020 09:29
[2020-03-31] MEDS: BETAMETHASONE DIPRO (AUGMENTED) 0.05% CREAM 15 GM TOP SCH ×2 (09:32→20:39)
[2020-03-31] MEDS: CEFEPIME INJECTION 1,000 MG in WATER (STERILE) FOR INJECTION 10 ML IV SCH ×2 (09:32→20:18)
[2020-03-31] MEDS ORDERED: risperiDONE 0.25 MG (RisperDAL) TAB PO NR (10:15)
--- NOTE | 2020-03-31 10:52 | CONSULTATION REPORT ---
DATE OF SERVICE: 03/31/2020 ATTENDING PHYSICIAN: Dr. Arana. SUMMARY: A 74-year-old white lady post-lumbar surgery for stenosis, who has apparently been in urinary retention. We started her on Flomax 0.4 mg daily and Urecholine 25 mg q.i.d. before meals and at bedtime. She tolerated it well. Yesterday, we gave her a trial of voiding that failed, so we reinserted the catheter and increased her Urecholine to 50. She is kind of confused and gives unclear history. PLAN: We will give her another trial of voiding tomorrow. This was explained to her. Job ID: [id number] DocumentID: [id number] Dictated Date: 03/31/2020 08:31:21 Sheet Metal Lay Out Worker Date: 03/31/2020 10:51:44 Dictated By: OREN AMBROSIO MD
--- NOTE | 2020-03-31 11:19 | Occupational Ther Daily Note ---
OT Current Status-Daily Note Subjective Pt sitting in chair, agrees to therapy. Pt does not rate pain, but reports pain in back with movement. Pt is confused and requires cues for orientation, participation in therapy, and for safety. Mental Status/Objective Attachments: Dewitt Catheter ADL-Treatment Pt declined shower, but agrees to sponge bath. Pt bathed upper body with SBA and cues for task completion. Pt able to wash bilateral upper legs and dirk area. Assist to wash buttocks. Pt used long handled sponge to wash lower legs/feet, but requires assist to dry them. Pt able to thread UE into bra, but required assist to fasten in the back. Don pullover gown with SBA. Reviewed use of adaptive equipment for lower body dressing. Pt required assist to thread dewitt and bilateral LE into underwear. Attempts to use bath solution maker to start underwear over feet, but has difficulty following cues for use of adaptive equipment. Sit to stand with CGA. Pt pulled underwear up over right hip, but required assist to complete pant hike on left side. Pt unable to place socks on sock aid without assist. Pt then dons socks with min assist and multiple cues for use of sock aid. Pt requires increased time for bathing and dressing tasks. Pt is confused and easily distracted, requires cues to attend to task. Pt brushed teeth with SB A while seated. Pt sitting in chair with needs met and chair alarm on after session. Therapy Code Descriptions/Definitions Functional [place] Measure: 0=Not Assessed/NA 4=Minimal Assistance 1=Total Assistance 5=Supervision or Setup 2=Maximal Assistance 6=Modified [place] 3=Moderate Assistance 7=Complete IndependenceSCALE: Activities may be completed with or without assistive devices. 4-Nduhaoopis-yizhaub completes the activity by him/herself with no assistance from a helper. 5-Set-up or Clean-up Assistance-helper sets up or cleans up; patient completes activity. [place] assists only prior to or following the activity. 4-Supervision or Touching Assistance-helper provides verbal cues and/or touching/steadying and/or contact guard assistance as patient completes activity. Assistance may be provided throughout the activity or intermittently. 3-Partial/Moderate Assistance-helper does LESS THAN HALF the effort. [place] lifts, holds or supports trunk or limbs, but provides less than half the effort. 2-Substantial/Maximal Assistance-helper does MORE THAN HALF the effort. [place] lifts or holds trunk or limbs and provides more than half the effort. 7-Qidbwsofs-fzwfvu does ALL the effort. Patient does none of the effort to complete the activity. Or, the assistance of 2 or more helpers is required for the patient to complete the activity. If activity was not attempted, code reason: 7-Patient Refused. 9-Not Applicable-not attempted and the patient did not perform the activity before the current illness, exacerbation or injury. 10-Not Attempted due to Environmental Limitations-(lack of equipment, weather restraints, etc.). 88-Not Attempted due to Medical Conditions or Safety Concerns. Oral Hygiene (QC): 5 Shower/Bathe Self (QC): 3 Upper Body Dressing (QC): 3 Lower Body Dressing (QC): 2 On/Off Footwear: 3 Education OT Patient Education: Modified ADL techniques Teaching Recipient: Patient Teaching Methods: Discussion Response to Teaching: Verbalize Understanding OT Experimental Physicist Goals [facility] Goals Time Frame: Apr 11, 2020 Eating (QC): 6 Oral Hygiene (QC): 6 Toileting Hygiene (QC): 6 Shower/Bathe Self (QC): 6 Upper Body Dressing (QC): 6 Lower Body Dressing (QC): 6 On/Off Footwear (QC): 6 Additional Goals: 1-Demonstrate ADL Tasks, 2-Verbalize Understanding, 3- ImproveStrength/Fabio 1=Demonstrate adherence to instructed precautions during ADL tasks. 2=Patient will verbalize/demonstrate understanding of assistive devices/modifications for ADL. 3=Patient will improve strength/tolerance for activity to enable patient to perform ADL's. OT Education/Plan Discharge Recommendations Plan/Recommendations: Continue POC Treatment Plan/Plan of Care Patient would benefit from OT for education, treatment and training to promote independence in ADL's, mobility, safety and/or upper extremity function for ADL's. Plan of Care: ADL Retraining, Caregiver Training, Cognitive Retraining, Functional Mobility, Group Exercise/Act as Ind, UE Funct Exercise/Act Treatment Duration: Apr 11, 2020 Frequency: At least 5 of 7 days/Wk (IRF) Estimated Hrs Per Day: 1.5 hours per day Agreement: Yes Rehab Potential: Good Time/GCodes Start Time: 09:15 Stop Time: 10:20 Total Time Billed (hr/min): 65 Billed Treatment Time 1 visit, ADLx4(65minutes) JERILYN CAO OT March 31, 2020 11:19
--- NOTE | 2020-03-31 13:11 | Physical Therapy Daily Note ---
PT Daily Note-Current Subjective Pt. in bedside chair, states "I'm way back in 1972 right now." Pt. has to be reoriented frequently during treatment. Mental Status Patient Orientation: Confused Attachments: Diaz Catheter Transfers SCALE: Activities may be completed with or without assistive devices. 3-Wqsfcpxytl-dzbjbnc completes the activity by him/herself with no assistance from a helper. 5-Set-up or Clean-up Assistance-helper sets up or cleans up; patient completes activity. [place] assists only prior to or following the activity. 4-Supervision or Touching Assistance-helper provides verbal cues and/or touching/steadying and/or contact guard assistance as patient completes activity. Assistance may be provided throughout the activity or intermittently. 3-Partial/Moderate Assistance-helper does LESS THAN HALF the effort. [place] lifts, holds or supports trunk or limbs, but provides less than half the effort. 2-Substantial/Maximal Assistance-helper does MORE THAN HALF the effort. [place] lifts or holds trunk or limbs and provides more than half the effort. 4-Liiawafns-pgewob does ALL the effort. Patient does none of the effort to complete the activity. Or, the assistance of 2 or more helpers is required for the patient to complete the activity. If activity was not attempted, code reason: 7-Patient Refused. 9-Not Applicable-not attempted and the patient did not perform the activity before the current illness, exacerbation or injury. 10-Not Attempted due to Environmental Limitations-(lack of equipment, weather restraints, etc.). 88-Not Attempted due to Medical Conditions or Safety Concerns. Sit to Stand (QC): 4 cues to push from arms of chair Weight Bearing Right Lower Extremity: Right Full Weight Bearing Left Lower Extremity: Left Full Weight Bearing Gait Training Does the Patient Walk?: Yes Distance: 2 x 150 ft Walk 10 feet (QC): 4 Walk 50 ft with 2 Turns(QC): 4 Walk 150 ft (QC): 4 Gait Persons Needed: 1 Gait Assistive Device: FWW pt. needs cues to avoid stationary objects, she is easily distracted during ambulation Exercises Seated Therapy Exercises: Ankle pumps, Long arc quads, Hip flexion, Hamstring Curls (RTB), Hip abd/add (RTB) Seated Reps: 20 Treatments gait training and LE exercise Assessment Current Status: Good Progress Pt. continues to have confusion and decreased safety awareness requiring cuing and CGA. She does well with LE exercises, occasionally wincing in pain but has no specific c/o pain. Pt. returned to bedside chair, call light in reach and all needs met. PT Short Term Goals Short Term Goals Time Frame: April 04, 2020 Roll Left & Right: 6 Sit to lyin Lying to sitting on side of be: 6 Sit to stand: 6 Chair/kaw-eb-nkrrc transfer: 6 PT Day Haul Youth Supervisor Goals Day Haul Youth Supervisor Goals PT Mcc Goals Time Frame: Apr 11, 2020 Roll Left & Right (QC): 6 Sit to Lying (QC): 6 Lying-Sitting on Side/Bed(QC): 6 Sit to Stand (QC): 6 Chair/Mxs-lr-Zczjt Xfer(QC): 6 Toilet Transfer (QC): 6 Car Transfer (QC): 5 Does the Patient Walk: Yes Walk 10 feet (QC): 6 Walk 50ft with 2 Turns (QC): 6 Walk 150 ft (QC): 6 Walking 10ft on Uneven Surface: 6 1 Step (curb) (QC): 6 4 Steps (QC): 6 12 Steps (QC): 9 Picking up an Object (QC): 9 Does the Pt use WC or Scooter?: No Wheel 50 feet with 2 turns (QC: 9 Type: N/A Wheel 150 feet: 9 Type: N/A PT Plan Treatment/Plan Treatment Plan: Continue Plan of Care Treatment Plan: Bed Mobility, Education, Functional Activity Fabio, Functional Strength, Group Therapy, Gait, Safety, Therapeutic Exercise, Transfers Treatment Duration: Apr 11, 2020 Frequency: At least 5 of 7 days/Wk (IRF) Estimated Hrs Per Day: 1.5 hours per day Patient and/or Family Agrees t: Yes Time/GCodes Time In: 1235 Time Out: 1300 Total Billed Treatment Time: 25 Total Billed Treatment 1, GT 10', Ex 15' KINDRA SMITH PT March 31, 2020 13:11
--- NOTE | 2020-03-31 13:24 | Occupational Ther Daily Note ---
OT Current Status-Daily Note Subjective Pt agrees to therapy. Pt reports back pain, but doesn't rate. Requests pain pill. RN notified. ADL-Treatment Pt sitting in chair, finishing with PT. Pt requests to brush teeth. Sit to stand with supervision. Gait to restroom with FWW, cues for safety and walker use. Pt stood at sink to brush teeth, CGA required for balance during UE activity. Pt returned to chair with FWW. Requires increased time to position self in chair. Pt combed hair with SBA. Pt sitting in chair with needs met after session, chair alarm on. Therapy Code Descriptions/Definitions Functional [place] Measure: 0=Not Assessed/NA 4=Minimal Assistance 1=Total Assistance 5=Supervision or Setup 2=Maximal Assistance 6=Modified [place] 3=Moderate Assistance 7=Complete IndependenceSCALE: Activities may be completed with or without assistive devices. 3-Jadrypioqg-vzjomli completes the activity by him/herself with no assistance from a helper. 5-Set-up or Clean-up Assistance-helper sets up or cleans up; patient completes activity. [place] assists only prior to or following the activity. 4-Supervision or Touching Assistance-helper provides verbal cues and/or touching/steadying and/or contact guard assistance as patient completes activity. Assistance may be provided throughout the activity or intermittently. 3-Partial/Moderate Assistance-helper does LESS THAN HALF the effort. [place] lifts, holds or supports trunk or limbs, but provides less than half the effort. 2-Substantial/Maximal Assistance-helper does MORE THAN HALF the effort. [place] lifts or holds trunk or limbs and provides more than half the effort. 2-Ezrscaixa-pvgjjl does ALL the effort. Patient does none of the effort to complete the activity. Or, the assistance of 2 or more helpers is required for the patient to complete the activity. If activity was not attempted, code reason: 7-Patient Refused. 9-Not Applicable-not attempted and the patient did not perform the activity before the current illness, exacerbation or injury. 10-Not Attempted due to Environmental Limitations-(lack of equipment, weather restraints, etc.). 88-Not Attempted due to Medical Conditions or Safety Concerns. Oral Hygiene (QC): 4 OT Seam Taper Machine Goals Seam Taper Machine Goals Time Frame: Apr 11, 2020 Eating (QC): 6 Oral Hygiene (QC): 6 Toileting Hygiene (QC): 6 Shower/Bathe Self (QC): 6 Upper Body Dressing (QC): 6 Lower Body Dressing (QC): 6 On/Off Footwear (QC): 6 Additional Goals: 1-Demonstrate ADL Tasks, 2-Verbalize Understanding, 3- ImproveStrength/Fabio 1=Demonstrate adherence to instructed precautions during ADL tasks. 2=Patient will verbalize/demonstrate understanding of assistive devices/modifications for ADL. 3=Patient will improve strength/tolerance for activity to enable patient to perform ADL's. OT Education/Plan Discharge Recommendations Plan/Recommendations: Continue POC Treatment Plan/Plan of Care Patient would benefit from OT for education, treatment and training to promote independence in ADL's, mobility, safety and/or upper extremity function for ADL's. Plan of Care: ADL Retraining, Caregiver Training, Cognitive Retraining, Functional Mobility, Group Exercise/Act as Ind, UE Funct Exercise/Act Treatment Duration: Apr 11, 2020 Frequency: At least 5 of 7 days/Wk (IRF) Estimated Hrs Per Day: 1.5 hours per day Agreement: Yes Rehab Potential: Good Time/GCodes Start Time: 13:00 Stop Time: 13:20 Total Time Billed (hr/min): 20 Billed Treatment Time 1 visit, ADL(20minutes) JERILYN CAO OT March 31, 2020 13:23
--- NOTE | 2020-03-31 13:55 | ST Cognitive Linguistic Eval ---
Speech Evaluation-General Medical Diagnosis L2-5 laminectomy Onset Date: March 24, 2020 Therapy Diagnosis Therapy Diagnosis: Cognitive-communication Referral Referring Physician: Dr. Arana Medical History Pertinent Medical History: Arthritis, Hypothroidism, Rheumatoid Arthritis Reviewed History: Yes Social History Current Living Status: Alone Speech PLF-Current Status Prior Level of Function Patient lives home alone where she was independent for much of her daily needs. Subjective Patient was pleasant and cooperative with her cognitive assessment. Patient did require frequent redirection for completion. Language Eval: Auditory Comprehends Simple Yes/No Ques: Functional Indent/Objects Multiple [place]: Functional Ident/Pics in Multiple [place]: Functional Follows 1-Step Commands: Mild Follows Complex Directions: Moderate Follows General Conversations: Moderate Language Eval: Verbal Language Completes Spontaneous Greeting: Functional Produces Auto, Serial Info: Functional Imitates Simple Words/Phrases: Mild Word Finding: Mild Requests Basic Needs: Moderate States Basic Personal Info: Moderate Expresses Complex Ideas: Severe Objective Cognitive Domain Attention: Moderate Memory: Moderate Problem Solving: Moderate Executive Functions: Moderate Visuospatial Skills: Mild Composite Severity Rating: Moderate Clock Drawing Severity Rating: Moderate Objective Formal/Standardized Tests [facility] Status ([facility]UST) Results 14/30, moderate dementia level of function Oral Motor/Speech Production Within Normal Limits Impression Patient is a pleasant 74 year old female who was admitted to the ARU s/p back surgery. Patient was given the UMS with a score of 14/30 obtained. This score is within the moderate dementia range of function. Patient requires frequent redirection to focus on all tasks. Patient will receive skilled ST with focus on improving cognitive function for safety and independence. Speech Patient Assess Expression of Ideas/Wants: Frequently (2) Understanding Verbal Content: Sometimes Understands(2) Brief Interview-Mental Status: No(pt is rarely/never understood) Repetition of Three Words: Two (2) Temporal Orientation: Year: Missed by 1 year (2) Temporal Orientation: Month: Missed by 6 days-1 month (1) Temporal Orientation: Day: Incorrect or No Answer(0) Recall : Wear to say "Sock": No, could not recall (0) Recall : Color: No, could not recall (0) Recall : Bed: No, could not recall (0) Memory/Recall Ability: That he or she is in a hsp/hsp unit Speech Short Term Goals Short Term Goals Short Term Goals 1) Patient will complete memory tasks related to her daily needs with 75% accuracy given minimal cuing. 2) Patient will complete problem solving tasks related to her daily needs with 75% accuracy given minimal cuing. 3) Patient will complete safety awareness tasks related to her daily needs with 75% accuracy given minimal cuing. Speech Usp Goals Dog Show Judge Goals Patient will improve cognitive-communication necessary for safety and daily living tasks with minimal assist. Speech-Plan Patient/Family Goals Patient/Family Goals: Patient plans on returning to her home, however her discharge planning will be determined at a later date. Treatment Plan Speech Therapy Treatment Plan: Continue Plan of Care Treatment Duration: March 28, 2020 Frequency: 4 times per week (Patient will be seen 4-5 times a week) Estimated Hrs Per Day: .5 hour per day Rehab Potential: Good Barriers to Learning: Patient's decreased cognition Pt/Family Agrees to Plan: Yes Safety Risks/Education Teaching Recipient: Patient Teaching Methods: Discussion Response to Teaching: Verbalize Understanding, Reinforcement Needed Education Topics Provided: Safety within her room and utilization of the call light as needed Time Speech Therapy Time In: 10:30 Speech Therapy Time Out: 10:45 Total Billed Time: 15 Billed Treatment Time 1, SPSNDCOMYOSVANY Han March 31, 2020 13:55
--- NOTE | 2020-03-31 15:44 | NUR ---
"RD ASSESSMENT PMHx: psoriatic arthritis; HTN; CA(colon); s/p lumbar stenosis surgery PT INTERACTION: Note pt has AMS, per chart review. Note all information provided by either chart review or from nurse aide. Aide states pt has poor oral intake. Note avg PO intake 31% x2d, per chart review. Aide states pt has no issues with nausea, vomiting, constipation or diarrhea she is aware of. Note last BM was 03/30, and pt currently on bowel regimen of colace BID; senna BID; and miralax BID, per chart review. Note unable to determine recent wt hx, per chart review. ABNORMAL NUTRITION-RELATED LAB VALUES LOW: Pro 5.2; alb 2.8 HIGH: glu 116 Est. kcal needs: 6925-9729 kcal | 25-30 kcal/kg Est. Pro needs: 59-70 g Pro | 1.0-1.2 g Pro/kg PES STATEMENT: Inadequate oral intake (NI-2.1) related to loss of appetite | AMS as evidenced by nurse aide interview | chart review | avg PO intake 31% x2d INTERVENTION: Continue with current diet order of Regular diet, with restriction of Dry Trays. D/t fluid restriction, cannot make a recommendation for nutrition supplementation. Will continue to follow and reassess as pt needs, intake, and status change. MONITOR/EVALUATE: PO Intake; Plan of Care; Hydration Status; Weight Status; Lab Values Jay De La O, MS, RD, LD"
[2020-03-31 16:37] VITALS: BP 111/67
[2020-03-31] MEDS: TAMSULOSIN 0.4 MG (FLOMAX) CAP PO SCH (18:40)
[2020-03-31] MEDS: MONTELUKAST 10 MG (SINGULAIR) TAB PO SCH (20:17)
[2020-03-31] MEDS: MELATONIN 3 MG TABLET PO PRN (20:17)
[2020-03-31] MEDS: CYCLOBENZAPRINE 10 MG (FLEXERIL) TAB PO PRN (20:17)
[2020-03-31] MEDS ORDERED: risperiDONE 0.25 MG (RisperDAL) TAB PO SCH (21:00)
--- NOTE | 2020-04-01 05:15 | NUR ---
Patient set bed alarm off at this time and the aide responded. RN called into the room by aide. Notified that patient had pulled out dewitt. Patient told staff that there were pills on the floor. Staff picked up pills. Patient trying to kick and hit staff. Patient assisted into bed and both aides were there to sit with patient and make sure she didn't harm herself. Dr. Arana notified of patient's agitation and that pills were found on floor. New orders for IM Haldol and IM Ativan. Dr. Arana then ordered patient to be transferred to ICU. Patient transferred to ICU and report given.
[2020-04-01] MEDS ORDERED: LORazepam INJ 2 MG/ML (ATIVAN) VIAL ONE (05:22)
[2020-04-01] MEDS ORDERED: HALOPERIDOL 5 MG/ML (HALDOL) AMP ONE (05:22)
[2020-04-01] MEDS ORDERED: LORazepam INJ 2 MG/ML (ATIVAN) VIAL IM ONE (05:45)
[2020-04-01] MEDS ORDERED: HALOPERIDOL 5 MG/ML (HALDOL) AMP IM ONE (05:45)
--- NOTE | 2020-04-01 07:35 | NUR ---
Pills sent to pharmacy per Dr. Arana to be identified.
--- NOTE | 2020-04-01 07:50 | NUR ---
Pharmacy notified RN that the pills were acetaminophen [address] Arana.
[2020-04-01] MEDS: MULTIVIT W/MINERALS TAB (THERAGRAN M) PO SCH (08:11)
[2020-04-01] MEDS: LEVOTHYROXINE 75 MCG (LEVOTHROID) TABLET PO SCH (08:11)
--- NOTE | 2020-04-01 08:12 | NUR ---
Notified REAL Interiano and patient's daughter Fely of patients change and move to ICU.
--- NOTE | 2020-04-02 09:47 | Discharge Summary ---
Diagnosis/Chief Complaint Date of Admission March 27, 2020 at 17:55 Date of Discharge Discharge Diagnosis Assessment: Delirium with h/o delirium 2 years ago now requiring transfer to ICU due to the severity of the metabolic encephalopathy Elevated lactic acid due to agitation and dehydration s/p lumbar stenosis surgery due to neurogenic claudication POD # 6 Dr Mace Psoriatric arthritis/RA Hypothyroidism HTN Hyponatremia holding Chlorathalidone Post op constipation resolved Urinary retention failed voiding trial Diaz DC per Dr Naik but required replacement 03/29/20 due to continued etention UTI Pseudomonas placed on Cefepime and stopped Rocephin Anemia iron deficiency placed on Venofer Pill consumption from purse this morning? APAP? Plan: Dr Grimm consultation appreciated Dr Naik consultation appreciated Monitor sodium level IRF return maybe? Fluid restriction Monitor labs IV abx Ucx Venofer BM regimen Precedex and Geodon Discharge Summary Discharge Physical Examination Allergies: Coded Allergies: levofloxacin (Verified Allergy, Mild, TENDINITIS, 01/08/20) Vitals & I&Os Vital Signs Date Time Temp Pulse Resp B/P (MAP) Pulse Ox O2 Delivery O2 Flow Rate FiO2 03/31/20 20:00 Room Air 03/31/20 16:37 36.2 86 16 111/67 (82) 95 03/27/20 18:15 90.00 General Appearance: Alert, Other (confused) Respiratory: Clear to Auscultation Cardiovascular: Regular Rate Hospital Course Was the Problem List Reviewed?: Yes Patient had a standard course in IRF although she was noted to have subtle confusion when she arrived from [place] but considering her h/o delirium 03/2019 we continued the plan for IRF and continued to participate in therapies and she did well with that plan until she became more and more confused as the days progressed resulting in UCx revealing Pseudomonas placed on Cefepime and ultimately patient required transfer to ICU due to the severity of confusion. Labs (last 24 hrs) Laboratory Tests 03/27/20 17:55: Lab Scanned Report Referred Lab Report 03/28/20 04:48: White Blood Count 10.1, Red Blood Count 2.65L, Hemoglobin 8.1L, Hematocrit 24L, Mean Corpuscular Volume 91, Mean Corpuscular Hemoglobin 31, Mean Corpuscular Hemoglobin Concent 34, Red Cell Distribution Width 12.1, Platelet Count 234, Mean Platelet Volume 10.5H, Neutrophils (%) (Auto) 75, Lymphocytes (%) (Auto) 11L, Monocytes (%) (Auto) 12, Eosinophils (%) (Auto) 1, Basophils (%) (Auto) 0, Neutrophils # (Auto) 7.6, Lymphocytes # (Auto) 1.1, Monocytes # (Auto) 1.3H, Eosinophils # (Auto) 0.1, Basophils # (Auto) 0.0, Sodium Level 130L, Potassium Level 3.7, Chloride Level 97L, Carbon Dioxide Level 25, Anion Gap 8, Blood Urea Nitrogen 13, Creatinine 0.83, Estimat Glomerular Filtration Rate > 60, BUN/Creatinine Ratio 16, Glucose Level 126H, Calcium Level 8.4L, Corrected Calcium 9.2, Iron Level 9L, Total Bilirubin 0.8, Aspartate Amino Transf (AST/SGOT) 47H, Alanine Aminotransferase (ALT/SGPT) 24, Alkaline Phosphatase 73, Total Protein 4.8L, Albumin 3.0L 03/28/20 14:43: Urine Color YELLOW, Urine Clarity SL CLOUDY, Urine pH 6.5, Urine Specific [place] 1.010L, Urine Protein 2+H, Urine Glucose (UA) NEGATIVE, Urine Ketones NEGATIVE, Urine Nitrite POSITIVEH, Urine Bilirubin NEGATIVE, Urine Urobilinogen 0.2, Urine Leukocyte Esterase 2+H, Urine RBC (Auto) 3+H, Urine RBC 10-25H, Urine WBC 10-25H, Urine Crystals NONE, Urine Bacteria MODERATEH, Urine Casts PRESENT, Urine Hyaline Casts RARE, Urine White Blood Cell Casts RAREH, Urine Mucus SMALLH , Urine Culture Indicated YES 03/29/20 04:00: White Blood Count 11.0, Red Blood Count 2.58L, Hemoglobin 8.2L, Hematocrit 24L, Mean Corpuscular Volume 92, Mean Corpuscular Hemoglobin 32, Mean Corpuscular Hemoglobin Concent 35, Red Cell Distribution Width 12.1, Platelet Count 275, Mean Platelet Volume 10.5H, Neutrophils (%) (Auto) 67, Lymphocytes (%) (Auto) 14, Monocytes (%) (Auto) 16H, Eosinophils (%) (Auto) 4, Basophils (%) (Auto) 0, Neutrophils # (Auto) 7.3, Lymphocytes # (Auto) 1.6, Monocytes # (Auto) 1.7H, Eosinophils # (Auto) 0.4H, Basophils # (Auto) 0.0, Sodium Level 130L, Potassium Level 3.4L, Chloride Level 94L, Carbon Dioxide Level 22, Anion Gap 14, Blood Urea Nitrogen 20H, Creatinine 1.18, Estimat Glomerular Filtration Rate 45, BUN/Creatinine Ratio 17, Glucose Level 129H, Calcium Level 8.5, Corrected Calcium 9.1, Total Bilirubin 0.6, Aspartate Amino Transf (AST/SGOT) 42H, Alanine Aminotransferase (ALT/SGPT) 25, Alkaline Phosphatase 58, Total Protein 5.5L, Albumin 3.2 03/30/20 05:16: White Blood Count 6.6, Red Blood Count 2.46L, Hemoglobin 7.7L, Hematocrit 22L, M rob Corpuscular Volume 89, Mean Corpuscular Hemoglobin 31, Mean Corpuscular Hemoglobin Concent 35, Red Cell Distribution Width 12.1, Platelet Count 284, Mean Platelet Volume 9.9, Neutrophils (%) (Auto) 63, Lymphocytes (%) (Auto) 17, Monocytes (%) (Auto) 16H, Eosinophils (%) (Auto) 3, Basophils (%) (Auto) 0, Neutrophils # (Auto) 4.2, Lymphocytes # (Auto) 1.1, Monocytes # (Auto) 1.1H, Eosinophils # (Auto) 0.2, Basophils # (Auto) 0.0, Sodium Level 132L, Potassium Level 3.6, Chloride Level 97L, Carbon Dioxide Level 23, Anion Gap 12, Blood Urea Nitrogen 17, Creatinine 0.92, Estimat Glomerular Filtration Rate 60, BUN/Creatinine Ratio 18, Glucose Level 115H, Calcium Level 9.2, Corrected Calcium 9.9, Total Bilirubin 0.7, Aspartate Amino Transf (AST/SGOT) 37H, Alanine Aminotransferase (ALT/SGPT) 21, Alkaline Phosphatase 62, Total Protein 5.7L, Albumin 3.1L 03/31/20 04:40: White Blood Count 5.3, Red Blood Count 2.33L, Hemoglobin 7.3L, Hematocrit 21L, Mean Corpuscular Volume 92, Mean Corpuscular Hemoglobin 31, Mean Corpuscular Hemoglobin Concent 34, Red Cell Distribution Width 12.1, Platelet Count 299, Mean Platelet Volume 9.3, Neutrophils (%) (Auto) 57, Lymphocytes (%) (Auto) 17, Monocytes (%) (Auto) 23H, Eosinophils (%) (Auto) 3, Basophils (%) (Auto) 0, Neutrophils # (Auto) 3.0, Lymphocytes # (Auto) 0.9L, Monocytes # (Auto) 1.2H, Eosinophils # (Auto) 0.2, Basophils # (Auto) 0.0, Sodium Level 137, Potassium Level 3.6, Chloride Level 101, Carbon Dioxide Level 25, Anion Gap 11, Blood Urea Nitrogen 12, Creatinine 0.80, Estimat Glomerular Filtration Rate > 60, BUN/Creatinine Ratio 15, Glucose Level 116H, Calcium Level 8.9, Corrected Calcium 9.9, Total Bilirubin 0.5, Aspartate Amino Transf (AST/SGOT) 34, Alanine Aminotransferase (ALT/SGPT) 21, Alkaline Phosphatase 55, Total Protein 5.2L, Albumin 2.8L Microbiology 03/28/20 Urine Culture - Final, Complete Pseudomonas aeruginosa See Comments Pending Labs Microbiology Date/Time Source Procedure Growth Status 03/28/20 14:43 Urine U Cath,Nos Urine Culture - Final Pseudomonas aeruginosa See Comments Complete Laboratory Tests 03/27/20 17:55: Lab Scanned Report Referred Lab Report 03/28/20 04:48: White Blood Count 10.1, Red Blood Count 2.65, Hemoglobin 8.1, Hematocrit 24, Mean Corpuscular Volume 91, Mean Corpuscular Hemoglobin 31, Mean Corpuscular Hemoglobin Concent 34, Red Cell Distribution Width 12.1, Platelet Count 234, Mean Platelet Volume 10.5, Neutrophils (%) (Auto) 75, Lymphocytes (%) (Auto) 11, Monocytes (%) (Auto) 12, Eosinophils (%) (Auto) 1, Basophils (%) (Auto) 0, Neutrophils # (Auto) 7.6, Lymphocytes # (Auto) 1.1, Monocytes # (Auto) 1.3, Eosinophils # (Auto) 0.1, Basophils # (Auto) 0.0, Sodium Level 130, Potassium Level 3.7, Chloride Level 97, Carbon Dioxide Level 25, Anion Gap 8, Blood Urea Nitrogen 13, Creatinine 0.83, Estimat Glomerular Filtration Rate > 60, BUN/Creatinine Ratio 16, Glucose Level 126, Calcium Level 8.4, Corrected Calcium 9.2, Iron Level 9, Total Bilirubin 0.8, Aspartate Amino Transf (AST/SGOT) 47, Alanine Aminotransferase (ALT/SGPT) 24, Alkaline Phosphatase 73, Total Protein 4.8, Albumin 3.0 03/28/20 14:43: Urine Color YELLOW, Urine Clarity SL CLOUDY, Urine pH 6.5, Urine Specific [place] 1.010, Urine Protein 2+, Urine Glucose (UA) NEGATIVE, Urine Ketones NEGATIVE, Urine Nitrite POSITIVE, Urine Bilirubin NEGATIVE, Urine Urobilinogen 0.2, Urine Leukocyte Esterase 2+, Urine RBC (Auto) 3+, Urine RBC 10-25, Urine WBC 10-25, Urine Crystals NONE, Urine Bacteria MODERATE, Urine Casts PRESENT, Urine Hyaline Casts RARE, Urine White Blood Cell Casts RARE, Urine Mucus SMALL, Urine Culture Indicated YES 03/29/20 04:00: White Blood Count 11.0, Red Blood Count 2.58, Hemoglobin 8.2, Hematocrit 24, Mean Corpuscular Volume 92, Mean Corpuscular Hemoglobin 32, Mean Corpuscular Hemoglobin Concent 35, Red Cell Distribution Width 12.1, Platelet Count 275, Mean Platelet Volume 10.5, Neutrophils (%) (Auto) 67, Lymphocytes (%) (Auto) 14, Monocytes (%) (Auto) 16, Eosinophils (%) (Auto) 4, Basophils (%) (Auto) 0, Neutrophils # (Auto) 7.3, Lymphocytes # (Auto) 1.6, Monocytes # (Auto) 1.7, Eosinophils # (Auto) 0.4, Basophils # (Auto) 0.0, Sodium Level 130, Potassium Level 3.4, Chloride Level 94, Carbon Dioxide Level 22, Anion Gap 14, Blood Urea Nitrogen 20, Creatinine 1.18, Estimat Glomerular Filtration Rate 45, BUN/Creati nine Ratio 17, Glucose Level 129, Calcium Level 8.5, Corrected Calcium 9.1, Total Bilirubin 0.6, Aspartate Amino Transf (AST/SGOT) 42, Alanine Aminotransferase (ALT/SGPT) 25, Alkaline Phosphatase 58, Total Protein 5.5, Albumin 3.2 03/30/20 05:16: White Blood Count 6.6, Red Blood Count 2.46, Hemoglobin 7.7, Hematocrit 22, Mean Corpuscular Volume 89, Mean Corpuscular Hemoglobin 31, Mean Corpuscular Hemoglobin Concent 35, Red Cell Distribution Width 12.1, Platelet Count 284, Mean Platelet Volume 9.9, Neutrophils (%) (Auto) 63, Lymphocytes (%) (Auto) 17, Monocytes (%) (Auto) 16, Eosinophils (%) (Auto) 3, Basophils (%) (Auto) 0, Neutrophils # (Auto) 4.2, Lymphocytes # (Auto) 1.1, Monocytes # (Auto) 1.1, Eosinophils # (Auto) 0.2, Basophils # (Auto) 0.0, Sodium Level 132, Potassium Level 3.6, Chloride Level 97, Carbon Dioxide Level 23, Anion Gap 12, Blood Urea Nitrogen 17, Creatinine 0.92, Estimat Glomerular Filtration Rate 60, BUN/Creatinine Ratio 18, Glucose Level 115, Calcium Level 9.2, Corrected Calcium 9.9, Total Bilirubin 0.7, Aspartate Amino Transf (AST/SGOT) 37, Alanine Aminotransferase (ALT/SGPT) 21, Alkaline Phosphatase 62, Total Protein 5.7, Albumin 3.1 03/31/20 04:40: White Blood Count 5.3, Red Blood Count 2.33, Hemoglobin 7.3, Hematocrit 21, Mean Corpuscular Volume 92, Mean Corpuscular Hemoglobin 31, Mean Corpuscular Hemoglobin Concent 34, Red Cell Distribution Width 12.1, Platelet Count 299, Mean Platelet Volume 9.3, Neutrophils (%) (Auto) 57, Lymphocytes (%) (Auto) 17, Monocytes (%) (Auto) 23, Eosinophils (%) (Auto) 3, Basophils (%) (Auto) 0, Neutrophils # (Auto) 3.0, Lymphocytes # (Auto) 0.9, Monocytes # (Auto) 1.2, Eosinophils # (Auto) 0.2, Basophils # (Auto) 0.0, Sodium Level 137, Potassium Level 3.6, Chloride Level 101, Carbon Dioxide Level 25, Anion Gap 11, Blood Urea Nitrogen 12, Creatinine 0.80, Estimat Glomerular Filtration Rate > 60, BUN/Creatinine Ratio 15, Glucose Level 116, Calcium Level 8.9, Corrected Calcium 9.9, Total Bilirubin 0.5, Aspartate Amino Transf (AST/SGOT) 34, Alanine Aminotransferase (ALT/SGPT) 21, Alkaline Phosphatase 55, Total Protein 5.2, Albumin 2.8 Discharge Home Medications: Active Scripts Active Reported Chlorthalidone 25 Mg Tablet 25 Mg PO DAILY Montelukast Sodium 10 Mg Tablet 10 Mg PO HS Pepcid (Famotidine) 20 Mg Tablet 20 Mg PO BID Tramadol HCl 50 Mg Tablet 50-100 Mg PO Q6H PRN Losartan Potassium 100 Mg Tablet 100 Mg PO DAILY Clobetasol Propionate 15 Gm Cream..g. 1 Applic TP BID [place] 3 Fish Oil Softgel ([place]-3 Fatty Acids/Fish Oil) 1 Each Capsule.dr 1 Each PO DAILY Vitamin D3 (Cholecalciferol (Vitamin D3)) 50 Mcg Capsule 50 Mcg PO DAILY Biotin 2,500 Mcg Capsule 2,500 Mcg PO BID Calcium Carbonate 600 Mg Tablet 1,200 Mg PO DAILY Levothyroxine Sodium 75 Mcg Tablet 75 Mcg PO DAILY Aspirin EC (Aspirin) 81 Mg Tablet.dr 81 Mg PO DAILY Multiple Vitamins (Multivitamin) 1 Each Tablet 1 Tab PO DAILY Atorvastatin Calcium 40 Mg Tablet 40 Mg PO HS Gabapentin 600 Mg Tablet 600 Mg PO TID Cyclobenzaprine HCl 10 Mg Tablet 10 Mg PO HS PRN Metoprolol Tartrate 25 Mg Tablet 12.5 Mg PO BID TAKES 1/2 (25MG) TABLET Instructions to patient/family Please see electronic discharge instructions given to patient. Diagnosis/Problems Diagnosis/Problems (1) Lumbar stenosis with neurogenic claudication (2) Hypothyroidism (3) Osteopenia (4) Diaz catheter in place (5) Urinary retention (6) Hyponatremia (7) Psoriatic arthritis Status: Chronic (8) Hypertension (9) Delirium Status: Acute (10) UTI (urinary tract infection) Status: Acute Clinical Quality Measures DVT/VTE Risk/Contraindication: Risk Factor Score Per Nursin RFS Level Per Nursing on Admit: 3=High JESS SIMON DO April 02, 2020 09:47
--- NOTE | 2020-04-02 10:58 | Therapy Team Discharge Summary ---
Therapy Discharge Summary Discharge Recommendations Date of Discharge April 01, 2020 at 05:48 Physical Therapy This patient was admitted to ARU post L2-5 laminectomy. Prior to surgery, pt lived alone and was indep with functional mobility and able to drive. Upon admission to ARU, she was SB-CGA with all functional mobility; she did demonstrate confusion with nonsensical conversation. Treatment had consisted of strength, balance, bed mobility, transfers, gait and reorientation techniques. She was pleasant and cooperative but her confusion persisted and she was transf erred to ICU due to medical issues. Her functional remained unchanged due to short stay status. She remained SB-CGA with all mobility with redirection of confusion. No goals met. Will DC from ARU due to transfer to ICU> Occupational Therapy Decreased Activ Tolerance, Decreased Safety Aware, Decreased UE Strength, Impaired Cognition, Impaired Coordination, Impaired Funct Balance, Impaired Self-Care Skills PT Personnel Clerks Supervisor Goals Chcf Goals PT [facility] Goals Time Frame: Apr 11, 2020 Roll Left to Right (QC): 6 Sit to Lying (QC): 6 Lying-Sitting on Side/Bed(QC): 6 Sit to Stand (QC): 6 Chair/Dpq-pt-Owdtt Xfer(QC): 6 Car Transfer (QC): 5 Does the Patient Walk: Yes Walk 10 feet (QC): 6 Walk 10ft-Uneven Surface(QC): 6 Walk 50ft with 2 Turns (QC): 6 Walk 150 ft (QC): 6 Does the Pt use WC or Scooter?: No Wheel 50 feet with 2 turns (QC: 9 1 Step (curb) (QC): 6 4 Steps (QC): 6 12 Steps (QC): 9 Picking up an Object (QC): 9 Goals unmet due to transfer to ICU OT Personnel Clerks Supervisor Goals Chcf Goals Time Frame: Apr 11, 2020 Eating (QC): 6 Oral Hygiene (QC): 6 Shower/Bathe Self (QC): 6 Upper Body Dressing (QC): 6 Lower Body Dressing (QC): 6 On/Off Footwear (QC): 6 Toileting Hygiene (QC): 6 Toilet/Commode Transfer (QC): 6 Additional Goals: 1-Demonstrate ADL Tasks, 2-Verbalize Understanding, 3- ImproveStrength/Fabio 1=Demonstrate adherence to instructed precautions during ADL tasks. 2=Patient will verbalize/demonstrate understanding of assistive devices/modifications for ADL. 3=Patient will improve strength/tolerance for activity to enable patient to perform ADL's. Speech Personnel Clerks Supervisor Goals Personnel Clerks Supervisor Goals Patient will improve cognitive-communication necessary for safety and daily living tasks with minimal assist. CHELLY ELY PT April 02, 2020 10:58
--- NOTE | 2020-04-03 11:07 | Therapy Team Discharge Summary ---
Therapy Discharge Summary Discharge Recommendations Date of Discharge April 01, 2020 at 05:48 Occupational Therapy Decreased Activ Tolerance, Decreased Safety Aware, Decreased UE Strength, Imp aired Cognition, Impaired Coordination, Impaired Funct Balance, Impaired Self- Care Skills Speech-Language Pathology Patient was admitted to the ARU s/p surgery. Patient was given the SLUMS with score in the moderate level of dementia function. Patient was discharged to ICU due to medial issues prior to receiving skilled ST therapy. Patient was discharged from the ICU to home. She is discharged from ST at this time with no goals met. PT [facility] Goals [facility] Goals PT Color [employer] [facility] Goals Time Frame: Apr 11, 2020 Roll Left to Right (QC): 6 Sit to Lying (QC): 6 Lying-Sitting on Side/Bed(QC): 6 Sit to Stand (QC): 6 Chair/Gvj-uj-Xpufl Xfer(QC): 6 Car Transfer (QC): 5 Does the Patient Walk: Yes Walk 10 feet (QC): 6 Walk 10ft-Uneven Surface(QC): 6 Walk 50ft with 2 Turns (QC): 6 Walk 150 ft (QC): 6 Does the Pt use WC or Scooter?: No Wheel 50 feet with 2 turns (QC: 9 1 Step (curb) (QC): 6 4 Steps (QC): 6 12 Steps (QC): 9 Picking up an Object (QC): 9 OT Color Maker Dyer Goals Color Maker [facility] Goals Time Frame: Apr 11, 2020 Eating (QC): 6 Oral Hygiene (QC): 6 Shower/Bathe Self (QC): 6 Upper Body Dressing (QC): 6 Lower Body Dressing (QC): 6 On/Off Footwear (QC): 6 Toileting Hygiene (QC): 6 Toilet/Commode Transfer (QC): 6 Additional Goals: 1-Demonstrate ADL Tasks, 2-Verbalize Understanding, 3- ImproveStrength/Fabio 1=Demonstrate adherence to instructed precautions during ADL tasks. 2=Patient will verbalize/demonstrate understanding of assistive devices/modifications for ADL. 3=Patient will improve strength/tolerance for activity to enable patient to perform ADL's. Speech [facility] Goals [employer] Goals Patient will improve cognitive-communication necessary for safety and daily living tasks with minimal assist. YOSVANY NAIDU April 03, 2020 11:07
--- NOTE | 2020-04-03 11:15 | Therapy Team Discharge Summary ---
Therapy Discharge Summary Discharge Recommendations Date of Discharge April 01, 2020 at 05:48 Occupational Therapy Pt admitted to ARU following L2-5 laminectomy. On admission pt required max a ssist with toileting and LE dressing, min assist with bathing, and set up for oral hygiene. Skilled OT treatment consisted of ADL training, and transfers. Pt had confusion during ARU stay which impacted ability to safely perform functional tasks. Pt was transferred to ICU secondary to medical status and therefore goals were not met. D/C ARU OT. Decreased Activ Tolerance, Decreased Safety Aware, Decreased UE Strength, Impaired Cognition, Impaired Coordination, Impaired Funct Balance, Impaired Self-Care Skills PT Automobile Mechanic Assistant Goals Automobile Mechanic Assistant Goals PT Automobile Mechanic Assistant Goals Time Frame: Apr 11, 2020 Roll Left to Right (QC): 6 Sit to Lying (QC): 6 Lying-Sitting on Side/Bed(QC): 6 Sit to Stand (QC): 6 Chair/Njy-bv-Kpuzh Xfer(QC): 6 Car Transfer (QC): 5 Does the Patient Walk: Yes Walk 10 feet (QC): 6 Walk 10ft-Uneven Surface(QC): 6 Walk 50ft with 2 Turns (QC): 6 Walk 150 ft (QC): 6 Does the Pt use WC or Scooter?: No Wheel 50 feet with 2 turns (QC: 9 1 Step (curb) (QC): 6 4 Steps (QC): 6 12 Steps (QC): 9 Picking up an Object (QC): 9 OT Automobile Mechanic Assistant Goals [facility] Goals Time Frame: Apr 11, 2020 Eating (QC): 6 Oral Hygiene (QC): 6 Shower/Bathe Self (QC): 6 Upper Body Dressing (QC): 6 Lower Body Dressing (QC): 6 On/Off Footwear (QC): 6 Toileting Hygiene (QC): 6 Toilet/Commode Transfer (QC): 6 Additional Goals: 1-Demonstrate ADL Tasks, 2-Verbalize Understanding, 3- ImproveStrength/Fabio 1=Demonstrate adherence to instructed precautions during ADL tasks. 2=Patient will verbalize/demonstrate understanding of assistive devices/modifications for ADL. 3=Patient will improve strength/tolerance for activity to enable patient to perform ADL's. Speech Automobile Mechanic Assistant Goals Automobile Mechanic Assistant Goals Patient will improve cognitive-communication necessary for safety and daily living tasks with minimal assist. JERILYN CAO OT April 03, 2020 11:15
== END 2020-04-01 05:48 | disposition short-term general hospital (02) | DRG 555 ==
PROVIDERS: ADMIT Internal Medicine; ATTEND Internal Medicine
DX: M62.81 Muscle weakness (generalized) (principal); Z47.89 Encounter for other orthopedic aftercare; L40.50 Arthropathic psoriasis, unspecified; G93.41 Metabolic encephalopathy; E86.0 Dehydration; N39.0 Urinary tract infection, site not specified; B96.5 Pseudomonas (aeruginosa) (mallei) (pseudomallei) as the cause of diseases classified elsewhere; E87.1 Hypo-osmolality and hyponatremia; R33.9 Retention of urine, unspecified; E03.9 Hypothyroidism, unspecified; I10 Essential (primary) hypertension; M19.91 Primary osteoarthritis, unspecified site; M06.9 Rheumatoid arthritis, unspecified; Z85.038 Personal history of other malignant neoplasm of large intestine; K59.09 Other constipation; M85.80 Other specified disorders of bone density and structure, unspecified site; D50.9 Iron deficiency anemia, unspecified
CPT/HCPCS: 36415; 80053; 81000; 83540; 85025; 87077; 87088; 87186

== ENCOUNTER 2020-04-01 05:48 | Inpatient (IN) | payer MEDICARE, OTHER ==
[~2020-04-01] VITALS: Ht 157 cm; Wt 62.5 kg
[2020-04-01] VITALS (20 sets, daily range): BP systolic 104–155; BP diastolic 41–120
[~2020-04-01 05:48] MED LIST changes: +BIOT25007 PO; +CHLO25TA22 PO; +CLOB15CR2 TP; +FAMO-119 PO; +LOSA100T57 PO; +MONT10TA26 PO; +OMEG1CAP24 PO; +TRAM50TA3 PO; +[UNRECOGNIZED DRUG - CODE] PO
[2020-04-01] MEDS ORDERED: ZIPRASIDONE 20 MG INJ (GEODON) VIAL IM ONE ×2 (05:53→06:30)
[2020-04-01] MEDS ORDERED: WATER (STERILE) FOR INJECTION 10 ML ONE (05:53)
[2020-04-01] MEDS ORDERED: NS IV ONE (06:00)
--- OUTSIDE RECORDS SUMMARY | 2020-04-01 06:03 | XMS REPORT | Continuity of Care Document ---
[...] UNKNOWN UNKNOWN Yes No Known Drug Allergies [id number] Drug Allergy Unknown N/A 04/18/2011 Yes levofloxacin [id number] Drug Allergy Mild TENDINITIS 01/08/2020 Yes AMA Inhibitors [id number] Dr bustamante Allergy Unknown N/A 01/08/2020 Yes levofloxacin [id number] Drug Allergy Unknown TENDINITIS 01/08/[id number] bustamante Allergy Unknown N/A 01/08/2020 Medications [...] MD Ot 414. 01 CORONARY ATHEROSCLEROSIS OF [place] CORON 07/31/2013 BEAN ROEBRTS MD Ot 414. 2 CHRONIC TOTAL OCCLUSION [...] Escoto Ot V76.11 10/15/2014 CHARLIE SYED, KYRIE sEcoto Ot V76.11 10/15/2014 CHARLIE SYED, KYRIE Escoto [...] Ot I25. 10 ATHSCL HEART DISEASE OF [place] CORONARY 03/06/2017 BEAN ROBERTS MD Ot I25. 10 ATHSCL HEART DISEASE OF [place] CORONARY 03/07/2017 Ot V76.12 OTH SCREEN MAMMO- [...] Ot I25. 10 ATHSCL HEART DISEASE OF [place] CORONARY 03/07/2017 JERILYN ODEN MD, Ot Z12.31 ENCNTR SCREEN MAMMOGRAM FOR MALIGNANT NE 03/07/2017 JERILYN ODEN MD Ot J32.9 CHRONIC SINUSITIS, UNSPECIFIED 03/07/2017 JERILYN ODEN MD Ot J32.9 CHRONIC SINUSITIS, UNSPECIFIED 03/09/2017 BEAN ROBERTS MD Ot E78. 5 HYPERLIPIDEMIA, UNSPECIFIED 03/09/2017 BEAN ROBERTS MD Ot I10 ESSENTIAL (PRIMARY) HYPERTENSION 03/09/2017 BEAN ROBERTS MD Ot I25. 10 ATHSCL HEART DISEASE OF [place] CORONARY 03/17/2017 BEAN ROBERTS MD Ot E78. 5 HYPERLIPIDEMIA, UNSPECIFIED 03/17/2017 BEAN ROBERTS MD Ot I10 ESSENTIAL (PRIMARY) HYPERTENSION 03/17/2017 BEAN ROBERTS MD Ot I25. 10 ATHSCL HEART DISEASE OF [place] CORONARY 03/29/2017 BEAN ROBERTS MD Ot E78. 5 HYPERLIPIDEMIA, UNSPECIFIED 03/29/2017 BEAN ROBERTS MD Ot I10 ESSENTIAL (PRIMARY) HYPERTENSION 03/29/2017 BEAN ROBERTS MD Ot I25. 10 ATHSCL HEART DISEASE OF [place] CORONARY 04/06/2017 BEAN ROBERTS MD Ot E78. 5 HYPERLIPIDEMIA, UNSPECIFIED 04/06/2017 BEAN ROBERTS MD Ot I10 ESSENTIAL (PRIMARY) HYPERTENSION 04/06/2017 ARMANDO SYED, BEAN Bowser Ot I25. 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 07/05/2017 W [...] W I25.10 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 07/18/2017 W [...] ONARY ATHEROSCLEROSIS OF UNSPECIFIED TYPE OF VESSEL, [place] OR GRAFT 10/10/2017 W 782.3 EDEMA 10/10/2017 W 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 10 ATHSCL HEART DISEASE OF [place] CORONARY 10/12/2017 BEAN ROBERTS MD Ot E78. 5 HYPERLIPIDEMIA, UNSPECIFIED 10/12/2017 BEAN ROBERTS MD Ot I10 ESSENTIAL (PRIMARY) HYPERTENSION 10/12/2017 BEAN ROBERTS MD Ot I25. 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 10 ATHSCL HEART DISEASE OF [place] CORONARY 03/27/2019 BEAN ROBERTS MD Ot E78. 5 HYPERLIPIDEMIA, UNSPECIFIED 03/27/2019 BEAN ROBERTS MD Ot I10 ESSENTIAL (PRIMARY) HYPERTENSION 03/27/2019 BEAN ROBERTS MD Ot I25. 10 ATHSCL HEART DISEASE OF [place] CORONARY 03/27/2019 JERILYN ODEN MD Ot Z12.31 [...] ERED MENTAL STATUS, UNSPECIFIED 06/03/2019 W 381.1 EVENT STAFF MEMBER FARIBA SEROUS OTITIS MEDIA 06/03/2019 W 462 [...] MARTIN COREY Ot 244.9 HYPOTHYROIDISM NOS 07/22/2019 MARITN COREY Ot 272.4 HYPERLIPIDEMIA NEC/NOS 07/22/2019 MARTIN [...] Ot I25. 10 ATHSCL HEART DISEASE OF [place] CORONARY 07/22/2019 BEAN ROBERTS MD Ot E78. 5 HYPERLIPIDEMIA, UNSPECIFIED 07/22/2019 BEAN ROBERTS MD Ot I10 ESSENTIAL (PRIMARY) HYPERTENSION 07/22/2019 ARMANDO SYED, BEAN Bowser Ot I25. 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 07/23/2019 ODEN, JERILYN [...] K Ot I25.10 ATHSCL HEART DISEASE OF [place] CORONARY 07/24/2019 SCOTT BARTHOLOMEW MARTIN K Ot I65.29 OCCLUSION AND STENOSIS OF UNSPECIFIED CA 08/15/2019 SCOTT BARTHOLOMEW MARTIN K Ot E78.5 HYPERLIPIDEMIA, UNSPECIFIED 08/15/2019 SCOTT BARTHOLOMEW, MARTIN K Ot I10 ESSENTIAL (PRIMARY) HYPERTENSION 08/15/2019 SCOTT BARTHOLOMEW, MARTIN K Ot I25.10 ATHSCL HEART DISEASE OF [place] CORONARY 08/15/2019 SCOTT BARTHOLOMEW MARTIN K Ot [...] Ot F41 .9 ANXIETY DISORDER, UNSPECIFIED 01/10/2020 VALERIO HANNA MD Ot H26.493 OTHER SECONDARY CATARACT, [...] 02/21/2020 ELTON COSME MD Ot I70.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 W [facility] 02/21/2020 ELTON OCSME MD Ot I87.332 CHRONIC VENOUS HTN W ULCER AND INFLAMMAT 02/21/2020 ELTON COSME MD Ot L97.222 NON-PRESSURE CHRONIC ULCER OF LEFT CALF 02/21/2020 ELTON COSME MD Ot 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 02/21/2020 ELTON COSME MD Ot I70.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 W [facility] 02/21/2020 ELTON COSME MD Ot I87.332 CHRONIC VENOUS HTN W ULCER AND INFLAMMAT 02/21/2020 ELTON COSME MD Ot L97.222 NON-PRESSURE CHRONIC ULCER OF LEFT CALF 02/21/2020 ELTON COSME MD Ot 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 02/21/2020 ELTON COSME MD Ot I70.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 W [facility] 02/21/2020 ELTON COSME MD Ot I87.332 CHRONIC VENOUS HTN W ULCER AND INFLAMMAT 02/21/2020 ELTON COSME MD Ot L97.222 NON-PRESSURE CHRONIC ULCER OF LEFT CALF 02/26/2020 ELTON COSME MD Ot 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 02/26/2020 ELTON COSME MD Ot I70.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 W [facility] 02/26/2020 ELTON COSME MD Ot I87.332 CHRONIC VENOUS HTN W ULCER AND INFLAMMAT 02/26/2020 ELTON COSME MD, Ot L97.222 NON-PRESSURE CHRONIC ULCER OF LEFT CALF 02/27/2020 ELTON COSME MD Ot 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 02/27/2020 ELTON COSME MD Ot I70.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 W [facility] 02/27/2020 ELTON COSME MD Ot I87.332 CHRONIC VENOUS HTN W ULCER AND INFLAMMAT 02/27/2020 ELTON COSME MD, Ot L97.222 NON-PRESSURE CHRONIC ULCER OF LEFT CALF 02/28/2020 ELTON COSME MD Ot 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 02/28/2020 ELTON COSME MD, Ot I70.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 W [facility] 02/28/2020 ELTON COSME MD Ot I87.332 [...] 03/11/2020 ELTON COSME MD Ot I70.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 W [facility] 03/11/2020 ELTON COSME MD Ot I87.332 CHRONIC VENOUS HTN W ULCER AND INFLAMMAT 03/11/2020 ELTON COSME MD Ot L97.222 NON-PRESSURE CHRONIC ULCER OF LEFT CALF 03/11/2020 ELTON COSME MD Ot 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 03/11/2020 ELTON COSME MD Ot I70.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 W [facility] 03/11/2020 ELTON COSME MD, Ot I87.332 CHRONIC VENOUS HTN W ULCER AND INFLAMMAT 03/11/2020 ELTON COSME MD, Ot L97.222 NON-PRESSURE CHRONIC ULCER OF LEFT CALF 03/11/2020 ELTON COSME MD, Ot 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 03/11/2020 ELTON COSME MD, Ot I70.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 W [facility] 03/11/2020 ELTON COSME MD, Ot I87.332 [...] MD, Ot I25.10 ATHSCL HEART DISEASE OF [place] CORONARY 03/18/2020 ELTON COSME MD, Ot I87.332 [...] MD, Ot I25.10 ATHSCL HEART DISEASE OF [place] CORONARY 03/18/2020 ELTON COSME MD, Ot I87.332 [...] MD, Ot I25.10 ATHSCL HEART DISEASE OF [place] CORONARY 03/24/2020 ELTON COSME MD, Ot I87.332 [...] Code Description Performed By Per formed On [id number] SAMUELS OF SPINAL CANAL, PERCUTANEOUS A [...] CULTURE RESULTS >100,000 Gram Negativ e Lactose Quality Nurse HELEN / ID to Follow MEDIA PLATED [...] Gram stain microscopy GRAM STAIN PERFORMED AT [facility]. NRG Bacterial cerebrospinal fluid culture - 03/31/19 [...] g/dL 3.2-4.5 CALCIUM CORRECTED 9.2 mg/dL 8.5-10.1 Complete blood count (CBC) with automate d white blood cell (WBC) differential - 03/28/20 04:48 Blood leukocytes automated count (number/volume) 10.1 10*3/uL 4.3-11.0 Blood erythrocytes automated count (number/volume) 2.65 10*6/uL 4.35-5.85 Venous blood hemoglobin measurement (mass/volume) 8.1 g/dL 11.5-16.0 Blood hematocrit (volume fraction) 24 % 35-52 Automated erythrocyte mean corpuscular volume 91 [ foz_us] 80-99 Automated erythrocyte mean corpuscular h emoglobin (mass per erythrocyte) 31 pg 25-34 Automated erythrocyte mean corpuscular h emoglobin concentration measurement (mass/volume) 34 g/dL 32-36 Automated erythrocyte distribution width ratio 12. 1 % 10.0- 14.5 Automated blood platelet count (count/volume) 234 10*3/uL 130-400 Automated blood platelet mean volume measurement 10.5 [foz_us] 7.4-10.4 Automated blood neutrophils/100 leukocytes 75 % 42-75 Automated blood lymphocytes/100 leukocytes 11 % 12-44 Blood monocytes/100 leukocytes 12 % 0-12 Automated blood eosinophils/100 leukocytes 1 % 0-10 Automated blood basophils/100 leukocytes 0 % 0-10 Blood neutrophils automated count (number/volume) 7.6 10*3 1.8-7.8 Blood lymphocytes automated count (number/volume) 1.1 10*3 1.0-4.0 Blood monocytes automated count (number/volume) 1. 3 10*3 0.0-1.0 Automated eosinophil count 0.1 10*3/uL 0 .0-0.3 Automated blood basophil count (count/volume) 0.0 10*3/uL 0.0-0.1 Comprehensive metabolic panel - 03/28/20 04:48 Serum or plasma sodium measurement (moles/volume) 130 mmol/L 135-145 Serum or plasma potassium measurement (moles/volume) 3.7 mmol/L 3.6-5.0 Serum or plasma chloride measurement (moles/volume) 97 mmol/L 98-107 Carbon dioxide 25 mmol/L 21-32 Serum or plasma anion gap determination (moles/volume) 8 mmol/L 5-14 Serum or plasma urea nitrogen measurement (mass/volume ) 13 mg/dL 7-18 Serum or plasma creatinine measurement (mass/volume) 0.83 mg/dL 0.60-1.30 Serum or plasma urea nitrogen/creatinine mass ratio 16 NRG Serum or plasma creatinine measurement w ith calculation of estimated glomerular filtration rate > NRG Serum or plasma glucose measurement (mass/volume) 126 mg/dL 70-105 Serum or plasma calcium measurement (mass/volume) 8.4 mg/dL 8.5-10.1 Serum or plasma total bilirubin measurement (mass/volu me) 0.8 mg/dL 0.1-1.0 Serum or plasma alkaline phosphatase germán surement (enzymatic activity/volume) 73 U/L 40-136 Serum or plasma aspartate aminotransfera se measurement (enzymatic activity/volume) 47 U/L 5-34 Serum or plasma alanine aminotransferase measurement (enzymatic activity/volume) 24 U/L 0-55 Serum or plasma protein measurement (mass/volume) 4.8 g/dL 6.4-8.2 Serum or plasma albumin measurement (mass/volume) 3.0 g/dL 3.2-4.5 CALCIUM CORRECTED 9.2 mg/dL 8.5-10.1 IRON TEST - 03/28/20 04:48 Serum or plasma iron measurement (mass/volume) 9 % 33-167 Complete urinalysis with reflex to cultu re - 03/28/20 14:43 Urine color determination YELLOW NRG Urine clarity determination SL CLOUDY N RG Urine pH measurement by test strip 6.5 5-9 Specific gravity of urine by test strip 1.010 1.016-1.022 Urine protein assay by test strip, semi-quantitative 2+ NEGATIVE Urine glucose detection by automated test strip NE GATIVE NEGATIVE Erythrocytes detection in urine sediment by light micr oscopy 3+ NEGATIVE Urine ketones detection by automated test strip NE GATIVE NEGATIVE Urine nitrite detection by test strip POSITIVE NEGATIVE Urine total bilirubin detection by test strip NEGA TIVE NEGATIVE Urine urobilinogen measurement by automated test strip (mass/volume) 0.2 mg/dL < = 1.0 Urine leukocyte esterase detection by dipstick 2+ NEGATIVE Automated urine sediment erythrocyte cou nt by microscopy (number/high power field) [HPF] NRG Automated urine sediment leukocyte count by microscopy (number/high power field) [HPF] NRG Bacteria detection in urine sediment by light microsco py MODERATE NRG Crystals detection in urine sediment by light microsco py NONE NRG Casts detection in urine sediment by light microscopy PRESENT NRG Mucus detection in urine sediment by light microscopy SMALL NRG Complete urinalysis with reflex to culture YES NRG Hyaline casts detection in urine sediment by light helen roscopy RARE NRG WBC casts detection in urine sediment by light microsc opy RARE NRG Bacterial urine culture - 03/28/20 14:43 Bacterial urine culture SEE COMMEN NRG COLONY COUNT . NRG SUSCEPTIBILITY SUSCEPTIBILTIY REPORTED 03/30 14:40 NRG RAPID ID PRELIM RAPID ID TEST AT [facility] 03/29 07:34 NRG ID CONFIRMATION RML CONFIRMED ID 03/30 06:05 NRG Dirithromycin susceptibility test by dis k diffusion - 03/28/20 14:43 Gentamicin susceptibility test by minimum inhibitory c oncentration <= NRG Levofloxacin susceptibility test by minimum inhibitory concentration <= NRG Tobramycin susceptibility test by minimum inhibitory c oncentration <= NRG Piperacillin/tazobactam susceptibility t est by minimum inhibitory concentration = NRG Ciprofloxacin susceptibility test by minimum inhibitor y concentration <= NRG Meropenem susceptibility test by minimum inhibitory co ncentration <= NRG Aztreonam susceptibility test by minimum inhibitory co ncentration 8 NRG Cefepime susceptibility test by minimum inhibitory con centration 4 NRG Imipenem susceptibility test by minimum inhibitory con centration 2 NRG Ceftazidime susceptibility test by minimum inhibitory concentration 4 NRG Complete blood count (CBC) with automate d white blood cell (WBC) differential - 03/29/20 04:00 Blood leukocytes automated count (number/volume) 11.0 10*3/uL 4.3-11.0 Blood erythrocytes automated count (number/volume) 2.58 10*6/uL 4.35-5.85 Venous blood hemoglobin measurement (mass/volume) 8.2 g/dL 11.5-16.0 Blood hematocrit (volume fraction) 24 % 35-52 Automated erythrocyte mean corpuscular volume 92 [ foz_us] 80-99 Automated erythrocyte mean corpuscular h emoglobin (mass per erythrocyte) 32 pg 25-34 Automated erythrocyte mean corpuscular h emoglobin concentration measurement (mass/volume) 35 g/dL 32-36 Automated erythrocyte distribution width ratio 12. 1 % 10.0- 14.5 Automated blood platelet count (count/volume) 275 10*3/uL 130-400 Automated blood platelet mean volume measurement 10.5 [foz_us] 7.4-10.4 Automated blood neutrophils/100 leukocytes 67 % 42-75 Automated blood lymphocytes/100 leukocytes 14 % 12-44 Blood monocytes/100 leukocytes 16 % 0-12 Automated blood eosinophils/100 leukocytes 4 % 0-10 Automated blood basophils/100 leukocytes 0 % 0-10 Blood neutrophils automated count (number/volume) 7.3 10*3 1.8-7.8 Blood lymphocytes automated count (number/volume) 1.6 10*3 1.0-4.0 Blood monocytes automated count (number/volume) 1. 7 10*3 0.0-1.0 Automated eosinophil count 0.4 10*3/uL 0 .0-0.3 Automated blood basophil count (count/volume) 0.0 10*3/uL 0.0-0.1 Comprehensive metabolic panel - 03/29/20 04:00 Serum or plasma sodium measurement (moles/volume) 130 mmol/L 135-145 Serum or plasma potassium measurement (moles/volume) 3.4 mmol/L 3.6-5.0 Serum or plasma chloride measurement (moles/volume) 94 mmol/L 98-107 Carbon dioxide 22 mmol/L 21-32 Serum or plasma anion gap determination (moles/volume) 14 mmol/L 5-14 Serum or plasma urea nitrogen measurement (mass/volume ) 20 mg/dL 7-18 Serum or plasma creatinine measurement (mass/volume) 1.18 mg/dL 0.60-1.30 Serum or plasma urea nitrogen/creatinine mass ratio 17 NRG Serum or plasma creatinine measurement w ith calculation of estimated glomerular filtration rate 45 NRG Serum or plasma glucose measurement (mass/volume) 129 mg/dL 70-105 Serum or plasma calcium measurement (mass/volume) 8.5 mg/dL 8.5-10.1 Serum or plasma total bilirubin measurement (mass/volu me) 0.6 mg/dL 0.1-1.0 Serum or plasma alkaline phosphatase germán surement (enzymatic activity/volume) 58 U/L 40-136 Serum or plasma aspartate aminotransfera se measurement (enzymatic activity/volume) 42 U/L 5-34 Serum or plasma alanine aminotransferase measurement (enzymatic activity/volume) 25 U/L 0-55 Serum or plasma protein measurement (mass/volume) 5.5 g/dL 6.4-8.2 Serum or plasma albumin measurement (mass/volume) 3.2 g/dL 3.2-4.5 CALCIUM CORRECTED 9.1 mg/dL 8.5-10.1 Complete blood count (CBC) with automate d white blood cell (WBC) differential - 03/30/20 05:16 Blood leukocytes automated count (number/volume) 6.6 10*3/uL 4.3-11.0 Blood erythrocytes automated count (number/volume) 2.46 10*6/uL 4.35-5.85 Venous blood hemoglobin measurement (mass/volume) 7.7 g/dL 11.5-16.0 Blood hematocrit (volume fraction) 22 % 35-52 Automated erythrocyte mean corpuscular volume 89 [ foz_us] 80-99 Automated erythrocyte mean corpuscular h emoglobin (mass per erythrocyte) 31 pg 25-34 Automated erythrocyte mean corpuscular h emoglobin concentration measurement (mass/volume) 35 g/dL 32-36 Automated erythrocyte distribution width ratio 12. 1 % 10.0- 14.5 Automated blood platelet count (count/volume) 284 10*3/uL 130-400 Automated blood platelet mean volume measurement 9.9 [foz_us] 7.4-10.4 Automated blood neutrophils/100 leukocytes 63 % 42-75 Automated blood lymphocytes/100 leukocytes 17 % 12-44 Blood monocytes/100 leukocytes 16 % 0-12 Automated blood eosinophils/100 leukocytes 3 % 0-10 Automated blood basophils/100 leukocytes 0 % 0-10 Blood neutrophils automated count (number/volume) 4.2 10*3 1.8-7.8 Blood lymphocytes automated count (number/volume) 1.1 10*3 1.0-4.0 Blood monocytes automated count (number/volume) 1. 1 10*3 0.0-1.0 Automated eosinophil count 0.2 10*3/uL 0 .0-0.3 Automated blood basophil count (count/volume) 0.0 10*3/uL 0.0-0.1 Comprehensive metabolic panel - 03/30/20 05:16 Serum or plasma sodium measurement (moles/volume) 132 mmol/L 135-145 Serum or plasma potassium measurement (moles/volume) 3.6 mmol/L 3.6-5.0 Serum or plasma chloride measurement (moles/volume) 97 mmol/L 98-107 Carbon dioxide 23 mmol/L 21-32 Serum or plasma anion gap determination (moles/volume) 12 mmol/L 5-14 Serum or plasma urea nitrogen measurement (mass/volume ) 17 mg/dL 7-18 Serum or plasma creatinine measurement (mass/volume) 0.92 mg/dL 0.60-1.30 Serum or plasma urea nitrogen/creatinine mass ratio 18 NRG Serum or plasma creatinine measurement w ith calculation of estimated glomerular filtration rate 60 NRG Serum or plasma glucose measurement (mass/volume) 115 mg/dL 70-105 Serum or plasma calcium measurement (mass/volume) 9.2 mg/dL 8.5-10.1 Serum or plasma total bilirubin measurement (mass/volu me) 0.7 mg/dL 0.1-1.0 Serum or plasma alkaline phosphatase germán surement (enzymatic activity/volume) 62 U/L 40-136 Serum or plasma aspartate aminotransfera se measurement (enzymatic activity/volume) 37 U/L 5-34 Serum or plasma alanine aminotransferase measurement (enzymatic activity/volume) 21 U/L 0-55 Serum or plasma protein measurement (mass/volume) 5.7 g/dL 6.4-8.2 Serum or plasma albumin measurement (mass/volume) 3.1 g/dL 3.2-4.5 CALCIUM CORRECTED 9.9 mg/dL 8.5-10.1 Complete blood count (CBC) with automate d white blood cell (WBC) differential - 03/31/20 04:40 Blood leukocytes automated count (number/volume) 5.3 10*3/uL 4.3-11.0 Blood erythrocytes automated count (number/volume) 2.33 10*6/uL 4.35-5.85 Venous blood hemoglobin measurement (mass/volume) 7.3 g/dL 11.5-16.0 Blood hematocrit (volume fraction) 21 % 35-52 Automated erythrocyte mean corpuscular volume 92 [ foz_us] 80-99 Automated erythrocyte mean corpuscular h emoglobin (mass per erythrocyte) 31 pg 25-34 Automated erythrocyte mean corpuscular h emoglobin concentration measurement (mass/volume) 34 g/dL 32-36 Automated erythrocyte distribution width ratio 12. 1 % 10.0- 14.5 Automated blood platelet count (count/volume) 299 10*3/uL 130-400 Automated blood platelet mean volume measurement 9.3 [foz_us] 7.4-10.4 Automated blood neutrophils/100 leukocytes 57 % 42-75 Automated blood lymphocytes/100 leukocytes 17 % 12-44 Blood monocytes/100 leukocytes 23 % 0-12 Automated blood eosinophils/100 leukocytes 3 % 0-10 Automated blood basophils/100 leukocytes 0 % 0-10 Blood neutrophils automated count (number/volume) 3.0 10*3 1.8-7.8 Blood lymphocytes automated count (number/volume) 0.9 10*3 1.0-4.0 Blood monocytes automated count (number/volume) 1. 2 10*3 0.0-1.0 Automated eosinophil count 0.2 10*3/uL 0 .0-0.3 Automated blood basophil count (count/volume) 0.0 10*3/uL 0.0-0.1 Comprehensive metabolic panel - 03/31/20 04:40 Serum or plasma sodium measurement (moles/volume) 137 mmol/L 135-145 Serum or plasma potassium measurement (moles/volume) 3.6 mmol/L 3.6-5.0 Serum or plasma chloride measurement (moles/volume) 101 mmol/L 98-107 Carbon dioxide 25 mmol/L 21-32 Serum or plasma anion gap determination (moles/volume) 11 mmol/L 5-14 Serum or plasma urea nitrogen measurement (mass/volume ) 12 mg/dL 7-18 Serum or plasma creatinine measurement (mass/volume) 0.80 mg/dL 0.60-1.30 Serum or plasma urea nitrogen/creatinine mass ratio 15 NRG Serum or plasma creatinine measurement w ith calculation of estimated glomerular filtration rate > NRG Serum or plasma glucose measurement (mass/volume) 116 mg/dL 70-105 Serum or plasma calcium measurement (mass/volume) 8.9 mg/dL 8.5-10.1 Serum or plasma total bilirubin measurement (mass/volu me) 0.5 mg/dL 0.1-1.0 Serum or plasma alkaline phosphatase germán surement (enzymatic activity/volume) 55 U/L 40-136 Serum or plasma aspartate aminotransfera se measurement (enzymatic activity/volume) 34 U/L 5-34 Serum or plasma alanine aminotransferase measurement (enzymatic activity/volume) 21 U/L 0-55 Serum or plasma protein measurement (mass/volume) 5.2 g/dL 6.4-8.2 Serum or plasma albumin measurement (mass/volume) 2.8 g/dL 3.2-4.5 CALCIUM CORRECTED 9.9 mg/dL 8.5-10.1 Encounters ACCT No. Visit Date/Time Discharge Status Pt. Type Provider Facility Loc./Unit Complaint [id number] 10/16/2014 12:24:00 10/16/2014 23:59: 59 CLS Outpatient PARMINDER ZAMORANO RAYNA Tete [id number] 03/11/2020 15:01:00 03/11/2020 23:59 :00 DIS Outpatient JERILYN ODEN [id number] 02/19/2020 15:13:00 02/19/2020 23:59 :00 DIS Outpatient JERILYN ODEN [id number] 02/19/2020 10:14:00 02/19/2020 23:59 :00 DIS Outpatient JERILYN ODEN [id number] 12/27/2019 10:31:00 12/27/2019 23:59 :00 DIS Outpatient MARISA SMILEY [id number] 12/06/2019 11:01:00 12/06/2019 23:59 :00 DIS Outpatient MARISA SMILEY [id number] 11/28/2019 14:51:00 11/28/2019 23:59 :00 DIS Outpatient AKSHAT, JERILYN [id number] 11/28/2019 13:06:00 11/28/2019 23:59 :00 DIS Outpatient AKSHAT, JERILYN [id number] 11/28/2019 09:57:00 11/28/2019 23:59 :00 DIS Outpatient AKSHAT, JERILYN [id number] 11/21/2019 14:16:00 11/21/2019 23:59 :00 DIS Outpatient AKSHAT, JERILYN [id number] 11/18/2019 14:29:00 11/18/2019 23:59 :00 DIS Outpatient Leatha Cole [id number] 11/12/2019 18:03:00 11/12/2019 23:59 :00 DIS Outpatient AKSHAT, JERILYN [id number] 11/12/2019 11:01:00 11/12/2019 23:59 :00 DIS Outpatient AKSHAT JERILYN [id number] 10/18/2019 14:50:00 10/18/2019 23:59 :00 DIS Outpatient Bozena Rodas [id number] 09/30/2019 17:25:00 09/30/2019 23:59: 00 DIS Outpatient Bozena Rodas [id number] 09/12/2019 12:39:00 09/12/2019 23:59: 00 DIS Outpatient AKSHAT JERILYN [id number] 09/11/2019 16:31:00 09/11/2019 23:59: 00 DIS Outpatient AKSHATJERILYN [id number] 08/28/2019 16:22:00 08/28/2019 23:59: 00 DIS Outpatient AKSHAT JERILYN [id number] 07/23/2019 14:10:00 07/23/2019 23:59: 00 DIS Outpatient AKSHAT JERILYN [id number] 03/20/2019 15:43:00 03/20/2019 23:59: 00 DIS Outpatient AKSHAT JERILYN [id number] 02/26/2019 17:45:00 02/26/2019 23:59: 00 DIS Outpatient ODENJERILYN [id number] 11/14/2018 00:00:00 11/14/2018 23:59: 00 DIS Outpatient ODENJERILYN [id number] 11/12/2018 09:10:00 11/12/2018 23:59: 00 DIS Outpatient ODENJERILYN NOLASCO [id number] 09/16/2018 07:00:00 09/16/2018 23:59: 00 DIS Outpatient JERILYN ODEN [id number] 08/31/2018 19:26:00 08/31/2018 20:48: 00 DIS Outpatient Candice De La O [facility] [id number] 06/13/2018 12:12:00 06/13/2018 23:59: 00 DIS Outpatient JERILYN ODEN [id number] 12/21/2017 09:30:00 12/21/2017 23:59: 00 DIS Outpatient Sukumar Schmidt B [id number] 10/19/2017 11:02:00 10/19/2017 23:59: 00 DIS Outpatient Sukumar Schmidt [id number] 10/12/2017 13:48:00 10/12/2017 23:59: 00 DIS Outpatient JERILYN ODEN [id number] 10/10/2017 13:33:00 10/10/2017 23:59: 00 DIS Outpatient JERILYN ODEN [id number] 07/18/2017 15:45:00 07/18/2017 23:59: 00 DIS Outpatient JERILYN ODEN [id number] 02/08/2017 00:00:00 02/08/2017 23:59: 00 DIS Outpatient JERILYN ODEN [id number] 06/10/2019 08:19:00 Document Registration [id number] 06/03/2019 10:30:00 Document Registration [id number] 05/07/2019 11:00:00 Document Registration [id number] 04/10/2019 09:30:00 Document Registration [id number] 03/25/2019 22:55:00 ACT Inpatient JERILYN ODEN [facility] MED-SURG [id number] 03/20/2019 15:20:00 Document Registration [id number] 02/27/2019 15:00:00 Document Registration [id number] 11/12/2018 08:00:00 Document Registration [id number] 09/11/2018 15:40:00 Document Registration [id number] 08/31/2018 19:58:33 Document Registration [id number] 07/19/2018 13:20:00 Document Registration [id number] 06/13/2018 10:23:00 Document Registration [id number] 03/14/2018 11:20:00 Document Registration [id number] 03/06/2018 11:00:00 Document Registration [id number] 11/30/2017 10:30:00 Document Registration [id number] 10/10/2017 08:20:00 Document Registration [id number] 08/03/2017 10:30:00 Document Registration [id number] 07/18/2017 14:45:00 Document Registration [id number] 07/05/2017 15:38:00 Document Registration [id number] 03/23/2020 14:21:00 23:59:59 CLS Outpatient ELTON COSME MD [facility] [id number] 03/19/2020 12:55:00 23:59:59 CLS Outpatient ELTON COSME MD [facility] [id number] 03/17/2020 11:19:00 23:59:59 CLS Outpatient ELTON COSME MD [facility] [id number] 03/12/2020 11:48:00 23:59:59 CLS Outpatient ELTON COSME MD [facility] [id number] 03/05/2020 12:20:00 23:59:59 CLS Outpatient ELTON COSME MD [facility] [id number] 02/27/2020 13:24:00 23:59:59 CLS Outpatient ELTON COSME MD [facility] [id number] 02/20/2020 14:40:00 23:59:59 CLS Outpatient ELTON COSME MD [facility] LAB CHRONIC ULCER LT CALF [id number] 02/20/2020 12:33:00 23:59:59 CLS Outpatient ELTON COSME MD [facility] [id number] 01/10/2020 09:10:00 10:25:00 DIS Outpatient VALERIO HANNA MD [facility] SDC [facility] [id number] 01/07/2020 05:33:00 12:13:00 DIS Outpatient VALERIO HANNA MD [facility] PREOP YAG [id number] 12/06/2019 13:23:00 23:59:59 CLS Outpatient KATTY QUINTANA MD [facility] RAD SPONDYLOLISTHES ES [id number] 11/27/2019 08:00:00 23:59:59 CLS Preadmit KATTY QUINTANA MD [facility] RAD SPONDYLOLISTHESIS, LUMB AR REGION [id number] 11/22/2019 09:29:00 23:59:59 CLS Outpatient JERILYN ODEN MD [facility] RAD ACUTE MEMORY LOSS,H/O CAROTID STENOSIS,SCREENING [id number] 09/24/2019 10:21:00 23:59:59 CLS Outpatient GUEVARA GREENE MD [facility] RAD LUMBAR RADICULPATHY [id number] 07/22/2019 08:25:00 23:59:59 CLS Outpatient DENISE COREY [facility] CARD CAD,HTN,CAR OTID ARTERY STENOSIS [id number] 03/26/2019 14:00:00 15:15:00 DIS Inpatient DEIRDRE PORRAS MD [facility] 4TH UTI;AMS [id number] 11/25/2018 00:09:00 23:59:59 CLS Preadmit JERILYN ODEN MD [facility] CR3 WELLNESS [id number] 10/25/2018 13:00:00 019 00:01:00 DIS Outpatient JERILYN ODEN MD [facility] CR3 WELLNESS [id number] 11/07/2018 10:02:00 23:59:59 CLS Outpatient JERILYN ODEN MD [facility] RAD SCREENING [id number] 08/30/2018 06:00:00 00:01:00 DIS Outpatient JERILYN ODEN MD [facility] WELLNESS [id number] 07/31/2018 06:00:00 018 00:01:00 DIS Outpatient JERILYN ODEN MD [facility] WELLNESS [id number] 06/26/2018 06:00:00 018 00:01:00 DIS Outpatient JERILYN ODEN MD [facility] WELLNESS [id number] 05/24/2018 06:00:00 018 00:01:00 DIS Outpatient JERILYN ODEN MD [facility] WELLNESS [id number] 04/24/2018 06:00:00 018 00:01:00 DIS Outpatient JERILYN ODEN MD [facility] WELLNESS [id number] 03/06/2018 06:00:00 018 00:01:00 DIS Outpatient JERILYN ODEN MD [facility] WELLNESS [id number] 10/31/2017 11:09:00 017 23:59:59 CLS Outpatient JERILYN ODEN MD [facility] RAD SCREENING [id number] 10/12/2017 08:25:00 017 23:59:59 CLS Preadmit VICKI ODEN [facility] CARD CAD [id number] 03/16/2017 10:10:00 017 23:59:59 CLS Outpatient BEAN ROBERTS MD [facility] CARD CAD,CAROTID ARTERY STENOSIS,HLP,HTN [id number] 03/08/2017 08:25:00 017 23:59:59 CLS Outpatient BEAN ROBERTS MD [facility] CARD CAD I25.10 ,CAROTID ART JAYLON STENOSIS, HLP, HTN [id number] 02/15/2017 08:41:00 017 23:59:59 CLS Outpatient JERILYN ODEN MD [facility] RAD CHRONIC SINUSITIS [id number] 01/19/2017 11:00:00 15:00:00 DIS Outpatient JERILYN ODEN MD [facility] REHAB LOW BACK PAIN WITH RAD ICULOPATHY [id number] 10/17/2016 10:01:00 23:59:59 CLS Outpatient JERILNY ODEN MD [facility] RAD SCREENING [id number] 10/08/2014 09:35:00 23:59:59 CLS Outpatient KYRIE GUERRA MD [facility] RAD ROUTINE [id number] 03/03/2014 08:23:00 11:10:00 DIS Outpatient PHOEBE RAMOS MD [facility] SDC HX COLON CANCER [id number] 02/27/2014 07:32:00 23:59:59 CLS Outpatient PHOEBE RAMOS MD [facility] PREOP HX OF COLON CANCER [id number] 02/25/2014 11:39:00 23:59:59 CLS Outpatient DENISE COREY [facility] RAD CAD,HTN,HLP [id number] 02/19/2014 10:35:00 23:59:59 CLS Outpatient DENISE COREY [facility] CARD CAD,HTN,HLP [id number] 01/01/2014 12:02:00 11:45:00 DIS Outpatient BEAN ROBERTS MD [facility] CR STABLE ANGINA [id number] 12/18/2013 12:52:00 14:43:00 DIS Outpatient BEAN ROBERTS MD [facility] CR STABLE ANGINA [id number] 09/18/2013 10:29:00 23:59:59 CLS Outpatient REINIER WHEATLEY V ia [facility] ONC [id number] 07/30/2013 09:15:00 14:00:00 DIS Outpatient MOISES MEDINA [facility] REHAB R HIP PAIN [id number] 07/31/2013 07:33:00 013 11:55:00 DIS Outpatient ARMANDO SYED, BEAN Bowser [facility] CATH CHEST PAIN,SOB,HTN,ABN EKG [id number] 04/01/2020 05:48:[address] Inpatient SIMON DO, JESS [facility] ICU METABOLIC ENCEPHALOPATHY [id number] 03/27/2020 17:55:[address] Inpatient SIMON DO JESS [facility] IRF LUMBAR STENOSIS W/NEUROGENIC CLAUDICATION [id number] 10/14/2015 10:01:00 Document Registration [id number] 09/17/2014 10:24:00 Document Registration [id number] 01/17/2013 12:28:00 Document Registration [id number] 01/08/2013 15:33:00 Document Registration [id number] 11/26/2012 09:52:00 Document Registration [id number] 07/05/2012 13:56:00 Document Registration [id number] 01/26/2020 14:30:00 01/26/2020 23:59:5 9 [facility] Outpatient [facility]
--- NOTE | 2020-04-01 06:08 | History & Physical ---
History of Present Illness HPI/Chief Complaint CC: Worsening altered mental status with aggression HPI: This is a 74yoWF clinic Pt of Dr. Clover Sims who worsened with confusion, became agitated and aggressive within inpatient rehab, that had been escalating for the past several days after she was admitted on Monday after an uncomplicated lumbar spine surgery. Pt was moved up to the ICU lactic acid of 2.3 was noted, but no evidence or signs of infection. She was maintained on Cefepime 1G Q12hrs, for the documented pseudomonas UTI. Overall she did require Geodon, intramuscular injection, along with Precedex and I did confer with Dr. Clover Sims, who reported she had some memory lost within the past year every since her , and when I took care of her in March of 2019, she had to the group home because the encephalopathy was so severe. Pt at this current time is agitated and has a one-on-one at the bedside. IRF note from yesterday: Patient still has some confusion this morning and told the nurse she thought she had delivered a baby Pt still confused, a lot of flight of ideas Hgb 7.3 Midline may be needed if she takes out her IV Risperdal will be attempted to be started for the delirium Nurse researched her last visit and it appears she went to the group home for a week and the family took her out of there and she only cleared her encephalopathy after she got home so that may very well be required here Fall risk I recall her severe delirium during her last hospital stay 2 years ago when I took care of her resulted in transfer to group home due to the severity and I did review that hospital course Will minimize Gabapentin and Flexeril and pain meds UTI Pseudomonasso DC Rocephin and started Cefepime empirically Day # 3 Hyponatremia noted at 135 now 132 and already held Chlorathalidone and placeed on fluid restriction in the meantime also Iron level very low with anemia so started Venofer since anemia can slow recovery and hgb 7.3 today BM regular Catheter replaced due to retention 2 nights ago Took shower Incision looks good Conferred with RN Reviewed therapy notes Checked meds and labs Assessment: s/p lumbar stenosis surgery due to neurogenic claudication POD # 7 Dr Mace Psoriatric arthritis Delirium with h/o delirium 2 years ago now requiring transfer to ICU Hypothyroidism HTN Hyponatremia holding Chlorathalidone Post op constipation Urinary retention failed voiding trial Diaz DC per Dr Naik but required replacement last night 03/29/20 due to retention UTI Pseudomonas placed on Cefepime and stopped Rocephin Anemia iron deficiency placed on Venofer Pill consumption from purse this morning? Plan: Dr Naik consultation will be necessary appreciated Monitor sodium level IRF protocol Fluid restriction Monitor labs IV abx Ucx Venofer BM regimen (1) Lumbar stenosis with neurogenic claudication (2) Hypothyroidism (3) Osteopenia (4) Diaz catheter in place (5) Urinary retention (6) Hyponatremia (7) Psoriatic arthritis Status: Chronic (8) Hypertension (9) Delirium Status: Acute (10) UTI (urinary tract infection) Status: Acute Exam Limitations: clinical condition Date Seen 04/01/20 Time Seen by a Provider: 11:00 Attending Physician Tanesha Simon DO PCP Clover Ramesh MD Referring Physician Date of Admission April 01, 2020 at 05:48 Home Medications & Allergies Home Medications Reviewed patient Home Medication Reconciliation performed by pharmacy medication reconciliations cardiac catheterization technician and/or nursing. Patients Allergies have been reviewed. Allergies Allergies Coded Allergies levofloxacin (Verified Allergy, Mild, TENDINITIS, 01/08/20) Past Tceghai-Dlmftg-Vbgryz Hx Past Med/Social Hx: Reviewed Nursing Past Med/Soc Hx, Reviewed and Corrections made Patient Social History Marrital Status: Employed/Student: retired Alcohol Use: Denies Use Smoking Status: Never a Smoker Recent Hopitalizations: No Immunizations Up To Date Date of Pneumonia Vaccine: Aug 07, 2017 Seasonal Allergies Seasonal Allergies: Yes Past Medical History Surgeries: Orthopedic Cardiac: Hypertension Neurological: Dementia Sexually Transmitted Disease: No HIV/AIDS: No Female Reproductive Disorders: Denies Genitourinary: Bladder Infection, UTI-Chronic Musculoskeletal: Arthritis, Rheumatoid Arthritis, Back Injury, Chronic Back Pain Endocrine: Hypothyroidsim HEENT: Cataract Loss of Vision: Bilateral Hearing Impairment: Hard of Hearing, Hearing Aide Right, Hearing Aide Left, Bilateral Hearing Aide Cancer: Colon Did You Recieve Any Treatments: Yes What Type of Treatment Did You: Chemotherapy History of Blood Disorders: Yes Adverse Reaction to Blood Umana: No Family History Cardiovascular disease 19 FATHER G8 BROTHER Review of Systems Constitutional: see HPI, malaise, weakness Psychiatric/Neurological: Other (cnfusion) Physical Exam Physical Exam Vital Signs Vital Signs - First Documented 04/01/20 05:58 Temp 37.4 Pulse 136 Resp 34 B/P (MAP) 121/73 (89) O2 Delivery Room Air Capillary Refill : Height, Weight, BMI Height: 4'10.00" Weight: 118lbs. 0.0oz. 53.053082rg; 27.87 BMI Method: General Appearance: WD/WN, Anxious, Chronically ill, Mild Distress, Other (confused) Eyes: Bilateral Eye Normal Inspection, Bilateral Eye PERRL HEENT: PERRL/EOMI, Normal ENT Inspection, Pharynx Normal Neck: Full Range of Motion, Normal Inspection, Non Tender, Supple, Carotid Bruit Respiratory: Chest Non Tender, Lungs Clear, Normal Breath Sounds, No Accessory Muscle Use, No Respiratory Distress Cardiovascular: Regular Rate, Rhythm, No Edema, No Gallop, No JVD, No Murmur, Normal Peripheral Pulses Gastrointestinal: Normal Bowel Sounds, No Organomegaly, No Pulsatile Mass, Non Tender, Soft Back: Normal Inspection, Decreased Range of Motion Extremity: Normal Capillary Refill, Normal Inspection, Normal Range of Motion, Non Tender, No Calf Tenderness, No Pedal Edema Neurologic/Psychiatric: Alert, No Motor/Sensory Deficits, Normal 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 Assessment/Plan Admission Diagnosis Assessment: Delirium with h/o delirium 2 years ago now requiring transfer to ICU due to the severity of the metabolic encephalopathy Elevated lactic acid due to agitation and dehydration s/p lumbar stenosis surgery due to neurogenic claudication POD # 8 Dr Mace Psoriatric arthritis/RA Hypothyroidism HTN Hyponatremia holding Chlorathalidone Post op constipation resolved Urinary retention failed voiding trial Diaz DC per Dr Naik but required replacement 03/29/20 due to continued etention UTI Pseudomonas placed on Cefepime and stopped Rocephin Anemia iron deficiency placed on Venofer Pill consumption from purse this morning? APAP? Plan: Dr Grimm consultation appreciated Dr Naik consultation appreciated Monitor sodium level IRF return maybe? Fluid restriction Monitor labs IV abx Ucx Venofer BM regimen Precedex and Geodon Admission Status: Inpatient Order (span 2 midnights) Reason for Inpatient Admission: encephalopathy Diagnosis/Problems Diagnosis/Problems (1) Encephalopathy acute (2) UTI (urinary tract infection) Status: Acute (3) Delirium Status: Acute (4) Hypertension (5) Lumbar stenosis with neurogenic claudication (6) Diaz catheter in place (7) Osteopenia (8) Hypothyroidism (9) Hyponatremia (10) Psoriatic arthritis Status: Chronic (11) Urinary retention (12) Lumbar radiculopathy TANESHA SIMON DO April 01, 2020 06:08
[2020-04-01 06:15] LABS: ABG BASE EXCESS 2.3 MMOL/L (-2.5-2.5); ABG OXYGEN SATURATION 58 % (94-100); ABG PCO2 38 MMHG (35-45); ABG PH 7.45 (7.37-7.43); ABG PO2 44 MMHG (79-93); ABG TCO2 27.1 MMOL/L (21.0-31.0)
[2020-04-01] MEDS: CEFEPIME INJECTION 1,000 MG in WATER (STERILE) FOR INJECTION 10 ML IV SCH ×3 (06:21→17:39)
[2020-04-01 06:30] LABS: ALLENS TEST POSITIVE; INSPIRED O2 RA; PATIENT TEMP 37.4; VENTILATOR NO
--- NOTE | 2020-04-01 06:32 | Pulmonary Consultation ---
History of Present Illness History of Present Illness Date Seen by Provider: April 01, 2020 Time Seen by Provider: 06:27 Date of Admission History of Present Illness 74yo with hx of spinal stenosis s/p surgery admitted to IRF yesterday secondary to debility she was transferred to ICU this AM secondary to acute psychosis. Pt pulled her dewitt and IVs out. She was found with unknown pills in her bed and purse. Nurses are currently trying to get another IV and holding pt down secondary to acute psychosis. She received 1mg of Ativan and 1mg of Haldol in IRF. We are giving Geodon now. She does have a hx of psychosis when hospitalized. Pt has been dx with pseudomonus UTI and is currenlty on Cefepime. septic workup in process. I am consulted for ICU mangement. Allergies and Home Medications Allergies Coded Allergies: levofloxacin (Verified Allergy, Mild, TENDINITIS, 01/08/20) Home Medications Aspirin 81 Mg Tablet.dr, 81 MG PO DAILY, (Reported) Atorvastatin Calcium 40 Mg Tablet, 40 MG PO HS, (Reported) Biotin 2,500 Mcg Capsule, 2,500 MCG PO BID, (Reported) Calcium Carbonate 600 Mg Tablet, 1,200 MG PO DAILY, (Reported) Chlorthalidone 25 Mg Tablet, 25 MG PO DAILY, (Reported) Cholecalciferol (Vitamin D3) 50 Mcg Capsule, 50 MCG PO DAILY, (Reported) Clobetasol Propionate 15 Gm Cream..g., 1 APPLIC TP BID, (Reported) Cyclobenzaprine HCl 10 Mg Tablet, 10 MG PO HS PRN for MUSCLE SPASMS, (Reported) Famotidine 20 Mg Tablet, 20 MG PO BID, (Reported) Gabapentin 600 Mg Tablet, 600 MG PO TID, (Reported) Levothyroxine Sodium 75 Mcg Tablet, 75 MCG PO DAILY, (Reported) Losartan Potassium 100 Mg Tablet, 100 MG PO DAILY, (Reported) Metoprolol Tartrate 25 Mg Tablet, 12.5 MG PO BID, (Reported) TAKES 1/2 (25MG) TABLET Montelukast Sodium 10 Mg Tablet, 10 MG PO HS, (Reported) Multivitamin 1 Each Tablet, 1 TAB PO DAILY, (Reported) [place]-3 Fatty Acids/Fish Oil 1 Each Capsule.dr, 1 EACH PO DAILY, (Reported) Tramadol HCl 50 Mg Tablet, 50-100 MG PO Q6H PRN for PAIN-MODERATE (5-7), (Reported) Past Ewhknzh-Vapgnw-Rmsaeo Hx Patient Social History Recent Hopitalizations: No Immunizations Up To Date Date of Pneumonia Vaccine: Aug 07, 2017 Seasonal Allergies Seasonal Allergies: Yes Past Medical History Surgeries: Yes (CYROPLASTY) Orthopedic Respiratory: No Cardiac: Yes (CABAGE 2012) Hypertension Neurological: No Female Reproductive Disorders: Denies Sexually Transmitted Disease: No HIV/AIDS: No Genitourinary: Yes UTI-Chronic Gastrointestinal: Yes (COLON CA 2000 ( BOWEL RESECTION )) Musculoskeletal: Yes Arthritis, Rheumatoid Arthritis, Back Injury, Chronic Back Pain Hypothyroidsim HEENT: Yes (CATARACT SURGERY) Cataract Loss of Vision: Bilateral Hearing Impairment: Hard of Hearing, Hearing Aide Right, Hearing Aide Left, Bilateral Hearing Aide Cancer: Yes Colon Did You Recieve Any Treatments: Yes What Type of Treatment Did You: Chemotherapy Psychosocial: No Blood Disorders: Yes Adverse Reaction/Blood Tranf: No Family Medical History Cardiovascular disease 19 FATHER G8 BROTHER Review of Systems Time Seen by Provider: 06:32 Sepsis Event Evaluation Height, Weight, BMI Height: 4'10.00" Weight: 118lbs. 0.0oz. 53.052392vk; 27.87 BMI Method: Exam Exam Height & Weight Height: 4'10.00" Weight: 118lbs. 0.0oz. 53.196734ky; 27.87 BMI Method: General Appearance: Moderate Distress (acute psychosis ) HEENT: PERRL/EOMI, Normal ENT Inspection, Pharynx Normal Neck: Full Range of Motion, Non Tender, Supple Respiratory: Chest Non Tender, Lungs Clear, Normal Breath Sounds, No Accessory Muscle Use, No Respiratory Distress Cardiovascular: Regular Rate, Rhythm, No Edema, No Gallop, No JVD Capillary Refill: Less Than 3 Seconds Gastrointestinal: normal bowel sounds, non tender, soft, no organomegaly, no pulsatile mass Extremity: Normal Capillary Refill, No Pedal Edema Neurologic/Psychiatric: Alert, Disoriented Skin: Normal Color, Warm/Dry Lymphatic: No Adenopathy Assessment/Plan Assessment/Plan Acute psychosis -S/p Haldol and Ativan -Repeat labs pending -Start Geodon and precedex gtt -start scheduled risperadol -Fall precautions -Discussed with Dr. Yasmeen Perkins UTI -Continue Cefepime -Sarmiento cultures pending s/p lumbar stenosis surgery due to neurogenic claudication POD # 7 Dr Mace hx of Psoriatric arthritis Hypothyroidism HTN Hyponatremia -Monitor Anemia iron deficiency -Venofer -Monitor DIMA CANNON DO April 01, 2020 06:31
[2020-04-01 06:45] LABS: BASOPHILS % (AUTO) 0 % (0-10); EOSINOPHILS # (AUTO) 0.3 10^3/uL (0.0-0.3); EOSINOPHILS % (AUTO) 4 % (0-10); HEMATOCRIT 22 % (35-52); HEMOGLOBIN 7.5 G/DL (11.5-16.0); LYMPHOCYTES # (AUTO) 1.6 X 10^3 (1.0-4.0); LYMPHOCYTES % (AUTO) 24 % (12-44); MEAN CORPUSCULAR HEMOGLOBIN 32 PG (25-34); MEAN CORPUSCULAR HGB CONC 35 G/DL (32-36); MEAN CORPUSCULAR VOLUME 94 FL (80-99); MEAN PLATELET VOLUME 9.3 FL (7.4-10.4); MONOCYTES # (AUTO) 1.1 X 10^3 (0.0-1.0); MONOCYTES % (AUTO) 16 % (0-12); NEUTROPHILS # (AUTO) 3.8 X 10^3 (1.8-7.8); NEUTROPHILS % (AUTO) 56 % (42-75); PLATELET COUNT 336 10^3/uL (130-400); RED CELL DISTRIBUTION WIDTH 12.4 % (10.0-14.5); WHITE BLOOD COUNT 6.7 10^3/uL (4.3-11.0)
[2020-04-01 06:56] LABS: CLARITY,URINE SL CLOUDY; COLOR,URINE ORANGE; GLUCOSE, URINE (UA) TRACE (NEGATIVE); KETONES,URINE TRACE (NEGATIVE); LEUKOCYTE ESTERASE ,URINE 1+ (NEGATIVE); NITRITE,URINE POSITIVE (NEGATIVE); PH,URINE 6.5 (5-9); PROTEIN,URINE 2+ (NEGATIVE)
--- NOTE | 2020-04-01 07:01 | Diagnostic Imaging Report ---
Indication: Altered mental status Portable chest 6:45 AM There are postoperative changes from CABG surgery. Heart size and pulmonary vascularity are normal. Lungs are clear. There are no effusions or pneumothoraces. IMPRESSION: No acute abnormalities in the chest Dictated by: Dictated on workstation # [id number]
[2020-04-01 07:11] LABS: AMPHETAMINE SCREEN, URINE NEGATIVE (NEGATIVE); BARBITURATE SCREEN URINE NEGATIVE (NEGATIVE); BENZODIAZEPINES SCREEN URINE NEGATIVE (NEGATIVE); CANNABINOID SCREEN, URINE NEGATIVE (NEGATIVE); COCAINE SCREEN URINE POSITIVE (NEGATIVE); METHADONE STAT NEGATIVE (NEGATIVE); METHAMPHETAMINE SCREEN URINE S NEGATIVE (NEGATIVE); OPIATE SCREEN URINE NEGATIVE (NEGATIVE); OXYCODONE STAT NEGATIVE (NEGATIVE); PROPOXYPHENE STAT NEGATIVE (NEGATIVE); TRICYCLIC ANTIDEPRESSANTS SCRE POSITIVE (NEGATIVE)
[2020-04-01 07:13] LABS: ALANINE AMINOTRANSFERASE 20 U/L (0-55); ALKALINE PHOSPHATASE 57 U/L (40-136); BILIRUBIN,TOTAL 0.5 MG/DL (0.1-1.0); BUN/CREATININE RATIO 15; CALCIUM 8.9 MG/DL (8.5-10.1); CARBON DIOXIDE 24 MMOL/L (21-32); CHLORIDE 100 MMOL/L (98-107); CREATININE SERUM 0.81 MG/DL (0.60-1.30); GFR ESTIMATED > 60; GLUCOSE 131 MG/DL (70-105); POTASSIUM 3.2 MMOL/L (3.6-5.0); SODIUM 136 MMOL/L (135-145); TOTAL PROTEIN 5.4 GM/DL (6.4-8.2)
[2020-04-01] MEDS ORDERED: CEFEPIME INJECTION 1,000 MG in WATER (STERILE) FOR INJECTION 10 ML IV SCH (07:15)
[2020-04-01] MEDS ORDERED: NS IV 1000 ML 1,000 ML IV SCH (07:15)
[2020-04-01 07:18] LABS: BACTERIA,URINE FEW /HPF; BILIRUBIN,URINE 1+ (NEGATIVE); RBC,URINE >100 /HPF
[2020-04-01] MEDS ORDERED: CATHETER FLUSH 10 ML SYR IV PRN (07:30)
[2020-04-01] MEDS: risperiDONE 1 MG (RisperDAL) TAB PO SCH ×2 (08:07→20:19)
[2020-04-01] MEDS: POTASSIUM CL 10MEQ/50ML IVPB 50 ML IV SCH ×4 (11:55→16:18)
[2020-04-01] MEDS: KCL 20 MEQ TAB (K-DUR) PO SCH (11:56)
[2020-04-01 12:24] LABS: AMPHETAMINE SCREEN, URINE NEGATIVE (NEGATIVE); BARBITURATE SCREEN URINE NEGATIVE (NEGATIVE); BENZODIAZEPINES SCREEN URINE NEGATIVE (NEGATIVE); CANNABINOID SCREEN, URINE NEGATIVE (NEGATIVE); COCAINE SCREEN URINE NEGATIVE (NEGATIVE); METHAMPHETAMINE SCREEN URINE S NEGATIVE (NEGATIVE); OPIATE SCREEN URINE NEGATIVE (NEGATIVE)
[2020-04-01 12:25] LABS: METHADONE STAT NEGATIVE (NEGATIVE); OXYCODONE STAT NEGATIVE (NEGATIVE); PROPOXYPHENE STAT NEGATIVE (NEGATIVE); TRICYCLIC ANTIDEPRESSANTS SCRE NEGATIVE (NEGATIVE)
[2020-04-01] MEDS ORDERED: LACTATED RINGERS 1,000 ML IV ONE ×2 (12:25→13:24)
[2020-04-01] MEDS: ZIPRASIDONE 20 MG INJ (GEODON) VIAL IM PRN (13:15)
[2020-04-01] MEDS ORDERED: LACTATED RINGERS 1,000 ML IV SCH (13:45)
--- NOTE | 2020-04-01 13:55 | NUR ---
LATE ENTRY 1230 PT'S BLOOD PRESSURE NOTED TO BE 70/40'S. THIS RN REPEATED BP IN SEVERAL DIFFERENT PLACES AND A RADIAL CUFF USED. PRECEDEX DRIP STOPPED AND DR CANNON NOTIFIED OF LOW BLOOD PRESSURES. ORDERS RECEIVED TO GIVE LR 1 LITER BOLUS AND THEN RUN AT 150ML/HR. PT KICKING AND ATTEMPTING TO BITE THIS RN AND SITTER. JOE GIVE AT THIS TIME PT RESTING QUIETLY BP NOTED AT 122/63, RESPIRATIONS EVEN AND UNLABORED, SITTER REMAINS AT BEDSIDE, WILL CONTINUE TO MONITOR.
[2020-04-01] MEDS: LACTATED RINGERS 1,000 ML IV SCH ×2 (14:16→20:19)
--- NOTE | 2020-04-01 14:20 | NUR ---
CM/SS: Attempt to visit with pt to discuss plan for discharge Plan: Undetermined at this time Summary: Pt is able to speak to this worker upon arrival. Pt then starts talking and nothing makes any sense. Pt is not able to answer questions appropriately. Pt reports seeing things that are not seen by this worker. Pt is asked various questions, however she is unable to answer them appropriately. RN reports pt has been out of it, and not able to answer questions appropriately. This worker will follow up.
[2020-04-02] VITALS (23 sets, daily range): BP systolic 105–162; BP diastolic 56–97
[2020-04-02] MEDS: CEFEPIME INJECTION 1,000 MG in WATER (STERILE) FOR INJECTION 10 ML IV SCH ×4 (00:36→18:44)
[2020-04-02] MEDS: LACTATED RINGERS 1,000 ML IV SCH ×2 (03:06→13:13)
[2020-04-02 03:49] LABS: BASOPHILS % (AUTO) 0 % (0-10); EOSINOPHILS # (AUTO) 0.3 10^3/uL (0.0-0.3); EOSINOPHILS % (AUTO) 4 % (0-10); HEMATOCRIT 21 % (35-52); LYMPHOCYTES # (AUTO) 1.4 X 10^3 (1.0-4.0); LYMPHOCYTES % (AUTO) 20 % (12-44); MEAN CORPUSCULAR HEMOGLOBIN 31 PG (25-34); MEAN CORPUSCULAR HGB CONC 33 G/DL (32-36); MEAN CORPUSCULAR VOLUME 95 FL (80-99); MEAN PLATELET VOLUME 9.2 FL (7.4-10.4); MONOCYTES # (AUTO) 0.9 X 10^3 (0.0-1.0); MONOCYTES % (AUTO) 13 % (0-12); NEUTROPHILS # (AUTO) 4.6 X 10^3 (1.8-7.8); NEUTROPHILS % (AUTO) 63 % (42-75); PLATELET COUNT 344 10^3/uL (130-400); RED CELL DISTRIBUTION WIDTH 12.5 % (10.0-14.5); WHITE BLOOD COUNT 7.3 10^3/uL (4.3-11.0)
[2020-04-02 04:11] LABS: ALANINE AMINOTRANSFERASE 20 U/L (0-55); ALBUMIN 2.8 GM/DL (3.2-4.5); ALKALINE PHOSPHATASE 50 U/L (40-136); BILIRUBIN,TOTAL 0.5 MG/DL (0.1-1.0); BUN/CREATININE RATIO 16; CALCIUM 8.4 MG/DL (8.5-10.1); CARBON DIOXIDE 20 MMOL/L (21-32); CHLORIDE 108 MMOL/L (98-107); CREATININE SERUM 0.69 MG/DL (0.60-1.30); GFR ESTIMATED > 60; GLUCOSE 96 MG/DL (70-105); SODIUM 138 MMOL/L (135-145); TOTAL PROTEIN 4.9 GM/DL (6.4-8.2)
--- NOTE | 2020-04-02 04:43 | Pulmonary Progress Note ---
Subjective Time Seen by a Provider: 04:38 Subjective/Events-last exam Pt is still combative yelling out. Per RN did not sleep last night at all. Sepsis Event Evaluation Height, Weight, BMI Height: 4'10.00" Weight: 118lbs. 0.0oz. [id number]; 24.66 BMI Method: Focused Exam Lactate Level 04/01/20 06:25: Lactic Acid Level 2.38*H 04/01/20 08:45: Lactic Acid Level 0.68 Exam Exam Vital Signs Date Time Temp Pulse Resp B/P (MAP) Pulse Ox O2 Delivery O2 Flow Rate FiO2 04/02/20 03:00 87 30 132/67 (88) 95 High Flow N/C 2.00 04/02/20 02:00 84 24 128/59 (82) 99 High Flow N/C 2.00 04/02/20 01:00 92 04/02/20 01:00 90 25 124/58 (80) 96 High Flow N/C 2.00 04/02/20 00:00 86 22 115/80 (92) 100 High Flow N/C 2.00 04/02/20 00:00 94 Room Air 04/02/20 00:00 36.3 04/01/20 23:00 90 22 121/69 (86) 100 High Flow N/C 2.00 04/01/20 22:00 93 23 114/94 (101) 100 High Flow N/C 2.00 04/01/20 21:00 96 23 136/71 (92) 99 High Flow N/C 2.00 04/01/20 20:00 96 24 132/68 (89) 98 High Flow N/C 2.00 04/01/20 20:00 94 Room Air 2.00 04/01/20 20:00 36.2 04/01/20 19:00 93 04/01/20 19:00 90 15 148/88 (108) 96 High Flow N/C 2.00 04/01/20 18:00 89 35 134/56 (82) 100 High Flow N/C 2.00 04/01/20 17:00 91 50 131/76 (94) 100 High Flow N/C 2.00 04/01/20 16:13 94 Nasal Cannula 2.00 04/01/20 16:00 87 21 143/70 (94) 100 High Flow N/C 2.00 04/01/20 15:38 36.1 04/01/20 15:00 93 51 141/70 (93) 92 High Flow N/C 2.00 04/01/20 14:00 88 15 127/120 (122) 97 High Flow N/C 2.00 04/01/20 13:15 85 04/01/20 13:00 84 25 122/63 (82) 98 High Flow N/C 2.00 04/01/20 12:00 93 22 105/41 (62) 99 High Flow N/C 2.00 04/01/20 12:00 94 Nasal Cannula 2.00 04/01/20 11:00 93 21 104/43 (63) 93 High Flow N/C 2.00 04/01/20 10:56 Nasal Cannula 2.50 04/01/20 10:00 95 17 140/73 (95) 96 High Flow N/C 2.00 04/01/20 09:00 101 16 128/51 (76) 92 High Flow N/C 2.00 04/01/20 08:00 93 Nasal Cannula 2.00 04/01/20 08:00 102 22 155/72 (99) 94 High Flow N/C 2.00 04/01/20 07:40 105 122/64 04/01/20 07:33 Nasal Cannula 2.00 04/01/20 07:00 100 04/01/20 07:00 97 25 147/80 (102) 92 High Flow N/C 2.00 04/01/20 06:45 105 20 122/64 (83) 93 High Flow N/C 2.00 04/01/20 06:36 105 21 115/55 (75) 91 High Flow N/C 2.00 04/01/20 06:36 105 21 91 High Flow N/C 2.00 04/01/20 06:24 112 04/01/20 05:58 37.4 136 34 121/73 (89) Room Air I & O 04/02/20 07:00 Intake Total 3058 ml Output Total 3125 ml Balance -67 ml Height & Weight Height: 4'10.00" Weight: 118lbs. 0.0oz. 53.782535ix; 24.66 BMI Method: General Appearance: WD/WN, Anxious, Chronically ill, Mild Distress, Other (confused) HEENT: PERRL/EOMI, Normal ENT Inspection, Pharynx Normal Neck: Full Range of Motion, Normal Inspection, Non Tender, Supple, Carotid Bruit Respiratory: Chest Non Tender, Lungs Clear, Normal Breath Sounds, No Accessory Muscle Use, No Respiratory Distress Cardiovascular: Regular Rate, Rhythm, No Edema, No Gallop, No JVD, No Murmur, Normal Peripheral Pulses Capillary Refill: Less Than 3 Seconds Gastrointestinal: normal bowel sounds, non tender, soft, no organomegaly, no pulsatile mass Extremity: Normal Capillary Refill, Normal Inspection, Normal Range of Motion, Non Tender, No Calf Tenderness, No Pedal Edema Neurologic/Psychiatric: Alert, No Motor/Sensory Deficits, Normal Mood/Affect, java portal developer II-XII Norm as Tested, Disoriented Skin: Normal Color, Warm/Dry Lymphatic: No Adenopathy Results Lab Laboratory Tests 04/01/20 06:25 04/02/20 03:29 Assessment/Plan Assessment/Plan Acute psychosis -Sitter at bedside -S/p Haldol and Ativan - Geodon and precedex gtt -Increase risperadol to 2mg PO BID for now -Fall precautions -UDS is positive for Cocain Pseudomonus UTI -Cefepime -Sarmiento cultures pending s/p lumbar stenosis surgery due to neurogenic claudication POD # 7 Dr Mace hx of Psoriatric arthritis Hypothyroidism HTN Hyponatremia -Monitor Anemia iron deficiency -Venofer -Monitor DIMA CANNON DO April 02, 2020 04:43
[2020-04-02 05:37] LABS: MAGNESIUM 1.5 MG/DL (1.6-2.4); PHOSPHORUS 2.7 MG/DL (2.3-4.7)
[2020-04-02] MEDS: KCL 20 MEQ TAB (K-DUR) PO SCH (05:44)
[2020-04-02] MEDS: POTASSIUM CL 10MEQ/50ML IVPB 50 ML IV SCH (05:44)
[2020-04-02] MEDS ORDERED: WATER (STERILE) FOR INJECTION 10 ML ONE ×2 (06:32→13:15)
[2020-04-02] MEDS: ZIPRASIDONE 20 MG INJ (GEODON) VIAL IM PRN ×3 (06:46→21:39)
[2020-04-02] MEDS: MAGNESIUM 1 GM/100 ML IVPB 100 ML IV SCH ×3 (06:48→07:48)
[2020-04-02] MEDS: risperiDONE 1 MG (RisperDAL) TAB PO SCH ×2 (07:48→20:49)
--- NOTE | 2020-04-02 09:46 | Progress Note ---
Subjective Date Seen by a Provider: April 02, 2020 Time Seen by a Provider: 09:45 Subjective/Events-last exam Severe confusion noted Precedex at dose of 1.5 now Mihaela was given and now she is on a higher does of Risperdal Really having significant issues with the metabolic encephalopathy I will close out her account in inpatient rehab The severity really confirms the baseline cognitive deficit that she has been experiencing and now its even worse considering her is no longer alive Venofer iron infusion will be restarted Hgb at 7.0 SCDS maintained since Lovenox is contraindicated due high risk for spinal hematoma Focused Exam Lactate Level 04/01/20 06:25: Lactic Acid Level 2.38*H 04/01/20 08:45: Lactic Acid Level 0.68 Objective Exam Last Set of Vital Signs Vital Signs Date Time Temp Pulse Resp B/P (MAP) Pulse Ox O2 Delivery O2 Flow Rate FiO2 04/02/20 08:50 Room Air 04/02/20 08:00 73 21 114/78 (90) 84 2.00 04/02/20 07:39 36.2 Capillary Refill : NONELess Than 3 Seconds I&O Intake and Output 04/02/20 00:00 Intake Total 3058 ml Output Total 2800 ml Balance 258 ml Intake Oral 100 ml IV Total 2958 ml Output Urine Total 2800 ml Daily Weight Change No Lungs: Clear to Auscultation Heart: Regular Rate Neuro: Other (confused) Results Lab Laboratory Tests 04/01/20 11:40: Urine Opiates Screen NEGATIVE, Urine Oxycodone Screen NEGATIVE, Urine Methadone Screen NEGATIVE, Urine Propoxyphene Screen NEGATIVE, Urine Barbiturates Screen NEGATIVE, Ur Tricyclic Antidepressants Screen NEGATIVE, Urine Phencyclidine Screen NEGATIVE, Urine Amphetamines Screen NEGATIVE, Urine Methamphetamines Screen NEGATIVE, Urine Benzodiazepines Screen NEGATIVE, Urine Cocaine Screen N EGATIVE, Urine Cannabinoids Screen NEGATIVE 04/02/20 03:29: White Blood Count 7.3, Red Blood Count 2.25L, Hemoglobin 7.0L, Hematocrit 21L, Mean Corpuscular Volume 95, Mean Corpuscular Hemoglobin 31, Mean Corpuscular Hemoglobin Concent 33, Red Cell Distribution Width 12.5, Platelet Count 344, Mean Platelet Volume 9.2, Neutrophils (%) (Auto) 63, Lymphocytes (%) (Auto) 20, Monocytes (%) (Auto) 13H, Eosinophils (%) (Auto) 4, Basophils (%) (Auto) 0, Neutrophils # (Auto) 4.6, Lymphocytes # (Auto) 1.4, Monocytes # (Auto) 0.9, Eosinophils # (Auto) 0.3, Basophils # (Auto) 0.0, Sodium Level 138, Potassium Level 4.0, Chloride Level 108H, Carbon Dioxide Level 20L, Anion Gap 10, Blood Urea Nitrogen 11, Creatinine 0.69, Estimat Glomerular Filtration Rate > 60, BUN/Creatinine Ratio 16, Glucose Level 96, Calcium Level 8.4L, Corrected Calcium 9.4, Phosphorus Level 2.7, Magnesium Level 1.5L, Total Bilirubin 0.5, Aspartate Amino Transf (AST/SGOT) 34, Alanine Aminotransferase (ALT/SGPT) 20, Alkaline Phosphatase 50, Total Protein 4.9L, Albumin 2.8L Microbiology 04/01/20 MRSA Screen - Final, Complete MRSA not isolated Assessment/Plan Assessment/Plan Assess & Plan/Chief Complaint Assessment: Delirium with h/o delirium 2 years ago now requiring transfer to ICU due to the severity of the metabolic encephalopathy Elevated lactic acid due to agitation and dehydration s/p lumbar stenosis surgery due to neurogenic claudication POD # 9 Dr Mace Psoriatric arthritis/RA Hypothyroidism HTN Hyponatremia holding Chlorathalidone Post op constipation resolved Urinary retention failed voiding trial Diaz DC per Dr Naik but required replacement 03/29/20 due to continued etention UTI Pseudomonas placed on Cefepime and stopped Rocephin Anemia iron deficiency placed on Venofer Pill consumption from purse yesterday morning? APAP? Plan: Dr Grimm consultation appreciated Dr Naik consultation appreciated Monitor sodium level IRF DC acct Fluid restriction Monitor labs IV abx Ucx reviewed Venofer BM regimen Precedex and Konstantindon Diagnosis/Problems Diagnosis/Problems (1) Encephalopathy acute (2) UTI (urinary tract infection) Status: Acute (3) Delirium Status: Acute (4) Hypertension (5) Lumbar stenosis with neurogenic claudication (6) Diaz catheter in place (7) Osteopenia (8) Hypothyroidism (9) Hyponatremia (10) Psoriatic arthritis Status: Chronic (11) Urinary retention (12) Lumbar radiculopathy Clinical Quality Measures DVT/VTE Risk/Contraindication: Risk Factor Score Per Nursin RFS Level Per Nursing on Admit: 4+=Very High Contraindications-Pharm: Other *list below* Contraindications-Mechi: Other *list below* Other: PT HAD RECENT SPINAL SURGERY - SCD'S ONLY JESS SIMON DO April 02, 2020 09:46
[2020-04-02] MEDS: IRON SUCROSE 200 MG/10 ML (VENOFER) VIAL IV SCH (09:58)
--- NOTE | 2020-04-02 13:58 | NUR ---
Note pt PO intake has declined over the last few days. Recommend adding Ensure Enlive (vary) to meals TID in effort to increase kcal intake. Provides 350 kcal and 13 g Pro per serving. Will continue to follow and reassess as pt needs, intake, and status change. Jay De La O MS, RD, LD [phone]
--- NOTE | 2020-04-02 14:30 | NUR ---
CM/SS: Attempted to visit with pt as to plan for discharge - Pt is calm, and sleeping. This worker will allow pt to sleep and rest. This worker will follow up later time.
[2020-04-03] VITALS (22 sets, daily range): BP systolic 121–168; BP diastolic 52–99
[2020-04-03] MEDS: CEFEPIME INJECTION 1,000 MG in WATER (STERILE) FOR INJECTION 10 ML IV SCH ×4 (00:23→17:38)
[2020-04-03] MEDS: LACTATED RINGERS 1,000 ML IV SCH ×2 (02:09→17:36)
[2020-04-03] MEDS: ZIPRASIDONE 20 MG INJ (GEODON) VIAL IM PRN (02:53)
[2020-04-03 03:41] LABS: BASOPHILS % (AUTO) 0 % (0-10); EOSINOPHILS # (AUTO) 0.2 10^3/uL (0.0-0.3); EOSINOPHILS % (AUTO) 3 % (0-10); HEMATOCRIT 23 % (35-52); HEMOGLOBIN 7.9 G/DL (11.5-16.0); LYMPHOCYTES # (AUTO) 1.4 X 10^3 (1.0-4.0); LYMPHOCYTES % (AUTO) 17 % (12-44); MEAN CORPUSCULAR HEMOGLOBIN 32 PG (25-34); MEAN CORPUSCULAR HGB CONC 34 G/DL (32-36); MEAN CORPUSCULAR VOLUME 94 FL (80-99); MEAN PLATELET VOLUME 9.3 FL (7.4-10.4); MONOCYTES # (AUTO) 0.7 X 10^3 (0.0-1.0); MONOCYTES % (AUTO) 9 % (0-12); NEUTROPHILS # (AUTO) 5.6 X 10^3 (1.8-7.8); NEUTROPHILS % (AUTO) 71 % (42-75); PLATELET COUNT 382 10^3/uL (130-400); RED CELL DISTRIBUTION WIDTH 12.4 % (10.0-14.5); WHITE BLOOD COUNT 7.9 10^3/uL (4.3-11.0)
[2020-04-03 04:15] LABS: ALBUMIN 2.9 GM/DL (3.2-4.5); CHLORIDE 108 MMOL/L (98-107); POTASSIUM 3.8 MMOL/L (3.6-5.0); SODIUM 140 MMOL/L (135-145)
[2020-04-03 04:16] LABS: CALCIUM 8.8 MG/DL (8.5-10.1)
[2020-04-03 04:17] LABS: GLUCOSE 104 MG/DL (70-105); TOTAL PROTEIN 5.1 GM/DL (6.4-8.2)
[2020-04-03 04:18] LABS: CARBON DIOXIDE 20 MMOL/L (21-32)
[2020-04-03 04:19] LABS: BILIRUBIN,TOTAL 0.4 MG/DL (0.1-1.0)
[2020-04-03 04:21] LABS: ALKALINE PHOSPHATASE 52 U/L (40-136); CREATININE SERUM 0.67 MG/DL (0.60-1.30); GFR ESTIMATED > 60; PHOSPHORUS 3.4 MG/DL (2.3-4.7)
[2020-04-03 04:22] LABS: BUN/CREATININE RATIO 19
[2020-04-03 04:24] LABS: ALANINE AMINOTRANSFERASE 23 U/L (0-55); MAGNESIUM 1.9 MG/DL (1.6-2.4)
[2020-04-03] MEDS: POTASSIUM CL 10MEQ/50ML IVPB 50 ML IV SCH (04:34)
[2020-04-03] MEDS: MAGNESIUM 1 GM/100 ML IVPB 100 ML IV SCH (04:34)
[2020-04-03] MEDS: KCL 20 MEQ TAB (K-DUR) PO SCH (04:35)
[2020-04-03] MEDS ORDERED: ZIPRASIDONE 20 MG INJ (GEODON) VIAL IM PRN (05:15)
--- NOTE | 2020-04-03 05:17 | Pulmonary Progress Note ---
Subjective Time Seen by a Provider: 05:12 Subjective/Events-last exam Pt is still requiring Precedex secondary to psychosis. RN states 10mg of Geodon was given yesterday however did not work for very long. Pt spits out risperadol. Sepsis Event Evaluation Height, Weight, BMI Height: 4'10.00" Weight: 118lbs. 0.0oz. 53.572052st; 24.66 BMI Method: Focused Exam Lactate Level 04/01/20 06:25: Lactic Acid Level 2.38*H 04/01/20 08:45: Lactic Acid Level 0.68 Exam Exam Vital Signs Date Time Temp Pulse Resp B/P (MAP) Pulse Ox O2 Delivery O2 Flow Rate FiO2 04/03/20 02:00 44 13 161/66 (97) 98 Room Air 04/03/20 01:00 50 04/03/20 01:00 50 13 166/73 (104) 97 Room Air 04/03/20 00:24 36.3 04/03/20 00:00 57 13 155/70 (98) 98 Room Air 04/03/20 00:00 Room Air 04/02/20 23:00 53 15 144/66 (92) 95 Room Air 04/02/20 22:00 78 20 152/66 (94) 95 Room Air 04/02/20 22:00 36.0 04/02/20 21:00 73 26 99 Room Air 04/02/20 20:00 49 13 145/74 (97) 96 Room Air 04/02/20 20:00 Room Air 04/02/20 19:52 46 162/68 04/02/20 19:00 52 04/02/20 19:00 52 30 162/68 (99) 97 Room Air 04/02/20 18:00 80 21 105/56 (72) 100 Room Air 04/02/20 17:00 46 12 150/97 (114) 98 Room Air 04/02/20 16:15 36.7 04/02/20 16:00 49 13 145/92 (109) 97 Room Air 04/02/20 15:25 Room Air 04/02/20 15:00 49 12 135/94 (108) 93 Room Air 04/02/20 14:00 52 13 135/75 (95) 95 Room Air 04/02/20 13:00 54 04/02/20 13:00 54 15 137/76 (96) 96 Room Air 04/02/20 12:00 35.8 04/02/20 12:00 49 12 135/69 (91) 95 Room Air 04/02/20 11:33 Room Air 04/02/20 11:00 53 29 138/64 (88) 96 Room Air 04/02/20 10:00 55 17 135/63 (87) 94 Room Air 04/02/20 09:00 72 19 110/59 (76) 96 Room Air 04/02/20 08:50 Room Air 04/02/20 08:00 73 21 114/78 (90) 84 Room Air 04/02/20 07:49 68 144/86 04/02/20 07:39 36.2 04/02/20 07:03 73 04/02/20 07:00 78 24 144/86 (105) 98 Room Air 04/02/20 06:00 65 16 127/60 (82) 97 High Flow N/C 2.00 I & O 04/03/20 07:00 Intake Total 1470 ml Output Total 3550 ml Balance -2080 ml Height & Weight Height: 4'10.00" Weight: 118lbs. 0.0oz. 53.839694rf; 24.66 BMI Method: General Appearance: No Apparent Distress, WD/WN, Anxious, Chronically ill, Other (confused) HEENT: PERRL/EOMI, Normal ENT Inspection, Pharynx Normal Neck: Full Range of Motion, Normal Inspection, Non Tender, Supple, Carotid Bruit Respiratory: Chest Non Tender, Lungs Clear, Normal Breath Sounds, No Accessory Muscle Use, No Respiratory Distress Cardiovascular: Regular Rate, Rhythm, No Edema, No Gallop, No JVD, No Murmur, Normal Peripheral Pulses Capillary Refill: Less Than 3 Seconds Gastrointestinal: normal bowel sounds, non tender, soft, no organomegaly, no pulsatile mass Extremity: Normal Capillary Refill, Normal Inspection, Normal Range of Motion, Non Tender, No Calf Tenderness, No Pedal Edema Neurologic/Psychiatric: Alert, No Motor/Sensory Deficits, Normal 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 -Start scheduled 20mg Geodon Q12 --Titrate Precedex to D/C -Fall precautions -UDS is positive for Cocain -Check TSH Pseudomonus UTI -Cefepime -Sarmiento cultures pending s/p lumbar stenosis surgery due to neurogenic claudication POD # 7 Dr Mace hx of Psoriatric arthritis Hypothyroidism HTN Hyponatremia -Monitor Anemia iron deficiency -Venofer -Monitor DIMA CANNON DO April 03, 2020 05:17
--- NOTE | 2020-04-03 06:18 | Progress Note ---
Subjective Date Seen by a Provider: April 03, 2020 Time Seen by a Provider: 10:00 Subjective/Events-last exam Patient resting well now on Precedex Friend at bedside visiting her No pain is reported Patient not eating yet and spits out meds Very long recovery expected Review of Systems Neurological: Confusion Focused Exam Lactate Level 04/01/20 06:25: Lactic Acid Level 2.38*H 04/01/20 08:45: Lactic Acid Level 0.68 Objective Exam Last Set of Vital Signs Vital Signs Date Time Temp Pulse Resp B/P (MAP) Pulse Ox O2 Delivery O2 Flow Rate FiO2 04/03/20 06:13 46 158/74 04/03/20 05:00 13 97 Room Air 04/03/20 00:24 36.3 04/02/20 10:00 Capillary Refill : NONELess Than 3 Seconds I&O Intake and Output 04/03/20 00:00 Intake Total 1470 ml Output Total 3650 ml Balance -2180 ml Intake Oral 0 ml IV Total 1470 ml Output Urine Total 3650 ml General: Other (sedated, resting well) Lungs: Clear to Auscultation Heart: Regular Rate Results Lab Laboratory Tests 04/02/20 16:21: Glucometer 123H 04/03/20 03:12: White Blood Count 7.9, Red Blood Count 2.48L, Hemoglobin 7.9L, Hematocrit 23L, Mean Corpuscular Volume 94, Mean Corpuscular Hemoglobin 32, Mean Corpuscular Hemoglobin Concent 34, Red Cell Distribution Width 12.4, Platelet Count 382, Mean Platelet Volume 9.3, Neutrophils (%) (Auto) 71, Lymphocytes (%) (Auto) 17, Monocytes (%) (Auto) 9, Eosinophils (%) (Auto) 3, Basophils (%) (Auto) 0, Neutrophils # (Auto) 5.6, Lymphocytes # (Auto) 1.4, Monocytes # (Auto) 0.7, Eosinophils # (Auto) 0.2, Basophils # (Auto) 0.0, Sodium Level 140, Potassium Level 3.8, Chloride Level 108H, Carbon Dioxide Level 20L, Anion Gap 12, Blood Urea Nitrogen 13, Creatinine 0.67, Estimat Glomerular Filtration Rate > 60, BUN/Creatinine Ratio 19, Glucose Level 104, Calcium Level 8.8, Corrected Calcium 9.7, Phosphorus Level 3.4, Magnesium Level 1.9, Total Bilirubin 0.4, Aspartate Amino Transf (AST/SGOT) 33, Alanine Aminotransferase (ALT/SGPT) 23, Alkaline Phosphatase 52, Total Protein 5.1L, Albumin 2.9L, Thyroid Stimulating Hormone ( TSH) 3.60 Microbiology 04/01/20 MRSA Screen - Final, Complete MRSA not isolated 04/01/20 Urine Culture - Final, Complete NO GROWTH 04/01/20 Blood Culture - Preliminary, Resulted No growth Assessment/Plan Assessment/Plan Assess & Plan/Chief Complaint Assessment: Delirium with h/o delirium 2 years ago now requiring transfer to ICU due to the severity of the metabolic encephalopathy Elevated lactic acid due to agitation and dehydration s/p lumbar stenosis surgery due to neurogenic claudication POD # 10 Dr Mace Psoriatric arthritis/RA Hypothyroidism HTN Hyponatremia holding Chlorathalidone Post op constipation resolved Urinary retention failed voiding trial Diaz DC per Dr Naik but required replacement 03/29/20 due to continued etention UTI Pseudomonas placed on Cefepime and stopped Rocephin Anemia iron deficiency placed on Venofer Pill consumption from purse yesterday morning? APAP? Plan: Dr Grimm consultation appreciated Dr Naik consultation appreciated Monitor sodium level IRF DC acct Fluid restriction Monitor labs IV abx Ucx reviewed Venofer BM regimen Precedex and Mihaela Diagnosis/Problems Diagnosis/Problems (1) Encephalopathy acute (2) UTI (urinary tract infection) Status: Acute (3) Delirium Status: Acute (4) Hypertension (5) Lumbar stenosis with neurogenic claudication (6) Diaz catheter in place (7) Osteopenia (8) Hypothyroidism (9) Hyponatremia (10) Psoriatic arthritis Status: Chronic (11) Urinary retention (12) Lumbar radiculopathy Clinical Quality Measures DVT/VTE Risk/Contraindication: Risk Factor Score Per Nursin RFS Level Per Nursing on Admit: 4+=Very High Contraindications-Pharm: Other *list below* Contraindications-Mechi: Other *list below* Other: PT HAD RECENT SPINAL SURGERY - SCD'S ONLY JESS SIMON DO April 03, 2020 06:18
[2020-04-03] MEDS ORDERED: WATER (STERILE) FOR INJECTION 10 ML ONE ×3 (08:43→20:34)
[2020-04-03] MEDS: ZIPRASIDONE 20 MG INJ (GEODON) VIAL IM SCH ×2 (08:55→21:30)
[2020-04-04] VITALS (22 sets, daily range): BP systolic 110–178; BP diastolic 47–104
[2020-04-04] MEDS: CEFEPIME INJECTION 1,000 MG in WATER (STERILE) FOR INJECTION 10 ML IV SCH ×5 (00:08→23:18)
--- NOTE | 2020-04-04 02:24 | NUR ---
This RN notified Tele-ICU of patient's decreased UOP of 47ml over last 4 hours. New order received for 500ml bolus of LR X1 NOW.
[2020-04-04] MEDS ORDERED: LACTATED RINGERS 1,000 ML IV SCH ×2 (02:30→03:30)
[2020-04-04 03:35] LABS: BASOPHILS % (AUTO) 0 % (0-10); EOSINOPHILS # (AUTO) 0.2 10^3/uL (0.0-0.3); EOSINOPHILS % (AUTO) 2 % (0-10); HEMATOCRIT 25 % (35-52); HEMOGLOBIN 8.3 G/DL (11.5-16.0); LYMPHOCYTES # (AUTO) 1.6 X 10^3 (1.0-4.0); LYMPHOCYTES % (AUTO) 17 % (12-44); MEAN CORPUSCULAR HEMOGLOBIN 32 PG (25-34); MEAN CORPUSCULAR HGB CONC 33 G/DL (32-36); MEAN CORPUSCULAR VOLUME 95 FL (80-99); MEAN PLATELET VOLUME 9.3 FL (7.4-10.4); MONOCYTES # (AUTO) 0.7 X 10^3 (0.0-1.0); MONOCYTES % (AUTO) 8 % (0-12); NEUTROPHILS # (AUTO) 6.8 X 10^3 (1.8-7.8); NEUTROPHILS % (AUTO) 73 % (42-75); PLATELET COUNT 427 10^3/uL (130-400); RED CELL DISTRIBUTION WIDTH 13.1 % (10.0-14.5); WHITE BLOOD COUNT 9.3 10^3/uL (4.3-11.0)
[2020-04-04 03:48] LABS: CHLORIDE 108 MMOL/L (98-107); POTASSIUM 3.7 MMOL/L (3.6-5.0); SODIUM 142 MMOL/L (135-145)
[2020-04-04 03:49] LABS: CALCIUM 8.8 MG/DL (8.5-10.1)
[2020-04-04 03:51] LABS: GLUCOSE 83 MG/DL (70-105); TOTAL PROTEIN 5.3 GM/DL (6.4-8.2)
[2020-04-04 03:52] LABS: BILIRUBIN,TOTAL 0.4 MG/DL (0.1-1.0); CARBON DIOXIDE 20 MMOL/L (21-32)
[2020-04-04 03:54] LABS: ALKALINE PHOSPHATASE 62 U/L (40-136); CREATININE SERUM 0.79 MG/DL (0.60-1.30); GFR ESTIMATED > 60; PHOSPHORUS 3.8 MG/DL (2.3-4.7)
[2020-04-04 03:55] LABS: BUN/CREATININE RATIO 23
[2020-04-04 03:57] LABS: ALANINE AMINOTRANSFERASE 24 U/L (0-55); MAGNESIUM 1.8 MG/DL (1.6-2.4)
[2020-04-04] MEDS ORDERED: morphine INJ 10 MG/ML 1ML (SYR OR VIAL) IVP PRN (04:45)
--- NOTE | 2020-04-04 04:48 | Pulmonary Progress Note ---
Subjective Time Seen by a Provider: 04:51 Subjective/Events-last exam Pt is still on Precedex. Sepsis Event Evaluation Height, Weight, BMI Height: 4'10.00" Weight: 118lbs. 0.0oz. 53.075457so; 24.66 BMI Method: Focused Exam Lactate Level 04/01/20 06:25: Lactic Acid Level 2.38*H 04/01/20 08:45: Lactic Acid Level 0.68 Exam Exam Vital Signs Date Time Temp Pulse Resp B/P (MAP) Pulse Ox O2 Delivery O2 Flow Rate FiO2 04/04/20 04:00 80 20 91 Room Air 04/04/20 03:00 88 25 120/78 (92) 93 Room Air 04/04/20 02:00 71 16 143/69 (93) 93 Room Air 04/04/20 01:00 58 15 134/60 (84) 93 Room Air 04/04/20 01:00 58 04/04/20 00:06 36.7 04/04/20 00:00 100 Room Air 04/04/20 00:00 77 19 130/47 (74) 90 Room Air 04/03/20 23:59 86 146/76 04/03/20 23:00 86 22 146/76 (99) 96 Room Air 04/03/20 21:59 62 15 131/58 (82) 97 Room Air 04/03/20 21:06 76 21 136/65 (88) 97 Room Air 04/03/20 20:01 82 24 123/93 (103) 97 Room Air 04/03/20 20:00 36.9 04/03/20 20:00 100 Room Air 04/03/20 19:03 99 20 135/52 (79) 97 Room Air 04/03/20 19:00 81 04/03/20 18:05 84 24 132/54 (80) 95 Room Air 04/03/20 17:07 91 28 141/76 (97) 96 Room Air 04/03/20 16:02 69 20 136/70 (92) 98 Room Air 04/03/20 16:00 100 Room Air 04/03/20 15:15 61 12 125/60 (81) 98 Room Air 04/03/20 13:00 61 04/03/20 12:00 100 Room Air 04/03/20 12:00 48 12 152/68 (96) 99 Room Air 04/03/20 11:45 36.0 04/03/20 11:00 42 11 150/66 (94) 98 Room Air 04/03/20 10:00 45 11 150/65 (93) 97 Room Air 04/03/20 09:00 46 16 168/73 (104) 98 Room Air 04/03/20 08:00 44 14 151/64 (93) 95 Room Air 04/03/20 08:00 98 Room Air 04/03/20 07:57 36.0 04/03/20 07:00 45 04/03/20 07:00 44 13 121/99 (106) 96 Room Air 04/03/20 06:13 46 158/74 04/03/20 06:00 42 13 158/74 (102) 98 Room Air 04/03/20 05:00 44 13 151/71 (97) 97 Room Air I & O 04/04/20 07:00 Intake Total 1260 ml Output Total 822 ml Balance 438 ml Height & Weight Height: 4'10.00" Weight: 118lbs. 0.0oz. 53.397283qf; 24.66 BMI Method: General Appearance: No Apparent Distress, WD/WN, Anxious, Chronically ill, Other (confused) HEENT: PERRL/EOMI, Normal ENT Inspection, Pharynx Normal Neck: Full Range of Motion, Normal Inspection, Non Tender, Supple, Carotid Bruit Respiratory: Chest Non Tender, Lungs Clear, Normal Breath Sounds, No Accessory Muscle Use, No Respiratory Distress Cardiovascular: Regular Rate, Rhythm, No Edema, No Gallop, No JVD, No Murmur, Normal Peripheral Pulses Capillary Refill: Less Than 3 Seconds Gastrointestinal: normal bowel sounds, non tender, soft, no organomegaly, no pulsatile mass Extremity: Normal Capillary Refill, Normal Inspection, Normal Range of Motion, Non Tender, No Calf Tenderness, No Pedal Edema Neurologic/Psychiatric: Alert, No Motor/Sensory Deficits, Normal 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 -Start scheduled 20mg Geodon Q12 -Start Haldol PRN -- Precedex-D/C -Morphine PRN -Fall precautions -UDS is positive for Cocain Pseudomonus UTI -Cefepime -Sarmiento cultures pending s/p lumbar stenosis surgery due to neurogenic claudication POD # 7 Dr Mace hx of Psoriatric arthritis Hypothyroidism HTN Hyponatremia -Monitor Anemia iron deficiency -Venofer -Monitor DIMA CANNON DO April 04, 2020 04:48
[2020-04-04] MEDS ORDERED: LORazepam INJ 2 MG/ML (ATIVAN) VIAL IV PRN (05:00)
[2020-04-04] MEDS ORDERED: morphine INJ 4 MG/ML 1 ML (VIAL/SYRINGE) ONE (05:15)
[2020-04-04] MEDS ORDERED: HALOPERIDOL 5 MG/ML (HALDOL) AMP IM ONE (05:15)
[2020-04-04] MEDS: KCL 20 MEQ TAB (K-DUR) PO SCH (06:14)
[2020-04-04] MEDS: POTASSIUM CL 10MEQ/50ML IVPB 50 ML IV SCH (06:14)
[2020-04-04] MEDS: MAGNESIUM 1 GM/100 ML IVPB 100 ML IV SCH (06:14)
[2020-04-04] MEDS: LACTATED RINGERS 1,000 ML IV SCH (07:05)
--- NOTE | 2020-04-04 08:14 | Progress Note - Hospitalist ---
Subjective HPI/CC On Admission Date Seen by Provider: April 04, 2020 Time Seen by Provider: 11:00 CC: Worsening altered mental status with aggression HPI: This is a 74yoWF clinic Pt of Dr. Clover Sims who worsened with confusion, became agitated and aggressive within inpatient rehab, that had been escalating for the past several days after she was admitted on Monday after an uncomplicated lumbar spine surgery. Pt was moved up to the ICU lactic acid of 2.3 was noted, but no evidence or signs of infection. She was maintained on Cefepime 1G Q12hrs, for the documented pseudomonas UTI. Overall she did require Geodon, intramuscular injection, along with Precedex and I did confer with Dr. Clover Sims, who reported she had some memory lost within the past year every since her , and when I took care of her in March of 2019, she had to the shelter because the encephalopathy was so severe. Pt at this current time is agitated and has a one-on-one at the bedside. IRF note from yesterday: Patient still has some confusion this morning and told the nurse she thought she had delivered a baby Pt still confused, a lot of flight of ideas Hgb 7.3 Midline may be needed if she takes out her IV Risperdal will be attempted to be started for the delirium Nurse researched her last visit and it appears she went to the shelter for a week and the family took her out of there and she only cleared her encephalopathy after she got home so that may very well be required here Fall risk I recall her severe delirium during her last hospital stay 2 years ago when I took care of her resulted in transfer to shelter due to the severity and I did review that hospital course Will minimize Gabapentin and Flexeril and pain meds UTI Pseudomonasso DC Rocephin and started Cefepime empirically Day # 3 Hyponatremia noted at 135 now 132 and already held Chlorathalidone and placeed on fluid restriction in the meantime also Iron level very low with anemia so started Venofer since anemia can slow rec overy and hgb 7.3 today BM regular Catheter replaced due to retention 2 nights ago Took shower Incision looks good Conferred with RN Reviewed therapy notes Checked meds and labs Assessment: s/p lumbar stenosis surgery due to neurogenic claudication POD # 7 Dr Mace Psoriatric arthritis Delirium with h/o delirium 2 years ago now requiring transfer to ICU Hypothyroidism HTN Hyponatremia holding Chlorathalidone Post op constipation Urinary retention failed voiding trial Diaz DC per Dr Naik but required replacement last night 03/29/20 due to retention UTI Pseudomonas placed on Cefepime and stopped Rocephin Anemia iron deficiency placed on Venofer Pill consumption from purse this morning? Plan: Dr Naik consultation will be necessary appreciated Monitor sodium level IRF protocol Fluid restriction Monitor labs IV abx Ucx Venofer BM regimen (1) Lumbar stenosis with neurogenic claudication (2) Hypothyroidism (3) Osteopenia (4) Diaz catheter in place (5) Urinary retention (6) Hyponatremia (7) Psoriatic arthritis Status: Chronic (8) Hypertension (9) Delirium Status: Acute (10) UTI (urinary tract infection) Status: Acute Subjective/Events-last exam Patient sedated from [place] When she is not sedated she is moving constantly and mumbling CT brain will be obtained in case she has had some sort of neuro event during the severe encephalopathy episode Daughter will arrive from [place] today Clinimix with electrolytes will be started today since she spits out meds Hopefully she will clear the confusion but has h/o encephalopathy in the past and taken weeks to improve Lovenox now safe to start due to spinal surgery 03/24/20 Dr Mace Review of Systems Neurological: Confusion Focused Exam Lactate Level Objective Exam Vital Signs Vital Signs Date Time Temp Pulse Resp B/P (MAP) Pulse Ox O2 Delivery O2 Flow Rate FiO2 04/04/20 15:00 37.0 112 24 178/82 (114) 94 Room Air 04/02/20 10:00 Capillary Refill : NONELess Than 3 Seconds General Appearance: No Apparent Distress, Chronically ill, Other (sedated) Respiratory: Lungs Clear Cardiovascular: Regular Rate, Rhythm Results/Procedures Lab Laboratory Tests 04/04/20 03:11 Patient resulted labs reviewed. Assessment/Plan Assessment and Plan Assess & Plan/Chief Complaint Assessment: Delirium with h/o delirium 1 year ago now requiring transfer to ICU due to the severity of the metabolic encephalopathy Elevated lactic acid due to agitation and dehydration s/p IVF s/p lumbar stenosis surgery due to neurogenic claudication POD # 11 Dr Mace Psoriatric arthritis/RA Hypothyroidism HTN Hyponatremia holding Chlorathalidone Post op constipation resolved Urinary retention failed voiding trial Diaz DC per Dr Naik but required replacement 03/29/20 due to continued retention UTI Pseudomonas placed on Cefepime and stopped Rocephin Anemia iron deficiency placed on Venofer Pill consumption from purse morning of ICU transfer appears it was APAP Plan: Dr Grimm consultation appreciated Dr Naik consultation appreciated Monitor sodium level IRF DC acct Clinimix Monitor labs IV abx Ucx reviewed Venofer BM regimen Precedex DC and maintain Geodon Diagnosis/Problems Diagnosis/Problems (1) Encephalopathy acute (2) UTI (urinary tract infection) Status: Acute (3) Delirium Status: Acute (4) Hypertension (5) Lumbar stenosis with neurogenic claudication (6) Diaz catheter in place (7) Osteopenia (8) Hypothyroidism (9) Hyponatremia (10) Psoriatic arthritis Status: Chronic (11) Urinary retention (12) Lumbar radiculopathy Clinical Quality Measures DVT/VTE Risk/Contraindication: Risk Factor Score Per Nursin RFS Level Per Nursing on Admit: 4+=Very High Contraindications-Pharm: Other *list below* Contraindications-Mechi: Other *list below* Other: PT HAD RECENT SPINAL SURGERY - SCD'S ONLY JESS SIMON DO April 04, 2020 08:14
[2020-04-04] MEDS ORDERED: WATER (STERILE) FOR INJECTION 10 ML ONE ×2 (08:36→19:39)
[2020-04-04] MEDS: ZIPRASIDONE 20 MG INJ (GEODON) VIAL IM SCH ×2 (08:56→19:50)
[2020-04-04] MEDS: IRON SUCROSE 200 MG/10 ML (VENOFER) VIAL IV SCH (08:56)
--- NOTE | 2020-04-04 09:55 | NUR ---
THIS RN NOTIFIED DR SIMON PT HAS ONLY HAD 70ML OF URINE OUTPUT SINCE 0600. SHE HAS MAINTENANCE FLUIDS AT 75ML/HR. PT HAS NOT BEEN EATING OR DRINKING. PT GOT A 500 ML BOLUS LAST NIGHT FOR LOW URINE OUTPUT. ORDER GIVEN TO START CLINIMIX WITH ELECTROLYTES AND DC MAINTENANCE FLUIDS. SEE ORDER HX. WILL CONTINUE TO MONITOR.
[2020-04-04] MEDS: AA 4.25% W/LYTES IN D5W IV SOL 1,000 ML IV SCH ×2 (10:20→17:43)
[2020-04-04] MEDS: HALOPERIDOL 5 MG/ML (HALDOL) AMP IM PRN (13:15)
[2020-04-04] MEDS: ENOXAPARIN 40 MG/0.4 ML (LOVENOX) SYR SC SCH (13:15)
[2020-04-04] MEDS: morphine INJ 4 MG/ML 1 ML (VIAL/SYRINGE) IVP PRN (15:08)
[2020-04-05] VITALS (19 sets, daily range): BP systolic 141–179; BP diastolic 68–110
[2020-04-05 04:08] LABS: BASOPHILS % (AUTO) 0 % (0-10); EOSINOPHILS # (AUTO) 0.1 10^3/uL (0.0-0.3); EOSINOPHILS % (AUTO) 1 % (0-10); HEMATOCRIT 25 % (35-52); HEMOGLOBIN 8.3 G/DL (11.5-16.0); LYMPHOCYTES # (AUTO) 1.7 X 10^3 (1.0-4.0); LYMPHOCYTES % (AUTO) 13 % (12-44); MEAN CORPUSCULAR HEMOGLOBIN 32 PG (25-34); MEAN CORPUSCULAR HGB CONC 34 G/DL (32-36); MEAN CORPUSCULAR VOLUME 95 FL (80-99); MEAN PLATELET VOLUME 9.3 FL (7.4-10.4); MONOCYTES # (AUTO) 1.3 X 10^3 (0.0-1.0); MONOCYTES % (AUTO) 10 % (0-12); NEUTROPHILS # (AUTO) 9.7 X 10^3 (1.8-7.8); NEUTROPHILS % (AUTO) 76 % (42-75); PLATELET COUNT 435 10^3/uL (130-400); RED CELL DISTRIBUTION WIDTH 13.5 % (10.0-14.5); WHITE BLOOD COUNT 12.9 10^3/uL (4.3-11.0)
[2020-04-05 04:16] LABS: CHLORIDE 103 MMOL/L (98-107); POTASSIUM 3.4 MMOL/L (3.6-5.0); SODIUM 137 MMOL/L (135-145)
[2020-04-05 04:17] LABS: CALCIUM 8.7 MG/DL (8.5-10.1)
--- NOTE | 2020-04-05 04:17 | Pulmonary Progress Note ---
Subjective Time Seen by a Provider: 04:16 Subjective/Events-last exam Pt is doing better not as agitated through the night. Sepsis Event Evaluation Height, Weight, BMI Height: 4'10.00" Weight: 118lbs. 0.0oz. 53.380305ns; 24.66 BMI Method: Exam Exam Vital Signs Date Time Temp Pulse Resp B/P (MAP) Pulse Ox O2 Delivery O2 Flow Rate FiO2 04/05/20 04:00 96 20 170/92 (118) 96 Room Air 04/05/20 03:00 95 20 158/110 (126) 96 Room Air 04/05/20 02:00 93 26 156/108 (124) 97 Room Air 04/05/20 01:00 104 22 166/79 (108) 97 Room Air 04/05/20 01:00 102 04/05/20 00:00 98 19 162/102 (122) 95 Room Air 04/04/20 23:20 Room Air 04/04/20 23:18 37.6 04/04/20 23:00 101 20 165/83 (110) 95 Room Air 04/04/20 22:46 36.8 04/04/20 22:00 101 21 172/80 (110) 95 Room Air 04/04/20 21:43 36.7 04/04/20 21:00 89 20 164/69 (100) 96 Room Air 04/04/20 20:46 36.1 04/04/20 20:00 Room Air 04/04/20 20:00 98 23 162/72 (102) 95 Room Air 04/04/20 19:41 36.6 04/04/20 19:00 106 16 166/80 (108) 93 Room Air 04/04/20 19:00 109 04/04/20 18:47 37.0 04/04/20 18:00 100 16 155/95 (115) 94 Room Air 04/04/20 17:56 37.0 04/04/20 17:00 100 16 159/83 (108) 94 Room Air 04/04/20 16:52 36.7 04/04/20 16:20 95 Room Air 04/04/20 16:00 99 15 158/75 (102) 94 Room Air 04/04/20 15:55 36.6 04/04/20 15:00 37.0 112 24 178/82 (114) 94 Room Air 04/04/20 14:00 36.6 122 24 178/82 (114) 96 Room Air 04/04/20 13:20 120 04/04/20 13:00 120 25 165/75 (105) 96 Room Air 04/04/20 12:00 94 Room Air 04/04/20 12:00 117 25 145/81 (102) 94 Room Air 04/04/20 11:41 37.2 04/04/20 11:00 112 24 149/71 (97) 93 Room Air 04/04/20 10:00 100 16 113/47 (69) 93 Room Air 04/04/20 09:00 111 20 110/96 (101) 95 Room Air 04/04/20 09:00 110 24 155/95 (115) 94 Room Air 04/04/20 08:00 37.6 04/04/20 08:00 97 Room Air 04/04/20 08:00 116 22 136/104 (115) 93 Room Air 04/04/20 07:25 123 04/04/20 07:00 101 24 144/83 (103) 92 Room Air 04/04/20 06:00 94 26 145/77 (99) 92 Room Air 04/04/20 05:00 86 22 94 Room Air I & O 04/05/20 07:00 Intake Total 0 ml Output Total 2570 ml Balance -2570 ml Height & Weight Height: 4'10.00" Weight: 118lbs. 0.0oz. 53.222019us; 24.66 BMI Method: General Appearance: No Apparent Distress, WD/WN, Anxious, Chronically ill, Other (confused) HEENT: PERRL/EOMI, Normal ENT Inspection, Pharynx Normal Neck: Full Range of Motion, Normal Inspection, Non Tender, Supple, Carotid Bruit Respiratory: Chest Non Tender, Lungs Clear, Normal Breath Sounds, No Accessory Muscle Use, No Respiratory Distress Cardiovascular: Regular Rate, Rhythm, No Edema, No Gallop, No JVD, No Murmur, Normal Peripheral Pulses Capillary Refill: Less Than 3 Seconds Gastrointestinal: normal bowel sounds, non tender, soft, no organomegaly, no pulsatile mass Extremity: Normal Capillary Refill, Normal Inspection, Normal Range of Motion, Non Tender, No Calf Tenderness, No Pedal Edema Neurologic/Psychiatric: Alert, No Motor/Sensory Deficits, Normal Mood/Affect, acoustic sensor operator II-XII Norm as Tested, Disoriented Skin: Normal Color, Warm/Dry Lymphatic: No Adenopathy Results Lab Laboratory Tests 04/04/20 03:11 04/05/20 03:44 Assessment/Plan Assessment/Plan Acute psychosis -Sitter at bedside - Geodon PRN and currently on precedex gtt -Pt will not take PO Risperadol she spits it out. - 20mg Geodon Q12 -Start Haldol PRN -- Precedex- is now off x 24 hrs -Morphine PRN -Fall precautions -UDS is positive for Cocain Pseudomonus UTI -Cefepime -Sarmiento cultures pending s/p lumbar stenosis surgery due to neurogenic claudication POD # 7 Dr Mace hx of Psoriatric arthritis Hypothyroidism HTN Hyponatremia -Monitor Anemia iron deficiency -Venofer -Monitor DIMA CANNON DO April 05, 2020 04:17
[2020-04-05 04:18] LABS: GLUCOSE 149 MG/DL (70-105); TOTAL PROTEIN 5.3 GM/DL (6.4-8.2)
[2020-04-05 04:19] LABS: CARBON DIOXIDE 23 MMOL/L (21-32)
[2020-04-05 04:20] LABS: BILIRUBIN,TOTAL 0.4 MG/DL (0.1-1.0)
[2020-04-05 04:22] LABS: ALKALINE PHOSPHATASE 63 U/L (40-136); CREATININE SERUM 0.77 MG/DL (0.60-1.30); GFR ESTIMATED > 60; PHOSPHORUS 2.7 MG/DL (2.3-4.7)
[2020-04-05 04:23] LABS: BUN/CREATININE RATIO 27
[2020-04-05 04:25] LABS: ALANINE AMINOTRANSFERASE 24 U/L (0-55); MAGNESIUM 1.7 MG/DL (1.6-2.4)
[2020-04-05] MEDS: POTASSIUM CL 10MEQ/50ML IVPB 50 ML IV SCH ×3 (06:17→06:46)
[2020-04-05] MEDS: KCL 20 MEQ TAB (K-DUR) PO SCH (06:18)
[2020-04-05] MEDS: MAGNESIUM 1 GM/100 ML IVPB 100 ML IV SCH ×3 (06:18→06:46)
[2020-04-05] MEDS: CEFEPIME INJECTION 1,000 MG in WATER (STERILE) FOR INJECTION 10 ML IV SCH ×3 (06:45→18:28)
[2020-04-05] MEDS: AA 4.25% W/LYTES IN D5W IV SOL 1,000 ML IV SCH ×3 (06:45→17:07)
--- NOTE | 2020-04-05 08:20 | Progress Note - Hospitalist ---
Subjective HPI/CC On Admission Date Seen by Provider: April 05, 2020 Time Seen by Provider: 08:30 CC: Worsening altered mental status with aggression HPI: This is a 74yoWF clinic Pt of Dr. Clover Sims who worsened with confusion, became agitated and aggressive within inpatient rehab, that had been escalating for the past several days after she was admitted on Monday after an uncomplicated lumbar spine surgery. Pt was moved up to the ICU lactic acid of 2.3 was noted, but no evidence or signs of infection. She was maintained on Cefepime 1G Q12hrs, for the documented pseudomonas UTI. Overall she did require Geodon, intramuscular injection, along with Precedex and I did confer with Dr. Clover Sims, who reported she had some memory lost within the past year every since her , and when I took care of her in March of 2019, she had to the assisted because the encephalopathy was so severe. Pt at this current time is agitated and has a one-on-one at the bedside. IRF note from yesterday: Patient still has some confusion this morning and told the nurse she thought she had delivered a baby Pt still confused, a lot of flight of ideas Hgb 7.3 Midline may be needed if she takes out her IV Risperdal will be attempted to be started for the delirium Nurse researched her last visit and it appears she went to the assisted for a week and the family took her out of there and she only cleared her encephalopathy after she got home so that may very well be required here Fall risk I recall her severe delirium during her last hospital stay 2 years ago when I took care of her resulted in transfer to assisted due to the severity and I did review that hospital course Will minimize Gabapentin and Flexeril and pain meds UTI Pseudomonasso DC Rocephin and started Cefepime empirically Day # 3 Hyponatremia noted at 135 now 132 and already held Chlorathalidone and placeed on fluid restriction in the meantime also Iron level very low with anemia so started Venofer since anemia can slow rec overy and hgb 7.3 today BM regular Catheter replaced due to retention 2 nights ago Took shower Incision looks good Conferred with RN Reviewed therapy notes Checked meds and labs Assessment: s/p lumbar stenosis surgery due to neurogenic claudication POD # 7 Dr Mace Psoriatric arthritis Delirium with h/o delirium 2 years ago now requiring transfer to ICU Hypothyroidism HTN Hyponatremia holding Chlorathalidone Post op constipation Urinary retention failed voiding trial Diaz DC per Dr Naik but required replacement last night 03/29/20 due to retention UTI Pseudomonas placed on Cefepime and stopped Rocephin Anemia iron deficiency placed on Venofer Pill consumption from purse this morning? Plan: Dr Naik consultation will be necessary appreciated Monitor sodium level IRF protocol Fluid restriction Monitor labs IV abx Ucx Venofer BM regimen (1) Lumbar stenosis with neurogenic claudication (2) Hypothyroidism (3) Osteopenia (4) Diaz catheter in place (5) Urinary retention (6) Hyponatremia (7) Psoriatic arthritis Status: Chronic (8) Hypertension (9) Delirium Status: Acute (10) UTI (urinary tract infection) Status: Acute Subjective/Events-last exam Patient is a bit better No need for sitter currently Transferring to 4th floor Refuses to eat Clinimix infusing Reviewed MRI and Carotid USG and CT scans obtained this past year by PCP for memory loss indicating how progressive this has been BP high so will order prn meds for that until she is able to take PO Iron infusion maintained Review of Systems Neurological: Confusion Objective Exam Vital Signs Vital Signs Date Time Temp Pulse Resp B/P (MAP) Pulse Ox O2 Delivery O2 Flow Rate FiO2 04/05/20 13:00 84 17 173/87 (115) 100 Room Air 04/05/20 12:00 36.7 04/02/20 10:00 Capillary Refill : NONELess Than 3 Seconds General Appearance: No Apparent Distress, WD/WN, Chronically ill, Thin, Other (pale) Respiratory: Lungs Clear, Normal Breath Sounds Cardiovascular: Regular Rate, Rhythm Results/Procedures Lab Laboratory Tests 04/05/20 03:44 Patient resulted labs reviewed. Assessment/Plan Assessment and Plan Assess & Plan/Chief Complaint Assessment: Delirium with h/o delirium 1 year ago now requiring transfer to ICU due to the severity of the metabolic encephalopathy Elevated lactic acid due to agitation and dehydration s/p IVF s/p lumbar stenosis surgery due to neurogenic claudication POD # 12 Dr Mace Psoriatric arthritis/RA Hypothyroidism HTN Hyponatremia holding Chlorathalidone Post op constipation resolved Urinary retention failed voiding trial Diaz DC per Dr Naik but required replacement 03/29/20 due to continued retention UTI Pseudomonas placed on Cefepime and stopped Rocephin Anemia iron deficiency placed on Venofer Pill consumption from purse morning of ICU transfer appears it was APAP Lovenox for DVT PPx safely started since POD # 10 when I started it to prevent spinal hematoma risk Plan: Dr Grimm consultation appreciated Dr Naik consultation appreciated Monitor sodium level IRF DC acct Clinimix Monitor labs IV abx Ucx reviewed Venofer BM regimen Precedex DC and maintain Geodon Move to 4th Diagnosis/Problems Diagnosis/Problems (1) Encephalopathy acute (2) UTI (urinary tract infection) Status: Acute (3) Delirium Status: Acute (4) Hypertension (5) Lumbar stenosis with neurogenic claudication (6) Diaz catheter in place (7) Osteopenia (8) Hypothyroidism (9) Hyponatremia (10) Psoriatic arthritis Status: Chronic (11) Urinary retention (12) Lumbar radiculopathy Clinical Quality Measures DVT/VTE Risk/Contraindication: Risk Factor Score Per Nursin RFS Level Per Nursing on Admit: 4+=Very High Contraindications-Pharm: Other *list below* Contraindications-Mechi: Other *list below* Other: PT HAD RECENT SPINAL SURGERY - SCD'S ONLY JESS SIMON DO April 05, 2020 08:20
[2020-04-05] MEDS: ZIPRASIDONE 20 MG INJ (GEODON) VIAL IM SCH ×2 (09:12→21:36)
--- NOTE | 2020-04-05 11:42 | Diagnostic Imaging Report ---
PROCEDURE: CT head without contrast. TECHNIQUE: Multiple contiguous axial images were obtained through the brain without the use of intravenous contrast. Auto Exposure Controls were utilized during the CT exam to meet ALARA standards for radiation dose reduction. INDICATION: Confusion, altered mental status COMPARISON: 04/01/2019 FINDINGS: Mild diffuse volume loss. No intracranial hemorrhage. No intracranial mass, mass effect, midline shift, herniation, hydrocephalus, or extra-axial fluid collection. Periventricular and subcortical white matter hypodensities are present, most consistent with mild chronic small vessel white matter ischemic disease. No definite CT evidence of an acute ischemic infarction. The orbits are unremarkable. The paranasal sinuses are clear. Vascular calcifications are present. The calvarium and extra calvarial soft tissues are unremarkable. IMPRESSION: No acute intracranial abnormality. Mild atrophy with associated mild background chronic small vessel white matter ischemic disease. Dictated by: Dictated on workstation # [id number]
[2020-04-05] MEDS: ENOXAPARIN 40 MG/0.4 ML (LOVENOX) SYR SC SCH (12:27)
[2020-04-05] MEDS ORDERED: NITROGLYCERIN 2% OINT 1 GM UNIT DOSE PACKET TOP PRN (14:00)
[2020-04-05] MEDS ORDERED: hydrALAZINE (APESOLINE) 20 MG/ML VIAL IV PRN (14:00)
--- NOTE | 2020-04-05 15:56 | NUR ---
THIS NURSE CALLED REPORT TO MARIZA TOLBERT ON FOURTH FLOOR. PT TAKEN DOWN VIA BED WITH PCT. PT SETTLED WITH DAUGHTER AT BEDSIDE AND CALL LIGHT WITHIN REACH. MARIZA NOTIFIED OF PT ARRIVAL.
--- NOTE | 2020-04-05 17:15 | NUR ---
RECEIVED REPORT FROM EVENS TOLBERT, TRANSFERRED FROM ICU, CRAIG PATENT, IV SITE WITHOUT REDNESS OR SWELLING, DRESSINGS DRY AND INTACT TO BOTH ARMS, HEELS ELEVATED OFF BED, DAUGHTER AT BEDSIDE, PATIENT DID NOT RESPOND VERBALLY TO NURSE, DAUGHTER AT BEDSIDE, PATIENT HAS CONSTANT MOVEMENT OF ARMS AND LEGS, CALL LIGHT WITHIN REACH, BED ALARM ON.
[2020-04-05] MEDS ORDERED: WATER (STERILE) FOR INJECTION 10 ML ONE (20:32)
[2020-04-06] VITALS (7 sets, daily range): BP systolic 134–167; BP diastolic 68–84
[2020-04-06] MEDS ORDERED: WATER (STERILE) FOR INJECTION 10 ML ONE ×6 (00:04→20:16)
[2020-04-06] MEDS ORDERED: CEFEPIME 1 GM (MAXIPIME) VIAL ONE ×5 (00:04→16:38)
[2020-04-06] MEDS: AA 4.25% W/LYTES IN D5W IV SOL 1,000 ML IV SCH ×3 (00:22→16:49)
[2020-04-06] MEDS: CEFEPIME INJECTION 1,000 MG in WATER (STERILE) FOR INJECTION 10 ML IV SCH ×4 (00:22→18:11)
[2020-04-06 05:19] LABS: BASOPHILS % (AUTO) 0 % (0-10); EOSINOPHILS # (AUTO) 0.3 10^3/uL (0.0-0.3); EOSINOPHILS % (AUTO) 2 % (0-10); HEMATOCRIT 28 % (35-52); HEMOGLOBIN 9.3 G/DL (11.5-16.0); LYMPHOCYTES # (AUTO) 1.7 X 10^3 (1.0-4.0); LYMPHOCYTES % (AUTO) 11 % (12-44); MEAN CORPUSCULAR HEMOGLOBIN 31 PG (25-34); MEAN CORPUSCULAR HGB CONC 33 G/DL (32-36); MEAN CORPUSCULAR VOLUME 94 FL (80-99); MEAN PLATELET VOLUME 9.3 FL (7.4-10.4); MONOCYTES # (AUTO) 1.4 X 10^3 (0.0-1.0); MONOCYTES % (AUTO) 9 % (0-12); NEUTROPHILS # (AUTO) 12.2 X 10^3 (1.8-7.8); NEUTROPHILS % (AUTO) 78 % (42-75); PLATELET COUNT 507 10^3/uL (130-400); RED CELL DISTRIBUTION WIDTH 13.9 % (10.0-14.5); WHITE BLOOD COUNT 15.7 10^3/uL (4.3-11.0)
[2020-04-06 05:36] LABS: EOSINOPHILS % (MANUAL) 1 %; LYMPHOCYTES % (MANUAL) 8 %; MONOCYTES % (MANUAL) 3 %; NEUTROPHILS % (MANUAL) 88 %
[2020-04-06 05:37] LABS: CHLORIDE 99 MMOL/L (98-107); POTASSIUM 3.4 MMOL/L (3.6-5.0); RBC MORPH NORMAL; SODIUM 132 MMOL/L (135-145)
[2020-04-06 05:38] LABS: CALCIUM 8.8 MG/DL (8.5-10.1)
[2020-04-06 05:39] LABS: GLUCOSE 135 MG/DL (70-105); TOTAL PROTEIN 5.2 GM/DL (6.4-8.2)
[2020-04-06 05:40] LABS: CARBON DIOXIDE 23 MMOL/L (21-32)
[2020-04-06 05:41] LABS: BILIRUBIN,TOTAL 0.4 MG/DL (0.1-1.0)
[2020-04-06 05:43] LABS: ALKALINE PHOSPHATASE 65 U/L (40-136); CREATININE SERUM 0.71 MG/DL (0.60-1.30); GFR ESTIMATED > 60
[2020-04-06 05:44] LABS: BUN/CREATININE RATIO 35
[2020-04-06 05:46] LABS: ALANINE AMINOTRANSFERASE 21 U/L (0-55)
--- NOTE | 2020-04-06 06:36 | Progress Note - Hospitalist ---
Subjective HPI/CC On Admission Date Seen by Provider: Apr 06, 2020 Time Seen by Provider: 09:00 CC: Worsening altered mental status with aggression HPI: This is a 74yoWF clinic Pt of Dr. Clover Sims who worsened with c onfusion, became agitated and aggressive within inpatient rehab, that had been escalating for the past several days after she was admitted on Monday after an uncomplicated lumbar spine surgery. Pt was moved up to the ICU lactic acid of 2.3 was noted, but no evidence or signs of infection. She was maintained on Cefepime 1G Q12hrs, for the documented pseudomonas UTI. Overall she did require Geodon, intramuscular injection, along with Precedex and I did confer with Dr. Clover Sims, who reported she had some memory lost within the past year every since her , and when I took care of her in March of 2019, she had to the fdc because the encephalopathy was so severe. Pt at this current time is agitated and has a one-on-one at the bedside. IRF note from yesterday: Patient still has some confusion this morning and told the nurse she thought she had delivered a baby Pt still confused, a lot of flight of ideas Hgb 7.3 Midline may be needed if she takes out her IV Risperdal will be attempted to be started for the delirium Nurse researched her last visit and it appears she went to the fdc for a week and the family took her out of there and she only cleared her encephalopathy after she got home so that may very well be required here Fall risk I recall her severe delirium during her last hospital stay 2 years ago when I took care of her resulted in transfer to fdc due to the severity and I did review that hospital course Will minimize Gabapentin and Flexeril and pain meds UTI Pseudomonasso DC Rocephin and started Cefepime empirically Day # 3 Hyponatremia noted at 135 now 132 and already held Chlorathalidone and placeed on fluid restriction in the meantime also Iron level very low with anemia so started Venofer since anemia can slow dev very and hgb 7.3 today BM regular Catheter replaced due to retention 2 nights ago Took shower Incision looks good Conferred with RN Reviewed therapy notes Checked meds and labs Assessment: s/p lumbar stenosis surgery due to neurogenic claudication POD # 7 Dr Mace Psoriatric arthritis Delirium with h/o delirium 2 years ago now requiring transfer to ICU Hypothyroidism HTN Hyponatremia holding Chlorathalidone Post op constipation Urinary retention failed voiding trial Diaz DC per Dr Naik but required replacement last night 03/29/20 due to retention UTI Pseudomonas placed on Cefepime and stopped Rocephin Anemia iron deficiency placed on Venofer Pill consumption from purse this morning? Plan: Dr Naik consultation will be necessary appreciated Monitor sodium level IRF protocol Fluid restriction Monitor labs IV abx Ucx Venofer BM regimen (1) Lumbar stenosis with neurogenic claudication (2) Hypothyroidism (3) Osteopenia (4) Diaz catheter in place (5) Urinary retention (6) Hyponatremia (7) Psoriatic arthritis Status: Chronic (8) Hypertension (9) Delirium Status: Acute (10) UTI (urinary tract infection) Status: Acute Subjective/Events-last exam Daughter at the bedside from [place] Impressive resolution of encephalopathy Bowels are moving Walking with PT Flomax restarted after I spoke with Dr. Naik Diaz catheter remains due to retention from sx Cefepime for Pseudomonas May need rehab tomorrow will have her evaluated for that Review of Systems General: Fatigue Musculoskeletal: back pain Neurological: Confusion Objective Exam Vital Signs Vital Signs Date Time Temp Pulse Resp B/P (MAP) Pulse Ox O2 Delivery O2 Flow Rate FiO2 04/06/20 20:00 37.0 93 18 136/77 (96) 95 Room Air 04/02/20 10:00 Capillary Refill : NONELess Than 3 Seconds General Appearance: No Apparent Distress, WD/WN, Chronically ill Respiratory: Chest Non Tender, Lungs Clear, Normal Breath Sounds, No Accessory Muscle Use, No Respiratory Distress Cardiovascular: Regular Rate, Rhythm, No Edema, No Gallop, No JVD, No Murmur, Normal Peripheral Pulses Neurologic/Psychiatric: Alert, Oriented x3, quantitative strategy analyst II-XII Norm as Tested, Disoriented Results/Procedures Lab Laboratory Tests 04/06/20 04:48 Patient resulted labs reviewed. Assessment/Plan Assessment and Plan Assess & Plan/Chief Complaint Assessment: Delirium with h/o delirium 1 year ago now requiring transfer to ICU due to the severity of the metabolic encephalopathy now moved to 4th floor Elevated lactic acid due to agitation and dehydration s/p IVF s/p lumbar stenosis surgery due to neurogenic claudication POD # 13 Dr Mace Psoriatric arthritis/RA Hypothyroidism HTN Hyponatremia holding Chlorathalidone Post op constipation resolved Urinary retention failed voiding trial Diaz DC per Dr Naik but required replacement 03/29/20 due to continued retention UTI Pseudomonas placed on Cefepime and stopped Rocephin Anemia iron deficiency placed on Venofer Pill consumption from purse morning of ICU transfer appears it was APAP Lovenox for DVT PPx safely started since POD # 10 when I started it to prevent spinal hematoma risk Plan: Dr Grimm consultation appreciated Dr Naik consultation appreciated Monitor sodium level IRF tomorrow? Clinimix Monitor labs IV abx Ucx reviewed Venofer BM regimen Precedex DC and maintain Geodon Moved to 4th Diagnosis/Problems Diagnosis/Problems (1) Encephalopathy acute (2) UTI (urinary tract infection) Status: Acute (3) Delirium Status: Acute (4) Hypertension (5) Lumbar stenosis with neurogenic claudication (6) Diaz catheter in place (7) Osteopenia (8) Hypothyroidism (9) Hyponatremia (10) Psoriatic arthritis Status: Chronic (11) Urinary retention (12) Lumbar radiculopathy Clinical Quality Measures DVT/VTE Risk/Contraindication: Risk Factor Score Per Nursin RFS Level Per Nursing on Admit: 4+=Very High Contraindications-Pharm: Other *list below* Contraindications-Mechi: Other *list below* Other: PT HAD RECENT SPINAL SURGERY - [facility] ONLY JESS SIMON DO Apr 06, 2020 06:36
[2020-04-06] MEDS: IRON SUCROSE 200 MG/10 ML (VENOFER) VIAL IV SCH (08:45)
[2020-04-06] MEDS: ZIPRASIDONE 20 MG INJ (GEODON) VIAL IM SCH ×2 (09:12→20:35)
--- NOTE | 2020-04-06 10:30 | Physical Therapy Evaluation ---
PT Evaluation-General Medical Diagnosis Admission Date April 01, 2020 at 05:48 Medical Diagnosis: Lumbar stenosis with neurogenic claudication. Onset Date: March 24, 2020 Therapy Diagnosis Therapy Diagnosis: debility/weakness Height/Weight Height (Feet): 4 Height (Inches): 10.00 Weight (Pounds): 118 Weight (Ounces): 0.0 Precautions Precautions/Isolations: Aspiration Referral Physician: Yasmeen Medical History Pertinent Medical History: Arthritis, Dementia, Hypothroidism, Rheumatoid Arthritis Additional Medical History Lumbar stenosis with neurogenic claudication s/p L2-3, L4-5 decompressive laminectomies, foraminotomies; L2-4 posterolaterl arthrodesis; L2-4 posterior instrumentation on 03/24/2020 Current History increased confusion, agitation, and aggressive behavior on ARU (s/p lumbar stenosis surgery) Reviewed History: Yes Social History Home: Single Level Prior Prior Level of Function SCALE: Activities may be completed with or without assistive devices. 8-Tuttcyfxjn-anxoepp completes the activity by him/herself with no assistance from a helper. 5-Set-up or Clean-up Assistance-helper sets up or cleans up; patient completes activity. Ossian assists only prior to or following the activity. 4-Supervision or Touching Assistance-helper provides verbal cues and/or touching/steadying and/or contact guard assistance as patient completes activity. Assistance may be provided throughout the activity or intermittently. 3-Partial/Moderate Assistance-helper does LESS THAN HALF the effort. Ossian lifts, holds or supports trunk or limbs, but provides less than half the effort. 2-Substantial/Maximal Assistance-helper does MORE THAN HALF the effort. Ossian lifts or holds trunk or limbs and provides more than half the effort. 5-Oibcxodcp-ortaro does ALL the effort. Patient does none of the effort to complete the activity. Or, the assistance of 2 or more helpers is required for the patient to complete the activity. If activity was not attempted, code reason: 7-Patient Refused. 9-Not Applicable-not attempted and the patient did not perform the activity before the current illness, exacerbation or injury. 10-Not Attempted due to Environmental Limitations-(lack of equipment, weather restraints, etc.). 88-Not Attempted due to Medical Conditions or Safety Concerns. Bed Mobility: 6 Transfers (B,C,W/C): 6 Gait: 6 Stairs: 6 Indoor Mobility (Ambulation): Independent Stairs: Independent Prior Devices Use: None, Walker PT Evaluation-Current Subjective Patient agrees to PT. Daughter present Objective Patient Orientation: Confused ROM/Strength ROM Lower Extremities bilateral LE WFL Strength Lower Extremities 3+/5 grossly bilateral LE Integumentary/Posture Bowel Incontinence: No Transfers Roll Left to Right (QC): 3 Lying to Sitting/Side of Bed(Q: 3 Sit to Stand (QC): 3 Chair/Thf-fe-Yjmvl Xfer(QC): 3 Gait Does the Patient Walk?: Yes Mode of Locomotion: Walk Anticipated Mode of Locomotion: Walk Walk 10 feet (QC): 3 Walk 50 ft with 2 Turns(QC): 3 Walk 150 ft (QC): 3 Distance: 200' Gait Assistive Device: FWW Comments/Gait Description unsteady initially with improvement with distance Balance Sitting Static: Normal Sitting Dynamic: Normal Standing Static: Good Standing Dynamic: Fair Assessment/Needs 74 y.o. female, will benefit from skilled PT to address functional strength and mobility to ensure safe return to home or care facility at maximum LOF. Rehab Potential: Fair PT Half-Way Goals Half-Way Goals PT Visual Developer Goals Time Frame: Apr 25, 2020 Roll Left & Right (QC): 6 Sit to Lying (QC): 6 Lying-Sitting on Side/Bed(QC): 6 Sit to Stand (QC): 6 Chair/Ibm-zr-Oteas Xfer(QC): 6 Toilet Transfer (QC): 6 Does the Patient Walk: Yes Walk 10 feet (QC): 6 Walk 50ft with 2 Turns (QC): 6 Walk 150 ft (QC): 6 PT Plan Problem List Problem List: Activity Tolerance, Functional Strength, Safety, Balance, Gait, Transfer, Bed Mobility Treatment/Plan Treatment Plan: Continue Plan of Care Treatment Plan: Bed Mobility, Education, Functional Activity Faboi, Functional Strength, Gait, Safety, Therapeutic Exercise, Transfers Treatment Duration: Apr 25, 2020 Frequency: 6 times per week Estimated Hrs Per Day: .25 hour per day Patient and/or Family Agrees t: Yes Time/GCodes Time In: 910 Time Out: 928 Total Billed Treatment Time: 18 Total Billed Treatment 1 visit EVMod 18 min SULLY TREJO PT Apr 06, 2020 10:30
--- NOTE | 2020-04-06 10:40 | Progress Note - Urology ---
Progress Note-Urology Progress Notes/Assess & Plan Progress/Assessment & Plan PATIENT BETTER. RESUME FLOMAX DAILY. TOV TOMORROW AND MANAGE ACCORDINGLY Final Diagnosis URINE RETENTION OREN AMBROSIO MD Apr 06, 2020 10:40
--- NOTE | 2020-04-06 12:57 | Occupational Therapy Eval ---
OT Evaluation-General/PLF Medical Diagnosis Admission Date April 01, 2020 at 05:48 Medical Diagnosis: Lumbar stenosis with neurogenic claudication. Onset Date: March 24, 2020 Therapy Diagnosis Therapy Diagnosis: Decrease ADL skills Height/Weight Height (Feet): 4 Height (Inches): 10.00 Weight (Pounds): 118 Weight (Ounces): 0.0 Precautions Precautions/Isolations: Aspiration Referral Physician: Yasmeen Referral Reason: Activity Tolerance, Self Care, Evaluation/Treatment, Strengthening/ROM Medical History Pertinent Medical History: Arthritis, Dementia, HTN, Hypothroidism, Rheumatoid Arthritis Additional Medical History Anemia, hypohtyroidism Current History Pt. had lumbar surgery. Experiencing AMS with aggression. Reviewed History: Yes Social History Home: Single Level ADL-Prior Level of Function SCALE: Activities may be completed with or without assistive devices. 1-Bwzhknrtma-jnwzmcr completes the activity by him/herself with no assistance from a helper. 5-Set-up or Clean-up Assistance-helper sets up or cleans up; patient completes activity. [place] assists only prior to or following the activity. 4-Supervision or Touching Assistance-helper provides verbal cues and/or touching/steadying and/or contact guard assistance as patient completes activity. Assistance may be provided throughout the activity or intermittently. 3-Partial/Moderate Assistance-helper does LESS THAN HALF the effort. [place] lifts, holds or supports trunk or limbs, but provides less than half the effort. 2-Substantial/Maximal Assistance-helper does MORE THAN HALF the effort. [place] lifts or holds trunk or limbs and provides more than half the effort. 1-Jroqqtxfe-wmhvyx does ALL the effort. Patient does none of the effort to complete the activity. Or, the assistance of 2 or more helpers is required for the patient to complete the activity. If activity was not attempted, code reason: 7-Patient Refused. 9-Not Applicable-not attempted and the patient did not perform the activity before the current illness, exacerbation or injury. 10-Not Attempted due to Environmental Limitations-(lack of equipment, weather restraints, etc.). 88-Not Attempted due to Medical Conditions or Safety Concerns. ADL PLOF Comments It is unknown to this therapist pt's previous level of function. Pt. is unable to state this during evaluation. Self Care: Unknown Functional Cognition: Unknown OT Current Status Subjective No pain reported. Pt. does nod "yes" when OT asks if she needs to use bathroom. Appearance Pt. in bed. Opens eyes and makes eye contact. Demonstrates very little verbalizations. Allows OT to facilitate transfer and evaluation. Mental Status/Objective Patient Orientation: Confused ADL-Treatment Oral Hygiene (QC): 4 (Min assist and cues to complete teeth brushing.) Toileting Hygiene (QC): 1 (Pt. incontinent of stool on side of bed.) Other Treatments Pt. transfers to side of bed with mod assist. Pt. confused but not agitated. Max cues needed. OT able to engage pt. in brushing teeth and washing face. OT brushed her hair. Pt. moving on bed and attempts to stand. OT assists pt. to stand and noted that pt. had been somewhat incontinent of stool on side of bed. OT transferred pt. to BSC. Daughter came into room and nursing notified that pt. on BSC. All needs met. Education OT Patient Education: Correct positioning, Modified ADL techniques, Progress toward Goal/Update tx plan, Purpose of tx/functional activities, Reviewed precautions, Rehab process, Transfer techniques Teaching Recipient: Patient Teaching Methods: Demonstration, Discussion Response to Teaching: Reinforcement Needed OT Short Term Goals Short Term Goals Time Frame: Apr 13, 2020 Eatin Oral hygiene: 4 Toileting hygiene: 3 Shower/bathe self: 3 Upper body dressin Lower body dressin Putting on/taking off footwear: 3 OT Hand Endband Cutter Goals Hand Endband Cutter Goals Time Frame: Apr 20, 2020 Eating (QC): 4 Oral Hygiene (QC): 4 Toileting Hygiene (QC): 4 Shower/Bathe Self (QC): 3 Upper Body Dressing (QC): 4 Lower Body Dressing (QC): 4 On/Off Footwear (QC): 4 Additional Goals: 1-Demonstrate ADL Tasks, 2-Verbalize Understanding, 3-ImproveStrength/Fabio 1=Demonstrate adherence to instructed precautions during ADL tasks. 2=Patient will verbalize/demonstrate understanding of assistive devices/modifications for ADL. 3=Patient will improve strength/tolerance for activity to enable patient to perform ADL's. OT Education/Plan Problem List/Assessment Assessment: Decreased Activ Tolerance, Decreased UE Strength, Dependent Transfers, Impaired Bed Mobility, Impaired Cognition, Impaired Funct Balance, Impaired I ADL's, Impaired Self-Care Skills, Restricted Funct UE ROM Discharge Recommendations Plan/Recommendations: Continue POC Therapy Discharge Recommendati: 24 Hour Supervision Treatment Plan/Plan of Care Treatment,Training & Education: Yes Patient would benefit from OT for education, treatment and training to promote independence in ADL's, mobility, safety and/or upper extremity function for ADL's. Plan of Care: ADL Retraining, Functional Mobility, UE Funct Exercise/Act Treatment Duration: Apr 20, 2020 Frequency: 5 times per week Estimated Hrs Per Day: .25 hour per day Agreement: Yes Rehab Potential: Fair Time/GCodes Start Time: 08:45 Stop Time: 09:05 Total Time Billed (hr/min): 20 Billed Treatment Time 1, NAYANA KELLER OT Apr 06, 2020 12:57
[2020-04-06] MEDS: ENOXAPARIN 40 MG/0.4 ML (LOVENOX) SYR SC SCH (13:10)
--- NOTE | 2020-04-06 13:46 | NUR ---
"RD ASSESSMENT PMHx: psoriatic arthritis; HTN; CA(colon); s/pr lumbar stenosis surgery PT INTERACTION: Pt was awake and pleasant during nutrition assessment. Note pt has AMS, and daughter was present at bedside. Daughter states pt is eating very little. Note pt has been refusing several meals, per chart review. Pt states no issues with nausea, vomiting, constipation, or diarrhea since last assessment. Note last BM was 04/06, and pt not currently on bowel regimen per chart review. Note recent 11# wt gain x10d per chart review. ABNORMAL NUTRITION-RELATED LAB VALUES LOW: Na 132; K 3.4; Pro 5.3; alb 3.0 HIGH: BUN 25; glu 135; AST 41 Est. kcal needs: 2269-0035 kcal | 25-30 kcal/kg Est. Pro needs: 63-76 g Pro | 1.0-1.2 g Pro/kg PES STATEMENT: Inadequate oral intake (NI-2.1) related to loss of appetite | AMS as evidenced by pt (daughter) interview | pt refusing meals INTERVENTION: Continue with current diet order of 2000mg Na diet. Continue with current supplementation order of Ensure Enlive with meals TID, for increased kcal intake. Provides 350 kcal and 13 g Pro per serving. Encouraged pt to eat when able. Will continue to follow and and reassess as pt needs, intake, and status change. MONITOR/EVALUATE: PO Intake; Plan of Care; Hydration Status; Weight Status; Lab Values Jay De La O, MS, RD, LD"
--- NOTE | 2020-04-06 15:26 | NUR ---
CM/SS: Visited with pt and daughter as to plan for discharge. Plan: Pt will be able to return to [facility] Summary: Daughter from [place] is present. Pt sleeps the entire visit. Daughter reports that pt is better today and seems to be getting back on track. Pt did not wake up during this workers visit to the room. Daughter seems ok with the plan for pt to return to rehab on tomorrow or the next day. Future care is discussed with daughter, related to care givers, assisted living, living with her siblings and computer repair technician care. She will need to talk with pt as to her thoughts and she is also encouraged to look for placements in [place] near her. She seems open to that. Daughter reports several changes with pt since the loss of her spouse. This worker will follow up.
--- NOTE | 2020-04-06 15:33 | NUR ---
IRF Evaluation Order received to evaluate patient for the ARU. Chart review complete and findings discussed with Dr. Arana - patient accepted. Met with patient and daughter to discuss return to ARU. Patient found in bed with eyes closed; however, she was quick to open eyes and converse, nonsensically. Daughter inquisitive in regard to discharge plan. This insurance writer ensured daughter the SW on ARU will follow along and begin discharge planning upon admission. Daughter questions the likelihood of her mother needing SNF/AL placement at dismissal. This insurance writer responded by assuring, if recommended, those arrangements would be made. It does appear as if daughter is concerned and supportive as she was attentive to her mother during visit and asked several questions. Daughter does state she is from [place]; therefore, is not local to provide support. She did state she would be willing/able to return for training by therapy, if needed. Anticipate admission, 04/07/20.
[2020-04-06] MEDS ORDERED: ONDANSETRON 4 MG/2 ML (SDV) Z0FRAN IVP PRN (16:15)
[2020-04-06] MEDS ORDERED: CALCIUM CARBONATE 500 MG (TUMS) TAB.CHEW PO PRN (16:15)
[2020-04-06] MEDS ORDERED: ONDANSETRON 4 MG (ZOFRAN) ORAL DISSOLVE TAB PO PRN (16:15)
[2020-04-06] MEDS ORDERED: PROMETHAZINE INJ 25 MG/ML (PHENERGAN) AMP IM PRN (16:15)
[2020-04-06] MEDS ORDERED: ACETAMINOPHEN 500 MG TAB (TYLENOL) PO PRN (16:15)
[2020-04-06] MEDS ORDERED: diphenhydrAMINE 25 MG TAB (BENADRYL) PO PRN (16:15)
[2020-04-06] MEDS: TAMSULOSIN 0.4 MG (FLOMAX) CAP PO SCH ×2 (18:10→18:20)
--- NOTE | 2020-04-06 18:21 | NUR ---
PATIENT WOULD NOT TAKE THE FLOMAX PILL. PATIENT'S DAUGHTER IS IN THE ROOM AND ALSO ENCOURAGED HER TO TAKE THE PILL. PATIENT HAS BEEN NAUSEOUS TODAY. ZOFRAN GIVEN.
[2020-04-07] VITALS (7 sets, daily range): BP systolic 135–164; BP diastolic 67–82
[2020-04-07] MEDS ORDERED: CEFEPIME 1 GM (MAXIPIME) VIAL ONE ×2 (00:17→05:49)
[2020-04-07] MEDS ORDERED: WATER (STERILE) FOR INJECTION 10 ML ONE ×3 (00:17→09:12)
[2020-04-07] MEDS: CEFEPIME INJECTION 1,000 MG in WATER (STERILE) FOR INJECTION 10 ML IV SCH ×2 (00:32→06:09)
[2020-04-07] MEDS: AA 4.25% W/LYTES IN D5W IV SOL 1,000 ML IV SCH ×4 (00:46→23:36)
[2020-04-07 05:26] LABS: BASOPHILS % (AUTO) 0 % (0-10); EOSINOPHILS # (AUTO) 0.5 10^3/uL (0.0-0.3); EOSINOPHILS % (AUTO) 3 % (0-10); HEMATOCRIT 27 % (35-52); HEMOGLOBIN 8.9 G/DL (11.5-16.0); LYMPHOCYTES % (AUTO) 14 % (12-44); MEAN CORPUSCULAR HEMOGLOBIN 32 PG (25-34); MEAN CORPUSCULAR HGB CONC 33 G/DL (32-36); MEAN CORPUSCULAR VOLUME 95 FL (80-99); MEAN PLATELET VOLUME 9.2 FL (7.4-10.4); MONOCYTES # (AUTO) 1.7 X 10^3 (0.0-1.0); MONOCYTES % (AUTO) 12 % (0-12); NEUTROPHILS # (AUTO) 9.9 X 10^3 (1.8-7.8); NEUTROPHILS % (AUTO) 70 % (42-75); PLATELET COUNT 447 10^3/uL (130-400); WHITE BLOOD COUNT 14.1 10^3/uL (4.3-11.0)
[2020-04-07 05:37] LABS: ALBUMIN 2.9 GM/DL (3.2-4.5); CHLORIDE 101 MMOL/L (98-107); POTASSIUM 3.9 MMOL/L (3.6-5.0); SODIUM 132 MMOL/L (135-145)
[2020-04-07 05:39] LABS: CALCIUM 8.6 MG/DL (8.5-10.1)
[2020-04-07 05:40] LABS: GLUCOSE 114 MG/DL (70-105); TOTAL PROTEIN 4.9 GM/DL (6.4-8.2)
[2020-04-07 05:41] LABS: CARBON DIOXIDE 22 MMOL/L (21-32)
[2020-04-07 05:42] LABS: BILIRUBIN,TOTAL 0.4 MG/DL (0.1-1.0)
[2020-04-07 05:43] LABS: ALKALINE PHOSPHATASE 58 U/L (40-136); GFR ESTIMATED > 60
[2020-04-07 05:45] LABS: BUN/CREATININE RATIO 39
[2020-04-07 05:46] LABS: ALANINE AMINOTRANSFERASE 19 U/L (0-55)
[2020-04-07] MEDS: ZIPRASIDONE 20 MG INJ (GEODON) VIAL IM SCH ×2 (09:25→21:10)
--- NOTE | 2020-04-07 10:38 | Discharge Summary ---
Discharge Summary Hospital Course Problems/Dx: (1) Encephalopathy acute (2) UTI (urinary tract infection) Status: Acute (3) Delirium Status: Acute (4) Hypertension (5) Lumbar stenosis with neurogenic claudication (6) Diaz catheter in place (7) Osteopenia (8) Hypothyroidism (9) Hyponatremia (10) Psoriatic arthritis Status: Chronic (11) Urinary retention (12) Lumbar radiculopathy Hospital Course Date of Admission: April 01, 2020 at 05:48 Admission Diagnosis : Family Physician/Provider: Clover Ramesh MD Date of Discharge: 04/07/20 Discharge Diagnosis: [ ] Hospital Course: [ ] Labs and Pending Lab Test: Laboratory Tests 04/07/20 05:08: White Blood Count 14.1H, Red Blood Count 2.81L, Hemoglobin 8.9L, Hematocrit 27L, Mean Corpuscular Volume 95, Mean Corpuscular Hemoglobin 32, Mean Corpuscular Hemoglobin Concent 33, Red Cell Distribution Width 14.0, Platelet Count 447H, Mean Platelet Volume 9.2, Neutrophils (%) (Auto) 70, Lymphocytes (%) (Auto) 14, Monocytes (%) (Auto) 12, Eosinophils (%) (Auto) 3, Basophils (%) (Auto) 0, Art trophils # (Auto) 9.9H, Lymphocytes # (Auto) 2.0, Monocytes # (Auto) 1.7H, Eosinophils # (Auto) 0.5H, Basophils # (Auto) 0.0, Sodium Level 132L, Potassium Level 3.9, Chloride Level 101, Carbon Dioxide Level 22, Anion Gap 9, Blood Urea Nitrogen 27H, Creatinine 0.70, Estimat Glomerular Filtration Rate > 60, BUN/Creatinine Ratio 39, Glucose Level 114H, Calcium Level 8.6, Corrected Calcium 9.5, Total Bilirubin 0.4, Aspartate Amino Transf (AST/SGOT) 32, Alanine Aminotransferase (ALT/SGPT) 19, Alkaline Phosphatase 58, Total Protein 4.9L, Albumin 2.9L Microbiology 04/01/20 MRSA Screen - Final, Complete MRSA not isolated 04/01/20 Urine Culture - Final, Complete NO GROWTH 04/01/20 Blood Culture - Final, Complete No growth Home Meds Active Reported Chlorthalidone 25 Mg Tablet 25 Mg PO DAILY Montelukast Sodium 10 Mg Tablet 10 Mg PO HS Pepcid (Famotidine) 20 Mg Tablet 20 Mg PO BID Tramadol HCl 50 Mg Tablet 50-100 Mg PO Q6H PRN Losartan Potassium 100 Mg Tablet 100 Mg PO DAILY Clobetasol Propionate 15 Gm Cream..g. 1 Applic TP BID Errol 3 Fish Oil Softgel (Errol-3 Fatty Acids/Fish Oil) 1 Each Capsule.dr 1 Each PO DAILY Vitamin D3 (Cholecalciferol (Vitamin D3)) 50 Mcg Capsule 50 Mcg PO DAILY Biotin 2,500 Mcg Capsule 2,500 Mcg PO BID Calcium Carbonate 600 Mg Tablet 1,200 Mg PO DAILY Levothyroxine Sodium 75 Mcg Tablet 75 Mcg PO DAILY Aspirin EC (Aspirin) 81 Mg Tablet. 81 Mg PO DAILY Multiple Vitamins (Multivitamin) 1 Each Tablet 1 Tab PO DAILY Atorvastatin Calcium 40 Mg Tablet 40 Mg PO HS Gabapentin 600 Mg Tablet 600 Mg PO TID Cyclobenzaprine HCl 10 Mg Tablet 10 Mg PO HS PRN Metoprolol Tartrate 25 Mg Tablet 12.5 Mg PO BID TAKES 1/2 (25MG) TABLET Discharge Physical Examination Vital Signs Vital Signs Date Time Temp Pulse Resp B/P (MAP) Pulse Ox O2 Delivery O2 Flow Rate FiO2 04/07/20 08:00 36.4 88 18 164/80 (108) 95 Room Air 04/02/20 10:00 Allergies: Coded Allergies: levofloxacin (Verified Allergy, Mild, TENDINITIS, 01/08/20) Discharge Summary Date of Admission April 01, 2020 at 05:48 Date of Discharge Discharge Date: Apr 07, 2020 Admission Diagnosis Assessment: Delirium with h/o delirium 2 years ago now requiring transfer to ICU due to the severity of the metabolic encephalopathy Elevated lactic acid due to agitation and dehydration s/p lumbar stenosis surgery due to neurogenic claudication POD # 8 Dr Mace Psoriatric arthritis/RA Hypothyroidism HTN Hyponatremia holding Chlorathalidone Post op constipation resolved Urinary retention failed voiding trial Diaz DC per Dr Naik but required repla cement 03/29/20 due to continued etention UTI Pseudomonas placed on Cefepime and stopped Rocephin Anemia iron deficiency placed on Venofer Pill consumption from purse this morning? APAP? Plan: Dr Grimm consultation appreciated Dr Naik consultation appreciated Monitor sodium level IRF return maybe? Fluid restriction Monitor labs IV abx Ucx Venofer BM regimen Precedex and Geodon Discharge Diagnosis Assessment: Delirium with h/o delirium 1 year ago now requiring transfer to ICU due to the severity of the metabolic encephalopathy now moved to 4th floor Elevated lactic acid due to agitation and dehydration s/p IVF s/p lumbar stenosis surgery due to neurogenic claudication POD # 13 Dr Mace Psoriatric arthritis/RA Hypothyroidism HTN Hyponatremia holding Chlorathalidone Post op constipation resolved Urinary retention failed voiding trial Diaz DC per Dr Naik but required replacement 5 due to continued retention UTI Pseudomonas placed on Cefepime and stopped Rocephin Anemia iron deficiency placed on Venofer Pill consumption from purse morning of ICU transfer appears it was APAP Lovenox for DVT PPx safely started since POD # 10 when I started it to prevent spinal hematoma risk Plan: Dr Grimm consultation appreciated Dr Naik consultation appreciated Monitor sodium level IRF tomorrow? Clinimix Monitor labs IV abx Ucx reviewed Venofer BM regimen Precedex DC and maintain Geodon Moved to 4th (1) Encephalopathy acute (2) UTI (urinary tract infection) Status: Acute (3) Delirium Status: Acute (4) Hypertension (5) Lumbar stenosis with neurogenic claudication (6) Diaz catheter in place (7) Osteopenia (8) Hypothyroidism (9) Hyponatremia (10) Psoriatic arthritis Status: Chronic (11) Urinary retention (12) Lumbar radiculopathy Clinical Quality Measures DVT/VTE Risk/Contraindication: Risk Factor Score Per Nursin RFS Level Per Nursing on Admit: 4+=Very High Contraindications-Pharm: Other *list below* Contraindications-Mechi: Other *list below* Other: PT HAD RECENT SPINAL SURGERY - SCD'S ONLY JESS SIMON DO Apr 07, 2020 10:38
[2020-04-07] MEDS: ENOXAPARIN 40 MG/0.4 ML (LOVENOX) SYR SC SCH (11:34)
--- NOTE | 2020-04-07 11:36 | Progress Note - Urology ---
Progress Note-Urology Progress Notes/Assess & Plan Progress/Assessment & Plan TOLERATES FLOMAX WELL. NO A.E. PLAN TOV Final Diagnosis URINE RETENTION OREN AMBROSIO MD Apr 07, 2020 11:36
[2020-04-07] MEDS: morphine INJ 4 MG/ML 1 ML (VIAL/SYRINGE) IVP PRN (14:33)
--- NOTE | 2020-04-07 14:55 | Occupational Ther Daily Note ---
OT Current Status-Daily Note Subjective Pt. does not report pain, but does not verbalize either. Does nod her head occasionally. Appearance Pt. in bed when OT entered room. Mental Status/Objective Patient Orientation: Confused Attachments: IV ADL-Treatment Therapy Code Descriptions/Definitions Functional [place] Measure: 0=Not Assessed/NA 4=Minimal Assistance 1=Total Assistance 5=Supervision or Setup 2=Maximal Assistance 6=Modified [place] 3=Moderate Assistance 7=Complete IndependenceSCALE: Activities may be completed with or without assistive devices. 7-Itubccmkyv-iugdtqs completes the activity by him/herself with no assistance from a helper. 5-Set-up or Clean-up Assistance-helper sets up or cleans up; patient completes activity. [place] assists only prior to or following the activity. 4-Supervision or Touching Assistance-helper provides verbal cues and/or touching/steadying and/or contact guard assistance as patient completes activity. Assistance may be provided throughout the activity or intermittently. 3-Partial/Moderate Assistance-helper does LESS THAN HALF the effort. [place] lifts, holds or supports trunk or limbs, but provides less than half the effort. 2-Substantial/Maximal Assistance-helper does MORE THAN HALF the effort. [place] lifts or holds trunk or limbs and provides more than half the effort. 7-Igugvlafp-dyrcmo does ALL the effort. Patient does none of the effort to complete the activity. Or, the assistance of 2 or more helpers is required for the patient to complete the activity. If activity was not attempted, code reason: 7-Patient Refused. 9-Not Applicable-not attempted and the patient did not perform the activity before the current illness, exacerbation or injury. 10-Not Attempted due to Environmental Limitations-(lack of equipment, weather restraints, etc.). 88-Not Attempted due to Medical Conditions or Safety Concerns. Other Treatment Pt. had skin abrasion on arm that had bled on gown. Nursing addressing this. Pt. transferred supine-sit with mod assist. Sat on side of bed and allowed OT to change gown. Pt. "picking" at gown and bed linen, and requires cues to participate. OT brushes hair. Pt. stands x 2 with mod assist at bedside. Pt. then points to reclining chair in room. OT brings this close to her and assists her to chair with mod assist while using walker. Pt. made comfortable and all needs met. Education OT Patient Education: Correct positioning, Modified ADL techniques, Progress toward Goal/Update tx plan, Purpose of tx/functional activities, Reviewed precautions, Rehab process, Transfer techniques Teaching Recipient: Patient Teaching Methods: Demonstration, Discussion Response to Teaching: Verbalize Understanding, Return Demonstration OT Short Term Goals Short Term Goals Time Frame: Apr 13, 2020 Eatin Oral hygiene: 4 Toileting hygiene: 3 Shower/bathe self: 3 Upper body dressin Lower body dressin Putting on/taking off footwear: 3 OT Assisted Goals Assisted Goals Time Frame: Apr 20, 2020 Eating (QC): 4 Oral Hygiene (QC): 4 Toileting Hygiene (QC): 4 Shower/Bathe Self (QC): 3 Upper Body Dressing (QC): 4 Lower Body Dressing (QC): 4 On/Off Footwear (QC): 4 Additional Goals: 1-Demonstrate ADL Tasks, 2-Verbalize Understanding, 3- ImproveStrength/Fabio 1=Demonstrate adherence to instructed precautions during ADL tasks. 2=Patient will verbalize/demonstrate understanding of assistive devices/modifications for ADL. 3=Patient will improve strength/tolerance for activity to enable patient to perform ADL's. OT Education/Plan Problem List/Assessment Assessment: Decreased Activ Tolerance, Decreased Safety Aware, Decreased UE Strength, Dependent Transfers, Impaired Bed Mobility, Impaired Cognition, Impaired Funct Balance, Impaired I ADL's, Impaired Self-Care Skills Discharge Recommendations Plan/Recommendations: Continue POC Therapy Discharge Recommendati: 24 Hour Supervision Treatment Plan/Plan of Care Treatment,Training & Education: Yes Patient would benefit from OT for education, treatment and training to promote independence in ADL's, mobility, safety and/or upper extremity function for ADL's. Plan of Care: ADL Retraining, Functional Mobility, UE Funct Exercise/Act Treatment Duration: Apr 20, 2020 Frequency: 5 times per week Estimated Hrs Per Day: .25 hour per day Agreement: Yes Rehab Potential: Fair Time/GCodes Start Time: 13:10 Stop Time: 13:25 Total Time Billed (hr/min): 15 Billed Treatment Time 1, ADL NAYANA BROWN OT Apr 07, 2020 14:55
--- NOTE | 2020-04-07 15:33 | Physical Therapy Progress Note ---
Therapy Progress Note DIRECTOR PARK arrives to pt's room for Rx. Pt is asleep after just receiving a PIC line & daughter, Fely asked that DIRECTOR PARK let pt sleep at this time (152). PT will attempt to visit pt tomorrow. 1 visit, no RX rendered LU LUCERO PTA Apr 07, 2020 15:33
[2020-04-07] MEDS: TAMSULOSIN 0.4 MG (FLOMAX) CAP PO SCH (17:55)
--- NOTE | 2020-04-07 18:47 | NUR ---
ORDERS WERE GIVEN BY DR AMBROSIO TO BLADDER SCAN FOR POST VOID RESIDUAL AND TO STRAIGHT CATH IF GREATER THAN 350ML IN BLADDER. PT HASN'T URINATED SINCE CATHETER WAS D/C. RN SCANNED PT. SCANNER SHOWED 470ML IN BLADDER. RN STAIGHT CATHED PT PER DR. AMBROSIO'S ORDERS; 450ML REMOVED FROM BLADDER. DR. AMBROSIO UPDATED ON PT. NEW ORDERS FOR CRAIG TO BE REINSERTED AND LEFT IF CATHETERIZATION IS NEEDED AGAIN AND URECHOLINE 25MG QID ACHS.
--- NOTE | 2020-04-07 20:18 | Progress Note - Hospitalist ---
Subjective HPI/CC On Admission Date Seen by Provider: Apr 07, 2020 Time Seen by Provider: 09:30 CC: Worsening altered mental status with aggression HPI: This is a 74yoWF clinic Pt of Dr. Clover Sims who worsened with c onfusion, became agitated and aggressive within inpatient rehab, that had been escalating for the past several days after she was admitted on Monday after an uncomplicated lumbar spine surgery. Pt was moved up to the ICU lactic acid of 2.3 was noted, but no evidence or signs of infection. She was maintained on Cefepime 1G Q12hrs, for the documented pseudomonas UTI. Overall she did require Geodon, intramuscular injection, along with Precedex and I did confer with Dr. Clover Sims, who reported she had some memory lost within the past year every since her , and when I took care of her in March of 2019, she had to the [facility] because the encephalopathy was so severe. Pt at this current time is agitated and has a one-on-one at the bedside. IRF note from yesterday: Patient still has some confusion this morning and told the nurse she thought she had delivered a baby Pt still confused, a lot of flight of ideas Hgb 7.3 Midline may be needed if she takes out her IV Risperdal will be attempted to be started for the delirium Nurse researched her last visit and it appears she went to the [facility] for a week and the family took her out of there and she only cleared her encephalopathy after she got home so that may very well be required here Fall risk I recall her severe delirium during her last hospital stay 2 years ago when I took care of her resulted in transfer to [facility] due to the severity and I did review that hospital course Will minimize Gabapentin and Flexeril and pain meds UTI Pseudomonasso DC Rocephin and started Cefepime empirically Day # 3 Hyponatremia noted at 135 now 132 and already held Chlorathalidone and placeed on fluid restriction in the meantime also Iron level very low with anemia so started Venofer since anemia can slow dev very and hgb 7.3 today BM regular Catheter replaced due to retention 2 nights ago Took shower Incision looks good Conferred with RN Reviewed therapy notes Checked meds and labs Assessment: s/p lumbar stenosis surgery due to neurogenic claudication POD # 7 Dr Mace Psoriatric arthritis Delirium with h/o delirium 2 years ago now requiring transfer to ICU Hypothyroidism HTN Hyponatremia holding Chlorathalidone Post op constipation Urinary retention failed voiding trial Diaz DC per Dr Naik but required replacement last night 03/29/20 due to retention UTI Pseudomonas placed on Cefepime and stopped Rocephin Anemia iron deficiency placed on Venofer Pill consumption from purse this morning? Plan: Dr Naik consultation will be necessary appreciated Monitor sodium level IRF protocol Fluid restriction Monitor labs IV abx Ucx Venofer BM regimen (1) Lumbar stenosis with neurogenic claudication (2) Hypothyroidism (3) Osteopenia (4) Diaz catheter in place (5) Urinary retention (6) Hyponatremia (7) Psoriatic arthritis Status: Chronic (8) Hypertension (9) Delirium Status: Acute (10) UTI (urinary tract infection) Status: Acute Subjective/Events-last exam Patient once again confused and sleeping Daughter at bedside Patient needs swing bed and may need [facility] Planned to move to [facility] but could not arrange soon enough so will plan for that tomorrow in non-urgent transport due to inability to sit upright in wheelchair due to severe confusion Hospital course: Pt had a lengthy and hospital course for six days after she was admitted for the ICU for most of that due to worsening encephalopathy with agitation and aggression requiring Precedex and Geodon and other antipsychotics. She has a history of memory loss for the past year and a half, multiple studies by Dr. Webb obtained showing no evidence of source other than likely underlying dementia. She was ultimately stabilized and completed Cephepime for pseudomonas UTI, remains with a catheter and requiring Clinimix peripheral nutrition due to inability to maintain nutrition and fluids. She did improve, we were contemplating returning her back to inpatient rehab but she once again had a difficult night with disorientation, daughter at the bedside who will be leaving back to [place] tomorrow and the decision was made to go to [facility] swing bed under Dr. Webb and my service likely will need inpatient senior behavioral unit evaluation. She was transferred in a stable manner. Review of Systems Neurological: Confusion Objective Exam Vital Signs Vital Signs Date Time Temp Pulse Resp B/P (MAP) Pulse Ox O2 Delivery O2 Flow Rate FiO2 04/07/20 19:57 36.9 94 18 135/82 (99) 97 Room Air 04/02/20 10:00 Capillary Refill : NONELess Than 3 Seconds General Appearance: No Apparent Distress Respiratory: Lungs Clear Cardiovascular: Regular Rate, Rhythm Neurologic/Psychiatric: Disoriented Results/Procedures Lab Laboratory Tests 04/07/20 05:08 Patient resulted labs reviewed. Assessment/Plan Assessment and Plan Assess & Plan/Chief Complaint Assessment: Delirium with h/o delirium 1 year ago now requiring transfer to ICU due to the severity of the metabolic encephalopathy now moved to 4th floor and needs swing bed at [facility] and may need sahra-psych Elevated lactic acid due to agitation and dehydration s/p IVF s/p lumbar stenosis surgery due to neurogenic claudication POD # 13 Dr Mace Psoriatric arthritis/RA Hypothyroidism HTN Hyponatremia holding Chlorathalidone Post op constipation resolved Urinary retention failed voiding trial Diaz DC per Dr Naik but required replacement 5 due to continued retention UTI Pseudomonas placed on Cefepime and stopped Rocephin Anemia iron deficiency placed on Venofer Pill consumption from purse morning of ICU transfer appears it was APAP Lovenox for DVT PPx safely started since POD # 10 when I started it to prevent spinal hematoma risk Plan: Dr Grimm consultation appreciated Dr Naik consultation appreciated Monitor sodium level Swing bed tomorrow Clinimix Monitor labs IV abx Ucx reviewed Venofer BM regimen Precedex DC and maintain Geodon Moved to 4th Diagnosis/Problems Diagnosis/Problems (1) Encephalopathy acute (2) UTI (urinary tract infection) Status: Acute (3) Delirium Status: Acute (4) Hypertension (5) Lumbar stenosis with neurogenic claudication (6) Diaz catheter in place (7) Osteopenia (8) Hypothyroidism (9) Hyponatremia (10) Psoriatic arthritis Status: Chronic (11) Urinary retention (12) Lumbar radiculopathy Clinical Quality Measures DVT/VTE Risk/Contraindication: Risk Factor Score Per Nursin RFS Level Per Nursing on Admit: 4+=Very High Contraindications-Pharm: Other *list below* Contraindications-Mechi: Other *list below* Other: PT HAD RECENT SPINAL SURGERY - [facility] ONLY JESS SIMON DO Apr 07, 2020 20:18
[2020-04-07] MEDS: BETHANECHOL 25 MG (URECHOLINE) TAB PO SCH (21:10)
--- NOTE | 2020-04-07 23:07 | NUR ---
2239- BLADDER SCAN SHOWED SHOWED 541 ML IN BLADDER. THIS RN ASSISTED PT TO BSC TO TRY AND VOID. NO SUCCESS AT THIS TIME. 2255- AFTER ATTEMPTING VOIDING MEASURES WITHOUT SUCCESS, THIS RN INSERTED CRAIG CATHETER PER DR. AMBROSIO'S ORDERS. 16 F CATHETER INSERTED WITH 600 ML OF PALE YELLOW URINE RETURNED. PT TOLERATED WELL.
[2020-04-07] MEDS: HALOPERIDOL 5 MG/ML (HALDOL) AMP IM PRN (23:37)
[2020-04-08] MEDS: morphine INJ 4 MG/ML 1 ML (VIAL/SYRINGE) IVP PRN (03:55)
[2020-04-08 04:47] LABS: BASOPHILS % (AUTO) 0 % (0-10); EOSINOPHILS # (AUTO) 0.5 10^3/uL (0.0-0.3); EOSINOPHILS % (AUTO) 5 % (0-10); HEMATOCRIT 24 % (35-52); LYMPHOCYTES # (AUTO) 1.7 X 10^3 (1.0-4.0); LYMPHOCYTES % (AUTO) 16 % (12-44); MEAN CORPUSCULAR HEMOGLOBIN 33 PG (25-34); MEAN CORPUSCULAR HGB CONC 34 G/DL (32-36); MEAN CORPUSCULAR VOLUME 97 FL (80-99); MEAN PLATELET VOLUME 9.3 FL (7.4-10.4); MONOCYTES # (AUTO) 1.4 X 10^3 (0.0-1.0); MONOCYTES % (AUTO) 13 % (0-12); NEUTROPHILS # (AUTO) 6.8 X 10^3 (1.8-7.8); NEUTROPHILS % (AUTO) 66 % (42-75); PLATELET COUNT 353 10^3/uL (130-400); WHITE BLOOD COUNT 10.4 10^3/uL (4.3-11.0)
[2020-04-08 04:54] LABS: ALBUMIN 2.8 GM/DL (3.2-4.5); CHLORIDE 104 MMOL/L (98-107); POTASSIUM 3.6 MMOL/L (3.6-5.0); SODIUM 136 MMOL/L (135-145)
[2020-04-08 04:55] LABS: CALCIUM 8.4 MG/DL (8.5-10.1)
[2020-04-08 04:56] LABS: GLUCOSE 129 MG/DL (70-105); TOTAL PROTEIN 4.7 GM/DL (6.4-8.2)
[2020-04-08 04:57] LABS: CARBON DIOXIDE 24 MMOL/L (21-32)
[2020-04-08 04:58] LABS: BILIRUBIN,TOTAL 0.3 MG/DL (0.1-1.0)
[2020-04-08 05:00] LABS: ALKALINE PHOSPHATASE 62 U/L (40-136); CREATININE SERUM 0.66 MG/DL (0.60-1.30); GFR ESTIMATED > 60
[2020-04-08 05:01] LABS: BUN/CREATININE RATIO 39
[2020-04-08 05:03] LABS: ALANINE AMINOTRANSFERASE 22 U/L (0-55)
[2020-04-08] MEDS: BETHANECHOL 25 MG (URECHOLINE) TAB PO SCH (05:21)
[2020-04-08 08:00] VITALS: BP 146/70
[2020-04-08] MEDS ORDERED: WATER (STERILE) FOR INJECTION 10 ML ONE (08:07)
[2020-04-08] MEDS: IRON SUCROSE 200 MG/10 ML (VENOFER) VIAL IV SCH (08:17)
[2020-04-08] MEDS: ZIPRASIDONE 20 MG INJ (GEODON) VIAL IM SCH (08:17)
[2020-04-08] MEDS: AA 4.25% W/LYTES IN D5W IV SOL 1,000 ML IV SCH (08:18)
--- NOTE | 2020-04-08 09:21 | Discharge Summary ---
Diagnosis/Chief Complaint Date of Admission April 01, 2020 at 05:48 Date of Discharge Discharge Date: Apr 07, 2020 Discharge Diagnosis Metabolic encephalopathy Baseline memory loss h/o delirium 03/2019 UTI Pseudomonas s/p treatment Discharge Summary Discharge Physical Examination Allergies: Coded Allergies: levofloxacin (Verified Allergy, Mild, TENDINITIS, 01/08/20) Vitals & I&Os Vital Signs Date Time Temp Pulse Resp B/P (MAP) Pulse Ox O2 Delivery O2 Flow Rate FiO2 04/08/20 10:40 36.6 82 18 146/70 96 Room Air 2.00 General Appearance: Other (sleepy) Respiratory: Clear to Auscultation Cardiovascular: Regular Rate Hospital Course Was the Problem List Reviewed?: Yes Hospital course: Pt had a lengthy and hospital course for six days after she was admitted for the ICU for most of that due to worsening encephalopathy with agitation and aggression requiring Precedex and Geodon and other antipsychotics. She has a history of memory loss for the past year and a half, multiple studies by Dr. Webb obtained showing no evidence of source other than likely underlying dementia. She was ultimately stabilized and completed Cephepime for pseudomonas UTI, remains with a catheter and requiring Clinimix peripheral nutrition due to inability to maintain nutrition and fluids. She did improve, we were contemplating returning her back to inpatient rehab but she once again had a difficult night with disorientation, daughter at the bedside who will be leaving back to [place] tomorrow and the decision was made to go to [facility] swing bed under Dr. Webb and my service likely will need inpatient senior behavioral unit evaluation. She was transferred in a stable manner. Labs (last 24 hrs) Laboratory Tests 04/01/20 05:48: Lab Scanned Report Referred Lab Report 04/01/20 06:10: Blood Gas Puncture Site RIGHT RADIAL, Blood Gas Patient Temperature 37.4, Arterial Blood pH 7.45H, Arterial Blood Partial Pressure CO2 38, Arterial Blood Partial Pressure O2 44L, Arterial Blood HCO3 26, Arterial Blood Total CO2 27.1, Arterial Blood Oxygen Saturation 58L, Arterial Blood Base Excess 2.3, Alex Test POSITIVE, Blood Gas Ventilator Setting NO, Blood Gas Inspired Oxygen RA 04/01/20 06:25: White Blood Count 6.7, Red Blood Count 2.32L, Hemoglobin 7.5L, Hematocrit 22L, Mean Corpuscular Volume 94, Mean Corpuscular Hemoglobin 32, Mean Corpuscular Hemoglobin Concent 35, Red Cell Distribution Width 12.4, Platelet Count 336, Mean Platelet Volume 9.3, Neutrophils (%) (Auto) 56, Lymphocytes (%) (Auto) 24, Monocytes (%) (Auto) 16H, Eosinophils (%) (Auto) 4, Basophils (%) (Auto) 0, Neutrophils # (Auto) 3.8, Lymphocytes # (Auto) 1.6, Monocytes # (Auto) 1.1H, Eosinophils # (Auto) 0.3, Basophils # (Auto) 0.0, Sodium Level 136, Potassium Level 3.2L, Chloride Level 100, Carbon Dioxide Level 24, Anion Gap 12, Blood Urea Nitrogen 12, Creatinine 0.81, Estimat Glomerular Filtration Rate > 60, BUN/Creatinine Ratio 15, Glucose Level 131H, Lactic Acid Level 2.38*H, Calcium Level 8.9, Corrected Calcium 9.7, Total Bilirubin 0.5, Aspartate Amino Transf (AST/SGOT) 33, Alanine Aminotransferase (ALT/SGPT) 20, Alkaline Phosphatase 57, Troponin I < 0.028, Total Protein 5.4L, Albumin 3.0L, Procalcitonin 0.08 04/01/20 06:49: Urine Color ORANGE, Urine Clarity SL CLOUDY, Urine pH 6.5, Urine Specific [place] 1.015L, Urine Protein 2+H, Urine Glucose (UA) TRACEH, Urine Ketones TRACEH, Urine Nitrite POSITIVEH, Urine Bilirubin 1+H, Urine Urobilinogen 4.0, Urine Leukocyte Esterase 1+H, Urine RBC (Auto) 3+H, Urine RBC >100H, Urine WBC 10-25H, Urine Squamous Epithelial Cells 5-10, Urine Crystals NONE, Urine Bacteria FEWH, Urine Casts PRESENT, Urine Hyaline Casts 10-25H, Urine Mucus SMALLH, Urine Culture Indicated YES, Urine Opiates Screen NEGATIVE, Urine Oxycodone Screen NEGATIVE, Urine Methadone Screen NEGATIVE, Urine Propoxyphene Screen NEGATIVE, Urine Barbiturates Screen NEGATIVE, Ur Tricyclic Antidepressants Screen POSITIVEH, Urine Phencyclidine Screen NEGATIVE, Urine Amphetamines Screen NEGATIVE, Urine Methamphetamines Screen NEGATIVE, Urine Benzodiazepines Screen NEGATIVE, Urine Cocaine Screen POSITIVEH, Urine Cannabinoids Screen NEGATIVE 04/01/20 07:15: Ammonia 18 04/01/20 08:45: Lactic Acid Level 0.68 04/01/20 11:40: Urine Opiates Screen NEGATIVE, Urine Oxycodone Screen NEGATIVE, Urine Methadone Screen NEGATIVE, Urine Propoxyphene Screen NEGATIVE, Urine Barbiturates Screen NEGATIVE, Ur Tricyclic Antidepressants Screen NEGATIVE, Urine Phencyclidine Screen NEGATIVE, Urine Amphetamines Screen NEGATIVE, Urine Methamphetamines Screen NEGATIVE, Urine Benzodiazepines Screen NEGATIVE, Urine Cocaine Screen NEGATIVE, Urine Cannabinoids Screen NEGATIVE 04/02/20 03:29: White Blood Count 7.3, Red Blood Count 2.25L, Hemoglobin 7.0L, Hematocrit 21L, Mean Corpuscular Volume 95, Mean Corpuscular Hemoglobin 31, Mean Corpuscular Hemoglobin Concent 33, Red Cell Distribution Width 12.5, Platelet Count 344, Me an Platelet Volume 9.2, Neutrophils (%) (Auto) 63, Lymphocytes (%) (Auto) 20, Monocytes (%) (Auto) 13H, Eosinophils (%) (Auto) 4, Basophils (%) (Auto) 0, Neutrophils # (Auto) 4.6, Lymphocytes # (Auto) 1.4, Monocytes # (Auto) 0.9, Eosinophils # (Auto) 0.3, Basophils # (Auto) 0.0, Sodium Level 138, Potassium Level 4.0, Chloride Level 108H, Carbon Dioxide Level 20L, Anion Gap 10, Blood Urea Nitrogen 11, Creatinine 0.69, Estimat Glomerular Filtration Rate > 60, BUN/Creatinine Ratio 16, Glucose Level 96, Calcium Level 8.4L, Corrected Calcium 9.4, Phosphorus Level 2.7, Magnesium Level 1.5L, Total Bilirubin 0.5, Aspartate Amino Transf (AST/SGOT) 34, Alanine Aminotransferase (ALT/SGPT) 20, Alkaline Phosphatase 50, Total Protein 4.9L, Albumin 2.8L 04/02/20 16:21: Glucometer 123H 04/03/20 03:12: White Blood Count 7.9, Red Blood Count 2.48L, Hemoglobin 7.9L, Hematocrit 23L, Mean Corpuscular Volume 94, Mean Corpuscular Hemoglobin 32, Mean Corpuscular Hemoglobin Concent 34, Red Cell Distribution Width 12.4, Platelet Count 382, Mean Platelet Volume 9.3, Neutrophils (%) (Auto) 71, Lymphocytes (%) (Auto) 17, Monocytes (%) (Auto) 9, Eosinophils (%) (Auto) 3, Basophils (%) (Auto) 0, Neutrophils # (Auto) 5.6, Lymphocytes # (Auto) 1.4, Monocytes # (Auto) 0.7, Eosinophils # (Auto) 0.2, Basophils # (Auto) 0.0, Sodium Level 140, Potassium Level 3.8, Chloride Level 108H, Carbon Dioxide Level 20L, Anion Gap 12, Blood Urea Nitrogen 13, Creatinine 0.67, Estimat Glomerular Filtration Rate > 60, BUN/Creatinine Ratio 19, Glucose Level 104, Calcium Level 8.8, Corrected Calcium 9.7, Phosphorus Level 3.4, Magnesium Level 1.9, Total Bilirubin 0.4, Aspartate Amino Transf (AST/SGOT) 33, Alanine Aminotransferase (ALT/SGPT) 23, Alkaline Phosphatase 52, Total Protein 5.1L, Albumin 2.9L, Thyroid Stimulating Hormone (TSH) 3.60 04/04/20 03:11: White Blood Count 9.3, Red Blood Count 2.61L, Hemoglobin 8.3L, Hematocrit 25L, Mean Corpuscular Volume 95, Mean Corpuscular Hemoglobin 32, Mean Corpuscular Hemoglobin Concent 33, Red Cell Distribution Width 13.1, Platelet Count 427H, Mean Platelet Volume 9.3, Neutrophils (%) (Auto) 73, Lymphocytes (%) (Auto) 17, Monocytes (%) (Auto) 8, Eosinophils (%) (Auto) 2, Basophils (%) (Auto) 0, Neutrophils # (Auto) 6.8, Lymphocytes # (Auto) 1.6, Monocytes # (Auto) 0.7, Eosinophils # (Auto) 0.2, Basophils # (Auto) 0.0, Sodium Level 142, Potassium Level 3.7, Chloride Level 108H, Carbon Dioxide Level 20L, Anion Gap 14, Blood Urea Nitrogen 18, Creatinine 0.79, Estimat Glomerular Filtration Rate > 60, BUN/Creatinine Ratio 23, Glucose Level 83, Calcium Level 8.8, Corrected Calcium 9.6, Phosphorus Level 3.8, Magnesium Level 1.8, Total Bilirubin 0.4, Aspartate Amino Transf (AST/SGOT) 36H, Alanine Aminotransferase (ALT/SGPT) 24, Alkaline Phosphatase 62, Total Protein 5.3L, Albumin 3.0L 04/05/20 03:44: White Blood Count 12.9H, Red Blood Count 2.61L, Hemoglobin 8.3L, Hematocrit 25L, Mean Corpuscular Volume 95, Mean Corpuscular Hemoglobin 32, Mean Corpuscular Hemoglobin Concent 34, Red Cell Distribution Width 13.5, Platelet Count 435H, Mean Platelet Volume 9.3, Neutrophils (%) (Auto) 76H, Lymphocytes (%) (Auto) 13, Monocytes (%) (Auto) 10, Eosinophils (%) (Auto) 1, Basophils (%) (Auto) 0, Neutrophils # (Auto) 9.7H, Lymphocytes # (Auto) 1.7, Monocytes # (Auto) 1.3H, Eosinophils # (Auto) 0.1, Basophils # (Auto) 0.0, Sodium Level 137, Potassium Level 3.4L, Chloride Level 103, Carbon Dioxide Level 23, Anion Gap 11, Blood Urea Nitrogen 21H, Creatinine 0.77, Estimat Glomerular Filtration Rate > 60, BUN/Creatinine Ratio 27, Glucose Level 149H, Calcium Level 8.7, Corrected Calcium 9.5, Phosphorus Level 2.7, Magnesium Level 1.7, Total Bilirubin 0.4, Aspartate Amino Transf (AST/SGOT) 53H, Alanine Aminotransferase (ALT/SGPT) 24, Alkaline Phosphatase 63, Total Protein 5.3L, Albumin 3.0L 04/06/20 04:48: White Blood Count 15.7H, Red Blood Count 2.98L, Hemoglobin 9.3L, Hematocrit 28L, Mean Corpuscular Volume 94, Mean Corpuscular Hemoglobin 31, Mean Corpuscular Hemoglobin Concent 33, Red Cell Distribution Width 13.9, Platelet Count 507H, Mean Platelet Volume 9.3, Neutrophils (%) (Auto) 78H, Lymphocytes (%) (Auto) 11L , Monocytes (%) (Auto) 9, Eosinophils (%) (Auto) 2, Basophils (%) (Auto) 0, Neutrophils # (Auto) 12.2H, Lymphocytes # (Auto) 1.7, Monocytes # (Auto) 1.4H, Eosinophils # (Auto) 0.3, Basophils # (Auto) 0.0, Neutrophils % (Manual) 88, Lymphocytes % (Manual) 8, Monocytes % (Manual) 3, Eosinophils % (Manual) 1, Blood Morphology Comment NORMAL, Sodium Level 132L, Potassium Level 3.4L, Chloride Level 99, Carbon Dioxide Level 23, Anion Gap 10, Blood Urea Nitrogen 25H, Creatinine 0.71, Estimat Glomerular Filtration Rate > 60, BUN/Creatinine Ratio 35, Glucose Level 135H, Calcium Level 8.8, Corrected Calcium 9.6, Total Bilirubin 0.4, Aspartate Amino Transf (AST/SGOT) 41H, Alanine Aminotransferase (ALT/SGPT) 21, Alkaline Phosphatase 65, Total Protein 5.2L, Albumin 3.0L 04/07/20 05:08: White Blood Count 14.1H, Red Blood Count 2.81L, Hemoglobin 8.9L, Hematocrit 27L, Mean Corpuscular Volume 95, Mean Corpuscular Hemoglobin 32, Mean Corpuscular Hemoglobin Concent 33, Red Cell Distribution Width 14.0, Platelet Count 447H, Mean Platelet Volume 9.2, Neutrophils (%) (Auto) 70, Lymphocytes (%) (Auto) 14, Monocytes (%) (Auto) 12, Eosinophils (%) (Auto) 3, Basophils (%) (Auto) 0, Neutrophils # (Auto) 9.9H, Lymphocytes # (Auto) 2.0, Monocytes # (Auto) 1.7H, Eosinophils # (Auto) 0.5H, Basophils # (Auto) 0.0, Sodium Level 132L, Potassium Level 3.9, Chloride Level 101, Carbon Dioxide Level 22, Anion Gap 9, Blood Urea Nitrogen 27H, Creatinine 0.70, Estimat Glomerular Filtration Rate > 60, BUN/Creatinine Ratio 39, Glucose Level 114H, Calcium Level 8.6, Corrected Calcium 9.5, Total Bilirubin 0.4, Aspartate Amino Transf (AST/SGOT) 32, Alanine Aminotransferase (ALT/SGPT) 19, Alkaline Phosphatase 58, Total Protein 4.9L, Albumin 2.9L 04/08/20 04:36: White Blood Count 10.4, Red Blood Count 2.46L, Hemoglobin 8.0L, Hematocrit 24L, Mean Corpuscular Volume 97, Mean Corpuscular Hemoglobin 33, Mean Corpuscular Hemoglobin Concent 34, Red Cell Distribution Width 14.0, Platelet Count 353, Mean Platelet Volume 9.3, Neutrophils (%) (Auto) 66, Lymphocytes (%) (Auto) 16, Monocytes (%) (Auto) 13H, Eosinophils (%) (Auto) 5, Basophils (%) (Auto) 0, Neutrophils # (Auto) 6.8, Lymphocytes # (Auto) 1.7, Monocytes # (Auto) 1.4H, Eosinophils # (Auto) 0.5H, Basophils # (Auto) 0.0, Sodium Level 136, Potassium Level 3.6, Chloride Level 104, Carbon Dioxide Level 24, Anion Gap 8, Blood Urea Nitrogen 26H, Creatinine 0.66, Estimat Glomerular Filtration Rate > 60, BUN/Creatinine Ratio 39, Glucose Level 129H, Calcium Level 8.4L, Corrected Calcium 9.4, Total Bilirubin 0.3, Aspartate Amino Transf (AST/SGOT) 33, Alanine Aminotransferase (ALT/SGPT) 22, Alkaline Phosphatase 62, Total Protein 4.7L, Albumin 2.8L Microbiology 04/01/20 MRSA Screen - Final, Complete MRSA not isolated 04/01/20 Urine Culture - Final, Complete NO GROWTH 04/01/20 Blood Culture - Final, Complete No growth Pending Labs Microbiology Date/Time Source Procedure Growth Status 04/01/20 07:43 Nasal MRSA Screen - Final MRSA not isolated Complete 04/01/20 06:49 Urine U Cath,Nos Urine Culture - Final NO GROWTH Complete 04/01/20 06:35 Peripheral Rt Ac Blood Culture - Final No growth Complete 04/01/20 06:25 Peripheral Lt Ac Blood Culture - Final No growth Complete Laboratory Tests 04/01/20 05:48: Lab Scanned Report Referred Lab Report 04/01/20 06:10: Blood Gas Puncture Site RIGHT RADIAL, Blood Gas Patient Temperature 37.4, Arterial Blood pH 7.45, Arterial Blood Partial Pressure CO2 38, Arterial Blood Partial Pressure O2 44, Arterial Blood HCO3 26, Arterial Blood Total CO2 27.1, Arterial Blood Oxygen Saturation 58, Arterial Blood Base Excess 2.3, Alex Test POSITIVE, Blood Gas Ventilator Setting NO, Blood Gas Inspired Oxygen RA 04/01/20 06:25: White Blood Count 6.7, Red Blood Count 2.32, Hemoglobin 7.5, Hematocrit 22, Mean Corpuscular Volume 94, Mean Corpuscular Hemoglobin 32, Mean Corpuscular Hemoglobin Concent 35, Red Cell Distribution Width 12.4, Platelet Count 336, Mean Platelet Volume 9.3, Neutrophils (%) (Auto) 56, Lymphocytes (%) (Auto) 24, Monocytes (%) (Auto) 16, Eosinophils (%) (Auto) 4, Basophils (%) (Auto) 0, Neut rophils # (Auto) 3.8, Lymphocytes # (Auto) 1.6, Monocytes # (Auto) 1.1, Eosinophils # (Auto) 0.3, Basophils # (Auto) 0.0, Sodium Level 136, Potassium Level 3.2, Chloride Level 100, Carbon Dioxide Level 24, Anion Gap 12, Blood Urea Nitrogen 12, Creatinine 0.81, Estimat Glomerular Filtration Rate > 60, BUN/Creatinine Ratio 15, Glucose Level 131, Lactic Acid Level 2.38, Calcium Level 8.9, Corrected Calcium 9.7, Total Bilirubin 0.5, Aspartate Amino Transf (AST/SGOT) 33, Alanine Aminotransferase (ALT/SGPT) 20, Alkaline Phosphatase 57, Troponin I < 0.028, Total Protein 5.4, Albumin 3.0, Procalcitonin 0.08 04/01/20 06:49: Urine Color ORANGE, Urine Clarity SL CLOUDY, Urine pH 6.5, Urine Specific [place] 1.015, Urine Protein 2+, Urine Glucose (UA) TRACE, Urine Ketones TRACE, Urine Nitrite POSITIVE, Urine Bilirubin 1+, Urine Urobilinogen 4.0, Urine Leukocyte Esterase 1+, Urine RBC (Auto) 3+, Urine RBC >100, Urine WBC 10-25, Urine Squamous Epithelial Cells 5-10, Urine Crystals NONE, Urine Bacteria FEW, Urine Casts PRESENT, Urine Hyaline Casts 10-25, Urine Mucus SMALL, Urine Culture Indicated YES, Urine Opiates Screen NEGATIVE, Urine Oxycodone Screen NEGATIVE, Urine Methadone Screen NEGATIVE, Urine Propoxyphene Screen NEGATIVE, Urine Barbiturates Screen NEGATIVE, Ur Tricyclic Antidepressants Screen POSITIVE, Urine Phencyclidine Screen NEGATIVE, Urine Amphetamines Screen NEGATIVE, Urine Methamphetamines Screen NEGATIVE, Urine Benzodiazepines Screen NEGATIVE, Urine Cocaine Screen POSITIVE, Urine Cannabinoids Screen NEGATIVE 04/01/20 07:15: Ammonia 18 04/01/20 08:45: Lactic Acid Level 0.68 04/01/20 11:40: Urine Opiates Screen NEGATIVE, Urine Oxycodone Screen NEGATIVE, Urine Methadone Screen NEGATIVE, Urine Propoxyphene Screen NEGATIVE, Urine Barbiturates Screen NEGATIVE, Ur Tricyclic Antidepressants Screen NEGATIVE, Urine Phencyclidine Screen NEGATIVE, Urine Amphetamines Screen NEGATIVE, Urine Methamphetamines Screen NEGATIVE, Urine Benzodiazepines Screen NEGATIVE, Urine Cocaine Screen NEGATIVE, Urine Cannabinoids Screen NEGATIVE 04/02/20 03:29: White Blood Count 7.3, Red Blood Count 2.25, Hemoglobin 7.0, Hematocrit 21, Mean Corpuscular Volume 95, Mean Corpuscular Hemoglobin 31, Mean Corpuscular Hemoglobin Concent 33, Red Cell Distribution Width 12.5, Platelet Count 344, Mean Platelet Volume 9.2, Neutrophils (%) (Auto) 63, Lymphocytes (%) (Auto) 20, Monocytes (%) (Auto) 13, Eosinophils (%) (Auto) 4, Basophils (%) (Auto) 0, Neutr ophils # (Auto) 4.6, Lymphocytes # (Auto) 1.4, Monocytes # (Auto) 0.9, Eosinophils # (Auto) 0.3, Basophils # (Auto) 0.0, Sodium Level 138, Potassium Level 4.0, Chloride Level 108, Carbon Dioxide Level 20, Anion Gap 10, Blood Urea Nitrogen 11, Creatinine 0.69, Estimat Glomerular Filtration Rate > 60, BUN/Creatinine Ratio 16, Glucose Level 96, Calcium Level 8.4, Corrected Calcium 9.4, Phosphorus Level 2.7, Magnesium Level 1.5, Total Bilirubin 0.5, Aspartate Amino Transf (AST/SGOT) 34, Alanine Aminotransferase (ALT/SGPT) 20, Alkaline Phosphatase 50, Total Protein 4.9, Albumin 2.8 04/02/20 16:21: Glucometer 123 04/03/20 03:12: White Blood Count 7.9, Red Blood Count 2.48, Hemoglobin 7.9, Hematocrit 23, Mean Corpuscular Volume 94, Mean Corpuscular Hemoglobin 32, Mean Corpuscular Hemoglobin Concent 34, Red Cell Distribution Width 12.4, Platelet Count 382, Mean Platelet Volume 9.3, Neutrophils (%) (Auto) 71, Lymphocytes (%) (Auto) 17, Monocytes (%) (Auto) 9, Eosinophils (%) (Auto) 3, Basophils (%) (Auto) 0, Neutrophils # (Auto) 5.6, Lymphocytes # (Auto) 1.4, Monocytes # (Auto) 0.7, Eosinophils # (Auto) 0.2, Basophils # (Auto) 0.0, Sodium Level 140, Potassium Level 3.8, Chloride Level 108, Carbon Dioxide Level 20, Anion Gap 12, Blood Urea Nitrogen 13, Creatinine 0.67, Estimat Glomerular Filtration Rate > 60, BUN/Creatinine Ratio 19, Glucose Level 104, Calcium Level 8.8, Corrected Calcium 9.7, Phosphorus Level 3.4, Magnesium Level 1.9, Total Bilirubin 0.4, Aspartate Amino Transf (AST/SGOT) 33, Alanine Aminotransferase (ALT/SGPT) 23, Alkaline Phosphatase 52, Total Protein 5.1, Albumin 2.9, Thyroid Stimulating Hormone (TSH) 3.60 04/04/20 03:11: White Blood Count 9.3, Red Blood Count 2.61, Hemoglobin 8.3, Hematocrit 25, Mean Corpuscular Volume 95, Mean Corpuscular Hemoglobin 32, Mean Corpuscular Hemoglobin Concent 33, Red Cell Distribution Width 13.1, Platelet Count 427, Mean Platelet Volume 9.3, Neutrophils (%) (Auto) 73, Lymphocytes (%) (Auto) 17, Monocytes (%) (Auto) 8, Eosinophils (%) (Auto) 2, Basophils (%) (Auto) 0, Neutrophils # (Auto) 6.8, Lymphocytes # (Auto) 1.6, Monocytes # (Auto) 0.7, Eosinophils # (Auto) 0.2, Basophils # (Auto) 0.0, Sodium Level 142, Potassium Level 3.7, Chloride Level 108, Carbon Dioxide Level 20, Anion Gap 14, Blood Urea Nitrogen 18, Creatinine 0.79, Estimat Glomerular Filtration Rate > 60, BUN/Creatinine Ratio 23, Glucose Level 83, Calcium Level 8.8, Corrected Calcium 9.6, Phosphorus Level 3.8, Magnesium Level 1.8, Total Bilirubin 0.4, Aspartate Amino Transf (AST/SGOT) 36, Alanine Aminotransferase (ALT/SGPT) 24, Alkaline Phosphatase 62, Total Protein 5.3, Albumin 3.0 04/05/20 03:44: White Blood Count 12.9, Red Blood Count 2.61, Hemoglobin 8.3, Hematocrit 25, Mean Corpuscular Volume 95, Mean Corpuscular Hemoglobin 32, Mean Corpuscular Hemoglobin Concent 34, Red Cell Distribution Width 13.5, Platelet Count 435, Mean Platelet Volume 9.3, Neutrophils (%) (Auto) 76, Lymphocytes (%) (Auto) 13, Monocytes (%) (Auto) 10, Eosinophils (%) (Auto) 1, Basophils (%) (Auto) 0, Neutrophils # (Auto) 9.7, Lymphocytes # (Auto) 1.7, Monocytes # (Auto) 1.3, Eosinophils # (Auto) 0.1, Basophils # (Auto) 0.0, Sodium Level 137, Potassium Level 3.4, Chloride Level 103, Carbon Dioxide Level 23, Anion Gap 11, Blood Urea Nitrogen 21, Creatinine 0.77, Estimat Glomerular Filtration Rate > 60, BUN/Creatinine Ratio 27, Glucose Level 149, Calcium Level 8.7, Corrected Calcium 9.5, Phosphorus Level 2.7, Magnesium Level 1.7, Total Bilirubin 0.4, Aspartate Amino Transf (AST/SGOT) 53, Alanine Aminotransferase (ALT/SGPT) 24, Alkaline Phosphatase 63, Total Protein 5.3, Albumin 3.0 04/06/20 04:48: White Blood Count 15.7, Red Blood Count 2.98, Hemoglobin 9.3, Hematocrit 28, Mean Corpuscular Volume 94, Mean Corpuscular Hemoglobin 31, Mean Corpuscular Hemoglobin Concent 33, Red Cell Distribution Width 13.9, Platelet Count 507, Mean Platelet Volume 9.3, Neutrophils (%) (Auto) 78, Lymphocytes (%) (Auto) 11, Monocytes (%) (Auto) 9, Eosinophils (%) (Auto) 2, Basophils (%) (Auto) 0, Neutrophils # (Auto) 12.2, Lymphocytes # (Auto) 1.7, Monocytes # (Auto) 1.4, Eosinophils # (Auto) 0.3, Basophils # (Auto) 0.0, Neutrophils % (Manual) 88, Lymphocytes % (Manual) 8, Monocytes % (Manual) 3, Eosinophils % (Manual) 1, Blood Morphology Comment NORMAL, Sodium Level 132, Potassium Level 3.4, Chloride Level 99, Carbon Dioxide Level 23, Anion Gap 10, Blood Urea Nitrogen 25, Creatinine 0.71, Estimat Glomerular Filtration Rate > 60, BUN/Creatinine Ratio 35, Glucose Level 135, Calcium Level 8.8, Corrected Calcium 9.6, Total Bilirubin 0.4, Aspartate Amino Transf (AST/SGOT) 41, Alanine Aminotransferase (ALT/SGPT) 21, Alkaline Phosphatase 65, Total Protein 5.2, Albumin 3.0 04/07/20 05:08: White Blood Count 14.1, Red Blood Count 2.81, Hemoglobin 8.9, Hematocrit 27, Mean Corpuscular Volume 95, Mean Corpuscular Hemoglobin 32, Mean Corpuscular Hemoglobin Concent 33, Red Cell Distribution Width 14.0, Platelet Count 447, Mean Platelet Volume 9.2, Neutrophils (%) (Auto) 70, Lymphocytes (%) (Auto) 14, Monocytes (%) (Auto) 12, Eosinophils (%) (Auto) 3, Basophils (%) (Auto) 0, Neutrophils # (Auto) 9.9, Lymphocytes # (Auto) 2.0, Monocytes # (Auto) 1.7, Eosinophils # (Auto) 0.5, Basophils # (Auto) 0.0, Sodium Level 132, Potassium Level 3.9, Chloride Level 101, Carbon Dioxide Level 22, Anion Gap 9, Blood Urea Nitrogen 27, Creatinine 0.70, Estimat Glomerular Filtration Rate > 60, BUN/Creatinine Ratio 39, Glucose Level 114, Calcium Level 8.6, Corrected Calcium 9.5, Total Bilirubin 0.4, Aspartate Amino Transf (AST/SGOT) 32, Alanine Aminotransferase (ALT/SGPT) 19, Alkaline Phosphatase 58, Total Protein 4.9, Albumin 2.9 04/08/20 04:36: White Blood Count 10.4, Red Blood Count 2.46, Hemoglobin 8.0, Hematocrit 24, Mean Corpuscular Volume 97, Mean Corpuscular Hemoglobin 33, Mean Corpuscular Hemoglobin Concent 34, Red Cell Distribution Width 14.0, Platelet Count 353, Mean Platelet Volume 9.3, Neutrophils (%) (Auto) 66, Lymphocytes (%) (Auto) 16, Monocytes (%) (Auto) 13, Eosinophils (%) (Auto) 5, Basophils (%) (Auto) 0, Neutrophils # (Auto) 6.8, Lymphocytes # (Auto) 1.7, Monocytes # (Auto) 1.4, Eosinophils # (Auto) 0.5, Basophils # (Auto) 0.0, Sodium Level 136, Potassium Level 3.6, Chloride Level 104, Carbon Dioxide Level 24, Anion Gap 8, Blood Urea Nitrogen 26, Creatinine 0.66, Estimat Glomerular Filtration Rate > 60, BUN/Creatinine Ratio 39, Glucose Level 129, Calcium Level 8.4, Corrected Calcium 9.4, Total Bilirubin 0.3, Aspartate Amino Transf (AST/SGOT) 33, Alanine Aminotransferase (ALT/SGPT) 22, Alkaline Phosphatase 62, Total Protein 4.7, Albumin 2.8 Discharge Home Medications: Active Scripts Active Procalamine IV Solution (Aa 3%/Electrolyte-TPN Soln/Gly) 1,000 Ml Iv.soln 100 Ml IV DAILY 30 Days Lorazepam 2 Mg/1 Ml Vial 0.5-1 Mg IV Q6HR PRN 30 Days Geodon (Ziprasidone Mesylate) 20 Mg/1 Ml Vial 20 Mg IM Q12HR 30 Days [Haloperidol Lactate] 5 MG/ML Inj 2 Mg IM Q4H PRN 30 Days Enoxaparin Sodium 40 Mg/0.4 Ml Syringe 40 Mg SC Q24H Venofer (Iron Sucrose Complex) 200 Mg/10 Ml Vial 200 Mg IV Q48H@09 Flomax (Tamsulosin HCl) 0.4 Mg Cap 0.4 Mg PO DAILY@1800 30 Days [Bethanechol Chl] 25 MG Tab 25 Mg PO ACHS 30 Days Reported Montelukast Sodium 10 Mg Tablet 10 Mg PO HS Pepcid (Famotidine) 20 Mg Tablet 20 Mg PO BID Tramadol HCl 50 Mg Tablet 50-100 Mg PO Q6H PRN Losartan Potassium 100 Mg Tablet 100 Mg PO DAILY Clobetasol Propionate 15 Gm Cream..g. 1 Applic TP BID Dodson 3 Fish Oil Softgel (Dodson-3 Fatty Acids/Fish Oil) 1 Each Capsule.dr 1 Each PO DAILY Vitamin D3 (Cholecalciferol (Vitamin D3)) 50 Mcg Capsule 50 Mcg PO DAILY Biotin 2,500 Mcg Capsule 2,500 Mcg PO BID Levothyroxine Sodium 75 Mcg Tablet 75 Mcg PO DAILY Aspirin EC (Aspirin) 81 Mg Tablet.dr 81 Mg PO DAILY Multiple Vitamins (Multivitamin) 1 Each Tablet 1 Tab PO DAILY Atorvastatin Calcium 40 Mg Tablet 40 Mg PO HS Metoprolol Tartrate 25 Mg Tablet 12.5 Mg PO BID TAKES 1/2 (25MG) TABLET Instructions to patient/family Please see electronic discharge instructions given to patient. Diagnosis/Problems Diagnosis/Problems (1) Encephalopathy acute (2) UTI (urinary tract infection) Status: Acute (3) Delirium Status: Acute (4) Hypertension (5) Lumbar stenosis with neurogenic claudication (6) Diaz catheter in place (7) Osteopenia (8) Hypothyroidism (9) Hyponatremia (10) Psoriatic arthritis Status: Chronic (11) Urinary retention (12) Lumbar radiculopathy Clinical Quality Measures DVT/VTE Risk/Contraindication: Risk Factor Score Per Nursin RFS Level Per Nursing on Admit: 4+=Very High Contraindications-Pharm: Other *list below* Contraindications-Mechi: Other *list below* Other: PT HAD RECENT SPINAL SURGERY - SCD'S ONLY JESS SIMON DO Apr 08, 2020 09:21
--- NOTE | 2020-04-08 09:38 | Progress Note - Urology ---
Progress Note-Urology Progress Notes/Assess & Plan Progress/Assessment & Plan TOLERATES URCHOLINE 25 AC AND HS WELL. TOV TOMORROW Final Diagnosis URINE RETENTION OREN AMBROSIO MD Apr 08, 2020 09:38
[2020-04-08 10:40] VITALS: BP 146/70
--- NOTE | 2020-04-08 10:50 | NUR ---
REPORT CALLED TO ZAFAR COON
[2020-04-08] MEDS ORDERED: [UNRECOGNIZED DRUG - CODE] IV (11:06)
[2020-04-08] MEDS ORDERED: Bethanechol Chl PO (11:06)
[2020-04-08] MEDS ORDERED: TMSL.4C PO (11:06)
[2020-04-08] MEDS ORDERED: IRON100V2 IV (11:06)
[2020-04-08] MEDS ORDERED: LORA2VIA3 IV (11:06)
[2020-04-08] MEDS ORDERED: ENOX40DI8 SC (11:06)
[2020-04-08] MEDS ORDERED: Haloperidol Lactate IM (11:06)
[2020-04-08] MEDS ORDERED: ZIPR20VI IM (11:06)
--- NOTE | 2020-04-08 11:08 | NUR ---
CM/SS: Pt will go to [facility] for Swing Bed Non emergent EMS is arranged for pt to be transported to [place]. Paperwork completed, and faxed to EMS.
== END 2020-04-08 12:35 | disposition swing bed (61) | DRG 71 ==
LOC: ICU 05:48 → 4TH 04-05 17:10
PROVIDERS: ADMIT Internal Medicine; ATTEND Internal Medicine
DX: G93.41 Metabolic encephalopathy (principal); F23 Brief psychotic disorder; R45.1 Restlessness and agitation; E87.1 Hypo-osmolality and hyponatremia; N39.0 Urinary tract infection, site not specified; B96.5 Pseudomonas (aeruginosa) (mallei) (pseudomallei) as the cause of diseases classified elsewhere; E87.2 Acidosis; E86.0 Dehydration; L40.50 Arthropathic psoriasis, unspecified; M06.9 Rheumatoid arthritis, unspecified; I10 Essential (primary) hypertension; K59.09 Other constipation; R33.9 Retention of urine, unspecified; D50.9 Iron deficiency anemia, unspecified; E03.9 Hypothyroidism, unspecified; Z85.038 Personal history of other malignant neoplasm of large intestine; F03.90 Unspecified dementia, unspecified severity, without behavioral disturbance, psychotic disturbance, mood disturbance, and anxiety; J30.2 Other seasonal allergic rhinitis; H91.93 Unspecified hearing loss, bilateral; Z95.1 Presence of aortocoronary bypass graft; Z98.890 Other specified postprocedural states; Z92.21 Personal history of antineoplastic chemotherapy; Z97.4 Presence of external hearing-aid
CPT/HCPCS: 36415; 36569; 70450; 71045; 76937; 80053; 80306; 81000; 82140; 82805; 82962; 83605; 83735; 84100; 84145; 84443; 84484; 85007; 85025; 85027; 87040; 87081; 87088

== ENCOUNTER → 2020-08-29 | Outpatient (CLI) | payer MEDICARE, OTHER ==
[~2020-08-29] MED LIST changes: +ASPI-1238 PO; -ASPI-983 PO; +Bethanechol Chl PO; +ENOX40DI8 SC; +Haloperidol Lactate IM; +IRON100V2 IV; +LORA2VIA3 IV; +TMSL.4C PO; +ZIPR20VI IM; +[UNRECOGNIZED DRUG - CODE] IV
[2020-08-29 08:26] LABS: BILIRUBIN,URINE NEGATIVE (NEGATIVE); CLARITY,URINE TURBID; COLOR,URINE YELLOW; GLUCOSE, URINE (UA) NEGATIVE (NEGATIVE); KETONES,URINE NEGATIVE (NEGATIVE); LEUKOCYTE ESTERASE ,URINE 3+ (NEGATIVE); NITRITE,URINE NEGATIVE (NEGATIVE); PROTEIN,URINE 1+ (NEGATIVE)
[2020-08-29 08:41] LABS: BACTERIA,URINE LARGE /HPF; WBC,URINE TNTC /HPF
== END ==
LOC: LABNPT 08:20
PROVIDERS: ATTEND Family Medicine
DX: R50.9 Fever, unspecified (principal); R30.0 Dysuria
CPT/HCPCS: 81000; 87077; 87088; 87186

== ENCOUNTER → 2020-11-24 | Outpatient (CLI) | payer MEDICARE, OTHER ==
[~2020-11-24] MED LIST changes: -MONT10TA26 PO; +MONT10TA97 PO
--- NOTE | 2020-11-24 13:51 | Diagnostic Imaging Report ---
INDICATION: Routine screening. Comparison is made with prior mammogram from 11/22/2019 and 11/07/2018. 2-D and 3-D bilateral screening mammography was performed with CAD. Scattered fibroglandular densities are identified bilaterally. Scattered benign calcifications are noted bilaterally. No mass or malignant appearing microcalcifications are seen. Axillae are unremarkable. IMPRESSION: BI-RADS Category 2 No mammographic features suspicious for malignancy are identified. ACR BI-RADS Category 2: Benign findings. Result letter will be mailed to the patient. Note: At least 10% of breast cancer is not imaged by mammography. Dictated by: Dictated on workstation # [id number]
== END ==
LOC: RAD 08:58
PROVIDERS: ATTEND Nurse Practitioner Family
DX: Z12.31 Encounter for screening mammogram for malignant neoplasm of breast (principal)
CPT/HCPCS: 77063; 77067

== ENCOUNTER → 2021-04-09 | Outpatient (CLI) | payer MEDICARE ==
[~2021-04-09] MED LIST changes: +CLC600T PO; +MONT10TA32 PO; -MONT10TA97 PO; -[UNRECOGNIZED DRUG - CODE] PO
--- NOTE | 2021-04-09 15:04 | Diagnostic Imaging Report ---
EXAMINATION: PA and lateral chest at 238 hours. INDICATION: Congestion, wheezing. FINDINGS: The heart size is stable when compared to the prior exam of 04/01/2020. The sternal wires and surgical clips seen previously are again evident and no different. The lungs remain generally clear. There is still no sign of failure, pneumonia or pleural effusion to indicate an acute abnormality. The mediastinum is not widened. The osseous structures are intact. The orthopedic hardware overlying the upper lumbar spine seen previously is again evident on this study. IMPRESSION: There is no evidence for active disease. Dictated by: Dictated on workstation # [id number]
== END ==
LOC: LAB 13:48
PROVIDERS: ATTEND Nurse Practitioner Family
DX: R09.89 Other specified symptoms and signs involving the circulatory and respiratory systems (principal); R06.2 Wheezing; R05 Cough
CPT/HCPCS: 71046

== ENCOUNTER 2021-04-22 11:36 | Outpatient (CLI) | payer MEDICARE ==
[~2021-04-22] VITALS: Ht 147.3 cm; Wt 56.8 kg
[2021-04-22] MEDS ORDERED: MELO15TA39 PO (13:57)
[2021-04-22] MEDS ORDERED: URIN1STR81 MC (13:57)
[2021-04-22] MEDS ORDERED: MONT10TA32 PO (13:57)
[2021-04-22] MEDS ORDERED: MIRT45TA3 PO (13:57)
[2021-04-22] MEDS ORDERED: ROPI0.253 PO (13:57)
[2021-04-22] MEDS ORDERED: CRAN1CAP5 PO (13:57)
== END 2021-04-22 15:42 | disposition home or self-care (01) ==
LOC: PREOP 11:36
PROVIDERS: ATTEND Surgery
DX: Z01.818 Encounter for other preprocedural examination (principal)

== ENCOUNTER 2021-04-28 10:19 | Day surgery (SDC) | payer MEDICARE, OTHER ==
[~2021-04-28] VITALS: Ht 147.3 cm; Wt 56.8 kg
[2021-04-28] VITALS (14 sets, daily range): BP systolic 90–198; BP diastolic 52–91
[~2021-04-28 10:19] MED LIST changes: +CRAN1CAP5 PO; +MIRT45TA3 PO; +ROPI0.253 PO; +URIN1STR81 MC
[2021-04-28] MEDS ORDERED: NS IV 500 ML 500 ML ONE (10:26)
[2021-04-28] MEDS ORDERED: LIDOCAINE JELLY 2% 6 ML SYRINGE MM PRN (10:30)
[2021-04-28] MEDS ORDERED: NS IV 500 ML 500 ML IV PRN (10:30)
[2021-04-28] MEDS ORDERED: fentaNYL INJ 100 MCG/2 ML AMP IVP ONE (10:30)
[2021-04-28] MEDS ORDERED: MIDAZOLAM 5 MG/5 ML (VERSED) VIAL IV ONE (10:30)
--- NOTE | 2021-04-28 11:43 | Conscious Sedation/ASA ---
Conscious Sedation Pre-Proced Time 11:00 ASA Score 2 For ASA 3 and 4: Consider anesthesia and medical clearance. Also, for patients with a history of failed moderate sedation consider anesthesia. Airway Lungs Heart ASA score ASA 1: a normal healthy patient ASA 2: a patient with a mild systemic disease (mid diabetes, controlled hypertension, obesity ASA 3: a patient with a severe systemic disease that limits activity (angina, COPD, prior Myocardial infarction) ASA 4: a patient with an incapacitating disease that is a constant threat to life (CHF, renal failure) ASA 5: a moribund patient not expected to survive 24 hrs. (ruptured aneurysm) ASA 6: a declared brain- patient whose organs are being harvested. For emergent operations, add the letter E after the classification Mallampati Classification Grade 2 Sedation Plan Analgesia, Amnesia, Plan communicated to team members, Discussed options with patient/fam, Discussed risks with patient/fam The patient is an appropriate candidate to undergo the planned procedure, sedation, and anesthesia. The patient immediately re-assessed prior to indication. MONICA SCHAEFFER MD Apr 28, 2021 11:43
--- NOTE | 2021-04-28 11:44 | Progress Note-Pre Operative ---
Pre-Operative Progress Note H&P Reviewed The H&P was reviewed, patient examined and no changes noted. Date Seen by Provider: Apr 28, 2021 Time Seen by Provider: 11:00 Date H&P Reviewed: Apr 28, 2021 Time H&P Reviewed: 11:00 Pre-Operative Diagnosis: hx colon cancer MONICA SCHAEFFER MD Apr 28, 2021 11:44
[2021-04-28] MEDS ORDERED: morphine INJ 10 MG/ML 1ML (SYR OR VIAL) IVP PRN ×2 (11:45)
[2021-04-28] MEDS ORDERED: HYDROcodone/APAP 5 MG/325 MG (LORTAB) TAB PO PRN (11:45)
[2021-04-28] MEDS ORDERED: ACETAMINOPHEN 325 MG TABLET PO PRN (11:45)
[2021-04-28] MEDS ORDERED: ONDANSETRON 4 MG/2 ML (SDV) Z0FRAN IVP PRN (11:45)
--- NOTE | 2021-04-28 11:45 | Discharge Inst-Surgical ---
D/C Lap Instructions-LAURY Follow Up Activity as tolerated High Fiber Diet 25g or more per day Avoid Alcohol, Caffeine, Spicy [place] and Acid foods. Drink 64 fluid oz or more of fluids per day. Symptoms to Report: Fever over 101 degree F, Nausea/Vomiting If any problems/questions: Contact your physician or go to Emergency Room MONICA SCHAEFFER MD Apr 28, 2021 11:45
[2021-04-28] MEDS ORDERED: fentaNYL INJ 100 MCG/2 ML AMP ONE (13:29)
[2021-04-28] MEDS ORDERED: MIDAZOLAM 5 MG/5 ML (VERSED) VIAL ONE (13:29)
--- NOTE | 2021-04-28 14:24 | Progress Note-Post Operative ---
Post-Operative Progess Note Surgeon (s)/Billiard Table Repairer (s) Surgeon MONICA SCHAEFFER MD Billiard Table Repairer: none Pre-Operative Diagnosis hx colon cancer Post-Operative Diagnosis mild chronic stage 2 ext and int hemorrhoids, mild sigmoid diverticulosis. Procedure & Operative Findings Date of Procedure 04/28/21 Procedure Performed/Findings colonoscopy Anesthesia Type cs Estimated Blood Loss Estimated blood loss (mL): minimal Specimens/Packing Specimens Removed none MONICA SCHAEFFER MD Apr 28, 2021 14:24
--- NOTE | 2021-04-28 18:08 | OPERATIVE REPORT ---
DATE OF SERVICE: 04/28/2021 ATTENDING PRIMARY CARE PHYSICIAN: Clover Ramesh MD PREOPERATIVE DIAGNOSIS: Screening colonoscopy with personal history of colon cancer. POSTOPERATIVE DIAGNOSES: Mild chronic stage II external and internal hemorrhoids, mild sigmoid diverticulosis, normal ileocolonic anastomosis. PROCEDURE: Colonoscopy. SURGEON: Monica Schaeffer MD. ANESTHESIA: Conscious sedation. ESTIMATED BLOOD LOSS: Minimal. FINDINGS: Mild chronic stage II external and internal hemorrhoids, mild sigmoid diverticulosis, normal ileocolonic anastomosis. DISPOSITION: The patient tolerated the procedure well. INDICATIONS: The patient is a 75-year-old female in need of a followup screening colonoscopy. She was diagnosed with a colon cancer in 2000 and underwent a colon resection; however, she is unsure what segment of colon was removed. She did have yearly colonoscopies for a few years and then approximately every 5 years; however, her last one this time around was approximately 7 years ago due to the of her . She is otherwise doing well. Does not report any major issues with diarrhea, no constipation as well as no red blood per rectum nor any dark tarry stools. DESCRIPTION OF PROCEDURE: The patient was brought to the endoscopy suite, laid in left lateral decubitus position. After adequate IV pain and sedative medications and conscious sedation anesthesia, a digital rectal examination was performed. Mild chronic stage II external and internal hemorrhoids were identified, which were not actively edematous nor inflamed and no bleeding. Normal sphincter tone was felt and there were no palpable masses. The endoscope was then intubated and anus and rectum gently insufflated. The endoscope was then advanced through the valves of Wilson of the rectum with no polyps or any neoplasms identified. We then proceeded through the sigmoid colon where a mild sigmoid diverticulosis identified. The endoscope was then advanced through the remainder of the descending and transverse colon to the ileocolonic anastomosis where there were no recurrent lesions. It appears that she has some form of right sided hemicolectomy. The endoscope was then slowly withdrawn while taking a second look and suctioning of residual air with no additional findings. The patient tolerated the procedure well. We will recommend continued medical management with a high-fiber diet with a fiber supplement, which should equal or exceed 25 grams daily as well as significant amounts of water to promote soft stools on a daily basis. Due to her personal history of colon cancer, we will recommend a followup colonoscopy approximately every 5 years. Job ID: [id number] DocumentID: [id number] Dictated Date: 04/28/2021 13:58:53 Chiropractic Practice Manager Date: 04/28/2021 18:07:42 Dictated By: MONICA SCHAEFFER MD
== END 2021-04-28 15:15 | disposition home or self-care (01) ==
LOC: ENDO 10:19
PROVIDERS: ATTEND Surgery
DX: Z12.11 Encounter for screening for malignant neoplasm of colon (principal); K64.4 Residual hemorrhoidal skin tags; K64.1 Second degree hemorrhoids; K57.30 Diverticulosis of large intestine without perforation or abscess without bleeding; E03.9 Hypothyroidism, unspecified; I10 Essential (primary) hypertension; E78.5 Hyperlipidemia, unspecified; M41.9 Scoliosis, unspecified; Z79.890 Hormone replacement therapy; Z79.899 Other long term (current) drug therapy; Z98.0 Intestinal bypass and anastomosis status; Z85.038 Personal history of other malignant neoplasm of large intestine; Z83.3 Family history of diabetes mellitus